=== PATIENT | male | born 1950 | race Caucasian/White ===

== ENCOUNTER 2021-01-19 16:31 | Emergency (ER) | payer MEDICARE, MEDICAID, SELFPAY ==
[2021-01-19] VITALS (8 sets, daily range): BP systolic 180–214; BP diastolic 65–86; PULSE 80–94; RESP 16–20; TEMP 36.9–37.2; O2SAT 94–97; BMI 34.0
--- NOTE | 2021-01-19 | ECG_ITS ---
Test Reason : CP Blood Pressure : / mmHG Vent. Rate : 086 BPM Atrial Rate : 086 BPM P-R Int : 168 ms QRS Dur : 076 ms QT Int : 332 ms P-R-T Axes : 054 035 040 degrees QTc Int : 397 ms Normal sinus rhythm Normal ECG When compared with ECG of 02-JUL-2019 17:57, Heart rate has decreased T wave amplitude has decreased in Lateral leads Referred By: Generic ED Physician Electronically Signed By:MADISYN MATTSON MD
[2021-01-19 18:23] LABS: MANUAL DIFF FLAG NO
[2021-01-19 18:39] LABS: Alanine Aminotransferase 11 U/L (0-40); Albumin Level 4.3 g/dL (3.5-5.0); Alkaline Phosphatase 135 U/L (39-117); Anion Gap 13 (12-20); Aspartate Amino Transferase 18 U/L (5-37); Bilirubin Total 0.2 mg/dL (0.0-1.0); Blood Urea Nitrogen 41 mg/dL (9-16); Calcium 9.2 mg/dL (8.4-10.2); Carbon Dioxide 27 mmol/L (22-29); Chloride 101 mmol/L (96-108); Creatinine Clr Calc Pharmacy 34.9; Estimated Glomerular Filt Rate 37; Glucose Random 135 mg/dL (60-115); Potassium 5.8 mmol/L (3.3-5.1); Sodium 135 mmol/L (135-145); Total Protein 7.9 g/dL (6.5-8.0)
[2021-01-19 18:42] LABS: Basophils Absolute Auto 0.1 X10*3/uL (0.0-0.2); Basophils Percent Auto 1.1 % (0-2); Eosinophils Absolute Auto 1.6 X10*3/uL (0.0-0.4); Eosinophils Percent Auto 15.2 % (0-4); Hematocrit 32.7 % (42.0-52.0); Hemoglobin 9.8 g/dl (14.0-18.0); Imm Gran Abs Auto 0.05 X10*3/uL (0.00-0.03); Imm Gran Pct Auto 0.5 % (0.0-0.4); Lymphocytes Absolute Auto 1.8 X10*3/uL (1.2-4.9); Lymphocytes Percent Auto 17.5 % (20-40); Mean Corpuscular Volume 76.8 fL (80.0-98.0); Mean Platelet Volume 10.4 fL (9.4-12.4); Monocytes Absolute Auto 1.1 X10*3/uL (0.1-1.2); Monocytes Percent Auto 10.8 % (2-11); Neutrophils Absolute Auto 5.8 x10*3/uL (2.0-8.3); Neutrophils Percent Auto 54.9 % (45-73); Platelet Count 355 X10*3/uL (160-400); Red Blood Count 4.26 X10*6/uL (4.60-5.80); Red Cell Distribution Width 16.9 % (11.0-16.0); White Blood Count 10.5 X10*3/uL (4.8-10.8)
--- NOTE | 2021-01-19 21:28 | ED_ITS ---
HPI - General Adult General Chief complaint: General Medical Stated complaint: potassium 6.4 Time Seen by Provider: 01/19/21 21:27 Source: patient Mode of arrival: ambulatory Limitations: no limitations History of Present Illness HPI narrative: Patient was sent in from his clinic for his potassium being too high. The patient has no other symptoms Onset (ago): unknown Associated symptoms: denies other symptoms Related Data Allergies Allergy/AdvReac Type Severity Reaction Status Date / Time ibuprofen Allergy Unknown acute Verified 01/19/21 17:59 renal failure No Known Allergies Allergy Verified 01/19/21 17:59 [No Known Allergies*] Review of Systems Constitutional: Constitutional: Reports no additional constitutional complaints Eyes: Eyes: Reports no additional eye complaints ENT: Denies dizziness Cardiovascular: Cardiovascular: Reports no additional cardiovascular complaints Respiratory: Respiratory: Reports as per HPI Gastrointestinal: Gastrointestinal: Reports no additional gastrointestinal complaints Musculoskeletal: Musculoskeletal: Reports no additional musculoskeletal complaints Integumentary/Breasts: Skin/Breast: Denies rash Neurologic: Reports system reviewed and no additional complaints, except as documented, Denies dizziness and Denies Sensory deficit (Neuro) Psychiatric: Psychiatric: Denies anxiety [facility] Social History Social History Advance Directives: No Physical Exam Vital Signs: Vital Signs: Last Vital Signs Temp 98.5 F 01/19/21 20:12 Pulse 88 01/20/21 00:55 Resp 17 01/20/21 00:55 BP 172/66 H 01/20/21 00:55 Pulse Ox 95 01/20/21 00:55 Body Mass Index 34.0 Const: General: healthy appearing Nutritional Appearance: average body habitus Orientation/consciousness: oriented to person and patient oriented x3 Limitations: no limitations HENMT: Head: Yes normal to inspection Ears: external ears normal General nose exam: Normal external nose present Mouth: Normal oral and palatal mucosa present and oropharynx normal Throat: Yes posterior oropharynx normal Eyes: General: appearance normal, both eyes and all related structures Neck: Other: supple Neck: Yes normal visual inspection Chest: Chest palpation & inspection: normal inspection of the chest Resp: Auscultation: clear to auscultation bilaterally Cardio: Jugular venous distension: no JVD Rate: regular rate Rhythm: regular rhythm Heart sounds: S1 normal heart sound present and S2 normal heart sound present GI: Inspection: Yes normal to inspection Palpation (GI): Soft to palpation, nontender and No hepatosplenomegaly present Auscultation: normal bowel sounds : General: Yes no CVA tenderness Back/Spine/Pelvis: Back: no CVA tenderness Skin: General skin exam: no rashes or lesions noted Neuro: General: oriented to person and patient oriented x3 Cranial nerves: Yes CN's II-XII intact bilaterally Motor exam (neuro): 5/5 motor strength present throughout Sensory Exam: No Sensory deficit (Neuro) Extrem: General: Yes normal to inspection Psych: Appearance: grossly normal Course Reevaluation(s) Reevaluation #1: repeat EKG shows no peaked twaves. Potassium down to 4.5. will stop lisinopril and dc home Time: 01:29 Medical Decision Making Lab Data Result diagrams: 01/19/21 18:17 01/20/21 00:22 Labs: Lab Results 01/19/21 01/19/21 01/19/21 Range/Units 18:17 18:17 21:55 WBC 10.5 (4.8-10.8) X10*3/uL RBC 4.26 L (4.60-5.80) X10*6/uL Hgb 9.8 L (14.0-18.0) g/dl Hct 32.7 L (42.0-52.0) % MCV 76.8 L (80.0-98.0) fL MCH 23.0 L (27.0-33.0) pg MCHC 30.0 L (31.0-36.0) g/dl RDW 16.9 H (11.0-16.0) % Plt Count 355 (160-400) X10*3/uL MPV 10.4 (9.4-12.4) fL Immature Gran % (Auto) 0.5 H (0.0-0.4) % Neut % (Auto) 54.9 (45-73) % Lymph % (Auto) 17.5 L (20-40) % Humphre[place] % (Auto) 10.8 (2-11) % Eos % (Auto) 15.2 H (0-4) % Baso % (Auto) 1.1 (0-2) % Lymph # (Auto) 1.8 (1.2-4.9) X10*3/uL [place] # (Auto) 1.1 (0.1-1.2) X10*3/uL Eos # (Auto) 1.6 H (0.0-0.4) X10*3/uL Baso # (Auto) 0.1 (0.0-0.2) X10*3/uL Abs Immat Gran (auto) 0.05 H (0.00-0.03) X10*3/uL Absolute Neuts (auto) 5.8 (2.0-8.3) x10*3/uL Absolute Nucleated RBC 0.000 (0.0-0.012) X10*3/uL Nucleated RBC % (auto) 0.0 (0.0-0.2) /100WBC Sodium 135 (135-145) mmol/L Potassium 5.8 H (3.3-5.1) mmol/L Chloride 101 (96-108) mmol/L Carbon Dioxide 27 (22-29) mmol/L Anion Gap 13 (12-20) BUN 41 H (9-16) mg/dL Creatinine 1.83 H (0.5-1.4) mg/dL Estim Creat Clear Calc 34.9 Estimated GFR 37 POC Glucose 97 (60-115) mg/dL Random Glucose 135 H (60-115) mg/dL Calcium 9.2 (8.4-10.2) mg/dL Total Bilirubin 0.2 (0.0-1.0) mg/dL AST 18 (5-37) U/L ALT 11 (0-40) U/L Alkaline Phosphatase 135 H (39-117) U/L Total Protein 7.9 (6.5-8.0) g/dL Albumin 4.3 (3.5-5.0) g/dL 01/19/21 01/20/21 Range/Units 22:22 00:22 WBC (4.8-10.8) X10*3/uL RBC (4.60-5.80) X10*6/uL Hgb (14.0-18.0) g/dl Hct (42.0-52.0) % MCV (80.0-98.0) fL MCH (27.0-33.0) pg MCHC (31.0-36.0) g/dl RDW (11.0-16.0) % Plt Count (160-400) X10*3/uL MPV (9.4-12.4) fL Immature Gran % (Auto) (0.0-0.4) % Neut % (Auto) (45-73) % Lymph % (Auto) (20-40) % Humphreys % (Auto) (2-11) % Eos % (Auto) (0-4) % Baso % (Auto) (0-2) % Lymph # (Auto) (1.2-4.9) X10*3/uL Humph[place]ys # (Auto) (0.1-1.2) X10*3/uL Eos # (Auto) (0.0-0.4) X10*3/uL Baso # (Auto) (0.0-0.2) X10*3/uL Abs Immat Gran (auto) (0.00-0.03) X10*3/uL Absolute Neuts (auto) (2.0-8.3) x10*3/uL Absolute Nucleated RBC (0.0-0.012) X10*3/uL Nucleated RBC % (auto) (0.0-0.2) /100WBC Sodium 141 (135-145) mmol/L Potassium 4.5 D (3.3-5.1) mmol/L Chloride 109 H (96-108) mmol/L Carbon Dioxide 23 (22-29) mmol/L Anion Gap 14 (12-20) BUN 34 H (9-16) mg/dL Creatinine 1.54 H (0.5-1.4) mg/dL Estim Creat Clear Calc 41.5 Estimated GFR 45 POC Glucose 169 H (60-115) mg/dL Random Glucose 142 H (60-115) mg/dL Calcium 9.8 D (8.4-10.2) mg/dL Total Bilirubin (0.0-1.0) mg/dL AST (5-37) U/L ALT (0-40) U/L Alkaline Phosphatase (39-117) U/L Total Protein (6.5-8.0) g/dL Albumin (3.5-5.0) g/dL ECG Data Attestation: I personally reviewed and interpreted this ECG as follows: Interpretation: sinus rate of 85, slight hyperacute ts V3-V6 Discharge Plan Discharge Clinical Impression: Acute hyperkalemia Patient Disposition: Home, Self-Care Instructions: Hyperkalemia (ED) Additional Instructions: Must stop lisinopril as potassium has been running high Referrals: Shana Morales MD [Primary Care Provider] - 2 days
[2021-01-19] MEDS: Sodium Polystyrene Sulfon/Sorb 15 GM/60 ML ORAL.SUSP 30 GM PO (21:42)
[2021-01-19] MEDS: 0.9 % Sodium Chloride 1,000 ML 999 ML IVCONT ×2 (21:47→22:56)
[2021-01-19] MEDS: Sodium Bicarbonate 8.4% 50 MEQ/50 ML SYRINGE IVPUSH (21:53)
[2021-01-19] MEDS: Calcium Chloride 1 GM/10 ML SYRINGE IVPUSH (21:57)
[2021-01-19] MEDS: Insulin Regular, Human 100 UNIT/ML 3 ML VIAL 10 UNIT IVPUSH (22:03)
[2021-01-19 22:26] LABS: Glucose, Whole Blood 169 mg/dL (60-115)
--- NOTE | 2021-01-19 22:35 | PC.NURSE ---
Pt alert and oriented x4, calm and cooperative. Pt BP noted to be elevated, not able to find MD at this time, looked multiple times. Pt states he did not take his BP meds this morning, RN awaiting new orders for blood pressure medication at this time. Pt denies headache or dizziness. Pt denies pain. Pt received multiple IV medications to lower K level and tolerated meds well. POC prior to meds was 97 taken by RN, POC after meds was 169 taken by eneida and RN aware. Pt remains on tele monitor, heart rate WNL O2 sat WNL on room air. Pt resting in stretcher without complaints will continue to monitor.
[2021-01-19] MEDS: amLODIPine Besylate 10 MG TABLET PO (22:44)
[2021-01-19] MEDS: carvediloL 6.25 MG TABLET PO (22:44)
[2021-01-19 22:50] LABS: Glucose, Whole Blood 97 mg/dL (60-115)
--- NOTE | 2021-01-20 00:08 | ECG_ITS ---
Test Reason : HYPERTENSION Blood Pressure : / mmHG Vent. Rate : 091 BPM Atrial Rate : 091 BPM P-R Int : 178 ms QRS Dur : 070 ms QT Int : 320 ms P-R-T Axes : 050 043 023 degrees QTc Int : 393 ms Sinus rhythm with Premature atrial complexes with Aberrant conduction Nonspecific ST abnormality Abnormal ECG When compared with ECG of 19-JAN-2021 18:09, Aberrant conduction is now Present Referred By: Gerry Farah Electronically Signed By:MADISYN MATTSON MD
[2021-01-20 00:18] VITALS: BP 196/75; PULSE 85; RESP 16; O2SAT 97
[2021-01-20 00:47] LABS: Anion Gap 14 (12-20); Blood Urea Nitrogen 34 mg/dL (9-16); Calcium 9.8 mg/dL (8.4-10.2); Carbon Dioxide 23 mmol/L (22-29); Chloride 109 mmol/L (96-108); Creatinine Clr Calc Pharmacy 41.5; Estimated Glomerular Filt Rate 45; Glucose Random 142 mg/dL (60-115); Potassium 4.5 mmol/L (3.3-5.1); Sodium 141 mmol/L (135-145)
[2021-01-20 00:55] VITALS: BP 172/66; PULSE 88; RESP 17; O2SAT 95
[2021-01-20 01:45] VITALS: BP 174/80; PULSE 85; RESP 16; TEMP 37; O2SAT 96
== END 2021-01-20 01:53 | disposition home or self-care (01) ==
PROVIDERS: Emergency Provider Emergency Medicine; PCP Internal Medicine
DX: E87.5 Hyperkalemia (principal)
CPT/HCPCS: 36415; 80048; 80053; 82947; 85025; 93005; 96361; 96374; 96375; 99285

== ENCOUNTER 2022-01-09 08:47 | Inpatient (IN) | payer MEDICARE, MEDICAID, SELFPAY ==
[2022-01-09] VITALS (8 sets, daily range): BP systolic 148–172; BP diastolic 53–72; PULSE 56–85; RESP 8–20; TEMP 36.5–36.9; O2SAT 89–97; BMI 35.3
--- NOTE | 2022-01-09 | ECG_ITS ---
Test Reason : DIABETIC ISSUES Blood Pressure : / mmHG Vent. Rate : 069 BPM Atrial Rate : 069 BPM P-R Int : 170 ms QRS Dur : 072 ms QT Int : 354 ms P-R-T Axes : 072 038 043 degrees QTc Int : 379 ms Normal sinus rhythm Normal ECG When compared with ECG of 20-JAN-2021 00:17, Aberrant conduction is no longer Present Referred By: Generic ED Physician Electronically Signed By:MADISYN MATTSON MD
--- NOTE | ~2022-01-09 | XR_ITS ---
EXAMINATION: XR CHEST CLINICAL INFORMATION: Shortness of breath COMPARISON: Chest x-ray 07/02/2019 TECHNIQUE: 2 views of the chest were obtained. FINDINGS: Cardiac silhouette is normal in size. The lungs are adequately aerated. Some patchy bilateral airspace opacities are again noted, however, they are in a similar distribution to imaging from June 2019. There is no gross lobar consolidation identified. No pleural effusion or pneumothorax. Mild degenerative changes of the spine. XR/XR chest 2V IMPRESSION: Relatively similar distribution of patchy bilateral airspace opacities. Findings may represent chronic changes, however, a superimposed acute process is not excluded. Clinical correlation is recommended. Further evaluation can always be obtained with CT imaging as clinically indicated.
--- NOTE | ~2022-01-09 | CT_ITS ---
EXAMINATION: CT ABDOMEN AND PELVIS WITHOUT CONTRAST CLINICAL INFORMATION: Bright red blood per rectum. History of IV drug use. Rule out mass. COMPARISON: Previous renal ultrasound February 2018 TECHNIQUE: Multidetector volumetric imaging was performed from the superior aspect of the liver through the pubic symphysis. Sagittal and coronal reformatted images were obtained on the technologist's workstation. This CT examination was performed using dose optimization techniques as appropriate, variously including the following: *Automated exposure control *Adjustment of mA and/or kV according to patient size (this includes techniques or standardized protocols for targeted exams where dose is matched to indication/reason for exam; i.e. extremities or head) *Use of iterative reconstruction technique DLP: 704 mGy-cm FINDINGS: LUNG BASES: The heart is enlarged. There is subsegmental atelectasis at the left lung base. There is a small left pleural effusion. There is a tiny right pleural effusion. LIVER, GALLBLADDER, AND BILIARY TREE: The liver is normal in size, shape, and attenuation. No focal hepatic lesion or biliary ductal dilatation is present. The gallbladder is unremarkable with no evidence of radiopaque gallstones, gallbladder wall thickening, or obvious pericholecystic inflammatory changes. PANCREAS: Unremarkable. SPLEEN: Unremarkable. ADRENAL GLANDS: Unremarkable. KIDNEYS AND URETERS: 1 cm low-attenuation lesion in the lower pole of the left kidney probably representing a cyst. 5 mm high attenuation lesion in the upper pole of the left kidney question representing calcification/stone or a small stone. 5 mm high attenuation lesion exophytic to the posterior upper pole the right kidney probably representing a hyperdense cyst. BLADDER: Unremarkable. GASTROINTESTINAL TRACT: Mild diverticulosis of the colon. No evidence of diverticulitis, colitis or mass. The small and large bowel are otherwise unremarkable. The appendix is unremarkable. ABDOMINAL WALL: Small umbilical hernia containing fat. LYMPH NODES: Shotty bilateral inguinal and retroperitoneal lymphadenopathy. No enlarged lymph nodes. No ascites. VASCULAR: Atherosclerotic disease. No aneurysm. PELVIC VISCERA: Unremarkable. OSSEOUS STRUCTURES: Degenerative changes of the spine. CT/CT abdomen pelvis wo IV con IMPRESSION: Diverticulosis of the colon. No evidence of diverticulitis, colitis or mass. Bilateral renal cysts. Question small stone in the upper pole of the left kidney. Fleischner guidelines were followed.
[2022-01-09 09:25] LABS: MANUAL DIFF FLAG NO
[2022-01-09 09:37] LABS: Basophils Absolute Auto 0.1 X10*3/uL (0.0-0.2); Basophils Percent Auto 0.5 % (0-2); Eosinophils Absolute Auto 1.5 X10*3/uL (0.0-0.4); Eosinophils Percent Auto 13.7 % (0-4); Hematocrit 23.3 % (42.0-52.0); Imm Gran Abs Auto 0.04 X10*3/uL (0.00-0.03); Imm Gran Pct Auto 0.4 % (0.0-0.4); Lymphocytes Absolute Auto 0.9 X10*3/uL (1.2-4.9); Lymphocytes Percent Auto 8.8 % (20-40); Mean Corpuscular HGB Conc 26.6 g/dl (31.0-36.0); Mean Platelet Volume 8.8 fL (9.4-12.4); Monocytes Absolute Auto 1.4 X10*3/uL (0.1-1.2); Monocytes Percent Auto 12.7 % (2-11); Neutrophils Absolute Auto 6.8 x10*3/uL (2.0-8.3); Neutrophils Percent Auto 63.9 % (45-73); Platelet Count 492 X10*3/uL (160-400); Red Blood Count 3.65 X10*6/uL (4.60-5.80); Red Cell Distribution Width 21.1 % (11.0-16.0); White Blood Count 10.7 X10*3/uL (4.8-10.8)
[2022-01-09 09:39] LABS: Mean Corpuscular Volume 63.8 fL (80.0-98.0); NRBC Pct Auto 1.7 /100WBC (0.0-0.2)
[2022-01-09 09:49] LABS: Anion Gap 17 (12-20); Blood Urea Nitrogen 54 mg/dL (9-16); Calcium 8.4 mg/dL (8.4-10.2); Carbon Dioxide 26 mmol/L (22-29); Chloride 100 mmol/L (96-108); Creatinine Clr Calc Pharmacy 29.6; Estimated Glomerular Filt Rate 30; Glucose Random 141 mg/dL (60-115); Potassium 5.7 mmol/L (3.3-5.1); Sodium 137 mmol/L (135-145)
[2022-01-09 09:52] LABS: Troponin-I High Sensitivity 12.9 ng/L (<3.5-35.0)
[2022-01-09 09:58] LABS: B Type Natriuretic Peptide 967 pg/mL (<100)
[2022-01-09 11:13] LABS: MANUAL DIFF FLAG NO
[2022-01-09 11:15] LABS: Basophils Absolute Auto 0.1 X10*3/uL (0.0-0.2); Basophils Percent Auto 0.5 % (0-2); Eosinophils Absolute Auto 1.6 X10*3/uL (0.0-0.4); Eosinophils Percent Auto 12.8 % (0-4); Imm Gran Abs Auto 0.06 X10*3/uL (0.00-0.03); Imm Gran Pct Auto 0.5 % (0.0-0.4); Lymphocytes Absolute Auto 0.9 X10*3/uL (1.2-4.9); Lymphocytes Percent Auto 7.4 % (20-40); Mean Corpuscular HGB Conc 27.4 g/dl (31.0-36.0); Mean Corpuscular Hemoglobin 17.4 pg (27.0-33.0); Mean Platelet Volume 8.4 fL (9.4-12.4); Monocytes Absolute Auto 1.5 X10*3/uL (0.1-1.2); Monocytes Percent Auto 11.5 % (2-11); Neutrophils Absolute Auto 8.5 x10*3/uL (2.0-8.3); Neutrophils Percent Auto 67.3 % (45-73); Platelet Count 465 X10*3/uL (160-400); Red Blood Count 3.62 X10*6/uL (4.60-5.80); White Blood Count 12.6 X10*3/uL (4.8-10.8)
[2022-01-09 11:16] LABS: OBS Int Ctl Valid YES; OBS1 NEGATIVE (NEGATIVE)
[2022-01-09 11:19] LABS: Mean Corpuscular Volume 63.5 fL (80.0-98.0); NRBC Pct Auto 1.2 /100WBC (0.0-0.2)
[2022-01-09 11:21] LABS: Hemoglobin 6.2 g/dl (14.0-18.0)
[2022-01-09 11:23] LABS: Hemoglobin 6.3 g/dl (14.0-18.0)
[2022-01-09 11:35] LABS: Troponin-I High Sensitivity 12.2 ng/L (<3.5-35.0)
[2022-01-09] MEDS: Furosemide 20 MG/2 ML VIAL IVPUSH ×2 (11:39→20:54)
--- NOTE | 2022-01-09 11:42 | ED_ITS ---
HPI - Male Genitourinary General Chief complaint: Urogenital-Male Stated complaint: Diabetic issues/testicle pain Time Seen by Provider: 01/09/22 10:22 History of Present Illness HPI Narrative: Patient is a 71-year-old male presented today with generalized malaise weakness. Scrotal swelling leg swelling that is been ongoing for the last few days. Patient has a long history of diabetes. No history of congestive heart failure. Patient from home. Denies noticing any dark stool. No bloody stool. No coughing or congestion or upper respiratory symptoms. Patient is vaccinated for COVID. No chest pain. Related Data Allergies Allergy/AdvReac Type Severity Reaction Status Date / Time ibuprofen Allergy Unknown acute Verified 01/19/21 17:59 renal failure No Known Allergies Allergy Verified 01/19/21 17:59 [No Known Allergies*] Review of Systems Review of Systems: Positive leg and scrotal swelling positive generalized malaise Yes all other systems are reviewed and are negative [facility] Past Medical History Attestation statement: The following information was validated with the patient. Social History Social History Advance Directives: No Advance Directives Information Provided: Yes Physical Exam Vital Signs: Vital Signs: Last Vital Signs Temp 98.5 F 01/09/22 10:26 Pulse 67 01/09/22 10:26 Resp 16 01/09/22 10:26 BP 172/65 H 01/09/22 10:26 Pulse Ox 97 01/09/22 10:26 O2 Del Method 01/09/22 10:26 O2 Flow Rate 2 01/09/22 10:26 BMI result Body Mass Index 35.3 Appearance: Alert. Oriented X3. No acute distress. Eyes: Pupils equal, round and reactive to light. ENT: Pharynx normal. Neck: Normal inspection. Neck supple. No lymph nodes noted. No crepitus CVS: Normal heart rate and rhythm. Pulses normal. Normal S1 and S2 Respiratory: No respiratory distress. Breath sounds normal. No Wheezing. No rales Abdomen: Soft and nontender. No rigidity. No distention. good BS x4 Rectal exam done with nurse Magaly present. It was brown stool. Heme negative. Skin: Skin warm and dry. Normal skin color. Normal skin turgor. Extremities: 3+ pitting edema positive scrotal swelling noted. Neurovascular intact to all extremities. No Lacerations. No Rash Neuro: Oriented X 3. No motor deficit. No sensory deficit. Moving all extermities. No slurred speech Medications Administered Discontinued Medications Generic Name Dose Route Start Last Admin Trade Name Kota PRN Reason Stop Dose Admin Furosemide 20 mg 01/09/22 11:34 01/09/22 11:39 Furosemide 20 Mg/2 Ml Vial IVPUSH 01/09/22 11:35 20 mg ONCE ONE Administration Protocol MDM - Male Genitourinary MDM Narrative Medical decision making narrative: Patient's hemoglobin returned to be 6.3. This is a new finding. Low MCV. Question etiology. Patient did not notice any bloody stool. Rectal exam was heme-negative. Iron profile was ordered. Patient also noted to have elevated BNP over 900 with no old BNP to compare. Bilateral leg edema. Question right- sided heart failure. Small dose of Lasix was given. Patient will require additional admission for further evaluation. Patient's blood was typed and crossed. We will go ahead and transfuse a unit of blood very slowly. Currently in stable condition. Patient's EKG showed a sinus rhythm heart rate is 70 GA QRS QT within normal limits is no acute ST segment elevation noted. Medical Records Attestation: I reviewed the patient's medical records. Lab Data Attestation: I reviewed the patient's lab results. Result diagrams: 01/09/22 11:06 01/09/22 09:15 Labs: Lab Results 01/09/22 01/09/22 01/09/22 Range/Units 09:15 09:15 09:15 WBC 10.7 (4.8-10.8) X10*3/uL RBC 3.65 L (4.60-5.80) X10*6/uL Hgb 6.2 L* D (14.0-18.0) g/dl Hct 23.3 L D (42.0-52.0) % MCV 63.8 L (80.0-98.0) fL MCH 17.0 L (27.0-33.0) pg MCHC 26.6 L (31.0-36.0) g/dl RDW 21.1 H (11.0-16.0) % Plt Count 492 H D (160-400) X10*3/uL MPV 8.8 L (9.4-12.4) fL Immature Gran % (Auto) 0.4 (0.0-0.4) % Neut % (Auto) 63.9 (45-73) % Lymph % (Auto) 8.8 L (20-40) % [place] % (Auto) 12.7 H (2-11) % Eos % (Auto) 13.7 H (0-4) % Baso % (Auto) 0.5 (0-2) % Lymph # (Auto) 0.9 L (1.2-4.9) X10*3/uL [place] # (Auto) 1.4 H (0.1-1.2) X10*3/uL Eos # (Auto) 1.5 H (0.0-0.4) X10*3/uL Baso # (Auto) 0.1 (0.0-0.2) X10*3/uL Abs Immat Gran (auto) 0.04 H (0.00-0.03) X10*3/uL Absolute Neuts (auto) 6.8 (2.0-8.3) x10*3/uL Absolute Nucleated RBC 0.180 H (0.0-0.012) X10*3/uL Nucleated RBC % (auto) 1.7 H (0.0-0.2) /100WBC Sodium 137 (135-145) mmol/L Potassium 5.7 H D (3.3-5.1) mmol/L Chloride 100 (96-108) mmol/L Carbon Dioxide 26 (22-29) mmol/L Anion Gap 17 (12-20) BUN 54 H (9-16) mg/dL Creatinine 2.17 H (0.5-1.4) mg/dL Estim Creat Clear Calc 29.6 Estimated GFR 30 Random Glucose 141 H (60-115) mg/dL Calcium 8.4 D (8.4-10.2) mg/dL Troponin I High Sens 12.9 (<3.5-35.0) ng/L B-Natriuretic Peptide 967 H (<100) pg/mL Stool Occult Blood (NEGATIVE) Crossmatch 01/09/22 01/09/22 01/09/22 Range/Units 11:06 11:06 11:07 WBC 12.6 H (4.8-10.8) X10*3/uL RBC 3.62 L (4.60-5.80) X10*6/uL Hgb 6.3 L* (14.0-18.0) g/dl Hct 23.0 L (42.0-52.0) % MCV 63.5 L (80.0-98.0) fL MCH 17.4 L (27.0-33.0) pg MCHC 27.4 L (31.0-36.0) g/dl RDW 21.0 H (11.0-16.0) % Plt Count 465 H (160-400) X10*3/uL MPV 8.4 L (9.4-12.4) fL Immature Gran % (Auto) 0.5 H (0.0-0.4) % Neut % (Auto) 67.3 (45-73) % Lymph % (Auto) 7.4 L (20-40) % [place] % (Auto) 11.5 H (2-11) % Eos % (Auto) 12.8 H (0-4) % Baso % (Auto) 0.5 (0-2) % Lymph # (Auto) 0.9 L (1.2-4.9) X10*3/uL [place] # (Auto) 1.5 H (0.1-1.2) X10*3/uL Eos # (Auto) 1.6 H (0.0-0.4) X10*3/uL Baso # (Auto) 0.1 (0.0-0.2) X10*3/uL Abs Immat Gran (auto) 0.06 H (0.00-0.03) X10*3/uL Absolute Neuts (auto) 8.5 H (2.0-8.3) x10*3/uL Absolute Nucleated RBC 0.150 H (0.0-0.012) X10*3/uL Nucleated RBC % (auto) 1.2 H (0.0-0.2) /100WBC Sodium (135-145) mmol/L Potassium (3.3-5.1) mmol/L Chloride (96-108) mmol/L Carbon Dioxide (22-29) mmol/L Anion Gap (12-20) BUN (9-16) mg/dL Creatinine (0.5-1.4) mg/dL Estim Creat Clear Calc Estimated GFR Random Glucose (60-115) mg/dL Calcium (8.4-10.2) mg/dL Troponin I High Sens 12.2 (<3.5-35.0) ng/L B-Natriuretic Peptide (<100) pg/mL Stool Occult Blood NEGATIVE (NEGATIVE) Crossmatch 01/09/22 Range/Units 11:13 WBC (4.8-10.8) X10*3/uL RBC (4.60-5.80) X10*6/uL Hgb (14.0-18.0) g/dl Hct (42.0-52.0) % MCV (80.0-98.0) fL MCH (27.0-33.0) pg MCHC (31.0-36.0) g/dl RDW (11.0-16.0) % Plt Count (160-400) X10*3/uL MPV (9.4-12.4) fL Immature Gran % (Auto) (0.0-0.4) % Neut % (Auto) (45-73) % Lymph % (Auto) (20-40) % [place] % (Auto) (2-11) % Eos % (Auto) (0-4) % Baso % (Auto) (0-2) % Lymph # (Auto) (1.2-4.9) X10*3/uL [place] # (Auto) (0.1-1.2) X10*3/uL Eos # (Auto) (0.0-0.4) X10*3/uL Baso # (Auto) (0.0-0.2) X10*3/uL Abs Immat Gran (auto) (0.00-0.03) X10*3/uL Absolute Neuts (auto) (2.0-8.3) x10*3/uL Absolute Nucleated RBC (0.0-0.012) X10*3/uL Nucleated RBC % (auto) (0.0-0.2) /100WBC Sodium (135-145) mmol/L Potassium (3.3-5.1) mmol/L Chloride (96-108) mmol/L Carbon Dioxide (22-29) mmol/L Anion Gap (12-20) BUN (9-16) mg/dL Creatinine (0.5-1.4) mg/dL Estim Creat Clear Calc Estimated GFR Random Glucose (60-115) mg/dL Calcium (8.4-10.2) mg/dL Troponin I High Sens (<3.5-35.0) ng/L B-Natriuretic Peptide (<100) pg/mL Stool Occult Blood (NEGATIVE) Crossmatch See Detail ECG Data Attestation: I personally reviewed and interpreted this ECG as follows: Discharge Plan Discharge Clinical Impression: Anemia, CHF (congestive heart failure) Patient Disposition: Admitted As Inpatient
[2022-01-09 11:46] LABS: Alanine Aminotransferase 104 U/L (0-40); Albumin Level 3.9 g/dL (3.5-5.0); Alkaline Phosphatase 94 U/L (39-117); Aspartate Amino Transferase 25 U/L (5-37); Bilirubin Direct 0.2 mg/dL (0.0-0.5); Bilirubin Total 0.3 mg/dL (0.0-1.0); Total Protein 7.1 g/dL (6.5-8.0)
[2022-01-09 11:57] LABS: COVID-19 Test Negative (Negative); IDNOW Serial# 16C4AD1C
--- NOTE | 2022-01-09 12:54 | PHA.MEDREC ---
Pharmacy Consult ? Medication Reconciliation Pharmacy has completed the medication reconciliation. Completed using family helper. Patient states he doesn't know what medications he is on but takes what the pharmacy gives him. He says there isn't anyone who would know other than the pharmacy. Used most recent pharmacy fills to complete med rec.
[2022-01-09 12:59] LABS: Ferritin 6 ng/mL (20-250); Iron 13 mcg/dL (45-160); Percent Iron Saturation 3 % (15-50); Total Iron Binding Capacity 419 mcg/dL (228-428); Unsaturated Iron Binding 406 ug/dL
[2022-01-09 15:00] LABS: Appearance Urine Clear; Color Urine Yellow; Glucose Urine UA Negative (Negative); Leukocyte Esterase Urine Negative (Negative); Nitrite Urine Negative (Negative); UMIC TRIGGER UACC YES; Urine Blood Negative (Negative); Urine Ketones Negative (Negative); Urine Protein 100 (2+) mg/dL (Neg-Trace)
[2022-01-09 15:09] LABS: Bacteria Urine None Seen (None Seen); Hyaline Casts Urine 0-2 /LPF (0-2); RBC Urine 0-2 /HPF (0-2); Squamous Epithelial Cell Urine 0-2 /HPF (0-2); WBC Urine 0-5 /HPF (0-5)
[2022-01-09 15:12] LABS: Creatinine Urine 49.49 mg/dL
--- NOTE | 2022-01-09 15:28 | PM.IMHP ---
History of Present Illness Date of Service: 01/09/22 Attending physician on admission: Val Peter Chief Complaint: fluid overload 71-year-old male with history of cwu-jkahsku-vcjgkyjrw type 2 diabetes, CKD, mild intermittent asthma, opioid dependence on Suboxone, and hypertension presented to the ED earlier this morning for evaluation of several days of scrotal and bilateral leg edema. He denies any history of similar symptoms. He denies any shortness of breath, dyspnea exertion, orthopnea, palpitations, lightheadedness, or chest pain. He does also report some decreased urinary output but denies any dysuria, hematuria, increased urinary frequency, or incontinence. No fevers, chills, sick contacts, nausea, vomiting, abdominal pain, flank pain. On arrival, H/H 6.2/23.3%, last 9.8/30 2.7% in January 2021. He denies any recent bleeding episodes-no epistaxis, rectal bleeding, easy bruisability. He does take a baby aspirin daily but not on any anticoagulation. On repeat, H/H 6.3/20 3.0%. Creatinine 2.17, BUN 54 (/measured at 1.54, 34 respectively 1 year ago). He states he did use to follow with Dr. Nazario and Nephrology but has not seen him in many months. Potassium 5.7, sodium 137, chloride 100, CO2 26. Iron 13, TIBC 419 current saturation 3, ferritin 6. Troponins flat. BNP 967. Stool is heme negative. UA unremarkable. Urine sodium 36, urine potassium 57, urine creatinine 49. CXR shows patchy bilateral airspace opacities relatively similar to prior CXR in June 2019. No pleural effusions. 1 unit packed red cells administered with 20 mg furosemide. Patient was placed on 2 L supplemental O2 due to hypoxia down to 88% noted by nursing staff now stable at 96%. Vital signs have otherwise been stable. Review of Systems Review of Systems: General: No fevers, malaise, unintentional weight loss HEENT: No blurred vision, diplopia. No sore throat, nasal congestion, rhinorrhea, sinus pain, ear pain Cardiovascular: No chest pain, palpitations, +ble edema/scrotal edema Respiratory: No shortness of breath, wheezing, cough GI: No abdominal pain, nausea, vomiting, diarrhea, constipation, melena, hematochezia : No dysuria, hematuria, increased urinary frequency, decreased urinary output MSK: No myalgia, back pain Neuro: No headaches, weakness, paresthesias Skin: No rashes or lesions PMFSH Social History Advance Directives: No Advance Directives Information Provided: Yes Meds Allergies Allergy/AdvReac Type Severity Reaction Status Date / Time ibuprofen Allergy Unknown acute Verified 01/19/21 17:59 renal failure No Known Allergies Allergy Verified 01/19/21 17:59 [No Known Allergies*] Active Medications: Current Medications Acetaminophen (Acetaminophen 325 Mg Tablet) 650 mg PO Q6H PRN PRN Reason: Pain, Mild (Pain Scale 1-3) Amlodipine Besylate (Amlodipine Besylate 10 Mg Tablet) 10 mg PO DAILY FER; Protocol Buprenorphine/Naloxone (Buprenorphine/Naloxone 8/2 Mg Film) 1 film SUBLINGUAL DAILY FER Buprenorphine/Naloxone (Buprenorphine/Naloxone 4/1 Mg Film) 1 film SUBLINGUAL DAILY FER Carvedilol (Carvedilol 6.25 Mg Tablet) 6.25 mg PO BID FER; Protocol Dextrose (Dextrose 50 % 25 Gm/50 Ml Syringe) 25 gm IVPUSH Q15M PRN; Protocol PRN Reason: per Hypoglycemia Standing Ord. Docusate Sodium (Docusate Sodium 100 Mg Capsule) 100 mg PO DAILY PRN PRN Reason: Constipation Glucose (Glucose Gel 15 Gm Gel..Gram.) 15 gm PO Q15M PRN; Protocol PRN Reason: per Hypoglycemia Standing Ord. Heparin Sodium (Porcine) (Heparin Sodium,Porcine 5,000 Unit/Ml Vial) 5,000 unit SUBCUT Q12H [facility] Hydralazine HCl (Hydralazine Hcl 25 Mg Tablet) 25 mg PO TID [facility]; Protocol Insulin Human Lispro (Insulin Lispro 100 Unit/Ml 3 Ml Vial) 0 unit SUBCUT QIDACHS FER; Protocol Ondansetron HCl (Ondansetron Hcl 4 Mg/2 Ml Vial) 4 mg IVPUSH Q8H PRN PRN Reason: Nausea and Vomiting Pharmacy Consult (Consult Rx Perform Med Rec) 1 each MISCELLANE ONCE PRN PRN Reason: Consult order Pharmacy Consult (Consult Rx Perform Med Rec) 1 each MISCELLANE ONCE PRN PRN Reason: Consult order Sodium Chloride (0.9 % Sodium Chloride Flush 3 Ml Syringe) 3 ml IVFLUSH QSHIFT [facility] Home Medications Medication Instructions Recorded Confirmed Last Taken Type albuterol sulfate 2.5 mg/3 mL 1 amp inhalation TID 01/09/22 01/09/22 Unknown History (0.083 %) solution for nebulization albuterol sulfate 90 mcg/actuation 2 puff inhalation Q4-6H PRN 01/09/22 01/09/22 Unknown History aerosol inhaler (Ventolin HFA) Shortness Of Breath Or Wheezing amlodipine 10 mg tablet 10 mg PO DAILY 01/09/22 01/09/22 01/08/22 History aspirin 81 mg tablet,delayed 81 mg PO DAILY 01/09/22 01/09/22 01/08/22 History release buprenorphine 8 mg-naloxone 2 mg 1.5 strip sublingual DAILY 01/09/22 01/09/22 01/08/22 History sublingual film carvedilol 6.25 mg tablet 6.25 mg PO BID 01/09/22 01/09/22 01/09/22 History hydralazine 25 mg tablet 25 mg PO Q8H 01/09/22 01/09/22 Unknown History Physical Exam Vital Signs and Narrative: Vital Signs: Last Vital Signs Temp 97.8 F 01/09/22 14:31 Pulse 56 01/09/22 14:31 Resp 13 01/09/22 14:31 BP 165/64 H 01/09/22 14:31 Pulse Ox 97 01/09/22 10:26 O2 Del Method 01/09/22 10:26 O2 Flow Rate 2 01/09/22 10:26 BMI result Body Mass Index 35.3 Constitutional - Awake and Alert, No apparent distress Eyes - PERRLA, EOMI Cardiovascular - S1S2, RRR, 3+ pitting edema BLE Respiratory - Normal lung expansion, Normal respiratory effort, No respiratory distress, CTA bilaterally Gastrointestinal - NT / ND; +BS; No rebound or guarding - No CVA tenderness. +scrotal and penile edmea Extremities - no calf tenderness bilaterally, no swelling Musculoskeletal - Normal inspection, normal ROM Skin - Warm/Dry Neurological - Alert & oriented x3, CN II-XII in tact, 5/5 strength BUE and BLE Psychological - Appropriate affect Results Labs CBC and Chem 7: 01/09/22 11:06 01/09/22 15:08 Labs: Laboratory Results - last 24 hr 01/09/22 01/09/22 01/09/22 09:15 09:15 09:15 MCV 63.8 L MCH 17.0 L MCHC 26.6 L RDW 21.1 H Plt Count 492 H D MPV 8.8 L Immature Gran % (Auto) 0.4 Neut % (Auto) 63.9 Lymph % (Auto) 8.8 L Hughes % (Auto) 12.7 H Eos % (Auto) 13.7 H Baso % (Auto) 0.5 Lymph # (Auto) 0.9 L Hughes # (Auto) 1.4 H Eos # (Auto) 1.5 H Baso # (Auto) 0.1 Abs Immat Gran (auto) 0.04 H Absolute Neuts (auto) 6.8 Absolute Nucleated RBC 0.180 H Nucleated RBC % (auto) 1.7 H Anion Gap 17 Estim Creat Clear Calc 29.6 Estimated GFR 30 Random Glucose 141 H Calcium 8.4 D Iron 13 L TIBC 419 % Saturation 3 L Unsat Iron Binding 406 Ferritin 6 L Total Bilirubin 0.3 Direct Bilirubin 0.2 AST 25 ALT 104 H Alkaline Phosphatase 94 D Troponin I High Sens 12.9 B-Natriuretic Peptide 967 H Total Protein 7.1 Albumin 3.9 Urine Color Urine Appearance Urine pH Ur Specific [place] Urine Protein Urine Glucose (UA) Urine Ketones Urine Blood Urine Nitrite Ur Leukocyte Esterase Urine RBC Urine WBC Ur Squamous Epith Cells Urine Bacteria Hyaline Casts Ur Random Sodium Ur Random Potassium Urine Creatinine Stool Occult Blood COVID-19 ([facility]) COVID-19 Clin Com Blood Type Antibody Screen Crossmatch 01/09/22 01/09/22 01/09/22 11:06 11:06 11:07 MCV 63.5 L MCH 17.4 L MCHC 27.4 L RDW 21.0 H Plt Count 465 H MPV 8.4 L Immature Gran % (Auto) 0.5 H Neut % (Auto) 67.3 Lymph % (Auto) 7.4 L Hughes % (Auto) 11.5 H Eos % (Auto) 12.8 H Baso % (Auto) 0.5 Lymph # (Auto) 0.9 L Hughes # (Auto) 1.5 H Eos # (Auto) 1.6 H Baso # (Auto) 0.1 Abs Immat Gran (auto) 0.06 H Absolute Neuts (auto) 8.5 H Absolute Nucleated RBC 0.150 H Nucleated RBC % (auto) 1.2 H Anion Gap Estim Creat Clear Calc Estimated GFR Random Glucose Calcium Iron TIBC % Saturation Unsat Iron Binding Ferritin Total Bilirubin Direct Bilirubin AST ALT Alkaline Phosphatase Troponin I High Sens 12.2 B-Natriuretic Peptide Total Protein Albumin Urine Color Urine Appearance Urine pH Ur Specific [place] Urine Protein Urine Glucose (UA) Urine Ketones Urine Blood Urine Nitrite Ur Leukocyte Esterase Urine RBC Urine WBC Ur Squamous Epith Cells Urine Bacteria Hyaline Casts Ur Random Sodium Ur Random Potassium Urine Creatinine Stool Occult Blood NEGATIVE COVID-19 ([facility]) COVID-19 Clin Com Blood Type Antibody Screen Crossmatch 01/09/22 01/09/22 01/09/22 11:13 11:17 14:51 MCV MCH MCHC RDW Plt Count MPV Immature Gran % (Auto) Neut % (Auto) Lymph % (Auto) Hughes % (Auto) Eos % (Auto) Baso % (Auto) Lymph # (Auto) Hughes # (Auto) Eos # (Auto) Baso # (Auto) Abs Immat Gran (auto) Absolute Neuts (auto) Absolute Nucleated RBC Nucleated RBC % (auto) Anion Gap Estim Creat Clear Calc Estimated GFR Random Glucose Calcium Iron TIBC % Saturation Unsat Iron Binding Ferritin Total Bilirubin Direct Bilirubin AST ALT Alkaline Phosphatase Troponin I High Sens B-Natriuretic Peptide Total Protein Albumin Urine Color Yellow Urine Appearance Clear Urine pH 5.0 Ur Specific [place] 1.010 Urine Protein 100 (2+) H Urine Glucose (UA) Negative Urine Ketones Negative Urine Blood Negative Urine Nitrite Negative Ur Leukocyte Esterase Negative Urine RBC 0-2 Urine WBC 0-5 Ur Squamous Epith Cells 0-2 Urine Bacteria None Seen Hyaline Casts 0-2 Ur Random Sodium Ur Random Potassium Urine Creatinine Stool Occult Blood COVID-19 ([facility]) Negative COVID-19 Clin Com See Note Blood Type A Positive Antibody Screen NEGATIVE Crossmatch See Detail 01/09/22 14:51 MCV MCH MCHC RDW Plt Count MPV Immature Gran % (Auto) Neut % (Auto) Lymph % (Auto) Hughes % (Auto) Eos % (Auto) Baso % (Auto) Lymph # (Auto) Hughes # (Auto) Eos # (Auto) Baso # (Auto) Abs Immat Gran (auto) Absolute Neuts (auto) Absolute Nucleated RBC Nucleated RBC % (auto) Anion Gap Estim Creat Clear Calc Estimated GFR Random Glucose Calcium Iron TIBC % Saturation Unsat Iron Binding Ferritin Total Bilirubin Direct Bilirubin AST ALT Alkaline Phosphatase Troponin I High Sens B-Natriuretic Peptide Total Protein Albumin Urine Color Urine Appearance Urine pH Ur Specific [place] Urine Protein Urine Glucose (UA) Urine Ketones Urine Blood Urine Nitrite Ur Leukocyte Esterase Urine RBC Urine WBC Ur Squamous Epith Cells Urine Bacteria Hyaline Casts Ur Random Sodium 36.0 Ur Random Potassium 57.0 Urine Creatinine 49.49 Stool Occult Blood COVID-19 ([facility]) COVID-19 Clin Com Blood Type Antibody Screen Crossmatch Imaging Radiologist's Impressions: Impressions Chest X-Ray 01/09/22 09:55 IMPRESSION: Relatively similar distribution of patchy bilateral airspace opacities. Findings may represent chronic changes, however, a superimposed acute process is not excluded. Clinical correlation is recommended. Further evaluation can always be obtained with CT imaging as clinically indicated. Assessment and Plan (1) Anemia: Status: Acute (2) CHF (congestive heart failure): Status: Acute (3) JAVAD (acute kidney injury): Status: Acute Plan 71-year-old male with history of app-gmljcck-yecoicbgo type 2 diabetes, CKD, mild intermittent asthma, opioid dependence on Suboxone, and hypertension admitted for anemia with CHF exacerbation and JAVAD. #Anemia- likely related to chronic blood loss with baseline CKD -received 1 unit packed red blood cells in the ED -stool is heme negative and patient denies any recent bleeding episodes -patient is iron deficient. P.o. ferrous sulfate -hold aspirin -gastroenterology consulted -admit to telemetry -follow CBC # acute congestive heart failure likely secondary to demand from anemia -BNP 969 -scrotal and bilateral lower leg edema. No pleural effusions on CXR -echocardiogram ordered -IV Lasix 20 mg b.i.d. -strict I&O -cardiac diet -daily weights -consider Cardiology evaluation pending echocardiogram -follow BNP and BMP # JAVAD with baseline chronic kidney disease- likely cardiorenal/related to anemia -nephrology consulted -creatinine 2.12, BUN 55. Urine creatinine 49, urine potassium 57, urine sodium 36 -received 1 unit packed red blood cells in ED -hold on further IVF due to fluid overload -Follow BMP # hyperkalemia secondary to JAVAD -repeat potassium 5.4, improved from 5.7 -give Lokelma daily. Will likely improve with JAVAD -follow BMP # type 2 temafqqf-xon-jupjqch-dependent -POC glucose -diabetic diet -Humalog on sliding scale for hyperglycemia # mild intermittent asthma without exacerbation -albuterol p.r.n. # hypertension -continue carvedilol, hydralazine, amlodipine # opioid dependence -continue Suboxone DVT prophylaxis-mechanical Full code Patient requires inpatient stay of at least 2 midnights due to anemia requiring transfusion likely related to chronic blood loss with associated CHF in JAVAD requiring close monitoring to prevent further cardio renal decompensation and close monitoring or renal function and electrolytes Quality Stroke Does the patient have a stroke diagnosis?: No VTE Prior VTE?: No VTE Risk Level:: Medical - moderate - high VTE Device Contraindication: Treatment Not Indicated VTE Drug Contraindication: N/A - Med Ordered
[2022-01-09 15:30] LABS: Anion Gap 17 (12-20); Blood Urea Nitrogen 55 mg/dL (9-16); Calcium 8.3 mg/dL (8.4-10.2); Carbon Dioxide 26 mmol/L (22-29); Chloride 102 mmol/L (96-108); Creatinine Clr Calc Pharmacy 30.3; Estimated Glomerular Filt Rate 31; Glucose Random 110 mg/dL (60-115); Potassium 5.5 mmol/L (3.3-5.1); Sodium 139 mmol/L (135-145)
--- NOTE | 2022-01-09 15:30 | PM.EVENT ---
Event Note Date of Service: 01/09/22 Event Note: The patient was seen and evaluated with MARIAMA Arnold. I agree with her note, assessment and plan with the following. In summary, a 71 years old male with PMH of HTN, diastolic CHF presents to the hospital with worsening lower extremity swelling. Found to hemoglobin of 6.2 from baseline of around 10 1 year ago with no reported melena. Admitted for further evaluation and treatment. Symptomatic iron deficiency anemia Likely secondary to chronic blood loss To give 2 units of blood Start p.o. iron Pan I on CKD stage 3 with hyperkalemia Creatinine increased to 2.1 from baseline of 1.6 Send urine electrolytes Med nephrology evaluation Diastolic CHF exacerbation Elevated BNP Start treatment with Lasix Monitor intake and output Rest of evaluations by GLAZIER SUPERVISOR note.
[2022-01-09] MEDS: Sodium Polystyrene Sulfon/Sorb 15 GM/60 ML ORAL.SUSP 30 GM PO (15:49)
[2022-01-09] MEDS: hydrALAZINE HCl 25 MG TABLET PO ×2 (15:49→20:54)
[2022-01-09 15:54] LABS: Phosphorus 5.6 mg/dL (2.7-4.5)
[2022-01-09 17:13] LABS: Glucose, Whole Blood 107 mg/dL (60-115)
--- NOTE | 2022-01-09 20:43 | PC.NURSE ---
assumed care of patient at 1900. patient resting comfortably on stretcher. assisted to and from bathroom. ambulatory with steady gait. vital sings updated. will continue to monitor
[2022-01-09] MEDS: Ferrous Sulfate 324 MG TABLET.DR PO (20:54)
[2022-01-09] MEDS: carvediloL 6.25 MG TABLET PO (20:54)
[2022-01-09 21:49] LABS: Glucose, Whole Blood 113 mg/dL (60-115)
[2022-01-10] VITALS (8 sets, daily range): BP systolic 142–189; BP diastolic 53–81; PULSE 60–85; RESP 14–20; TEMP 36.4–37.3; O2SAT 92–97
--- NOTE | 2022-01-10 06:42 | PM.GICN ---
History of Present Illness Data of Consult Service Date: 01/10/22 [facility] Care Provider: Shana Tanner MD HPI Reason for consult: anemia 71-year-old male with history of [id number] type 2 diabetes, CKD, mild intermittent asthma, opioid dependence on Suboxone, and hypertension being seen for assessment of anemia. Initially presented with leg and scrotal edema. He denied shortness of breath, dyspnea exertion, orthopnea, palpitations, lightheadedness, or chest pain. As part of wrok up labs were doen and revealed HGB 6.3 with ferritin 6 (last HGB from 1 yr ago was around 10 g/dl). He is on aspirin, but denies any melena, but does admit to seeing small amount of blood per rectum today saying he never had this before. He denies having had a colonoscopy before. CXR did show bilateral airspace opacities, and he has been given lasix with 1 unit PRBC as well as oxygen for low O2 sats. Review of Systems Review of Systems: Constitutional : No Weight loss, No Fever, No Chills ENT/Mouth : No sore throat, No Rhinorrhea Eyes: No Swelling, No Redness Cardiovascular : No Chest Pain, denies SOB, + Edema Respiratory : No Cough, No Sputum, No Wheezing Gastrointestinal : see HPI Genitourinary : NO Dysuria, No Urinary Frequency, No Hematuria, No Urgency Musculoskeletal : No joint pain, No Myalgias, No Joint Swelling Skin : No Skin Lesions, No rash Neuro : No Weakness, No Numbness, No Dizziness, No Headache Psych : No Anxiety/Panic, No Depression Heme/Lymph: No Bruising, No Lymphadenopathy Endocrine : No Polyuria, No Polydipsia All other systems reviewed and are negative. [facility] Social History Social History Advance Directives: Yes Advance Directives on File: Yes Advance Directives Date on File: 01/10/22 Meds Allergies Allergy/AdvReac Type Severity Reaction Status Date / Time ibuprofen Allergy Unknown acute Verified 01/19/21 17:59 renal failure No Known Allergies Allergy Verified 01/19/21 17:59 [No Known Allergies*] Active Medications: Current Medications Acetaminophen (Acetaminophen 325 Mg Tablet) 650 mg PO Q6H PRN PRN Reason: Pain, Mild (Pain Scale 1-3) Amlodipine Besylate (Amlodipine Besylate 10 Mg Tablet) 10 mg PO DAILY [facility]; Protocol Buprenorphine/Naloxone (Buprenorphine/Naloxone 8/2 Mg Film) 1 film SUBLINGUAL DAILY [facility] Buprenorphine/Naloxone (Buprenorphine/Naloxone 4/1 Mg Film) 1 film SUBLINGUAL DAILY [facility] Carvedilol (Carvedilol 6.25 Mg Tablet) 6.25 mg PO BID [facility]; Protocol Last Admin: 01/09/22 20:54 Dose: 6.25 mg Dextrose (Dextrose 50 % 25 Gm/50 Ml Syringe) 25 gm IVPUSH Q15M PRN; Protocol PRN Reason: per Hypoglycemia Standing Ord. Docusate Sodium (Docusate Sodium 100 Mg Capsule) 100 mg PO DAILY PRN PRN Reason: Constipation Ferrous Sulfate (Ferrous Sulfate 324 Mg Tablet.Dr) 324 mg PO BIDWM [facility] Last Admin: 01/09/22 20:54 Dose: 324 mg Furosemide (Furosemide 20 Mg/2 Ml Vial) 20 mg IVPUSH BID@0900,1800 [facility]; Protocol Last Admin: 01/09/22 20:54 Dose: 20 mg Glucose (Glucose Gel 15 Gm Gel..Gram.) 15 gm PO Q15M PRN; Protocol PRN Reason: per Hypoglycemia Standing Ord. Hydralazine HCl (Hydralazine Hcl 25 Mg Tablet) 25 mg PO TID [facility]; Protocol Last Admin: 01/09/22 20:54 Dose: 25 mg Insulin Human Lispro (Insulin Lispro 100 Unit/Ml 3 Ml Vial) 0 unit SUBCUT QIDACHS [facility]; Protocol Last Admin: 01/09/22 21:47 Dose: Not Given Ondansetron HCl (Ondansetron Hcl 4 Mg/2 Ml Vial) 4 mg IVPUSH Q8H PRN PRN Reason: Nausea and Vomiting Pharmacy Consult (Consult Rx Perform Med Rec) 1 each MISCELLANE ONCE PRN PRN Reason: Consult order Pharmacy Consult (Consult Rx Perform Med Rec) 1 each MISCELLANE ONCE PRN PRN Reason: Consult order Sodium Chloride (0.9 % Sodium Chloride Flush 3 Ml Syringe) 3 ml IVFLUSH QSHIFT [facility] Last Admin: 01/10/22 01:48 Dose: Not Given Sodium Zirconium Cyclosilicate (Sodium Zirconium Cyclosilicate 5 Gm Powd.Pack) 5 gm PO DAILY [facility] Home Medications Medication Instructions Recorded Confirmed Last Taken Type albuterol sulfate 2.5 mg/3 mL 1 amp inhalation TID 01/09/22 01/09/22 Unknown History (0.083 %) solution for nebulization albuterol sulfate 90 mcg/actuation 2 puff inhalation Q4-6H PRN 01/09/22 01/09/22 Unknown History aerosol inhaler (Ventolin HFA) Shortness Of Breath Or Wheezing amlodipine 10 mg tablet 10 mg PO DAILY 01/09/22 01/09/22 01/08/22 History aspirin 81 mg tablet,delayed 81 mg PO DAILY 01/09/22 01/09/22 01/08/22 History release buprenorphine 8 mg-naloxone 2 mg 1.5 strip sublingual DAILY 01/09/22 01/09/22 01/08/22 History sublingual film carvedilol 6.25 mg tablet 6.25 mg PO BID 01/09/22 01/09/22 01/09/22 History hydralazine 25 mg tablet 25 mg PO Q8H 01/09/22 01/09/22 Unknown History Physical Exam Vital Signs: Vital Signs: Last Vital Signs Temp 98.3 F 01/09/22 23:15 Pulse 68 01/09/22 23:15 Resp 15 01/09/22 23:15 BP 156/57 H 01/09/22 23:15 Pulse Ox 96 01/09/22 23:15 O2 Del Method 01/09/22 23:15 O2 Flow Rate 2 01/09/22 23:15 BMI result Body Mass Index 35.3 EXAM: GENERAL: The patient is obese VITAL SIGNS:see workflow HEENT: Nonicteric sclerae, PERRLA, EOMI. Oropharynx clear. Moist mucous membranes. Conjunctivae appear well perfused. No thyroid mass. CHEST: Chest wall is nontender. HEART: Regular rate and rhythm without murmurs. LUNGS: Clear to auscultation bilaterally. ABDOMEN: Soft, positive bowel sounds, nontender, no organomegaly.no flank tenderness SKIN: No rash, no excessive bruising, petechiae, or purpura. NEUROLOGIC: Cranial nerves II-XII intact without motor/sensory deficit. psych-normal Results Labs CBC & Chem 7: 01/10/22 06:44 01/10/22 06:44 Labs: Short CBC 01/09/22 01/09/22 Range/Units 09:15 11:06 WBC 10.7 12.6 H (4.8-10.8) X10*3/uL Hgb 6.2 L* D 6.3 L* (14.0-18.0) g/dl Hct 23.3 L D 23.0 L (42.0-52.0) % Plt Count 492 H D 465 H (160-400) X10*3/uL BMP 01/09/22 01/09/22 09:15 15:08 Sodium 137 139 Potassium 5.7 H D 5.5 H Chloride 100 102 Carbon Dioxide 26 26 BUN 54 H 55 H Creatinine 2.17 H 2.12 H Calcium 8.4 D 8.3 L Liver Function 01/09/22 Range/Units 09:15 Total Bilirubin 0.3 (0.0-1.0) mg/dL Direct Bilirubin 0.2 (0.0-0.5) mg/dL AST 25 (5-37) U/L ALT 104 H (0-40) U/L Alkaline Phosphatase 94 D (39-117) U/L Albumin 3.9 (3.5-5.0) g/dL Urine 01/09/22 Range/Units 14:51 Urine Color Yellow Urine Appearance Clear Urine pH 5.0 (5.0-9.0) Ur Specific [place] 1.010 (1.005-1.025) Urine Protein 100 (2+) H (Neg-Trace) mg/dL Urine Glucose (UA) Negative (Negative) mg/dL Assessment and Plan (1) Iron deficiency anemia: Status: Acute Plan 1/ JASON with aspirin use, no prior hx of EGD or colonsocopy and denies overt GI bleeding except for this morning. I discussed performing EGD and colonoscopy for further evalaution with help of assistant maintenance manager but he refused this and understood we would be looking for a bleeding source including cancer. PLAN: 1/ Recommend CT with PO contrast rule out any obvious mass lesions 2/ Can give standard dose PPI in case of aspirin induced uclers or gastritis 3/ if he changes his mind we can schedule the procedures. Procedures Date of Service Date of Service: 01/10/22
[2022-01-10 06:54] LABS: MANUAL DIFF FLAG NO
[2022-01-10 06:56] LABS: Basophils Absolute Auto 0.1 X10*3/uL (0.0-0.2); Basophils Percent Auto 0.7 % (0-2); Eosinophils Absolute Auto 1.7 X10*3/uL (0.0-0.4); Eosinophils Percent Auto 16.2 % (0-4); Hematocrit 24.3 % (42.0-52.0); Imm Gran Abs Auto 0.05 X10*3/uL (0.00-0.03); Imm Gran Pct Auto 0.5 % (0.0-0.4); Lymphocytes Absolute Auto 1.3 X10*3/uL (1.2-4.9); Mean Corpuscular HGB Conc 28.8 g/dl (31.0-36.0); Mean Platelet Volume 8.4 fL (9.4-12.4); Monocytes Absolute Auto 1.3 X10*3/uL (0.1-1.2); Monocytes Percent Auto 12.1 % (2-11); NRBC Pct Auto 0.8 /100WBC (0.0-0.2); Neutrophils Absolute Auto 6.2 x10*3/uL (2.0-8.3); Neutrophils Percent Auto 58.5 % (45-73); Platelet Count 405 X10*3/uL (160-400); Red Blood Count 3.68 X10*6/uL (4.60-5.80); Red Cell Distribution Width 23.9 % (11.0-16.0); White Blood Count 10.6 X10*3/uL (4.8-10.8)
--- NOTE | 2022-01-10 07:00 | CA_ITS ---
Transthoracic Echocardiogram Patient (Last, First, Middle): Sheng Haywood L Gender: Male Date of : 1950 Age: 71 Procedure Date: 01/10/2022 Procedure Type: Transthoracic Echocardiogram Location: ER Height: 154.94 cm Weight: 84.82 kg BSA: 1.84 m2 Heart Rate: 75 bpm BP: 156 / 57 mmHg Hat Model: CATY Referring MD: Enedina LESLIE Symptoms: ?CHF, fluid overload Study Quality: Adequate ECG Rhythm: Arrhythmia Conclusions: - Normal left ventricular size and systolic function. There is mildly increased left ventricular wall thickness. The visually estimated ejection fraction is between 60-65%. - Spectral Doppler is indicative of a pseudonormal filling pattern. E/E prime ratio is >15, consistent with elevated filling pressures. - Mildly increased right ventricular cavity size. There is normal right ventricular systolic function. - The left atrium is severely dilated. The right atrium is moderately dilated. - There is moderate aortic valve stenosis. - There is mild aortic valve regurgitation. - There is mild to moderate mitral valve regurgitation. - The right ventricular systolic pressure is 52 mmHg. Mildly elevated right atrial pressure. Moderate pulmonary hypertension is present. - There is mild dilatation of the ascending aorta measuring 3.60 cm. Findings Left Ventricle Normal left ventricular size and systolic function. There is mildly increased left ventricular wall thickness. The visually estimated ejection fraction is between 60-65%. There is no evidence of regional wall motion abnormalities. Abnormal diastolic function is noted. Spectral Doppler is indicative of a pseudonormal filling pattern. E/E prime ratio is >15, consistent with elevated filling pressures. Right Ventricle Mildly increased right ventricular cavity size. There is normal right ventricular systolic function. Atria The left atrium is severely dilated. The right atrium is moderately dilated. Aortic Valve There is a normal trileaflet aortic valve. There is mild calcification of the aortic valve. There is mild thickening of the aortic valve. There is moderate aortic valve stenosis. The peak aortic velocity is 3.25 m/s. The mean gradient is 23 mmHg. The aortic valve area is 1.51 cm2. There is mild aortic valve regurgitation. Mitral Valve The mitral valve appears normal. There is mild to moderate mitral valve regurgitation. There is no mitral valve stenosis. Pulmonic Valve The pulmonic valve is likely normal. Tricuspid Valve Normal tricuspid valve structure. There is trace tricuspid valve regurgitation. The right ventricular systolic pressure is 52 mmHg. Mildly elevated right atrial pressure. Moderate pulmonary hypertension is present. Great Vessels There is mild dilatation of the ascending aorta measuring 3.60 cm. The visualized portions of the pulmonary artery and branches are normal. Venous The inferior vena cava is dilated and collapses greater than 50% with inspiration. Pericardium/Pleural There is no evidence of pericardial effusion. Measurements 2D Linear Measurements IVSd: 1.22 0.6-0.9/0.6-1.0 cm LVIDd: 4.57 3.9-5.3/4.2-5.9 cm LVIDd Index: 2.48 2.4-3.2/2.2-3.1 cm/m2 LVIDs: 3.22 2.0-3.6 cm LVPWd: 1.25 0.7-1.1 cm LA Diam: 4.20 2.7-3.8/3.0-4.0 cm LAIDs Index: 2.28 1.5-2.3 cm/m2 LV Mass: 263.61 67-162/88-224 g LV Mass Index: 143.27 43-95/49-115 g/m2 LVOT Diam: 1.80 3.0+(-)1.3 cm 2D Systolic Function EF 4C: 60.70 >55% EF 2C: 60.30 >55% EF BiP: 60.50 >55% Mitral Valve MV Pk E: 1.34 MV PK A: 1.27 MV Decel Time: 210.00 E/A: 1.10 E'Lateral: 11.30 E'Medial: 7.07 E/E' Med: 19.00 E/E' Lat: 11.90 PHT: 62.00 MVA PHT: 3.55 Decel [place]: 6.37 MR Vol - PW Dopp: 12.30 MR VTI: 2.05 MR ERO: 6.00 MR Alias Gabriel: 0.39 MR RAD: 0.40 Aortic Valve AoV Pk Gabriel: 3.25 AoV Mn Gabriel: 2.22 AoV VTI: 0.70 AoV Pk Grad: 42.00 Aov Mn Grad: 23.00 BHAVESH Cont.VTI: 1.51 AI Pk Gabriel: 4.08 AI [place]: 3.95 LVOT LVOT Pk Gabriel: 1.93 LVOT Mn Gabriel: 1.17 LVOT VTI: 0.41 LVOT Pk Grad: 15.00 LVOT Mn Grad: 7.00 LVOT Diam: 1.80 LVOT Area: 2.54 Diastolic Function MV Pk E: 1.34 MV Pk A: 1.27 E/A: 1.10 E'Medial: 7.07 E/E' Med: 19.00 E' Laterial: 11.30 E/E' Lat: 11.90 Right Ventricle TAPSE (mm): 25.30 TVS' Gabriel: 15.90 Tricuspid Valve TR Pk Gabriel: 3.31 TR Pk Grad: 44.00 RA Press: 8.00 RVSP: 52.00 Great Vessels Aorta Sinus of Valsalva: 3.20 2.0-3.5 cm Ao Asc: 3.60 2.1-3.4 cm Pulmonary Valve PV Pk Gabriel: 1.58 Peak PV Grad: 10.00 Updated in Other Vendor System with Status of Final Wilder Collier MD electronically signed on 01/11/2022 4:13:40 PM with status of Final
[2022-01-10 07:13] LABS: Anion Gap 16 (12-20); Blood Urea Nitrogen 47 mg/dL (9-16); Calcium 8.2 mg/dL (8.4-10.2); Carbon Dioxide 29 mmol/L (22-29); Chloride 103 mmol/L (96-108); Creatinine Clr Calc Pharmacy 34.8; Estimated Glomerular Filt Rate 36; Glucose Random 95 mg/dL (60-115); Potassium 4.8 mmol/L (3.3-5.1); Sodium 143 mmol/L (135-145)
[2022-01-10 07:20] LABS: Glucose, Whole Blood 101 mg/dL (60-115)
[2022-01-10 07:20] LABS: B Type Natriuretic Peptide 597 pg/mL (<100)
--- NOTE | 2022-01-10 08:46 | P.CDIC_ITS ---
CDI Concurrent Query Documentation Clarification: PHYSICIAN'S DOCUMENTATION REQUEST Date of Query: 01/10/22 0847 Patient Name: Sheng Haywood Admit Date: 01/09/22 Dear Doctor, A review of the medical record indicates additional documentation may be needed. Please review below and update the documentation accordingly. Clinical Indicators: Risk Factors/Clinical Indicators/Treatments Anemia likely related to chronic blood loss with baseline CKD. Transfuse 1 unit PRBC in Ed. Hgh 6.2 Hct 23.3 Based on the above, could you clarify in the Progress Notes which of the following is the most likely type of anemia you are evaluating, treating, and/or monitoring? * Chronic iron deficiency anemia secondary to acute blood loss * Chronic iron deficiency anemia secondary to acute/chronic blood loss * Acute/chronic blood loss anemia due to CKD (Stage 1-5) * Other ? please specify * Unable to determine Use of terms such as suspected, likely, concern for, or probable (associated with a specific diagnosis that is being evaluated, monitored, or treated as if it exists) are acceptable and can be coded in the inpatient setting, when documented at the time of discharge. Thank you, Trang Ordoñez [facility], CDIS Extension: [phone] Please use your independent medical judgment in providing your response. THIS QUERY IS PART OF THE PERMANENT MEDICAL RECORD Provider Response: Other Other Diagnosis: Acute on chronic iron deficiency anemia due to acute/chronic blood loss
[2022-01-10] MEDS: hydrALAZINE HCl 25 MG TABLET PO ×3 (09:03→20:01)
[2022-01-10] MEDS: Furosemide 20 MG/2 ML VIAL IVPUSH (09:03)
[2022-01-10] MEDS: amLODIPine Besylate 10 MG TABLET PO (09:03)
[2022-01-10] MEDS: carvediloL 6.25 MG TABLET PO ×2 (09:03→20:01)
[2022-01-10] MEDS: 0.9 % Sodium Chloride Flush 3 ML SYRINGE IVFLUSH ×3 (09:04→22:15)
[2022-01-10] MEDS: Ferrous Sulfate 324 MG TABLET.DR PO ×2 (09:04→17:00)
--- NOTE | 2022-01-10 10:28 | MHC.CM.PN ---
Met with patient and rn ed in regards to discharge planning. Patient lives alone, ambulates independently and is active with [facility] for Suboxone. No additional services anticipated to be needed when medically stable. IMM explained and signed. Patient received 3 Moderna vaccine. PCP verified. Patient's daughter will transport patient home when medically stable. Continue to monitor for d/c needs.
--- NOTE | 2022-01-10 11:10 | P.CONNP_ITS ---
History of Present Illness Reason for Consult Consult date: 01/10/22 Chief Complaint Chief complaint: fluid overload javad History of Present Illness Narrative: 71-year-old male with diabetes, CKD and hypertension among multiple other medic al issues presented to the ER yesterday with worsening scrotal and bilateral leg edema.?He denies any shortness of breath, dyspnea exertion, orthopnea, palpitations, lightheadedness, or chest pain. At that time he does also report some decreased urinary output but denies any dysuria, hematuria, increased urinary frequency, or incontinence.? No fevers, chills, sick contacts, nausea, vomiting, abdominal pain, flank pain.?His ? Creatininewas 2.17, BUN 54 (/measured at 1.54, 34 respectively 1 year ago) with Potassium 5.7. He was admitted for further management. Nephrology has been consulted to assist in his clinical care during his current hospital stay Review of Systems Review of Systems Yes all other systems are reviewed and are negative PMFSH Social History Social History Advance Directives: Yes Advance Directives on File: Yes Advance Directives Date on File: 01/10/22 service: No Current occupational status: retired [employer] Allergies Allergy/AdvReac Type Severity Reaction Status Date / Time ibuprofen Allergy Unknown acute Verified 01/19/21 17:59 renal failure No Known Allergies Allergy Verified 01/19/21 17:59 [No Known Allergies*] Active Medications: Current Medications Acetaminophen (Acetaminophen 325 Mg Tablet) 650 mg PO Q6H PRN PRN Reason: Pain, Mild (Pain Scale 1-3) Amlodipine Besylate (Amlodipine Besylate 10 Mg Tablet) 10 mg PO DAILY [facility]; Protocol Last Admin: 01/10/22 09:03 Dose: 10 mg Buprenorphine/Naloxone (Buprenorphine/Naloxone 8/2 Mg Film) 1 film SUBLINGUAL DAILY [facility] Last Admin: 01/10/22 09:05 Dose: Not Given Buprenorphine/Naloxone (Buprenorphine/Naloxone 4/1 Mg Film) 1 film SUBLINGUAL DAILY [facility] Last Admin: 01/10/22 09:06 Dose: Not Given Carvedilol (Carvedilol 6.25 Mg Tablet) 6.25 mg PO BID [facility]; Protocol Last Admin: 01/10/22 09:03 Dose: 6.25 mg Dextrose (Dextrose 50 % 25 Gm/50 Ml Syringe) 25 gm IVPUSH Q15M PRN; Protocol PRN Reason: per Hypoglycemia Standing Ord. Docusate Sodium (Docusate Sodium 100 Mg Capsule) 100 mg PO DAILY PRN PRN Reason: Constipation Ferrous Sulfate (Ferrous Sulfate 324 Mg Tablet.Dr) 324 mg PO BIDWM [facility] Last Admin: 01/10/22 09:04 Dose: 324 mg Furosemide (Furosemide 20 Mg/2 Ml Vial) 20 mg IVPUSH BID@0900,1800 [facility]; Protocol Last Admin: 01/10/22 09:03 Dose: 20 mg Glucose (Glucose Gel 15 Gm Gel..Gram.) 15 gm PO Q15M PRN; Protocol PRN Reason: per Hypoglycemia Standing Ord. Hydralazine HCl (Hydralazine Hcl 25 Mg Tablet) 25 mg PO TID [facility]; Protocol Last Admin: 01/10/22 09:03 Dose: 25 mg Insulin Human Lispro (Insulin Lispro 100 Unit/Ml 3 Ml Vial) 0 unit SUBCUT QIDACHS [facility]; Protocol Last Admin: 01/10/22 08:10 Dose: Not Given Ondansetron HCl (Ondansetron Hcl 4 Mg/2 Ml Vial) 4 mg IVPUSH Q8H PRN PRN Reason: Nausea and Vomiting Pharmacy Consult (Consult Rx Perform Med Rec) 1 each MISCELLANE ONCE PRN PRN Reason: Consult order Pharmacy Consult (Consult Rx Perform Med Rec) 1 each MISCELLANE ONCE PRN PRN Reason: Consult order Sodium Chloride (0.9 % Sodium Chloride Flush 3 Ml Syringe) 3 ml IVFLUSH QSHIFT [facility] Last Admin: 01/10/22 09:04 Dose: 3 ml Sodium Zirconium Cyclosilicate (Sodium Zirconium Cyclosilicate 5 Gm Powd.Pack) 5 gm PO DAILY [facility] Last Admin: 01/10/22 09:03 Dose: Not Given Home Medications Medication Instructions Recorded Confirmed Last Taken Type albuterol sulfate 2.5 mg/3 mL 1 amp inhalation TID 01/09/22 01/09/22 Unknown History (0.083 %) solution for nebulization albuterol sulfate 90 mcg/actuation 2 puff inhalation Q4-6H PRN 01/09/22 01/09/22 Unknown History aerosol inhaler (Ventolin HFA) Shortness Of Breath Or Wheezing amlodipine 10 mg tablet 10 mg PO DAILY 01/09/22 01/09/22 01/08/22 History aspirin 81 mg tablet,delayed 81 mg PO DAILY 01/09/22 01/09/22 01/08/22 History release buprenorphine 8 mg-naloxone 2 mg 1.5 strip sublingual DAILY 01/09/22 01/09/22 01/08/22 History sublingual film carvedilol 6.25 mg tablet 6.25 mg PO BID 01/09/22 01/09/22 01/09/22 History hydralazine 25 mg tablet 25 mg PO Q8H 01/09/22 01/09/22 Unknown History Physical Exam Vital Signs: Last Vital Signs Temp 99.1 F 01/10/22 09:01 Pulse 85 01/10/22 09:01 Resp 20 01/10/22 09:01 BP 162/53 H 01/10/22 09:01 Pulse Ox 94 01/10/22 09:01 O2 Del Method 01/10/22 09:01 O2 Flow Rate 2 01/10/22 09:01 BMI result Body Mass Index 35.3 Const General: no acute distress Eyes EOM: EOMs intact bilaterally Resp Auscultation: diminished lung sounds Cardio Rate: regular rate GI Palpation (GI): Soft to palpation Neuro General: moves all extremities Extrem Other: LE edema B/L Results Lab Results Result Diagrams: 01/10/22 06:44 01/10/22 06:44 Lab results: Chemistry 01/09/22 01/09/22 01/10/22 09:15 15:08 06:44 Sodium 137 139 143 Potassium 5.7 H D 5.5 H 4.8 Carbon Dioxide 26 26 29 BUN 54 H 55 H 47 H Creatinine 2.17 H 2.12 H 1.85 H Calcium 8.4 D 8.3 L 8.2 L Phosphorus 5.6 H Hematology 01/09/22 01/09/22 01/10/22 09:15 11:06 06:44 WBC 10.7 12.6 H 10.6 Hgb 6.2 L* D 6.3 L* 7.0 L* Plt Count 492 H D 465 H 405 H Urinalysis 01/09/22 14:51 Urine Color Yellow Urine Appearance Clear Urine pH 5.0 Ur Specific [place] 1.010 Urine Protein 100 (2+) H Urine Glucose (UA) Negative Urine Ketones Negative Urine Blood Negative Urine Nitrite Negative Ur Leukocyte Esterase Negative Urine RBC 0-2 Urine WBC 0-5 Ur Squamous Epith Cells 0-2 Hyaline Casts 0-2 Urine Studies 01/09/22 14:51 Urine Creatinine 49.49 Assessment and Plan (1) JAVAD (acute kidney injury): Status: Acute Plan Acute Kidney Injury due to compromise in renal perfusion Has significant proteinuria; Hypervolemic Discontinue Amlodipine.Start Imdur 30 mg daily Increase lasix to 40 mg IV bid; C/W rest of current management Labs AM. Shall closely F/U Procedures Date of Service Date of Service: 01/10/22
[2022-01-10 11:55] LABS: Glucose, Whole Blood 128 mg/dL (60-115)
--- NOTE | 2022-01-10 14:40 | P.PNIM_ITS ---
Subjective Subjective Date of Service: 01/10/22 Interval History: Seen for follow up on fluid overload Interval history: Patient still reporting swelling scotum and ble. No sob, orthopnea, pnd, chest pain. Review of Systems General: No fevers, malaise, unintentional weight loss Cardiovascular: +ble edema. No chest pain, palpitations Respiratory: No shortness of breath, wheezing, cough GI: No abdominal pain, nausea, vomiting, diarrhea, constipation, melena, hematochezia : +scrotal swelling. No dysuria, hematuria, increased urinary frequency, decreased urinary output Neuro: No headaches, weakness, paresthesias Skin: No rashes or lesions Physical Exam Vital Signs: Vital Signs: Last Vital Signs Temp 99.1 F 01/10/22 09:01 Pulse 85 01/10/22 09:01 Resp 20 01/10/22 09:01 BP 162/53 H 01/10/22 09:01 Pulse Ox 94 01/10/22 09:01 O2 Del Method 01/10/22 09:01 O2 Flow Rate 2 01/10/22 09:01 BMI result Body Mass Index 35.3 Constitutional - Awake and Alert, No apparent distress Eyes - PERRLA, EOMI Cardiovascular - S1S2, RRR, 3+ pitting edema ble Respiratory - Normal lung expansion, Normal respiratory effort, No respiratory distress, CTA bilaterally Gastrointestinal - NT / ND; +BS; No rebound or guarding - +scrotal and penile edema Skin - Warm/Dry Neurological - Alert & oriented x3, CN II-XII in tact, 5/5 strength BUE and BLE Psychological - Appropriate affect Objective Data Active Medications Acetaminophen (Acetaminophen 325 Mg Tablet) 650 mg PO Q6H PRN PRN Reason: Pain, Mild (Pain Scale 1-3) Buprenorphine/Naloxone (Buprenorphine/Naloxone 8/2 Mg Film) 1 film SUBLINGUAL DAILY REPLACED BY [facility] Last Admin: 01/10/22 09:05 Dose: Not Given Documented By: ALLY Non-Admin Reason: Patient Refused Buprenorphine/Naloxone (Buprenorphine/Naloxone 4/1 Mg Film) 1 film SUBLINGUAL DAILY REPLACED BY [facility] Last Admin: 01/10/22 09:06 Dose: Not Given Documented By: ALLY Non-Admin Reason: Patient Refused Carvedilol (Carvedilol 6.25 Mg Tablet) 6.25 mg PO BID REPLACED BY [facility]; Protocol Last Admin: 01/10/22 09:03 Dose: 6.25 mg Documented By: ALLY Dextrose (Dextrose 50 % 25 Gm/50 Ml Syringe) 25 gm IVPUSH Q15M PRN; Protocol PRN Reason: per Hypoglycemia Standing Ord. Docusate Sodium (Docusate Sodium 100 Mg Capsule) 100 mg PO DAILY PRN PRN Reason: Constipation Ferrous Sulfate (Ferrous Sulfate 324 Mg Tablet.Dr) 324 mg PO BIDWM REPLACED BY [facility] Last Admin: 01/10/22 09:04 Dose: 324 mg Documented By: ALLY Furosemide (Furosemide 20 Mg/2 Ml Vial) 40 mg IVPUSH BID@0900,1800 REPLACED BY [facility]; Protocol Glucose (Glucose Gel 15 Gm Gel..Gram.) 15 gm PO Q15M PRN; Protocol PRN Reason: per Hypoglycemia Standing Ord. Hydralazine HCl (Hydralazine Hcl 25 Mg Tablet) 25 mg PO TID REPLACED BY [facility]; Protocol Last Admin: 01/10/22 09:03 Dose: 25 mg Documented By: ALLY Insulin Human Lispro (Insulin Lispro 100 Unit/Ml 3 Ml Vial) 0 unit SUBCUT QIDACHS REPLACED BY [facility]; Protocol Last Admin: 01/10/22 13:05 Dose: Not Given Documented By: ALLY Non-Admin Reason: No Insulin Coverage Isosorbide Mononitrate (Isosorbide Mononitrate 30 Mg Tab.Er.24h) 30 mg PO DAILY REPLACED BY [facility]; Protocol Ondansetron HCl (Ondansetron Hcl 4 Mg/2 Ml Vial) 4 mg IVPUSH Q8H PRN PRN Reason: Nausea and Vomiting Pantoprazole Sodium (Pantoprazole Sodium 40 Mg/10 Ml Vial) 40 mg IVPUSH BID@0630,1630 REPLACED BY [facility] Pharmacy Consult (Consult Rx Perform Med Rec) 1 each MISCELLANE ONCE PRN PRN Reason: Consult order Pharmacy Consult (Consult Rx Perform Med Rec) 1 each MISCELLANE ONCE PRN PRN Reason: Consult order Sodium Chloride (0.9 % Sodium Chloride Flush 3 Ml Syringe) 3 ml IVFLUSH QSHIFT REPLACED BY [facility] Last Admin: 01/10/22 09:04 Dose: 3 ml Documented By: ALLY Sodium Zirconium Cyclosilicate (Sodium Zirconium Cyclosilicate 5 Gm Powd.Pack) 5 gm PO DAILY REPLACED BY [facility] Last Admin: 01/10/22 09:03 Dose: Not Given Documented By: ALLY Non-Admin Reason: See Note Comments: potassium level normal Labs CBC & Chem 7: 01/10/22 06:44 01/10/22 06:44 Labs: Laboratory Results - last 24 hr 01/09/22 01/09/22 01/09/22 09:15 09:15 11:13 MCV MCH MCHC RDW Plt Count MPV Immature Gran % (Auto) Neut % (Auto) Lymph % (Auto) [place] % (Auto) Eos % (Auto) Baso % (Auto) Lymph # (Auto) [place] # (Auto) Eos # (Auto) Baso # (Auto) Abs Immat Gran (auto) Absolute Neuts (auto) Absolute Nucleated RBC Nucleated RBC % (auto) Smear Path Review SEE NOTE Anion Gap Estim Creat Clear Calc Estimated GFR POC Glucose Random Glucose Calcium Phosphorus 5.6 H B-Natriuretic Peptide Urine Color Urine Appearance Urine pH Ur Specific [place] Urine Protein Urine Glucose (UA) Urine Ketones Urine Blood Urine Nitrite Ur Leukocyte Esterase Urine RBC Urine WBC Ur Squamous Epith Cells Urine Bacteria Hyaline Casts Ur Random Sodium Ur Random Potassium Urine Creatinine Crossmatch See Detail 01/09/22 01/09/22 01/09/22 14:51 14:51 15:08 MCV MCH MCHC RDW Plt Count MPV Immature Gran % (Auto) Neut % (Auto) Lymph % (Auto) [place] % (Auto) Eos % (Auto) Baso % (Auto) Lymph # (Auto) [place] # (Auto) Eos # (Auto) Baso # (Auto) Abs Immat Gran (auto) Absolute Neuts (auto) Absolute Nucleated RBC Nucleated RBC % (auto) Smear Path Review Anion Gap 17 Estim Creat Clear Calc 30.3 Estimated GFR 31 POC Glucose Random Glucose 110 Calcium 8.3 L Phosphorus B-Natriuretic Peptide Urine Color Yellow Urine Appearance Clear Urine pH 5.0 Ur Specific [place] 1.010 Urine Protein 100 (2+) H Urine Glucose (UA) Negative Urine Ketones Negative Urine Blood Negative Urine Nitrite Negative Ur Leukocyte Esterase Negative Urine RBC 0-2 Urine WBC 0-5 Ur Squamous Epith Cells 0-2 Urine Bacteria None Seen Hyaline Casts 0-2 Ur Random Sodium 36.0 Ur Random Potassium 57.0 Urine Creatinine 49.49 Crossmatch 01/09/22 01/09/22 01/10/22 17:07 21:46 06:44 MCV 66.0 L MCH 19.0 L MCHC 28.8 L RDW 23.9 H Plt Count 405 H MPV 8.4 L Immature Gran % (Auto) 0.5 H Neut % (Auto) 58.5 Lymph % (Auto) 12.0 L [place] % (Auto) 12.1 H Eos % (Auto) 16.2 H Baso % (Auto) 0.7 Lymph # (Auto) 1.3 [place] # (Auto) 1.3 H Eos # (Auto) 1.7 H Baso # (Auto) 0.1 Abs Immat Gran (auto) 0.05 H Absolute Neuts (auto) 6.2 Absolute Nucleated RBC 0.080 H Nucleated RBC % (auto) 0.8 H Smear Path Review Anion Gap Estim Creat Clear Calc Estimated GFR POC Glucose 107 113 Random Glucose Calcium Phosphorus B-Natriuretic Peptide Urine Color Urine Appearance Urine pH Ur Specific [place] Urine Protein Urine Glucose (UA) Urine Ketones Urine Blood Urine Nitrite Ur Leukocyte Esterase Urine RBC Urine WBC Ur Squamous Epith Cells Urine Bacteria Hyaline Casts Ur Random Sodium Ur Random Potassium Urine Creatinine Crossmatch 01/10/22 01/10/22 01/10/22 06:44 06:44 07:15 MCV MCH MCHC RDW Plt Count MPV Immature Gran % (Auto) Neut % (Auto) Lymph % (Auto) [place] % (Auto) Eos % (Auto) Baso % (Auto) Lymph # (Auto) [place] # (Auto) Eos # (Auto) Baso # (Auto) Abs Immat Gran (auto) Absolute Neuts (auto) Absolute Nucleated RBC Nucleated RBC % (auto) Smear Path Review Anion Gap 16 Estim Creat Clear Calc 34.8 Estimated GFR 36 POC Glucose 101 Random Glucose 95 Calcium 8.2 L Phosphorus B-Natriuretic Peptide 597 H Urine Color Urine Appearance Urine pH Ur Specific [place] Urine Protein Urine Glucose (UA) Urine Ketones Urine Blood Urine Nitrite Ur Leukocyte Esterase Urine RBC Urine WBC Ur Squamous Epith Cells Urine Bacteria Hyaline Casts Ur Random Sodium Ur Random Potassium Urine Creatinine Crossmatch 01/10/22 11:50 MCV MCH MCHC RDW Plt Count MPV Immature Gran % (Auto) Neut % (Auto) Lymph % (Auto) [place] % (Auto) Eos % (Auto) Baso % (Auto) Lymph # (Auto) [place] # (Auto) Eos # (Auto) Baso # (Auto) Abs Immat Gran (auto) Absolute Neuts (auto) Absolute Nucleated RBC Nucleated RBC % (auto) Smear Path Review Anion Gap Estim Creat Clear Calc Estimated GFR POC Glucose 128 H Random Glucose Calcium Phosphorus B-Natriuretic Peptide Urine Color Urine Appearance Urine pH Ur Specific [place] Urine Protein Urine Glucose (UA) Urine Ketones Urine Blood Urine Nitrite Ur Leukocyte Esterase Urine RBC Urine WBC Ur Squamous Epith Cells Urine Bacteria Hyaline Casts Ur Random Sodium Ur Random Potassium Urine Creatinine Crossmatch Assessment and Plan (1) Iron deficiency anemia: Status: Acute (2) JAVAD (acute kidney injury): Status: Acute (3) CHF (congestive heart failure): Status: Acute Plan 71-year-old male with history of dje-gviazid-blpbfxkwc type 2 diabetes, CKD, mild intermittent asthma, opioid dependence on Suboxone, and hypertension admitted for anemia with CHF exacerbation and JAVAD. #Acute on chronic JASON likely related to chronic blood loss -H/H improved 7.0/24.3% following 1 unit prbc yesterday -stool is heme negative and patient now endorsing occassional BRBPR -patient is iron deficient.? P.o. ferrous sulfate -Transfuse 1 addl unit prbc -hold aspirin -gastroenterology recommending colonoscopy to look for source of bleeding/malign elana but patient declines. Risks explained to patient. -Per GI, IV PPI to cover for any bleeding ulcers -Will follow CBC to assess for ongoing bleeding -admit to telemetry -follow CBC # acute congestive heart failure likely secondary to demand from anemia vs cardiorenal -BNP tranding down, now 59 -scrotal and bilateral lower leg edema.? No pleural effusions on CXR -echocardiogram results pending -Increase lasix to 40mg IV BID -Add imdur to decrease preload per nephrology -strict I&O -cardiac diet -daily weights -consider Cardiology evaluation pending echocardiogram -follow BNP and BMP # JAVAD with baseline chronic kidney disease and proteinuria secondary to type 2 diabetes- improving -likely cardiorenal/related to anemia -nephrology input appreciated -creatinine 2.12, BUN 55.? Urine creatinine 49, urine potassium 57, urine sodium 36 -D/C amlodipine. Add imdur. Increase lasix -received 1 unit packed red blood cells in ED -hold on further IVF due to fluid overload -Follow BMP # hyperkalemia secondary to JAVAD -repeat potassium 5.4, improved from 5.7 -give Lokelma daily.? Will likely improve with JAVAD -follow BMP # type 2 fimyomyj-oat-nlsdzpk-dependent- controlled -POC glucose -diabetic diet -Humalog on sliding scale for hyperglycemia # mild intermittent asthma without exacerbation -albuterol p.r.n. # hypertension -continue carvedilol, hydralazine -Amlodipine changed to imdur # opioid dependence -continue Suboxone DVT prophylaxis-mechanical Full code Patient requires ongoing inpt stay due to severe anemia requiring transfusion with close monitoring of blood counts due to chronic bleed as well as close monitoring of cardiorenal function to prevent further comopromise secondary to anemia. Quality Stroke Does the patient have a stroke diagnosis?: No VTE Prior VTE?: No VTE Risk Level:: Medical - moderate - high VTE Device Contraindication: Treatment Not Indicated VTE Drug Contraindication: N/A - Med Ordered
--- NOTE | 2022-01-10 14:46 | MHC.CM.PN ---
pt dcd home to resume suboxone
[2022-01-10 15:41] LABS: Glucose, Whole Blood 98 mg/dL (60-115)
[2022-01-10] MEDS: Barium Sulfate Oral (Mocha) 450 ML ORAL.SUSP 900 ML PO (16:45)
[2022-01-10] MEDS: Pantoprazole Sodium 40 MG/10 ML VIAL IVPUSH (17:00)
[2022-01-10] MEDS: Furosemide 20 MG/2 ML VIAL 40 MG IVPUSH (17:00)
[2022-01-10 19:53] LABS: Glucose, Whole Blood 89 mg/dL (60-115)
[2022-01-11] VITALS (7 sets, daily range): BP systolic 140–163; BP diastolic 63–73; PULSE 66–84; RESP 12–20; TEMP 36.6–37.1; O2SAT 95–98
[2022-01-11] MEDS: Pantoprazole Sodium 40 MG/10 ML VIAL IVPUSH ×2 (06:15→17:13)
[2022-01-11 06:41] LABS: MANUAL DIFF FLAG NO
[2022-01-11 06:44] LABS: Basophils Absolute Auto 0.1 X10*3/uL (0.0-0.2); Basophils Percent Auto 0.6 % (0-2); Eosinophils Absolute Auto 1.4 X10*3/uL (0.0-0.4); Eosinophils Percent Auto 14.9 % (0-4); Hematocrit 26.8 % (42.0-52.0); Hemoglobin 7.7 g/dl (14.0-18.0); Imm Gran Abs Auto 0.03 X10*3/uL (0.00-0.03); Imm Gran Pct Auto 0.3 % (0.0-0.4); Lymphocytes Absolute Auto 1.3 X10*3/uL (1.2-4.9); Lymphocytes Percent Auto 13.7 % (20-40); Mean Corpuscular HGB Conc 28.7 g/dl (31.0-36.0); Mean Corpuscular Hemoglobin 19.3 pg (27.0-33.0); Monocytes Absolute Auto 1.3 X10*3/uL (0.1-1.2); Monocytes Percent Auto 13.6 % (2-11); Neutrophils Absolute Auto 5.4 x10*3/uL (2.0-8.3); Neutrophils Percent Auto 56.9 % (45-73); Platelet Count 402 X10*3/uL (160-400); Red Cell Distribution Width 26.3 % (11.0-16.0); White Blood Count 9.4 X10*3/uL (4.8-10.8)
[2022-01-11 07:03] LABS: NRBC Pct Auto 1.1 /100WBC (0.0-0.2)
[2022-01-11 07:10] LABS: B Type Natriuretic Peptide 679 pg/mL (<100)
[2022-01-11 07:20] LABS: Glucose, Whole Blood 93 mg/dL (60-115)
[2022-01-11 07:23] LABS: Anion Gap 14 (12-20); Blood Urea Nitrogen 38 mg/dL (9-16); Carbon Dioxide 32 mmol/L (22-29); Chloride 103 mmol/L (96-108); Creatinine Clr Calc Pharmacy 39.7; Estimated Glomerular Filt Rate 42; Glucose Random 88 mg/dL (60-115); Potassium 4.6 mmol/L (3.3-5.1); Sodium 144 mmol/L (135-145)
--- NOTE | 2022-01-11 09:51 | HO.PM.IMPN ---
Subjective Subjective Date of Service: 01/11/22 Interval History: cc: anasarca interval history: worsening anasarca Cardiovascular Cardiovascular: Reports no additional cardiovascular complaints Respiratory Respiratory: Reports no additional respiratory complaints Physical Exam Vital Signs: Vital Signs: Last Vital Signs Temp 98.7 F 01/11/22 08:00 Pulse 75 01/11/22 08:00 Resp 16 01/11/22 08:00 BP 156/69 H 01/11/22 08:00 Pulse Ox 96 01/11/22 08:00 O2 Del Method 01/11/22 08:00 O2 Flow Rate 2 01/11/22 08:00 BMI result Body Mass Index 35.3 General: AO X 3, no acute distress, anasarca Resp: CTA bilateral, no accessory muscles used CVS: S1,S2,RRR GI: soft, non tender, non distended Neuro: motor grossly intact, alert Psych: appropriate affect, appropriate insight Objective Data Active Medications Acetaminophen (Acetaminophen 325 Mg Tablet) 650 mg PO Q6H PRN PRN Reason: Pain, Mild (Pain Scale 1-3) Buprenorphine/Naloxone (Buprenorphine/Naloxone 8/2 Mg Film) 1 film SUBLINGUAL DAILY [facility] Last Admin: 01/10/22 09:05 Dose: Not Given Documented By: ALLY Non-Admin Reason: Patient Refused Buprenorphine/Naloxone (Buprenorphine/Naloxone 4/1 Mg Film) 1 film SUBLINGUAL DAILY [facility] Last Admin: 01/10/22 09:06 Dose: Not Given Documented By: ALLY Non-Admin Reason: Patient Refused Carvedilol (Carvedilol 6.25 Mg Tablet) 6.25 mg PO BID [facility]; Protocol Last Admin: 01/10/22 20:01 Dose: 6.25 mg Documented By: JOHNNYLM Dextrose (Dextrose 50 % 25 Gm/50 Ml Syringe) 25 gm IVPUSH Q15M PRN; Protocol PRN Reason: per Hypoglycemia Standing Ord. Docusate Sodium (Docusate Sodium 100 Mg Capsule) 100 mg PO DAILY PRN PRN Reason: Constipation Ferrous Sulfate (Ferrous Sulfate 324 Mg Tablet.Dr) 324 mg PO BIDWM [facility] Last Admin: 01/10/22 17:00 Dose: 324 mg Documented By: PHANLYM Glucose (Glucose Gel 15 Gm Gel..Gram.) 15 gm PO Q15M PRN; Protocol PRN Reason: per Hypoglycemia Standing Ord. Hydralazine HCl (Hydralazine Hcl 25 Mg Tablet) 25 mg PO TID [facility]; Protocol Last Admin: 01/10/22 20:01 Dose: 25 mg Documented By: ABDI Furosemide 200 mg/ Sodium (Chloride) 100 mls @ 2.5 mls/hr IVCONT .Q24H [facility] Insulin Human Lispro (Insulin Lispro 100 Unit/Ml 3 Ml Vial) 0 unit SUBCUT QIDACHS [facility]; Protocol Last Admin: 01/11/22 07:50 Dose: Not Given Documented By: ANÍBAL Non-Admin Reason: No Insulin Coverage Isosorbide Mononitrate (Isosorbide Mononitrate 30 Mg Tab.Er.24h) 30 mg PO DAILY [facility]; Protocol Ondansetron HCl (Ondansetron Hcl 4 Mg/2 Ml Vial) 4 mg IVPUSH Q8H PRN PRN Reason: Nausea and Vomiting Pantoprazole Sodium (Pantoprazole Sodium 40 Mg/10 Ml Vial) 40 mg IVPUSH BID@0630,1630 [facility] Last Admin: 01/11/22 06:15 Dose: 40 mg Documented By: ABDI Pharmacy Consult (Consult Rx Perform Med Rec) 1 each MISCELLANE ONCE PRN PRN Reason: Consult order Pharmacy Consult (Consult Rx Perform Med Rec) 1 each MISCELLANE ONCE PRN PRN Reason: Consult order Sodium Chloride (0.9 % Sodium Chloride Flush 3 Ml Syringe) 3 ml IVFLUSH QSHIFT [facility] Last Admin: 01/10/22 22:15 Dose: 3 ml Documented By: ABDI Sodium Zirconium Cyclosilicate (Sodium Zirconium Cyclosilicate 5 Gm Powd.Pack) 5 gm PO DAILY [facility] Last Admin: 01/10/22 09:03 Dose: Not Given Documented By: ALLY Non-Admin Reason: See Note Comments: potassium level normal Labs CBC & Chem 7: 01/11/22 05:57 01/11/22 05:57 Labs: Laboratory Results - last 24 hr 01/09/22 01/09/22 01/10/22 09:15 11:13 11:50 MCV MCH MCHC RDW Plt Count MPV Immature Gran % (Auto) Neut % (Auto) Lymph % (Auto) [place] % (Auto) Eos % (Auto) Baso % (Auto) Lymph # (Auto) [place] # (Auto) Eos # (Auto) Baso # (Auto) Abs Immat Gran (auto) Absolute Neuts (auto) Absolute Nucleated RBC Nucleated RBC % (auto) Smear Path Review SEE NOTE Anion Gap Estim Creat Clear Calc Estimated GFR POC Glucose 128 H Random Glucose Calcium B-Natriuretic Peptide Blood Type A Positive Antibody Screen NEGATIVE Crossmatch See Detail 01/10/22 01/10/22 01/11/22 15:27 19:37 05:57 MCV 67.0 L MCH 19.3 L MCHC 28.7 L RDW 26.3 H Plt Count 402 H MPV 9.0 L Immature Gran % (Auto) 0.3 Neut % (Auto) 56.9 Lymph % (Auto) 13.7 L [place] % (Auto) 13.6 H Eos % (Auto) 14.9 H Baso % (Auto) 0.6 Lymph # (Auto) 1.3 [place] # (Auto) 1.3 H Eos # (Auto) 1.4 H Baso # (Auto) 0.1 Abs Immat Gran (auto) 0.03 Absolute Neuts (auto) 5.4 Absolute Nucleated RBC 0.100 H Nucleated RBC % (auto) 1.1 H Smear Path Review Anion Gap Estim Creat Clear Calc Estimated GFR POC Glucose 98 89 Random Glucose Calcium B-Natriuretic Peptide Blood Type Antibody Screen Crossmatch 01/11/22 01/11/22 01/11/22 05:57 05:57 07:15 MCV MCH MCHC RDW Plt Count MPV Immature Gran % (Auto) Neut % (Auto) Lymph % (Auto) [place] % (Auto) Eos % (Auto) Baso % (Auto) Lymph # (Auto) [place] # (Auto) Eos # (Auto) Baso # (Auto) Abs Immat Gran (auto) Absolute Neuts (auto) Absolute Nucleated RBC Nucleated RBC % (auto) Smear Path Review Anion Gap 14 Estim Creat Clear Calc 39.7 Estimated GFR 42 POC Glucose 93 Random Glucose 88 Calcium 8.0 L B-Natriuretic Peptide 679 H Blood Type Antibody Screen Crossmatch Assessment and Plan (1) Iron deficiency anemia: Status: Acute (2) JAVAD (acute kidney injury): Status: Acute (3) CHF (congestive heart failure): Status: Acute Plan 71-year-old male with history of rcz-lakixtd-ffyrvmfwt type 2 diabetes, CKD, mild intermittent asthma, opioid dependence on Suboxone, and hypertension admitted for anemia with CHF exacerbation and JAVAD. Acute on chronic JASON likely related to chronic blood loss H/H improved 7.7 following 2 unit prbc stool is heme negative and patient now endorsing occassional BRBPR patient is iron deficient.? P.o. ferrous sulfate holding aspirin gastroenterology recommending colonoscopy to look for source of bleeding/malignancy but patient declines. Risks explained to patient. 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 follow BMP type 2 koejroxv-mgu-yooglvg-dependent- controlled POC Humalog on sliding scale for hyperglycemia mild intermittent asthma without exacerbation -albuterol p.r.n. hypertension continue carvedilol, hydralazine Amlodipine changed to imdur opioid dependence continue Suboxone DVT prophylaxis-mechanical Full code reason for continued hospitalization:iv diuresis Quality Stroke Does the patient have a stroke diagnosis?: No VTE Prior VTE?: No VTE Risk Level:: Medical - moderate - high VTE Device Contraindication: Treatment Not Indicated VTE Drug Contraindication: N/A - Med Ordered
--- NOTE | 2022-01-11 10:14 | P.PNNP_ITS ---
Subjective Subjective Date of Service: 01/11/22 Interval history: Has anasarca. Seen AM. All reccent data reviewed Physical Exam Vital Signs: Vital Signs: Last Vital Signs Temp 98.7 F 01/11/22 08:00 Pulse 75 01/11/22 08:00 Resp 16 01/11/22 08:00 BP 156/69 H 01/11/22 08:00 Pulse Ox 96 01/11/22 08:00 O2 Del Method 01/11/22 08:00 O2 Flow Rate 2 01/11/22 08:00 BMI result Body Mass Index 35.3 Const: General: comfortable Orientation/consciousness: patient oriented x3 Eyes: EOM: EOMs intact bilaterally Neck: Neck: Yes supple Resp: Auscultation: diminished lung sounds Cardio: Rate: regular rate GI: Palpation (GI): Soft to palpation : Other: Scrotal swelling Skin: General skin exam: no rashes or lesions noted Neuro: General: patient oriented x3 and moves all extremities Extrem: Other: Bipedal edema Objective Data Labs CBC & Chem 7: 01/11/22 05:57 01/11/22 05:57 Labs: Laboratory Results - last 24 hr 01/09/22 01/09/22 01/10/22 09:15 11:13 11:50 WBC RBC Hgb Hct MCV MCH MCHC RDW Plt Count MPV Immature Gran % (Auto) Neut % (Auto) Lymph % (Auto) [place] % (Auto) Eos % (Auto) Baso % (Auto) Lymph # (Auto) [place] # (Auto) Eos # (Auto) Baso # (Auto) Abs Immat Gran (auto) Absolute Neuts (auto) Absolute Nucleated RBC Nucleated RBC % (auto) Smear Path Review SEE NOTE Sodium Potassium Chloride Carbon Dioxide Anion Gap BUN Creatinine Estim Creat Clear Calc Estimated GFR POC Glucose 128 H Random Glucose Calcium B-Natriuretic Peptide Blood Type A Positive Antibody Screen NEGATIVE Crossmatch See Detail 01/10/22 01/10/22 01/11/22 15:27 19:37 05:57 WBC 9.4 RBC 4.00 L Hgb 7.7 L Hct 26.8 L MCV 67.0 L MCH 19.3 L MCHC 28.7 L RDW 26.3 H Plt Count 402 H MPV 9.0 L Immature Gran % (Auto) 0.3 Neut % (Auto) 56.9 Lymph % (Auto) 13.7 L [place] % (Auto) 13.6 H Eos % (Auto) 14.9 H Baso % (Auto) 0.6 Lymph # (Auto) 1.3 [place] # (Auto) 1.3 H Eos # (Auto) 1.4 H Baso # (Auto) 0.1 Abs Immat Gran (auto) 0.03 Absolute Neuts (auto) 5.4 Absolute Nucleated RBC 0.100 H Nucleated RBC % (auto) 1.1 H Smear Path Review Sodium Potassium Chloride Carbon Dioxide Anion Gap BUN Creatinine Estim Creat Clear Calc Estimated GFR POC Glucose 98 89 Random Glucose Calcium B-Natriuretic Peptide Blood Type Antibody Screen Crossmatch 01/11/22 01/11/22 01/11/22 05:57 05:57 07:15 WBC RBC Hgb Hct MCV MCH MCHC RDW Plt Count MPV Immature Gran % (Auto) Neut % (Auto) Lymph % (Auto) [place] % (Auto) Eos % (Auto) Baso % (Auto) Lymph # (Auto) [place] # (Auto) Eos # (Auto) Baso # (Auto) Abs Immat Gran (auto) Absolute Neuts (auto) Absolute Nucleated RBC Nucleated RBC % (auto) Smear Path Review Sodium 144 Potassium 4.6 Chloride 103 Carbon Dioxide 32 H Anion Gap 14 BUN 38 H Creatinine 1.62 H Estim Creat Clear Calc 39.7 Estimated GFR 42 POC Glucose 93 Random Glucose 88 Calcium 8.0 L B-Natriuretic Peptide 679 H Blood Type Antibody Screen Crossmatch Procedures Date of Service Date of Service: 01/11/22 Assessment & Plan Assessment and plan (1) JAVAD (acute kidney injury): Status: Acute Assessment and Plan: Acute Kidney Injury due to compromise in renal perfusion Has significant proteinuria; Hypervolemic Discontinued Amlodipine and started Imdur 30 mg Renal function better Switched lasix to infusion C/W rest of current management Labs AM. Shall closely F/U Time Spent With Patient Time: Total time spent is greater than 50% in coordination of care (as documented) at patient's floor/unit and/or counseling patient: Progress Note: Quality Stroke Does the patient have a stroke diagnosis?: No
[2022-01-11 11:24] LABS: Glucose, Whole Blood 121 mg/dL (60-115)
[2022-01-11] MEDS: carvediloL 6.25 MG TABLET PO ×2 (11:25→20:33)
[2022-01-11] MEDS: hydrALAZINE HCl 25 MG TABLET PO ×3 (11:25→20:33)
[2022-01-11] MEDS: Isosorbide Mononitrate 30 MG TAB.ER.24H PO (11:25)
[2022-01-11] MEDS: Ferrous Sulfate 324 MG TABLET.DR PO ×2 (11:25→17:13)
[2022-01-11] MEDS: 0.9 % Sodium Chloride Flush 3 ML SYRINGE IVFLUSH ×2 (11:26→17:13)
[2022-01-11] MEDS: Sodium Zirconium Cyclosilicate 5 GM POWD.PACK PO (11:26)
[2022-01-11] MEDS: Furosemide 200 MG in 0.9 % Sodium Chloride 80 ML IVCONT (11:40)
[2022-01-11 16:27] LABS: Glucose, Whole Blood 88 mg/dL (60-115)
[2022-01-11 20:35] LABS: Glucose, Whole Blood 86 mg/dL (60-115)
[2022-01-12 03:34] VITALS: BP 160/70; PULSE 78; RESP 18; TEMP 36.6; O2SAT 98
[2022-01-12] MEDS: Pantoprazole Sodium 40 MG/10 ML VIAL IVPUSH ×2 (05:30→17:42)
[2022-01-12 06:09] LABS: MANUAL DIFF FLAG NO
[2022-01-12 06:15] LABS: Basophils Absolute Auto 0.1 X10*3/uL (0.0-0.2); Basophils Percent Auto 0.7 % (0-2); Eosinophils Absolute Auto 1.3 X10*3/uL (0.0-0.4); Eosinophils Percent Auto 13.2 % (0-4); Hematocrit 29.7 % (42.0-52.0); Hemoglobin 8.5 g/dl (14.0-18.0); Imm Gran Abs Auto 0.04 X10*3/uL (0.00-0.03); Imm Gran Pct Auto 0.4 % (0.0-0.4); Lymphocytes Absolute Auto 1.2 X10*3/uL (1.2-4.9); Mean Corpuscular HGB Conc 28.6 g/dl (31.0-36.0); Mean Corpuscular Hemoglobin 19.1 pg (27.0-33.0); Mean Corpuscular Volume 66.6 fL (80.0-98.0); Mean Platelet Volume 9.4 fL (9.4-12.4); Monocytes Absolute Auto 1.2 X10*3/uL (0.1-1.2); Monocytes Percent Auto 12.3 % (2-11); NRBC Pct Auto 0.2 /100WBC (0.0-0.2); Neutrophils Percent Auto 61.4 % (45-73); Platelet Count 456 X10*3/uL (160-400); Red Blood Count 4.46 X10*6/uL (4.60-5.80); White Blood Count 9.8 X10*3/uL (4.8-10.8)
[2022-01-12 06:32] LABS: Anion Gap 16 (12-20); Blood Urea Nitrogen 29 mg/dL (9-16); Calcium 8.9 mg/dL (8.4-10.2); Carbon Dioxide 32 mmol/L (22-29); Chloride 100 mmol/L (96-108); Creatinine Clr Calc Pharmacy 42.9; Estimated Glomerular Filt Rate 46; Glucose Random 116 mg/dL (60-115); Magnesium 1.5 mg/dL (1.6-2.6); Potassium 3.7 mmol/L (3.3-5.1); Sodium 144 mmol/L (135-145)
[2022-01-12 07:18] VITALS: BP 180/77; PULSE 80; RESP 18; TEMP 36.6; O2SAT 97
[2022-01-12 07:25] LABS: Glucose, Whole Blood 103 mg/dL (60-115)
--- NOTE | 2022-01-12 09:38 | PM.PNNEP ---
Subjective Subjective Date of Service: 01/12/22 Interval history: Has anasarca. Seen AM. All reccent data reviewed Physical Exam Vital Signs: Vital Signs: Last Vital Signs Temp 97.9 F 01/12/22 07:18 Pulse 80 01/12/22 07:18 Resp 18 01/12/22 07:18 BP 180/77 H 01/12/22 07:18 Pulse Ox 97 01/12/22 07:18 O2 Del Method 01/12/22 07:18 O2 Flow Rate 3 01/12/22 07:18 BMI result Body Mass Index 35.3 Const: General: no acute distress Orientation/consciousness: patient oriented x3 Eyes: EOM: EOMs intact bilaterally Neck: Neck: Yes supple Resp: Auscultation: diminished lung sounds Cardio: Rate: regular rate GI: Palpation (GI): Soft to palpation Neuro: General: patient oriented x3 and moves all extremities Objective Data Labs CBC & Chem 7: 01/12/22 05:21 01/12/22 05:21 Labs: Laboratory Results - last 24 hr 01/11/22 01/11/22 01/11/22 05:57 11:15 16:17 WBC RBC Hgb Hct MCV MCH MCHC RDW Plt Count MPV Immature Gran % (Auto) Neut % (Auto) Lymph % (Auto) [place] % (Auto) Eos % (Auto) Baso % (Auto) Lymph # (Auto) [place] # (Auto) Eos # (Auto) Baso # (Auto) Abs Immat Gran (auto) Absolute Neuts (auto) Absolute Nucleated RBC Nucleated RBC % (auto) Smear Path Review SEE NOTE Sodium Potassium Chloride Carbon Dioxide Anion Gap BUN Creatinine Estim Creat Clear Calc Estimated GFR POC Glucose 121 H 88 Random Glucose Calcium Magnesium 01/11/22 01/12/22 01/12/22 20:20 05:21 05:21 WBC 9.8 RBC 4.46 L Hgb 8.5 L Hct 29.7 L MCV 66.6 L MCH 19.1 L MCHC 28.6 L RDW 27.0 H Plt Count 456 H MPV 9.4 Immature Gran % (Auto) 0.4 Neut % (Auto) 61.4 Lymph % (Auto) 12.0 L [place] % (Auto) 12.3 H Eos % (Auto) 13.2 H Baso % (Auto) 0.7 Lymph # (Auto) 1.2 [place] # (Auto) 1.2 Eos # (Auto) 1.3 H Baso # (Auto) 0.1 Abs Immat Gran (auto) 0.04 H Absolute Neuts (auto) 6.0 Absolute Nucleated RBC 0.020 H Nucleated RBC % (auto) 0.2 Smear Path Review Sodium 144 Potassium 3.7 Chloride 100 Carbon Dioxide 32 H Anion Gap 16 BUN 29 H Creatinine 1.50 H Estim Creat Clear Calc 42.9 Estimated GFR 46 POC Glucose 86 Random Glucose 116 H Calcium 8.9 D Magnesium 1.5 L 01/12/22 07:17 WBC RBC Hgb Hct MCV MCH MCHC RDW Plt Count MPV Immature Gran % (Auto) Neut % (Auto) Lymph % (Auto) [place] % (Auto) Eos % (Auto) Baso % (Auto) Lymph # (Auto) [place] # (Auto) Eos # (Auto) Baso # (Auto) Abs Immat Gran (auto) Absolute Neuts (auto) Absolute Nucleated RBC Nucleated RBC % (auto) Smear Path Review Sodium Potassium Chloride Carbon Dioxide Anion Gap BUN Creatinine Estim Creat Clear Calc Estimated GFR POC Glucose 103 Random Glucose Calcium Magnesium Procedures Date of Service Date of Service: 01/12/22 Assessment & Plan Assessment and plan (1) JAVAD (acute kidney injury): Status: Acute Assessment and Plan: Acute Kidney Injury due to compromise in renal perfusion Has significant proteinuria; Hypervolemic Discontinued Amlodipine and replaced with Imdur 30 mg Renal function better; Currently on lasix infusion C/W rest of current management Labs AM. Shall closely F/U Time Spent With Patient Time: Total time spent is greater than 50% in coordination of care (as documented) at patient's floor/unit and/or counseling patient: Progress Note: Quality Stroke Does the patient have a stroke diagnosis?: No
--- NOTE | 2022-01-12 09:50 | P.PNIM_ITS ---
Subjective Subjective Date of Service: 01/12/22 Interval History: cc: anasarca interval history: shannan parker Cardiovascular Cardiovascular: Reports no additional cardiovascular complaints Respiratory Respiratory: Reports no additional respiratory complaints Physical Exam Vital Signs: Vital Signs: Last Vital Signs Temp 97.9 F 01/12/22 07:18 Pulse 80 01/12/22 07:18 Resp 18 01/12/22 07:18 BP 180/77 H 01/12/22 07:18 Pulse Ox 97 01/12/22 07:18 O2 Del Method 01/12/22 07:18 O2 Flow Rate 3 01/12/22 07:18 BMI result Body Mass Index 35.3 Const: General: no acute distress Orientation/consciousness: patient oriented x3 Eyes: EOM: EOMs intact bilaterally Neck: Neck: Yes supple Resp: Auscultation: diminished lung sounds Cardio: Rate: regular rate GI: Palpation (GI): Soft to palpation Neuro: General: patient oriented x3 and moves all extremities Objective Data Active Medications Acetaminophen (Acetaminophen 325 Mg Tablet) 650 mg PO Q6H PRN PRN Reason: Pain, Mild (Pain Scale 1-3) Buprenorphine/Naloxone (Buprenorphine/Naloxone 8/2 Mg Film) 1 film SUBLINGUAL DAILY [facility] Last Admin: 01/11/22 11:28 Dose: Not Given Documented By: ANÍBAL Non-Admin Reason: Patient Refused Buprenorphine/Naloxone (Buprenorphine/Naloxone 4/1 Mg Film) 1 film SUBLINGUAL DAILY [facility] Last Admin: 01/11/22 11:28 Dose: Not Given Documented By: ANÍBAL Non-Admin Reason: Patient Refused Carvedilol (Carvedilol 6.25 Mg Tablet) 6.25 mg PO BID FER; Protocol Last Admin: 01/11/22 20:33 Dose: 6.25 mg Documented By: ABDI Dextrose (Dextrose 50 % 25 Gm/50 Ml Syringe) 25 gm IVPUSH Q15M PRN; Protocol PRN Reason: per Hypoglycemia Standing Ord. Docusate Sodium (Docusate Sodium 100 Mg Capsule) 100 mg PO DAILY PRN PRN Reason: Constipation Ferrous Sulfate (Ferrous Sulfate 324 Mg Tablet.Dr) 324 mg PO BIDWM [facility]ER Last Admin: 01/11/22 17:13 Dose: 324 mg Documented By: FLASH Glucose (Glucose Gel 15 Gm Gel..Gram.) 15 gm PO Q15M PRN; Protocol PRN Reason: per Hypoglycemia Standing Ord. Hydralazine HCl (Hydralazine Hcl 25 Mg Tablet) 25 mg PO TID [facility]; Protocol Last Admin: 01/11/22 20:33 Dose: 25 mg Documented By: ABDI Furosemide 200 mg/ Sodium (Chloride) 100 mls @ 5 mls/hr IVCONT .Q20H [facility] Insulin Human Lispro (Insulin Lispro 100 Unit/Ml 3 Ml Vial) 0 unit SUBCUT QIDACHS [facility]; Protocol Last Admin: 01/12/22 07:50 Dose: Not Given Documented By: RAFY Non-Admin Reason: No Insulin Coverage Isosorbide Mononitrate (Isosorbide Mononitrate 30 Mg Tab.Er.24h) 30 mg PO DAILY [facility]; Protocol Last Admin: 01/11/22 11:25 Dose: 30 mg Documented By: ANÍBAL Ondansetron HCl (Ondansetron Hcl 4 Mg/2 Ml Vial) 4 mg IVPUSH Q8H PRN PRN Reason: Nausea and Vomiting Pantoprazole Sodium (Pantoprazole Sodium 40 Mg/10 Ml Vial) 40 mg IVPUSH BID@0630,1630 [facility] Last Admin: 01/12/22 05:30 Dose: 40 mg Documented By: ABDI Pharmacy Consult (Consult Rx Perform Med Rec) 1 each MISCELLANE ONCE PRN PRN Reason: Consult order Pharmacy Consult (Consult Rx Perform Med Rec) 1 each MISCELLANE ONCE PRN PRN Reason: Consult order Sodium Chloride (0.9 % Sodium Chloride Flush 3 Ml Syringe) 3 ml IVFLUSH QSHIFT [facility] Last Admin: 01/11/22 23:54 Dose: Not Given Documented By: ABDI Non-Admin Reason: IV Running Sodium Zirconium Cyclosilicate (Sodium Zirconium Cyclosilicate 5 Gm Powd.Pack) 5 gm PO DAILY [facility] Last Admin: 01/11/22 11:26 Dose: 5 gm Documented By: ANÍBAL Labs CBC & Chem 7: 01/12/22 05:21 01/12/22 05:21 Labs: Laboratory Results - last 24 hr 01/11/22 01/11/22 01/11/22 05:57 11:15 16:17 MCV MCH MCHC RDW Plt Count MPV Immature Gran % (Auto) Neut % (Auto) Lymph % (Auto) [place] % (Auto) Eos % (Auto) Baso % (Auto) Lymph # (Auto) [place] # (Auto) Eos # (Auto) Baso # (Auto) Abs Immat Gran (auto) Absolute Neuts (auto) Absolute Nucleated RBC Nucleated RBC % (auto) Smear Path Review SEE NOTE Anion Gap Estim Creat Clear Calc Estimated GFR POC Glucose 121 H 88 Random Glucose Calcium Magnesium 01/11/22 01/12/22 01/12/22 20:20 05:21 05:21 MCV 66.6 L MCH 19.1 L MCHC 28.6 L RDW 27.0 H Plt Count 456 H MPV 9.4 Immature Gran % (Auto) 0.4 Neut % (Auto) 61.4 Lymph % (Auto) 12.0 L [place] % (Auto) 12.3 H Eos % (Auto) 13.2 H Baso % (Auto) 0.7 Lymph # (Auto) 1.2 [place] # (Auto) 1.2 Eos # (Auto) 1.3 H Baso # (Auto) 0.1 Abs Immat Gran (auto) 0.04 H Absolute Neuts (auto) 6.0 Absolute Nucleated RBC 0.020 H Nucleated RBC % (auto) 0.2 Smear Path Review Anion Gap 16 Estim Creat Clear Calc 42.9 Estimated GFR 46 POC Glucose 86 Random Glucose 116 H Calcium 8.9 D Magnesium 1.5 L 01/12/22 07:17 MCV MCH MCHC RDW Plt Count MPV Immature Gran % (Auto) Neut % (Auto) Lymph % (Auto) [place] % (Auto) Eos % (Auto) Baso % (Auto) Lymph # (Auto) [place] # (Auto) Eos # (Auto) Baso # (Auto) Abs Immat Gran (auto) Absolute Neuts (auto) Absolute Nucleated RBC Nucleated RBC % (auto) Smear Path Review Anion Gap Estim Creat Clear Calc Estimated GFR POC Glucose 103 Random Glucose Calcium Magnesium Assessment and Plan (1) Iron deficiency anemia: Status: Acute (2) JAVAD (acute kidney injury): Status: Acute (3) CHF (congestive heart failure): Status: Acute Plan 71-year-old male with history of djj-bfwohuz-cnmdwjpct type 2 diabetes, CKD, mild intermittent asthma, opioid dependence on Suboxone, and hypertension ad mitted for anemia with CHF exacerbation and JAVAD. Acute on chronic JASON likely related to chronic blood loss H/H improved to 8.5 following 2 unit prbc stool is heme negative and patient now endorsing occassional BRBPR patient is iron deficient.? P.o. ferrous sulfate holding aspirin gastroenterology recommending colonoscopy to look for source of bleeding/malignancy but patient declines. Risks explained to patient. 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 follow BMP type 2 cjreyuho-xug-ravznmz-dependent- controlled POC Humalog on sliding scale for hyperglycemia mild intermittent asthma without exacerbation -albuterol p.r.n. hypertension continue carvedilol, hydralazine Amlodipine changed to imdur opioid dependence continue Suboxone DVT prophylaxis-mechanical Full code reason for continued hospitalization:iv diuresis Quality Stroke Does the patient have a stroke diagnosis?: No VTE Prior VTE?: No VTE Risk Level:: Medical - moderate - high VTE Device Contraindication: Treatment Not Indicated VTE Drug Contraindication: N/A - Med Ordered
[2022-01-12] MEDS: Isosorbide Mononitrate 30 MG TAB.ER.24H PO (10:47)
[2022-01-12] MEDS: Sodium Zirconium Cyclosilicate 5 GM POWD.PACK PO (10:47)
[2022-01-12] MEDS: hydrALAZINE HCl 25 MG TABLET PO ×3 (10:48→20:03)
[2022-01-12] MEDS: 0.9 % Sodium Chloride Flush 3 ML SYRINGE IVFLUSH ×2 (10:48→15:42)
[2022-01-12] MEDS: carvediloL 6.25 MG TABLET PO ×2 (10:48→20:05)
[2022-01-12] MEDS: Ferrous Sulfate 324 MG TABLET.DR PO ×2 (10:48→17:43)
[2022-01-12] MEDS: Furosemide 200 MG in 0.9 % Sodium Chloride 80 ML IVCONT (10:48)
[2022-01-12 11:05] VITALS: BP 155/71; PULSE 64; RESP 18; TEMP 36.4; O2SAT 97
[2022-01-12 11:11] LABS: Glucose, Whole Blood 125 mg/dL (60-115)
[2022-01-12] MEDS: Magnesium Sulfate/H2O 2 GM/50 ML PIGGYBACK IV (12:27)
--- NOTE | 2022-01-12 13:21 | MHC.CM.PN ---
No discharge today per MD rounds. Patient requires further diuresis. He remains on a Lasix drip.DP resume MAT at [facility]. His dtr will provide transportation home.
[2022-01-12 15:18] VITALS: BP 165/75; PULSE 92; RESP 19; TEMP 36.4; O2SAT 95
[2022-01-12 16:16] LABS: Glucose, Whole Blood 131 mg/dL (60-115)
[2022-01-12 20:00] VITALS: BP 160/64; PULSE 90; RESP 18; TEMP 36.4; O2SAT 95
[2022-01-12 21:02] LABS: Glucose, Whole Blood 124 mg/dL (60-115)
[2022-01-13] VITALS: BP 169/63; PULSE 73; RESP 18; TEMP 36.6; O2SAT 92
[2022-01-13] MEDS: 0.9 % Sodium Chloride Flush 3 ML SYRINGE IVFLUSH ×2 (00:20→09:16)
[2022-01-13] MEDS: ondansetron HCL 4 MG/2 ML VIAL IVPUSH (01:11)
[2022-01-13 04:00] VITALS: BP 178/73; PULSE 82; RESP 20; TEMP 37.2; O2SAT 92
[2022-01-13 04:28] LABS: Glucose, Whole Blood 127 mg/dL (60-115)
[2022-01-13] MEDS: Pantoprazole Sodium 40 MG/10 ML VIAL IVPUSH (06:00)
[2022-01-13 06:04] VITALS: BMI 33.3
[2022-01-13] MEDS: Furosemide 200 MG in 0.9 % Sodium Chloride 80 ML IVCONT (06:25)
[2022-01-13 06:49] LABS: Hematocrit 34.4 % (42.0-52.0); Hemoglobin 10.2 g/dl (14.0-18.0); Mean Corpuscular HGB Conc 29.7 g/dl (31.0-36.0); Mean Corpuscular Hemoglobin 19.7 pg (27.0-33.0); Mean Corpuscular Volume 66.5 fL (80.0-98.0); Mean Platelet Volume 9.4 fL (9.4-12.4); Platelet Count 467 X10*3/uL (160-400); Red Blood Count 5.17 X10*6/uL (4.60-5.80); Red Cell Distribution Width 28.1 % (11.0-16.0); White Blood Count 8.8 X10*3/uL (4.8-10.8)
--- NOTE | 2022-01-13 07:08 | PC.NURSE ---
01-09-2022 pt received 1 unit of RBC's and did have the entire transfusion for a total of 350ml with no reaction noted.
[2022-01-13 07:26] VITALS: BP 179/74; PULSE 82; RESP 18; TEMP 37; O2SAT 92
[2022-01-13 07:29] LABS: Anion Gap 19 (12-20); Blood Urea Nitrogen 26 mg/dL (9-16); Calcium 9.7 mg/dL (8.4-10.2); Carbon Dioxide 32 mmol/L (22-29); Chloride 96 mmol/L (96-108); Creatinine Clr Calc Pharmacy 38.8; Estimated Glomerular Filt Rate 43; Glucose Fasting 124 mg/dL (60-99); Magnesium 1.7 mg/dL (1.6-2.6); Potassium 3.5 mmol/L (3.3-5.1); Sodium 143 mmol/L (135-145)
[2022-01-13 08:04] LABS: Glucose, Whole Blood 121 mg/dL (60-115)
[2022-01-13] MEDS: carvediloL 6.25 MG TABLET PO (09:15)
[2022-01-13] MEDS: hydrALAZINE HCl 25 MG TABLET PO (09:15)
[2022-01-13] MEDS: Isosorbide Mononitrate 30 MG TAB.ER.24H PO (09:16)
[2022-01-13] MEDS: Ferrous Sulfate 324 MG TABLET.DR PO (09:16)
--- NOTE | 2022-01-13 11:04 | P.DS_ITS ---
DS: Providers Provider Date of Service: 01/13/22 Date of admission: 01/09/22 14:34 Primary care physician: Shana Tanner MD Consults: 01/09/22 15:33 Consult to Nephrology Routine Consulting Provider: Kenneth Parra Reason for consultation: JAVAD, proteinurea , LE edema 01/09/22 15:35 Consult to Gastroenterology Routine Consulting Provider: Genoveva Dueñas Reason for consultation: ?chronic blood loss anemia DS: Diagnosis Discharge Diagnosis (1) Iron deficiency anemia: Status: Acute (2) JAVAD (acute kidney injury): Status: Acute (3) CHF (congestive heart failure): Status: Acute DS: Summary Hospital Course Hospital Course: from initial hpi: 71-year-old male with history of bwb-ofvijbi-pkayqtwqj type 2 diabetes, CKD, mild intermittent asthma, opioid dependence on Suboxone, and hypertension presented to the ED earlier this morning for evaluation of several days of scrotal and bilateral leg edema.? He denies any history of similar symptoms.? He denies any shortness of breath, dyspnea exertion, orthopnea, palpitations, lightheadedness, or chest pain. He does also report some decreased urinary outp ut but denies any dysuria, hematuria, increased urinary frequency, or incontinence.? No fevers, chills, sick contacts, nausea, vomiting, abdominal pain, flank pain.? On arrival, H/H 6.2/23.3%, last 9.8/30 2.7% in January 2021.? He denies any recent bleeding episodes-no epistaxis, rectal bleeding, easy bruisability.? He does take a baby aspirin daily but not on any anticoagulation.? On repeat, H/H 6.3/20 3.0%.? Creatinine 2.17, BUN 54 (/measured at 1.54, 34 respectively 1 year ago).? He states he did use to follow with Dr. Nazario and Nephrology but has not seen him in many months.? Potassium 5.7 , sodium 137, chloride 100, CO2 26.? Iron 13, TIBC 419 current saturation 3, ferritin 6.? Troponins flat.? BNP 967.? Stool is heme negative.? UA unremarkable.? Urine sodium 36, urine potassium 57, urine creatinine 49.? CXR shows patchy bilateral airspace opacities relatively similar to prior CXR in June 2019.? No pleural effusions.? 1 unit packed red cells administered with 20 mg furosemide.? Patient was placed on 2 L supplemental O2 due to hypoxia down to 88% noted by nursing staff now stable at 96%.? Vital signs have otherwise been stable. hospital course: patient was admitted for acute on chronic iron deficiency anemia likely related to chronic blood loss. He was transfused 2 units PRBC and hemoglobin improved appropriately. He was started on p.o. iron supplements. His aspirin was discontinued. He was seen by Gastroenterology recommended endoscopy, however, patient refused. CT abdomen was unremarkable. He will be discharged on p.o. omeprazole. He should follow up with GI in reconsider endoscopy. Patient was also diagnosed with acute on chronic diastolic and right-sided heart failure with moderate pulmonary hypertension. Was treated with IV Lasix continues infusion and diuresed well. On discharge she will be started on maintenance Lasix 40 mg p.o.. Patient also presented with acute kidney injury on CKD 3 with proteinuria secondary to type 2 diabetes. This was likely cardiorenal and improved with diuresis. Patient had hyperkalemia which resolved with low,. Patient has diabetes type 2 which was treated with insulin. He has mild intermittent asthma which was not in acute exacerbation. Patient has hypertension which was treated with carvedilol, hydralazine, amlodipine. Imdur Was added. Firs opiate dependence he was continued on Suboxone, he was educated on discontinuing inhaled heroin. Patient noted to have chronic eosinophilia, likely related to heroin use. He is feeling better will be discharged home. Time Spent with Patient Time attestation: Total time spent providing and/or coordinating discharge services: Discharge coordination time: Greater than 30 minutes Quality: Safe Use of Opioids Does Pt have an Active Cancer Diagnosis on the Problem List?: No Quality: Stroke Does the patient have a stroke diagnosis?: No Physical Exam Vital Signs: Vital Signs: Last Vital Signs Temp 98.6 F 01/13/22 07:26 Pulse 82 01/13/22 07:26 Resp 18 01/13/22 07:26 BP 179/74 H 01/13/22 07:26 Pulse Ox 92 01/13/22 07:26 O2 Del Method 01/13/22 07:26 O2 Flow Rate 3 01/12/22 11:05 BMI result Body Mass Index 33.3 Const: General: no acute distress Orientation/consciousness: patient oriented x3 Eyes: EOM: EOMs intact bilaterally Neck: Neck: Yes supple Resp: Auscultation: diminished lung sounds Cardio: Rate: regular rate GI: Palpation (GI): Soft to palpation Neuro: General: patient oriented x3 and moves all extremities DS: Data Data Completed and Pending Labs on day of discharge: Laboratory Results - last 24 hr 01/12/22 01/12/22 01/12/22 11:05 16:12 20:59 WBC RBC Hgb Hct MCV MCH MCHC RDW Plt Count MPV Absolute Nucleated RBC Nucleated RBC % (auto) Sodium Potassium Chloride Carbon Dioxide Anion Gap BUN Creatinine Estim Creat Clear Calc Estimated GFR POC Glucose 125 H 131 H 124 H Fasting Glucose Calcium Magnesium 01/13/22 01/13/22 01/13/22 04:23 06:06 06:06 WBC 8.8 RBC 5.17 Hgb 10.2 L Hct 34.4 L MCV 66.5 L MCH 19.7 L MCHC 29.7 L RDW 28.1 H Plt Count 467 H MPV 9.4 Absolute Nucleated RBC 0.000 Nucleated RBC % (auto) 0.0 Sodium 143 Potassium 3.5 Chloride 96 Carbon Dioxide 32 H Anion Gap 19 BUN 26 H Creatinine 1.61 H Estim Creat Clear Calc 38.8 Estimated GFR 43 POC Glucose 127 H Fasting Glucose 124 H Calcium 9.7 D Magnesium 1.7 01/13/22 07:35 WBC RBC Hgb Hct MCV MCH MCHC RDW Plt Count MPV Absolute Nucleated RBC Nucleated RBC % (auto) Sodium Potassium Chloride Carbon Dioxide Anion Gap BUN Creatinine Estim Creat Clear Calc Estimated GFR POC Glucose 121 H Fasting Glucose Calcium Magnesium Discharge Plan Discharge Anticipated Discharge Date/Time: 01/13/22 11:01 Patient Disposition: Home, Self-Care Discharge Diagnosis: chf Referrals: Shana Morales MD [Primary Care Provider] - 1 Week Discharge Medications: New isosorbide mononitrate 30 mg Tablet Extended Release 24 Hr 30 mg PO DAILY Qty: 30 0RF Protocol: Hold for SBP< HOLD for SBP < : 90 ferrous sulfate 324 mg (65 mg iron) Tablet,Delayed Release (Dr/Ec) 324 mg PO BIDWM Qty: 60 0RF furosemide [Lasix] 40 mg tablet 40 mg PO DAILY Qty: 30 0RF omeprazole 40 mg capsule,delayed release(DR/EC) 40 mg PO DAILY Qty: 30 0RF Continued carvedilol 6.25 mg tablet 6.25 mg PO BID albuterol sulfate 2.5 mg /3 mL (0.083 %) solution for nebulization 1 amp inhalation TID hydralazine 25 mg tablet 25 mg PO Q8H amlodipine 10 mg tablet 10 mg PO DAILY albuterol sulfate [Ventolin HFA] 90 mcg/actuation HFA aerosol inhaler 2 puff INHALATION Q4-6H PRN (Reason: Shortness Of Breath Or Wheezing) buprenorphine-naloxone 8-2 mg film 1.5 strip sublingual DAILY Discontinued aspirin 81 mg tablet,delayed release (DR/EC) 81 mg PO DAILY Discharge Orders: Discharge Order (Routine); Ordered 01/13/22 Ordered By: Osbaldo Oh Diet: Advance to usual diet Activity on Discharge: As tolerated Stand Alone Forms: Patient Portal Discharge page Care Plan Goals: recovery Health Concerns: anemia, chf Plan of Treatment: iron, hold asa, start omeprazole and lasix, follow up wtih cardio and GI, no more heroin Assessment: see above
--- NOTE | 2022-01-13 11:17 | MHC.CM.PN ---
DP: PT MEDICALLY CLEARED FOR DISCHARGE, HOME, NO SERVICES. FAMILY WILL TRANSPORT
== END 2022-01-13 12:21 | disposition home or self-care (01) | DRG 291 ==
LOC: HO.ED 11:47 → HO.EDOVER 14:42 → HO.IMC 01-10 14:17
PROVIDERS: Student in an Organized Health Care Education/Training Program; Admitting Provider Physician Assistant; Emergency Provider Emergency Medicine Emergency Medical Services; PCP Internal Medicine; Visit Provider Internal Medicine
DX: I13.0 Hypertensive heart and chronic kidney disease with heart failure and stage 1 through stage 4 chronic kidney disease, or unspecified chronic kidney disease (principal); I50.33 Acute on chronic diastolic (congestive) heart failure; F11.20 Opioid dependence, uncomplicated; N17.9 Acute kidney failure, unspecified; D62 Acute posthemorrhagic anemia; J45.20 Mild intermittent asthma, uncomplicated; E87.5 Hyperkalemia; I27.29 Other secondary pulmonary hypertension; N18.30 Chronic kidney disease, stage 3 unspecified; E11.22 Type 2 diabetes mellitus with diabetic chronic kidney disease; I50.810 Right heart failure, unspecified; D63.1 Anemia in chronic kidney disease; D72.19 Other eosinophilia; Z20.822 Contact with and (suspected) exposure to COVID-19; Z88.6 Allergy status to analgesic agent; Z79.899 Other long term (current) drug therapy
CPT/HCPCS: 36415; 71046; 74176; 80048; 80076; 81001; 81003; 82272; 82728; 82947; 83540; 83735; 83880; 84100; 84133; 84300; 84484; 85025; 85027; 86850; 86900; 86901; 86923; 87635; 93005; 93306; 99285; J1940; J2405; J3475; P9016

== ENCOUNTER 2023-02-13 11:43 | Outpatient (REF) | payer MEDICARE, MEDICAID, SELFPAY ==
[2023-02-13 13:22] LABS: MANUAL DIFF FLAG NO
[2023-02-13 13:29] LABS: Basophils Absolute Auto 0.1 X10*3/uL (0.0-0.2); Basophils Percent Auto 1.1 % (0-2); Eosinophils Absolute Auto 1.8 X10*3/uL (0.0-0.4); Eosinophils Percent Auto 16.7 % (0-4); Hematocrit 42.1 % (42.0-52.0); Hemoglobin 13.2 g/dl (14.0-18.0); Imm Gran Abs Auto 0.03 X10*3/uL (0.00-0.03); Imm Gran Pct Auto 0.3 % (0.0-0.4); Lymphocytes Percent Auto 17.9 % (20-40); Mean Corpuscular HGB Conc 31.4 g/dl (31.0-36.0); Mean Corpuscular Hemoglobin 27.4 pg (27.0-33.0); Mean Corpuscular Volume 87.5 fL (80.0-98.0); Mean Platelet Volume 10.8 fL (9.4-12.4); Monocytes Absolute Auto 1.1 X10*3/uL (0.1-1.2); Monocytes Percent Auto 9.9 % (2-11); Neutrophils Percent Auto 54.1 % (45-73); Platelet Count 278 X10*3/uL (160-400); Red Blood Count 4.81 X10*6/uL (4.60-5.80); Red Cell Distribution Width 14.6 % (11.0-16.0)
[2023-02-13 13:59] LABS: Microalbum/Creatinine Ratio Ur 1483.6 ug/mg cr (<30)
[2023-02-13 14:03] LABS: Alanine Aminotransferase 7 U/L (0-40); Albumin Level 4.1 g/dL (3.5-5.0); Alkaline Phosphatase 91 U/L (39-117); Anion Gap 17 (12-20); Aspartate Amino Transferase 13 U/L (5-37); Bilirubin Direct 0.1 mg/dL (0.0-0.5); Bilirubin Total 0.5 mg/dL (0.0-1.0); Blood Urea Nitrogen 73 mg/dL (9-16); Calcium 9.7 mg/dL (8.4-10.2); Carbon Dioxide 28 mmol/L (22-29); Chloride 99 mmol/L (96-108); Cholesterol 193 mg/dL (<200); Estimated Glomerular Filt Rate 24; Glucose Random 95 mg/dL (60-115); HDL Cholesterol 49 mg/dL (>40); LDL Cholesterol Calculated 121 mg/dL (<100); Potassium 5.2 mmol/L (3.3-5.1); Sodium 139 mmol/L (135-145); Total Protein 8.5 g/dL (6.5-8.0); Triglycerides 118 mg/dL (<150)
== END 2023-02-13 11:44 | disposition home or self-care (01) ==
LOC: HO.HHCL 11:43
PROVIDERS: Visit Provider Internal Medicine
DX: E11.22 Type 2 diabetes mellitus with diabetic chronic kidney disease (principal); N18.9 Chronic kidney disease, unspecified
CPT/HCPCS: 36415; 80048; 80061; 80076; 82043; 82570; 85025

== ENCOUNTER 2023-02-21 13:35 | Outpatient (REF) | payer MEDICARE, MEDICAID, SELFPAY ==
[2023-02-26 09:15] LABS: Codeine, Ur NEGATIVE; Hydrocodone, Ur NEGATIVE; Hydromorphone, Ur NEGATIVE; Morphine, Ur NEGATIVE; Norhydrocodone, Ur NEGATIVE; Noroxycodone, Ur NEGATIVE; Oxycodone, Ur NEGATIVE; Oxymorphone, Ur NEGATIVE
== END 2023-02-21 13:36 | disposition home or self-care (01) ==
LOC: HO.HHCLNP 13:35
PROVIDERS: Visit Provider Family Medicine
DX: F11.20 Opioid dependence, uncomplicated (principal)
CPT/HCPCS: 80365; G0480

== ENCOUNTER 2023-08-15 09:34 | Outpatient (REF) | payer MEDICARE, MEDICAID, SELFPAY ==
[2023-08-15 11:53] LABS: MANUAL DIFF FLAG NO
[2023-08-15 12:05] LABS: Basophils Absolute Auto 0.1 X10*3/uL (0.0-0.2); Eosinophils Absolute Auto 1.1 X10*3/uL (0.0-0.4); Eosinophils Percent Auto 11.5 % (0-4); Hematocrit 38.9 % (42.0-52.0); Hemoglobin 12.1 g/dl (14.0-18.0); Imm Gran Abs Auto 0.03 X10*3/uL (0.00-0.03); Imm Gran Pct Auto 0.3 % (0.0-0.4); Lymphocytes Absolute Auto 1.5 X10*3/uL (1.2-4.9); Lymphocytes Percent Auto 15.7 % (20-40); Mean Corpuscular HGB Conc 31.1 g/dl (31.0-36.0); Mean Corpuscular Hemoglobin 27.3 pg (27.0-33.0); Mean Corpuscular Volume 87.6 fL (80.0-98.0); Mean Platelet Volume 11.2 fL (9.4-12.4); Monocytes Absolute Auto 0.8 X10*3/uL (0.1-1.2); Monocytes Percent Auto 8.1 % (2-11); Neutrophils Absolute Auto 5.9 x10*3/uL (2.0-8.3); Neutrophils Percent Auto 63.4 % (45-73); Platelet Count 259 X10*3/uL (160-400); Red Blood Count 4.44 X10*6/uL (4.60-5.80); Red Cell Distribution Width 15.1 % (11.0-16.0); White Blood Count 9.3 X10*3/uL (4.8-10.8)
[2023-08-15 12:08] LABS: Estimated Average Glucose 120 mg/dL; Hemoglobin A1c % 5.8 % (<6.0)
[2023-08-15 12:17] LABS: Anion Gap 14 (12-20); Blood Urea Nitrogen 88 mg/dL (9-16); Calcium 8.8 mg/dL (8.4-10.2); Carbon Dioxide 29 mmol/L (22-29); Chloride 103 mmol/L (96-108); Estimated Glomerular Filt Rate 20; Glucose Random 115 mg/dL (60-115); Potassium 5.7 mmol/L (3.3-5.1); Sodium 140 mmol/L (135-145)
[2023-08-15 12:35] LABS: ~HepC Num1 0.15 S/CO (0.00-0.79); ~Hepatitis C Antibody Nonreactive (Nonreactive)
== END 2023-08-15 09:35 | disposition home or self-care (01) ==
LOC: HO.HHCL 09:34
PROVIDERS: Visit Provider Internal Medicine
DX: E11.9 Type 2 diabetes mellitus without complications (principal); I10 Essential (primary) hypertension
CPT/HCPCS: 36415; 80048; 83036; 85025; 86803

== ENCOUNTER 2023-08-19 14:32 | Outpatient (REF) | payer MEDICARE, MEDICAID, SELFPAY ==
[2023-08-19 16:33] LABS: Anion Gap 16 (12-20); Blood Urea Nitrogen 70 mg/dL (9-16); Calcium 8.9 mg/dL (8.4-10.2); Carbon Dioxide 27 mmol/L (22-29); Chloride 103 mmol/L (96-108); Estimated Glomerular Filt Rate 25; Glucose Random 84 mg/dL (60-115); Potassium 4.4 mmol/L (3.3-5.1); Sodium 142 mmol/L (135-145)
== END 2023-08-19 14:33 | disposition home or self-care (01) ==
LOC: HO.HHCL 14:32
PROVIDERS: Visit Provider Internal Medicine
DX: E78.5 Hyperlipidemia, unspecified (principal)
CPT/HCPCS: 36415; 80048

== ENCOUNTER 2023-10-23 14:29 | Outpatient (AMB) | payer MEDICARE, MEDICAID, SELFPAY ==
[2023-10-23 14:31] VITALS: BP 186/72; PULSE 95; O2SAT 95
--- NOTE | 2023-10-23 14:31 | HO.NEPHOV_ITS ---
Vital Signs 10/23/23 14:31 Height 5 ft 1 in Weight 0 oz BMI 0.0 BP 186/72 H Blood Pressure Location Rt brachial Position Sitting Pulse 95 Pulse Source Pulse Oximeter Pulse Oximetry (%) 95 Oxygen Delivery Method Room Air Intake Visit Reasons: Rscng 09/03 appt- CKD 3/ Conf Electrical Cad Technician Required: Yes Electrical Cad Technician Name: [id number] Rafia Accompanied by: Self / Same As Patient Allergies ibuprofen Allergy (Unknown, Verified 10/23/23 14:35) acute renal failure No Known Allergies [No Known Allergies*] Allergy (Verified 10/23/23 14:35) Medication List - Last Reconciled 10/23/23 by Cas Barrios MD albuterol sulfate 1 amp inhalation TID albuterol sulfate 90 mcg/actuation (Ventolin HFA) 2 puffs inhalation Q4-6H PRN amlodipine 10 mg PO DAILY ferrous sulfate 324 mg PO BIDWM furosemide (Lasix) 40 mg PO DAILY isosorbide mononitrate ER 30 mg See Protocol PO DAILY omeprazole 40 mg PO DAILY HPI Comments Details: 72-year-old man with a history of longstanding hypertension with chronic kidney disease. He has known chronic kidney disease since 2019. At the time serum creatinine was 1.6 mg/dL. Current serum creatinine is 2.5 mg/dL. He has had significant proteinuria in the non nephrotic range of about 2.3 g. I do not believe he has undergone any workup for the same. He does not have a history of diabetes mellitus. He is currently not on any CALVIN inhibitors or ARB use. [facility] Social History Household Members: None Housing: Apartment Do you presently have visiting nurse or other home services: No Patient Tobacco Use Status: Never used Tobacco Substance Use Type: Heroin Advance Directives Date on File: 01/10/22 service: No Current occupational status: retired Review of Systems Const Denies fever(s) and Denies weight loss Card Denies chest pain Resp Denies cough and Denies hemoptysis GI Denies abdominal pain, Denies diarrhea and Denies nausea Musc Denies back pain Neuro Denies focal weakness Physical Exam Vital Signs: Last Vital Signs Pulse 95 10/23/23 14:31 BP 186/72 H 10/23/23 14:31 Pulse Ox 95 08/21/24 14:31 Oxygen Delivery Method Room Air 10/23/23 14:31 BMI result Body Mass Index 0.0 Results Reviewed Nephrology Results: Hgb 12.1 g/dl (14.0-18.0) L 08/15/23 WBC 9.3 X10*3/uL (4.8-10.8) 08/15/23 Plt Count 259 X10*3/uL (160-400) 08/15/23 Sodium 142 mmol/L (135-145) 08/19/23 Potassium 4.4 mmol/L (3.3-5.1) 08/19/23 Chloride 103 mmol/L (96-108) 08/19/23 Carbon Dioxide 27 mmol/L (22-29) 08/19/23 BUN 70 mg/dL (9-16) H 08/19/23 Creatinine 2.56 mg/dL (0.5-1.4) H 08/19/23 Calcium 8.9 mg/dL (8.4-10.2) 08/19/23 Phosphorus 5.6 mg/dL (2.7-4.5) H 01/09/22 Urine Protein 100 (2+) mg/dL (Neg-Trace) H 01/09/22 Urine Creatinine 24.40 mg/dL 02/13/23 Assessment & Plan Assessment & Plan (1) JAVAD (acute kidney injury): Code(s): N17.9 - Acute kidney failure, unspecified Category: Medical (2) Anemia: Code(s): D64.9 - Anemia, unspecified Category: Medical Plan 72-year-old man with stage IV CKD in a setting of longstanding hypertension. He has not non nephrotic range proteinuria as well. I have initiated workup for proteinuria renal failure. Obtain renal ultrasonogram Check urine protein creatinine ratio Check basic serology including serum complements and serum electrophoresis. Optimize blood pressure. Did not discuss importance of low-sodium diet. Hydralazine can be increased to 100 mg 3 times a day. Until renal function stabilizes I will not add any CALVIN inhibitors or ARB use. He will return to office once the baseline workup is completed. Orders: Orders Creatinine Clearance Urine 24U Today D64.9 - Anemia, unspecified, N17.9 - Acute kidney failure, unspecified UA and rflx microscopic Today D64.9 - Anemia, unspecified, N17.9 - Acute kidney failure, unspecified Total Protein Urine Random Today D64.9 - Anemia, unspecified, N17.9 - Acute kidney failure, unspecified Creatinine Urine Today D64.9 - Anemia, unspecified, N17.9 - Acute kidney failure, unspecified Protein Electrophoresis, Serum Today D64.9 - Anemia, unspecified, N17.9 - Acute kidney failure, unspecified Complement C3 Today D64.9 - Anemia, unspecified, N17.9 - Acute kidney failure, unspecified Complement C4 Today D64.9 - Anemia, unspecified, N17.9 - Acute kidney failure, unspecified US renal BI Today D64.9 - Anemia, unspecified, N17.9 - Acute kidney failure, unspecified Complete Blood Count Auto Diff Today D64.9 - Anemia, unspecified, N17.9 - Acute kidney failure, unspecified CHRISTOPHER Reflex Titer and Pattern Today D64.9 - Anemia, unspecified, N17.9 - Acute kidney failure, unspecified Neutrophil Cytoplasma Ab Today D64.9 - Anemia, unspecified, N17.9 - Acute kidney failure, unspecified Phospholipase A2 Receptor Pnl Today D64.9 - Anemia, unspecified, N17.9 - Acute kidney failure, unspecified Medications: New hydralazine 50 mg PO TID 90 tabs 3RF Coding Level of Care Code Est Pt Level 5 (18443) Diagnoses JAVAD (acute kidney injury) N17.9 Anemia D64.9
== END 2023-10-23 14:54 | disposition home or self-care (01) ==
LOC: HO.HKAM 14:29
PROVIDERS: PCP Internal Medicine; Visit Provider Internal Medicine Hypertension Specialist
DX: N17.9 Acute kidney failure, unspecified (principal); I12.9 Hypertensive chronic kidney disease with stage 1 through stage 4 chronic kidney disease, or unspecified chronic kidney disease; N18.4 Chronic kidney disease, stage 4 (severe); D63.1 Anemia in chronic kidney disease
CPT/HCPCS: 99214

== ENCOUNTER → 2023-10-23 14:29 | Outpatient (BNVA) | payer MEDICARE, MEDICAID, SELFPAY | PROVIDERS: PCP Internal Medicine; Visit Provider Internal Medicine Hypertension Specialist | DX: Z13.89 Encounter for screening for other disorder (principal) | CPT/HCPCS: 99212 ==

== ENCOUNTER 2023-10-23 15:08 | Outpatient (REF) | payer MEDICARE, MEDICAID, SELFPAY ==
[2023-10-23 16:42] LABS: MANUAL DIFF FLAG NO
[2023-10-23 17:00] LABS: Basophils Absolute Auto 0.1 X10*3/uL (0.0-0.2); Basophils Percent Auto 0.8 % (0-2); Eosinophils Absolute Auto 1.2 X10*3/uL (0.0-0.4); Eosinophils Percent Auto 9.1 % (0-4); Hematocrit 38.2 % (42.0-52.0); Hemoglobin 12.3 g/dl (14.0-18.0); Imm Gran Abs Auto 0.13 X10*3/uL (0.00-0.03); Lymphocytes Absolute Auto 2.3 X10*3/uL (1.2-4.9); Lymphocytes Percent Auto 17.8 % (20-40); Mean Corpuscular HGB Conc 32.2 g/dl (31.0-36.0); Mean Platelet Volume 10.4 fL (9.4-12.4); Monocytes Absolute Auto 1.2 X10*3/uL (0.1-1.2); Monocytes Percent Auto 9.2 % (2-11); Neutrophils Percent Auto 62.1 % (45-73); Platelet Count 340 X10*3/uL (160-400); Red Blood Count 4.55 X10*6/uL (4.60-5.80); Red Cell Distribution Width 14.2 % (11.0-16.0); White Blood Count 12.8 X10*3/uL (4.8-10.8)
[2023-10-23 17:28] LABS: Appearance Urine Clear; Color Urine Yellow; Glucose Urine UA Negative (Negative); Leukocyte Esterase Urine Negative (Negative); Nitrite Urine Negative (Negative); PH 5.5 (5.0-9.0); UMIC TRIGGER UA YES; Urine Blood Negative (Negative); Urine Ketones Negative (Negative); Urine Protein 300 (3+) mg/dL (Neg-Trace)
[2023-10-23 17:53] LABS: Bacteria Urine None Seen (None Seen); Hyaline Casts Urine 0-2 /LPF (0-2); RBC Urine 0-2 /HPF (0-2); Squamous Epithelial Cell Urine 0-2 /HPF (0-2); WBC Urine 0-5 /HPF (0-5)
[2023-10-23 18:10] LABS: Creatinine Urine 48.44 mg/dL; Total Protein Urine Random 183 mg/dL (<12)
[2023-10-24 11:58] LABS: Complement C3 166 mg/dL (82-185)
[2023-10-25 10:18] LABS: Prot Elec - Alpha1 0.5 g/dL (0.2-0.3); Prot Elec - Alpha2 0.9 g/dL (0.5-0.9); Prot Elec - Beta 1 0.5 g/dL (0.4-0.6); Prot Elec - Beta 2 0.6 g/dL (0.2-0.5); Prot Elec - Gamma 1.2 g/dL (0.8-1.7); Prot Elec - Total Protein 7.6 g/dL (6.1-8.1)
[2023-10-29 06:44] LABS: Neutrophil Cyto Ab Screen NEGATIVE (NEGATIVE)
[2023-10-29 20:08] LABS: Anti Nuclear Antibody Screen NEGATIVE (NEGATIVE)
[2023-11-01 16:13] LABS: Phospholipase A2 IgG ELISA <4 RU/mL; Phospholipase A2 IgG IFA NEGATIVE (NEGATIVE)
== END 2023-10-23 15:09 | disposition home or self-care (01) ==
LOC: HO.HHCL 15:08
PROVIDERS: Visit Provider Internal Medicine Hypertension Specialist
DX: N17.9 Acute kidney failure, unspecified (principal); D64.9 Anemia, unspecified
CPT/HCPCS: 36415; 81001; 82570; 83520; 84156; 84165; 85025; 86036; 86038; 86160; 86255; 99212

== ENCOUNTER 2023-10-25 10:37 | Outpatient (REF) | payer MEDICARE, MEDICAID, SELFPAY ==
[2023-10-25 13:58] LABS: Estimated Glomerular Filt Rate 31
[2023-10-25 18:01] LABS: Creatinine, mg/dL 33.86
[2023-10-25 18:13] LABS: Creatinine (CrCl) 2.15 mg/dL (0.5-1.4); Creatinine Clearance 26.2 mL/min (85-125); Creatinine, 24Hr Urine 0.8 G/Day (1.0-2.0); Total Volume 24 Hour Urine 2400 mL
== END 2023-10-25 10:38 | disposition home or self-care (01) ==
LOC: HO.HHCL 10:37
PROVIDERS: Visit Provider Internal Medicine Hypertension Specialist
DX: N17.9 Acute kidney failure, unspecified (principal); D64.9 Anemia, unspecified
CPT/HCPCS: 36415; 82565; 82575

== ENCOUNTER 2023-10-29 13:54 | Outpatient (REF) | payer MEDICARE, MEDICAID, SELFPAY ==
--- NOTE | ~2023-10-29 | US_ITS ---
EXAMINATION: US RETROPERITONEAL COMPLETE (RENAL) CLINICAL INFORMATION: Acute kidney failure. COMPARISON: CT abdomen and pelvis 01/10/2022, renal ultrasound 02/26/2018. TECHNIQUE: Real-time imaging of the kidneys and bladder. Limited visualization due to bowel gas. FINDINGS: RIGHT KIDNEY: 8.8 x 4.4 x 4.0 cm (SAG x AP x TRV). 2 mm mid pole and 2 mm lower pole nonobstructive calculi. No hydronephrosis. Diffuse renal cortical thinning. 1.0 cm upper pole cyst with benign features. There is no indication for followup imaging. LEFT KIDNEY: 8.4 x 3.0 x 3.5 cm (SAG x AP x TRV). Mild fullness left renal collecting system. 7 mm left lower pole nonobstructing calculus. Echogenic mid pole focus may represent a calcified vessel. 1.0 cm upper pole cyst with thin septation redemonstrated. There is no indication for additional imaging at this time. Lower pole 2.1 cm cyst with septation was not identified on the prior ultrasounds of 2018. CT scan of 01/10/2022 described a 1 cm left lower pole cyst. US/US renal BI IMPRESSION: 1. Bilateral nonobstructive renal calculi. 2. Mild fullness left renal collecting system. 3. Bilateral renal cysts as detailed above. Electronically signed by: Gregoria Coleman MD 11/06/2023 10:31 AM EDT
== END 2023-10-29 13:55 | disposition home or self-care (01) ==
LOC: HO.US 13:54
PROVIDERS: PCP Internal Medicine; Visit Provider Internal Medicine Hypertension Specialist
DX: N17.9 Acute kidney failure, unspecified (principal); D64.9 Anemia, unspecified
CPT/HCPCS: 76775

== ENCOUNTER 2023-11-20 14:47 | Outpatient (AMB) | payer MEDICARE, MEDICAID, SELFPAY ==
[2023-11-20 15:04] VITALS: BP 184/70; PULSE 110; O2SAT 95; BMI 36.3
--- NOTE | 2023-11-20 15:04 | HO.NEPHOV ---
Vital Signs 11/20/23 15:04 Height 5 ft 1 in Weight 192 lb BMI 36.3 BP 184/70 H Blood Pressure Location Rt brachial Position Sitting Pulse 110 H Pulse Source Pulse Oximeter Pulse Oximetry (%) 95 Oxygen Delivery Method Room Air Intake Visit Reasons: 1 mon follow up/ Conf Environmental Analyst Required: Yes Environmental Analyst Services: Environmental Analyst Present Environmental Analyst Name: Shalini López [id number] Information Interpreted: clinical only Accompanied by: Self / Same As Patient Allergies ibuprofen Allergy (Unknown, Verified 11/20/23 15:08) acute renal failure No Known Allergies [No Known Allergies*] Allergy (Verified 11/20/23 15:08) Medication List - Last Reconciled 11/20/23 by Cas Barrios MD albuterol sulfate 1 amp inhalation TID albuterol sulfate 90 mcg/actuation (Ventolin HFA) 2 puffs inhalation Q4-6H PRN amlodipine 10 mg PO DAILY ferrous sulfate 324 mg PO BIDWM furosemide (Lasix) 40 mg PO DAILY hydralazine 100 mg PO TID isosorbide mononitrate ER 30 mg See Protocol PO DAILY omeprazole 40 mg PO DAILY HPI Comments Details: 72-year-old man with a history of longstanding hypertension with chronic kidney disease. He has known chronic kidney disease since 2019. At the time serum creatinine was 1.6 mg/dL. Current serum creatinine is 2.5 mg/dL. He has had significant proteinuria in the non nephrotic range of about 2.3 g. I do not believe he has undergone any workup for the same. He does not have a history of diabetes mellitus. He is currently not on any CALVIN inhibitors or ARB use. 11/20/2023. He has no specific complaints today. Seems to be compliant with his medications. [facility] Social History Household Members: None Housing: Apartment Do you presently have visiting nurse or other home services: No Patient Tobacco Use Status: Never used Tobacco Substance Use Type: Heroin Advance Directives Date on File: 01/10/22 service: No Current occupational status: retired Physical Exam Vital Signs: Last Vital Signs Pulse 110 H 11/20/23 15:04 BP 184/70 H 11/20/23 15:04 Pulse Ox 95 11/20/23 15:04 Oxygen Delivery Method Room Air 11/20/23 15:04 BMI result Body Mass Index 36.3 Const General: comfortable; No acute distress Orientation/consciousness: patient oriented x3 Eyes General: appearance normal, both eyes and all related structures Visual Drummond: normal visual drummond by confrontation Neck Neck: Yes supple and Yes no JVD Resp Effort & Inspection: normal respiratory effort and respiratory effort not decreased Auscultation: rhonchi Cardio Palpation: no palpable S3 and no palpable S4 Heart sounds: no rubs GI Inspection: Yes normal to inspection Palpation (GI): Soft to palpation Percussion: Yes normal to percussion Auscultation: normal bowel sounds General: Yes no CVA tenderness Back/Spine/Pelvis Back: no CVA tenderness Skin General skin exam: no petechiae and no purpura Neuro General: patient oriented x3 and no focal motor deficits Extrem General: No clubbing and No edema Results Reviewed Nephrology Results: Hgb 12.3 g/dl (14.0-18.0) L 10/23/23 WBC 12.8 X10*3/uL (4.8-10.8) H 10/23/23 Plt Count 340 X10*3/uL (160-400) 10/23/23 Sodium 142 mmol/L (135-145) 08/19/23 Potassium 4.4 mmol/L (3.3-5.1) 08/19/23 Chloride 103 mmol/L (96-108) 08/19/23 Carbon Dioxide 27 mmol/L (22-29) 08/19/23 BUN 70 mg/dL (9-16) H 08/19/23 Creatinine 2.15 mg/dL (0.5-1.4) H 10/25/23 Calcium 8.9 mg/dL (8.4-10.2) 08/19/23 Urine Protein 300 (3+) mg/dL (Neg-Trace) H 10/23/23 Urine Creatinine 48.44 mg/dL 10/23/23 Renal US 10/29/23 Assessment & Plan Assessment & Plan (1) JAVAD (acute kidney injury): Code(s): N17.9 - Acute kidney failure, unspecified Category: Medical (2) Anemia: Code(s): D64.9 - Anemia, unspecified Category: Medical Plan 72-year-old man with stage IV CKD in a setting of longstanding hypertension. He has not non nephrotic range proteinuria as well. proteinuria renal failure. Serum creatinine has improved. He is non nephrotic range proteinuria primarily albumin. No monoclonal proteins. Serological workup has been essentially negative. He probably has underlying hypertensive kidney disease. renal ultrasonogram -no hydronephrosis. He has bilateral cyst Hypertension Optimize blood pressure. low-sodium diet. Increased Hydralazine to 100 mg 3 times a day. Until renal function stabilizes I will not add any CALVIN inhibitors or ARB use. Orders: Orders Basic Metabolic Panel 3 Months N17.9 - Acute kidney failure, unspecified Medications: Changed From hydralazine 50 mg PO TID 90 tabs 3RF To hydralazine 100 mg PO TID 270 tabs 3RF Coding Level of Care Code Est Pt Level 4 (90193) Diagnoses JAVAD (acute kidney injury) N17.9 Anemia D64.9
== END 2023-11-20 15:17 | disposition home or self-care (01) ==
LOC: HO.HKAM 14:47
PROVIDERS: PCP Internal Medicine; Visit Provider Internal Medicine Hypertension Specialist
DX: N17.9 Acute kidney failure, unspecified (principal); I12.9 Hypertensive chronic kidney disease with stage 1 through stage 4 chronic kidney disease, or unspecified chronic kidney disease; N18.4 Chronic kidney disease, stage 4 (severe); D63.1 Anemia in chronic kidney disease
CPT/HCPCS: 99214

== ENCOUNTER → 2023-11-20 14:47 | Outpatient (BNVA) | payer MEDICARE, MEDICAID, SELFPAY | PROVIDERS: PCP Internal Medicine; Visit Provider Internal Medicine Hypertension Specialist | DX: I12.9 Hypertensive chronic kidney disease with stage 1 through stage 4 chronic kidney disease, or unspecified chronic kidney disease (principal); N18.9 Chronic kidney disease, unspecified; N17.9 Acute kidney failure, unspecified; D63.1 Anemia in chronic kidney disease | CPT/HCPCS: 99212 ==

== ENCOUNTER 2024-01-15 11:57 | Outpatient (REF) | payer MEDICARE, MEDICAID, SELFPAY ==
[2024-01-15 13:14] LABS: Appearance Urine Clear; Color Urine Yellow; Glucose Urine UA Negative (Negative); Leukocyte Esterase Urine Negative (Negative); Nitrite Urine Negative (Negative); UMIC TRIGGER UA YES; Urine Blood Negative (Negative); Urine Ketones Negative (Negative); Urine Protein 300 (3+) mg/dL (Neg-Trace)
[2024-01-15 13:20] LABS: Bacteria Urine None Seen (None Seen); Hyaline Casts Urine 0-2 /LPF (0-2); RBC Urine 0-2 /HPF (0-2); Squamous Epithelial Cell Urine 0-2 /HPF (0-2); WBC Urine 0-5 /HPF (0-5)
[2024-01-15 14:11] LABS: Anion Gap 16 (12-20); Blood Urea Nitrogen 67 mg/dL (9-16); Calcium 9.7 mg/dL (8.4-10.2); Carbon Dioxide 27 mmol/L (22-29); Chloride 101 mmol/L (96-108); Estimated Glomerular Filt Rate 25; Glucose Random 186 mg/dL (60-115); Potassium 3.9 mmol/L (3.3-5.1); Sodium 140 mmol/L (135-145)
== END 2024-01-15 11:58 | disposition home or self-care (01) ==
LOC: HO.HHCL 11:57
PROVIDERS: Visit Provider Internal Medicine Hypertension Specialist
DX: N17.9 Acute kidney failure, unspecified (principal)
CPT/HCPCS: 36415; 80048; 81001

== ENCOUNTER 2024-01-22 14:53 | Outpatient (AMB) | payer MEDICARE, MEDICAID, SELFPAY ==
[2024-01-22 14:57] VITALS: BP 166/60; PULSE 104; O2SAT 93
--- NOTE | 2024-01-22 14:57 | HO.NEPHOV ---
Vital Signs 01/22/24 14:57 01/22/24 15:15 Height 5 ft 1 in BP 166/60 H 144/70 H Blood Pressure Location Rt brachial Rt brachial Position Sitting Sitting Pulse 104 H Pulse Source Pulse Oximeter Pulse Oximetry (%) 93 Oxygen Delivery Method Room Air Intake Visit Reasons: 10 wk follow up/ Conf Pbx Supervisor Required: Yes Pbx Supervisor Name: [id number] allyssa Accompanied by: Self / Same As Patient Allergies ibuprofen Allergy (Unknown, Verified 01/22/24 15:00) acute renal failure No Known Allergies [No Known Allergies*] Allergy (Verified 01/22/24 15:00) Medication List - Last Reconciled 01/22/24 by Cas Barrios MD albuterol sulfate 1 amp inhalation TID albuterol sulfate 90 mcg/actuation (Ventolin HFA) 2 puffs inhalation Q4-6H PRN amlodipine 10 mg PO DAILY ferrous sulfate 324 mg PO BIDWM furosemide (Lasix) 40 mg PO DAILY hydralazine 100 mg PO TID isosorbide mononitrate ER 30 mg See Protocol PO DAILY omeprazole 40 mg PO DAILY HPI Comments Details: 72-year-old man with a history of longstanding hypertension with chronic kidney disease. He has known chronic kidney disease since 2019. At the time serum creatinine was 1.6 mg/dL. Current serum creatinine is 2.5 mg/dL. He has had significant proteinuria in the non nephrotic range of about 2.3 g. I do not believe he has undergone any workup for the same. He does not have a history of diabetes mellitus. He is currently not on any CALVIN inhibitors or ARB use. 11/20/2023. He has no specific complaints today. Seems to be compliant with his medications. [facility] Social History Household Members: None Housing: Apartment Do you presently have visiting nurse or other home services: No Patient Tobacco Use Status: Never used Tobacco Substance Use Type: Heroin Advance Directives Date on File: 01/10/22 service: No Current occupational status: retired Physical Exam Vital Signs: Last Vital Signs Pulse 104 H 01/22/24 14:57 BP 166/60 H 01/22/24 14:57 Pulse Ox 93 01/22/24 14:57 Oxygen Delivery Method Room Air 01/22/24 14:57 Results Reviewed Nephrology Results: Hgb 12.3 g/dl (14.0-18.0) L 10/23/23 WBC 12.8 X10*3/uL (4.8-10.8) H 10/23/23 Plt Count 340 X10*3/uL (160-400) 10/23/23 Sodium 140 mmol/L (135-145) 01/15/24 Potassium 3.9 mmol/L (3.3-5.1) 01/15/24 Chloride 101 mmol/L (96-108) 01/15/24 Carbon Dioxide 27 mmol/L (22-29) 01/15/24 BUN 67 mg/dL (9-16) H 01/15/24 Creatinine 2.54 mg/dL (0.5-1.4) H 01/15/24 Calcium 9.7 mg/dL (8.4-10.2) 01/15/24 Urine Protein 300 (3+) mg/dL (Neg-Trace) H 01/15/24 Urine Creatinine 48.44 mg/dL 10/23/23 Renal US 10/29/23 Assessment & Plan Assessment & Plan (1) Anemia: Code(s): D64.9 - Anemia, unspecified Category: Medical (2) CKD (chronic kidney disease) stage 4, GFR 15-29 ml/min: Code(s): N18.4 - Chronic kidney disease, stage 4 (severe) Category: Medical Plan 72-year-old man with stage IV CKD in a setting of longstanding hypertension. He has not non nephrotic range proteinuria as well. proteinuria renal failure. Serum creatinine has improved. He is non nephrotic range proteinuria primarily albumin. No monoclonal proteins. Serological workup has been essentially negative. He probably has underlying hypertensive kidney disease. renal ultrasonogram -no hydronephrosis. He has bilateral cyst - benign Hypertension Optimize blood pressure. low-sodium diet. Keep Hydralazine 100 mg 3 times a day. With Amlodipine Needs to lose weight Until renal function stabilizes I will not add any CALVIN inhibitors or ARB use. Orders: Orders Basic Metabolic Panel 3 Months N18.4 - Chronic kidney disease, stage 4 (severe) Creatinine 3 Months N18.4 - Chronic kidney disease, stage 4 (severe) Total Protein Urine Random 3 Months N18.4 - Chronic kidney disease, stage 4 (severe) Coding Level of Care Code Est Pt Level 4 (63910) Diagnoses Anemia D64.9 CKD (chronic kidney disease) stage 4, GFR 15-29 ml/min N18.4
[2024-01-22 15:15] VITALS: BP 144/70
== END 2024-01-22 15:21 | disposition home or self-care (01) ==
LOC: HO.HKAM 14:53
PROVIDERS: PCP Internal Medicine; Visit Provider Internal Medicine Hypertension Specialist
DX: I12.9 Hypertensive chronic kidney disease with stage 1 through stage 4 chronic kidney disease, or unspecified chronic kidney disease (principal); N18.4 Chronic kidney disease, stage 4 (severe); D63.1 Anemia in chronic kidney disease
CPT/HCPCS: 99214

== ENCOUNTER → 2024-01-22 14:53 | Outpatient (BNVA) | payer MEDICARE, MEDICAID, SELFPAY | PROVIDERS: PCP Internal Medicine; Visit Provider Internal Medicine Hypertension Specialist | DX: D64.9 Anemia, unspecified (principal); N18.4 Chronic kidney disease, stage 4 (severe) | CPT/HCPCS: 99212 ==

== ENCOUNTER 2024-04-28 12:52 | Outpatient (REF) | payer MEDICARE, MEDICAID, SELFPAY ==
--- OUTSIDE RECORDS SUMMARY | 2024-04-28 15:40 | XMS_ITS | Encounter Summary ---
Author Organization [facility], Address [address] [place] [address] Phone Care Team Providers Care Assistant Pastry Chef Name Role Phone Shana Morales MD Primary Care Provide r Encounter Details Date Type Department Care Team (Late st Contact Info) Description 10/03/2021 Documentation Only [facility], [address] [place] [phone] Servando Medel MD [address] [place] [phone] Social History Tobacco Use Types Packs/Day Years Used Date Smoking Tobacco: Never Alcohol Use Standard Drinks/Week Comments No 0 (1 standard drink = 0.6 oz pur e alcohol) Sex and Gender Information Value Date Recorded Sex Assigned at Not on file Legal Sex Male 4:36 PM EST Gender Identity Not on file Sexual Orientation Not on file documented as of this encounter Plan of Treatment Not on file documented as of this encounter Visit Diagnoses Not on filedocumented in this encounter Care Teams Assistant Pastry Chef Relationship Specialty Start Date End Date Shana Morales MD [address] [place] [phone] PCP - General Internal Medicine 06/30/19 documented as of this encounter
--- OUTSIDE RECORDS SUMMARY | 2024-04-28 15:40 | XMS_ITS | Encounter Summary ---
Author Organization [facility] Address [address] [place] [address] Phone Care Team Providers Care Medical Claims Processor Name Role Phone Shana Morales MD Primary Care Provide r Encounter Details Date Type Department Care Team (Late st Contact Info) Description 11/14/2021 Documentation Only [facility], [address] [place] [phone] Bacilio Fleming PA Social History Tobacco Use Types Packs/Day Years [...] on filedocumented in this encounter Care Teams Medical Claims Processor Relationship Specialty Start Date End Date Shana Morales MD [address] [place] [phone] PCP - General Internal Medicine 06/30/19 documented as of this encounter
--- OUTSIDE RECORDS SUMMARY | 2024-04-28 15:40 | XMS_ITS | Encounter Summary ---
Author Organization [employer] Address [address] [place] [address] Care Team Providers Care Value Stream Leader Name Role Phone Shana Morales MD Primary Care Provide r Encounter Details Date Type Department Care Team (Latest Contact Info) Description 04/09/2024 Travel Social History Tobacco Use Types Packs/Day Years Used Date Smoking Tobacco: Never Passive Smoke Exposure: Never Smokeless Tobacco: Never Alcohol Use Standard Drinks/Week Comments Defer 0 (1 standard drink = 0.6 oz pur e alcohol) Depression Answer Date Recorded Patient Health Questionnaire-9 Score 0 05/30/2023 Patient Health Questionnaire-9 Score 0 05/30/2023 Last PHQ-9: Questionnaire Data Not on file 0 05/30/2023 Housing Stability Answer Date Recorded What is your housing situation today? I have fidelalejandra saavedra 12/19/[address] you li ve. Do you have problems with any of the following? None of the above 12/19/2022 Food Insecurity Answer Date Recorded Within the past 12 months, y ou worried that your food would run out before you got money to buy more: Never True 12/19/2022 Within the past 12 months,th e food you bought just didn't last and you didn't have enough money to get more: Never True Transportation Answer Date Recorded In the past 12 months, has l ack of transportation kept you from medical appts, meetings, work or from getting things needed for daily living? No 12/19/2022 Utilities Answer Date Recorded In the past 12 months, has t he electric, gas, oil or water company threatened to shut off services in your home? No 12/19/2022 Depression Answer Date Recorded Patient Health Questionnaire-2 Score 0 05/30/2023 Sex and Gender Information Value Date Recorded Sex Assigned at Male 01/01/2022 10:14 AM EDT Legal Sex Male 10:14 AM EDT Gender Identity Male 01/01/2022 10:14 AM EDT Sexual Orientation Choose not to disclose 2021 10:14 AM EDT documented as of this encounter Plan of Treatment Upcoming Encounters Date Type Department Care Team (Late st Contact Info) Description 05/04/2024 1:30 PM EST Office Visit [facility] [address] [place] [address] Jaylon Butler DDS [address] [place], [place] [phone] documented as of this encounter Visit Diagnoses Not on filedocumented in this encounter Additional Health Concerns Assessment Noted Time PHQ-9 Depression Total Score: 0 05/30/19 24 1:00 PM EDT documented as of this encounter Care Teams Value Stream Leader Relationship Specialty Start Date End Date Shana Morales MD [address] [place] [address] PCP - General Family Medicine 11/26/17 documented as of this encounter
--- OUTSIDE RECORDS SUMMARY | 2024-04-28 15:40 | XMS_ITS | Clinical Summary ---
Author Organization [facility], Address [address] [place] [address] [place] [phone] Phone Care Team Providers Care Christmas Tree Grower Name Role Phone Shana Morales MD Primary Care Provide r Medications aspirin (ST CHAR) 81 MG EC tablet Comments: Filled Date: Dec 19 2016 12:00AM Patient Notes: TAKE ONE TABLET EVERY DAY Duration: 30 11/19/2016 Active amLODIPine (NORVASC) 10 MG tablet Take 10 mg by mouth 1 (one) time each day 02/12/2018 Active chlorthalidone (HYGROTON) 50 MG tablet Take 50 mg by mouth 1 (one) time each day Active lisinopril 5 MG tablet Take 1 tablet (5 mg total) by mouth 1 (one) time each day 30 tablet 5 12/12/2020 Active carvedilol (COREG) 6.25 MG tablet Take 6.25 mg by mouth in the morning and 6.25 mg in the evening. Take with meals. 08/03/2021 Active traZODone (DESYREL) 50 MG tablet Take 50 mg by mouth at bed time 07/11/2021 Active Buprenorphine HCl-Naloxone HCl (Suboxone) 8-2 MG [address] film [address] 1 Film under the tongue 1 (one) time each day Active acetaminophen (TYLENOL) 325 MG tablet Take by mouth every 6 (six) hours if needed for mild pain Active hydrALAZINE 25 MG tablet Take 25 mg by mouth every 8 (eight) hours Active Active Problems Problem Noted Date Diagnosed Date Stage 3a chronic kidney disease 01/25/2020 Overview (03/07/2020): Update for Diagnosis Load Type 2 diabetes mellitus wit h diabetic chronic kidney disease 10/08/2019 Essential (primary) hypertension 06/29/2019 Resolved Problems Problem Noted Date Diagnosed Date Resolved Date Renal disorder due to type 2 diabetes mellitus 10/08/2019 02/13/2021 Vitamin D deficiency 10/08/2019 021 Hyperkalemia 06/25/2019 06/25/2019 Hyperlipidemia 06/25/2019 06/25/2019 Hyperuricemia 06/25/2019 06/25/2019 IgA nephropathy 06/25/2019 06/02/2020 Proteinuria 06/25/2019 06/25/2019 Hypertensive chronic kidney disease with stage 1 through stage 4 chronic kidney disease, or unspecified chronic kidney disease 06/25/2019 06/02/2020 Family History Relation Status Comments Father Unknown Mother Unknown Social History Tobacco Use Types Packs/Day Years Used Date Smoking Tobacco: Never Alcohol Use Standard Drinks/Week Comments No 0 (1 standard drink = 0.6 oz pur e alcohol) Sex and Gender Information Value Date Recorded Sex Assigned at Not on file Legal Sex Male 4:36 PM EST Gender Identity Not on file Sexual Orientation Not on file Last Filed Vital Signs Vital Sign Reading Time Taken Comments Blood Pressure 130/74 12/29/2018 12:00 PM EDT Pulse 74 12/29/2018 12:00 PM EDT Temperature - - Respiratory Rate 16 12/29/2018 12:00 PM EDT Oxygen Saturation - - Inhaled Oxygen Concentration - - Weight 84.4 kg (186 lb) 12/29/2018 12:00 PM EDT Height 154.9 cm (5' 1 ) 12/29/2018 12:00 PM EDT Body Mass Index 35.14 12/29/2018 12:00 PM EDT Plan of Treatment Health Maintenance Due Date Last Done Comments Pneumococcal Vaccine: 65+ Years (1 of 2 - PCV) 1956 Colorectal Cancer Screening: Annual FOBT 2001 Colorectal Cancer Screening: Colonoscopy 2001 Colorectal Cancer Screening: Sigmoidoscopy 2001 Diabetes: Hemoglobin A1C 10/08/2019 019, 02/28/2018, 10/23/2017 Diabetes: Ophthalmology Exam 10/08/2019 Diabetes: Pedal Pulse Checked 10/08/2019 Diabetes: Sensory Foot Exam 10/08/2019 Diabetes: Visual Foot Exam 10/08/2019 Influenza Vaccine (#1) 2023 Hepatitis B Vaccine Aged Out No longe r eligible based on patient's age to complete this topic Procedures Procedure Name Priority Date/Time Associated Diagnosis Comments HEMOGLOBIN A1C Routine 12/29/2018 2:22 PM EDT from Last 3 Months or Most Recently Relevant to Health Maintenance Results * (ABNORMAL) Hemoglobin A1c (12/29/2018 2:22 PM EDT) Hemoglobin A1C 6.1(H) (4-6) % [facility] Comment: HEMOGLOBIN A1C(%) ?? GLUCOSE CONTROL INDEX ?<6% ? EXCELLENT ?6-7% ?VERY GOOD ?7-8% ?GOOD ?8-10% ? FAIR ?>10% ?POOR Hemoglobin (Hb) A1c testing is performed by Dwayne Ronna-quant immunoassay. Any cause of shortened erythrocyte survival will reduce exposure of erythrocytes to glucose with a consequent decrease in Hb A1c (%). Testing performed or reported by ~[facility], ~a Service of [facility], ~[address] [place] [id number]~ 12/29/2018 2:22 PM EDT us Servando Medel MD LAB BLOOD ORDERABLES Final Resul t [facility] from Last 3 Months or Most Recently Relevant to Health Maintenance Insurance [place]ICAID [place] Member Subscriber Plan / Payer (Ef fective 2019-Present) Name:Sheng Haywood Relation to Subscriber:Self Name:Sheng Haywood Payer ID:Not on file Group ID:Not on file Type:Not on file Address: [place] [id number] MEDICARE [place]ICAID [place] MEDICARE Care Teams Christmas Tree Grower Relationship Specialty Start Date End Date Shana Morales MD [address] [place] [phone] PCP - General Internal Medicine 06/30/19
--- OUTSIDE RECORDS SUMMARY | 2024-04-28 15:40 | XMS_ITS | Encounter Summary ---
Author Organization [facility] Address [address] [place] [address] [address] [place] [address] Care Team Providers Care Epic Ambulatory Analysts Name Role Phone Shana Morales MD Primary Care Provide r Encounter Details Date Type Department Care Team (Late st Contact Info) Description 01/31/2022 Abstract [facility] ADULT DENTAL [address] [place] [address] Dental, Provider, DDS Social History Tobacco Use Types Packs/Day Years Used Date Smoking Tobacco: Never Assessed Sex and Gender Information Value Date Recorded [...] Description 05/04/2024 1:30 PM EST Office Visit [facility] ADULT DENTAL [address] [place] [address] Jaylon Butler DDS [address] [place] [address] documented as of this encounter Procedures Procedure Name Priority Date/Time Associated Diagnosis Comments 7 PREFABRICATED POST AND CORE IN ADDITION TO CROWN Routine 01/31/2022 12:00 AM EST 6 PREFABRICATED POST AND CORE IN ADDITION TO CROWN Routine 01/31/2022 12:00 AM EST 9 PREFABRICATED POST AND CORE IN ADDITION TO CROWN Routine 01/31/2022 12:00 AM EST 8 CROWN - PORCELAIN FUSED TO PREDOMINANTLY BASE METAL Routine 01/31/2022 12:00 AM EST 7 CROWN - PORCELAIN FUSED TO PREDOMINANTLY BASE METAL Routine 01/31/2022 12:00 AM EST 6 CROWN - PORCELAIN FUSED TO PREDOMINANTLY BASE METAL Routine 01/31/2022 12:00 AM EST 9 CROWN - PORCELAIN FUSED TO PREDOMINANTLY BASE METAL Routine 01/31/2022 12:00 AM EST 28 B(V) COMPOSITE FILLING Routine 2021 12:00 AM EST 27 F(V) COMPOSITE FILLING Routine 2021 12:00 AM EST 26 F(V) COMPOSITE FILLING Routine 2021 12:00 AM EST 25 F(V) COMPOSITE FILLING Routine 2021 12:00 AM EST 24 F(V) COMPOSITE FILLING Routine 2021 12:00 AM EST 23 F(V) COMPOSITE FILLING Routine 2021 12:00 AM EST 21 B(V) COMPOSITE FILLING Routine 2021 12:00 AM EST 13 B(V) COMPOSITE FILLING Routine 2021 12:00 AM EST 12 B(V) COMPOSITE FILLING Routine 2021 12:00 AM EST 11 F(V) COMPOSITE FILLING Routine 2021 12:00 AM EST 16 O AMALGAM FILLING Routine 01/31/2022 12:00 AM EST 15 O AMALGAM FILLING Routine 01/31/2022 12:00 AM EST 14 O AMALGAM FILLING Routine 01/31/2022 12:00 AM EST 2 O AMALGAM FILLING Routine 01/31/2022 1 2:00 AM EST 32 EXTRACTION Routine 01/31/2022 12:00 AM EST 19 EXTRACTION Routine 01/31/2022 12:00 AM EST 18 EXTRACTION Routine 01/31/2022 12:00 AM EST 17 EXTRACTION Routine 01/31/2022 12:00 AM EST 3 EXTRACTION Routine 01/31/2022 12:00 AM EST 30 EXTRACTION Routine 01/31/2022 12:00 AM EST 9 ROOT CANAL Routine 01/31/2022 12:00 AM EST 7 ROOT CANAL Routine 01/31/2022 12:00 AM EST 6 ROOT CANAL Routine 01/31/2022 12:00 AM EST documented in this encounter Visit Diagnoses Not on filedocumented in this encounter Care Teams Epic Ambulatory Analysts Relationship Specialty Start Date End Date Shana Morales MD [address] [place] [address] PCP - General Family Medicine 11/26/17 documented as of this encounter
--- OUTSIDE RECORDS SUMMARY | 2024-04-28 15:40 | XMS_ITS | Encounter Summary ---
Author Organization [facility], Address [address] [place] [address] Phone Care Team Providers Care Marketing And Public Relations Manager Name Role Phone Shana Morales MD Primary Care Provide r Encounter Details Date Type Department Care Team (Late st Contact Info) Description 02/01/2021 Documentation Only [facility], [address] [place] [phone] Servando Medel MD [address] [place] [phone] Social History Tobacco Use Types Packs/Day Years [...] on filedocumented in this encounter Care Teams Marketing And Public Relations Manager Relationship Specialty Start Date End Date Shana Morales MD [address] [place] [phone] PCP - General Internal Medicine 06/30/19 documented as of this encounter
--- OUTSIDE RECORDS SUMMARY | 2024-04-28 15:40 | XMS_ITS | Encounter Summary ---
Author Organization [employer] Address [address] [place] [address] Care Team Providers Care Statistical Technician Name Role Phone Shana Morales MD Primary Care Provide r Reason for Visit * Reason Comments Med Refill Encounter Details Date Type Department Care Team ([facility] st Contact Info) Description 02/21/2023 Refill [facility] [address] [place], [place] [phone] Name, MD Vlad [address] [place], [place] [phone] Chronic GERD Social History Tobacco Use Types Packs/Day Years Used Date Smoking Tobacco: Never Passive Smoke Exposure: Never Smokeless Tobacco: Never Housing Stability Answer Date Recorded What is [...] Date Recorded Patient Health Questionnaire-2 Score 0 01/01/2023 Sex and Gender Information Value Date Recorded [...] Description 05/04/2024 1:30 PM EST Office Visit [facility] [address] [place], [place] [phone] Jaylon Butler DDS [address] [place], [place] [phone] documented as of this encounter Visit Diagnoses Diagnosis Chronic GERD documented in this encounter Care Teams Statistical Technician Relationship Specialty Start Date End Date Shana Morales MD [address], [place] [phone] PCP - General Family Medicine 11/26/17 documented as of this encounter
--- OUTSIDE RECORDS SUMMARY | 2024-04-28 15:40 | XMS_ITS | Encounter Summary ---
Author Organization [employer] [facility] Address [address] 7t [place] [address] Care Team Providers Care Interventional Pain Physician Name Role Phone Shana Morales MD Primary Care Provide r Encounter Details Date Type Department Care Team (Late st Contact Info) Description 11/07/2022 Telephone [facility] [address] [place] [address] Shana Morales MD [address] [place] [address] Social History Tobacco Use Types Packs/Day Years Used Date Smoking Tobacco: Never Passive Smoke Exposure: Never Smokeless Tobacco: Never Sex and Gender Information Value Date Recorded [...] 05/04/2024 1:30 PM EST Office Visit [facility] [address] [place] [address] Jaylon Butler DDS [address] [place] [address] documented as of this encounter Visit Diagnoses Not on filedocumented in this encounter Care Teams Interventional Pain Physician Relationship Specialty Start Date End Date Shana Morales MD [address] [place] [phone] PCP - General Family Medicine 11/26/17 documented as of this encounter
--- OUTSIDE RECORDS SUMMARY | 2024-04-28 15:40 | XMS_ITS | Encounter Summary ---
Author Organization [employer] Address [address] [place] [address] Care Team Providers Care Clinical Nutritionist Name Role Phone Shana Morales MD Primary Care Provide r Reason for Visit * Reason Comments televisit Encounter Details Date Type Department Care Team ([facility] st Contact Info) Description 04/09/2024 1:45 PM EST Telemedicine [facility] [address] [place], [place] [phone] Shana Morales MD [address] [place], [place] [phone] Resistant hypertension (Primary Dx) Social History Tobacco Use Types Packs/Day Years [...] AM EDT documented as of this encounter Progress Notes * Shana Tanner MD - 04/09/2024 1:45 PM EST SUBJECTIVE: Sheng Haywood is a 73 y.o. year old male who presents for Follow up . Patient reports he has been doing well, denies any headaches chest pain, shortness of breath, dizziness, palpitations, weakness or numbness Patient tells me he has been adherent with healthy diet and exercise and he has been managing to lose some more weight Patient tells me he has upcoming appointment with nephrology on May 06, 2024 Social History Social History Narrative Not on file Patient Active Problem List Diagnosis Uncomplicated opioid dependence ([facility]) Onychogryposis Mood disorder ([facility]) Essential hypertension Chronic kidney disease Asthma-chronic obstructive pulmonary disease overlap syndrome ([facility]/HCC) Acute exacerbation of chronic obstructive airways disease with asthma ([facility]/HCC) Anemia Stage 3a chronic kidney disease ([facility]/HCC) Colon cancer screening Preventative health care Onychomycosis Hypersomnia Resistant hypertension Hyperkalemia Severe dental caries Excessive attrition of teeth, limited to enamel Class 1 obesity due to excess calories with serious comorbidity and body mass index (BMI) of 34.0 to 34.9 in adult Prediabetes No family history on file. Review of Systems Constitutional: Negative. HENT: Negative. Respiratory: Negative. Cardiovascular: Negative. OBJECTIVE: There were no vitals filed for this visit. Follow Up: No follow-ups on file. Current Outpatient Medications on File Prior to Visit Medication Sig Dispense Refill acetaminophen (Tylenol) 325 MG tablet Take 2 tablets by mouth in the morning and 2 tablets at noon and 2 tablets in the evening. albuterol (2.5 MG/3ML) 0.083% nebulizer solution USE 1 AMPULE USING A NEBULIZER THREE TIMES DAILY 90 mL 5 albuterol 108 (90 Base) MCG/ACT inhaler INHALE 2 PUFFS BY MOUTH EVERY 4 HOURS NEEDED FOR WHEEZING OR SHORTNESS OF BREATH 8.5 g 2 amLODIPine (Norvasc) 10 MG tablet TAKE 1 TABLET BY MOUTH EVERY DAY 90 tablet 1 Blood Glucose Monitoring Suppl (AppiaStMyWerx [place] Lite) w/Device kit USE TO TEST BLOOD SUGAR TWICE DAILY Blood Pressure Monitor kit Use as directed 3x/week 1 kit 0 buprenorphine-naloxone (Suboxone) 12-3 MG per sublingual film Place 1 Film under the tongue Once per day. 28 Film 1 carvedilol (Coreg) 25 MG tablet Take 1 tablet (25 mg) by mouth with breakfast and with evening meal. 180 tablet 3 clotrimazole (Lotrimin) 1 % cream APPLY TO TOENAILS EVERY DAY POR 6 WEEKS ferrous sulfate 324 (65 Fe) MG EC tablet TAKE 1 TABLET BY MOUTH TWICE DAILY IN THE MORNING AND IN THE EVENING WITH MEALS 180 tablet 1 furosemide (Lasix) 40 MG tablet TAKE 1 TABLET BY MOUTH EVERY DAY IN THE MORNING 30 tablet 3 glucose blood (FREESTYLE LITE) test strip TEST BLOOD SUGAR ONCE DAILY 100 strip 11 hydrALAZINE (Apresoline) 50 MG tablet Take 1 tablet (50 mg) by mouth 3 times daily. 270 tablet 3 isosorbide mononitrate ER (Imdur) 60 MG 24 hr tablet Take 1 tablet (60 mg) by mouth Once per day. Do not crush or chew. 30 tablet 11 naloxone (Narcan) 4 mg/0.1 mL nasal spray Administer 1 spray (4 mg) into affected nostril(s) if needed for opioid reversal. May repeat every 2-3 minutes if needed, alternating nostrils, until medicalassistance becomes available. 2 each 0 omeprazole (PriLOSEC) [address] capsule TAKE 1 CAPSULE BY MOUTH EVERY DAY BEFORE BREAKFAST. DO NOT BREAK, CRUSH, DISSOLVE OR CHEW 90 capsule 1 SPS 15 GM/60ML suspension DRINK 60 ML (15 GRAM) BY MOUTH THREE TIMES DAILY FOR 2 DAYS 360 mL 0 Tirzepatide-Weight Management (Zepbound) 2.5 MG/0.5ML solution auto-injector Inject 0.5 mL (2.5 mg)under the skin 1 (one) time per week. 2 mL 0 TRUEplus Lancets 33G misc 1 each Once per day. 100 each 5 No current facility-administered medications on file prior to visit. Problem List Items Addressed This Visit Resistant hypertension - Primary Patient did not check his blood pressure today, he tells me he will check it and log his blood pressure every day I advised to continue with same medication regimen I advised low-sodium diet I advised to continue with weight loss I advised not to lose his appointment with nephrology documented in this encounter Miscellaneous Notes * Assessment & Plan Note - Shana Tanner MD - 04/09/2024 6:28 PM EST Associated Problem(s): Resistant hypertension Patient did not check his blood pressure today, he tells me he will check it and log his blood pressure every day I advised to continue with same medication regimen I advised low-sodium diet I advised to continue with weight loss I advised not to lose his appointment with nephrology documented in this encounter Plan of Treatment Upcoming Encounters Date Type Department Care Team (Late st Contact Info) Description 05/04/2024 1:30 PM EST Office Visit [facility] [address] [place] [address] Jaylon Butler DDS [address] [place] [address] documented as of this encounter Visit Diagnoses Diagnosis Resistant hypertension- Primary documented in this encounter Additional Health Concerns Assessment Noted Time PHQ-9 Depression Total Score: 0 05/30/19 24 1:00 PM EDT documented as of this encounter Care Teams Clinical Nutritionist Relationship Specialty Start Date End Date Shana Morales MD [address] [place] [address] PCP - General Family Medicine 11/26/17 documented as of this encounter
--- OUTSIDE RECORDS SUMMARY | 2024-04-28 15:40 | XMS_ITS | Encounter Summary ---
Author Organization [facility] Address [address] 7t [place] [address] Care Team Providers Care Shear Operator Automatic Name Role Phone Shana Morales MD Primary Care Provide r Encounter Details Date Type Department Care Team (Latest Contact Info) Description 07/13/2020 Abstract [facility] CONVERSIONS Dental, Provider, DDS Social History Tobacco Use [...] Description 05/04/2024 1:30 PM EST Office Visit [facility] [address] [place] [address] Jaylon Butler DDS [address] [place] [address] documented as of this encounter Visit Diagnoses Not on filedocumented in this encounter Care Teams Shear Operator Automatic Relationship Specialty Start Date End Date Shana Morales MD [address] [place] [address] PCP - General Family Medicine 11/26/17 documented as of this encounter
--- OUTSIDE RECORDS SUMMARY | 2024-04-28 15:40 | XMS_ITS | Encounter Summary ---
Author Organization [facility] Address [address] [place] [address] Phone Care Team Providers Care Package Handler Name Role Phone Shana Morales MD Primary Care Provide r Encounter Details Date Type Department Care Team (Late st Contact Info) Description 01/30/2022 Documentation Only [facility], [address] [place] [phone] Bacilio Fleming PA Social History Tobacco Use [...] on filedocumented in this encounter Care Teams Package Handler Relationship Specialty Start Date End Date Shana Morales MD [address] [place] [phone] PCP - General Internal Medicine 06/30/19 documented as of this encounter
--- OUTSIDE RECORDS SUMMARY | 2024-04-28 15:40 | XMS_ITS | Encounter Summary ---
Author Organization [employer] Address [address] [place] [address] Care Team Providers Care Computer Programmer Chief Name Role Phone Shana Morales MD Primary Care Provide r Reason for Visit * Reason Onset Date Comments Chart Prep 04/08/2024 Encounter Details Date Type Department Care Team (Late st Contact Info) Description 04/08/2024 Telephone [facility] [address] [place], [place] [phone] Shekhar Jenkins MA Chart Prep Social History Tobacco Use Types Packs/Day Years [...] is your housing situation today? I have fidel saavdera 12/19/[address] you li [...] AM EDT documented as of this encounter Miscellaneous Notes * Telephone Encounter - Shekhar Jenkins MA - 04/08/2024 11:47 AM EST Chart Prep Labs: done Images: not applicable Vaccines due: yes Referrals: Booked appts ask patient of she went to her Nephrology Cardiology Screenings: colonoscopy , Foot Exam Overdue care gaps: SDOH, PHQ-9 documented in this encounter Plan of Treatment Upcoming Encounters Date Type Department Care Team (Late st Contact Info) Description 05/04/2024 1:30 PM EST Office Visit [facility] ADULT D[facility] [address] [place], [place] [phone] Jaylon Butler DDS [address] [place] [address] documented as of this encounter Visit Diagnoses Not on filedocumented in this encounter Additional Health Concerns Assessment Noted Time PHQ-9 Depression Total Score: 0 05/30/19 24 1:00 PM EDT documented as of this encounter Care Teams Computer Programmer Chief Relationship Specialty Start Date End Date Shana Morales MD [address] [place], [place] [phone] PCP - General Family Medicine 11/26/17 documented as of this encounter
--- OUTSIDE RECORDS SUMMARY | 2024-04-28 15:40 | XMS_ITS | Encounter Summary ---
Author Organization [facility] Address [address]t [place] [address] Care Team Providers Care Engraver Name Role Phone Shana Morales MD Primary Care Provide r Encounter Details Date Type Department Care Team (Late st Contact Info) Description 02/09/2022 Orders Only [facility] [address] [place] [address] Mariama Krause FNP [address] [place] [address] Type 2 diabetes mellitus without complication, without long-term current use of insulin ([facility]) (Primary Dx) Social History Tobacco Use Types Packs/Day Years Used Date Smoking Tobacco: Never Passive Smoke Exposure: Never Smokeless Tobacco: Never Sex and Gender Information Value Date Recorded Sex Assigned at Male 01/01/2022 10:14 AM EDT Legal Sex Male 10:14 AM EDT Gender Identity Male 01/01/2022 10:14 AM EDT Sexual Orientation Choose not to disclose 2021 10:14 AM EDT COVID-19 Exposure Response Date Recorded In the last 10 days, have yo u been in contact with someone who was confirmed or suspected to have Coronavirus/COVID-19? No / Unsure 02/08/2022 1:40 PM EST documented as of this encounter Plan of Treatment Upcoming Encounters Date Type Department Care Team (Late st Contact Info) Description 05/04/2024 1:30 PM EST Office Visit [facility] ADULT DENT[facility] [address] [place] [address] Jaylon Butler DDS [address] [place] [address] Scheduled Orders Name Type Priority Associated Diagnoses Orde r Schedule Creatinine, Serum Lab Routine Type 2 diabetes mellitus without complication, without long-term current use of insulin (CMS/HCC) Expected: 02/09/2022 (Approximate), Expires: 02/09/2023 documented as of this encounter Visit Diagnoses Diagnosis Type 2 diabetes mellitus without complication, without long-term current use of insulin ([facility])- Primary documented in this encounter Care Teams Engraver Relationship Specialty Start Date End Date Shana Morales MD [address] [place] [address] PCP - General Family Medicine 11/26/17 documented as of this encounter
--- OUTSIDE RECORDS SUMMARY | 2024-04-28 15:40 | XMS_ITS | Clinical Summary ---
Author Organization [employer] Address [address] [facility] [address] [place] [address] Care Team Providers Care Public Accountant Name Role Phone Shana Morales MD Primary Care Provide r Allergies Active Allergy Reactions Criticality Noted Date Comments Ibuprofen Other High 02/03/2022 Nsaids High 05/26/2013 Other reaction(s): acute renal failure Medications acetaminophen (Tylenol) 325 MG tablet Take 2 tablets by mouth in the morning and 2 tablets at noon and 2 tablets in the evening. 9 Active Blood Glucose Monitoring Suppl (Tweetflow [place] Lite) w/Device kit USE TO TEST BLOOD SUGAR TWICE DAILY 2 Active clotrimazole (Lotrimin) 1 % cream APPLY TO TOENAILS EVERY DAY POR 6 WEEKS 2 Active Blood Pressure Monitor kitIndications:Es sential hypertension Use as directed 3x/week 1 kit 3 Active albuterol (2.5 MG/3ML) 0.083% nebulizer solutionIndicatio ns:Other asthma USE 1 AMPULE USING A NEBULIZER THREE TIMES DAILY 90 mL 5 3 Active hydrALAZINE (Apresoline) 50 MG tabletIndications :Essential hypertension Take 1 tablet (50 mg) by mouth 3 times daily. 270 tablet 3 4 Active carvedilol (Coreg) 25 MG tabletIndications :Essential hypertension Take 1 tablet (25 mg) by mouth with breakfast and with evening meal. 180 tablet 3 4 025 Active naloxone (Narcan) 4 mg/0.1 mL nasal sprayIndications: Uncomplicated opioid dependence (CMS/HCC) Administer 1 spray (4 mg) into affected nostril(s) if needed for opioid reversal. May repeat every 2-3 minutes if needed, alternating nostrils, until medical assistance becomes available. 2 each 4 025 Active isosorbide mononitrate ER (Imdur) 60 MG 24 hr tabletIndications :Resistant hypertension Take 1 tablet (60 mg) by mouth Once per day. Do not crush or chew. 30 tablet 11 4 025 Active buprenorphine-nal oxone (Suboxone) 12-3 MG per sublingual filmIndications:U ncomplicated opioid dependence (CMS/HCC) Place 1 Film under the tongue Once per day. 28 Film 1 4 Active SPS 15 GM/60ML suspensionIndicat ions:Hyperkalemia DRINK 60 ML (15 GRAM) BY MOUTH THREE TIMES DAILY FOR 2 DAYS 360 mL 4 Active albuterol 108 (90 Base) MCG/ACT inhalerIndication s:Asthma-chronic obstructive pulmonary disease overlap syndrome (CMS/HCC) INHALE 2 PUFFS BY MOUTH EVERY 4 HOURS NEEDED FOR WHEEZING OR SHORTNESS OF BREATH 8.5 g 2 4 Active amLODIPine (Norvasc) 10 MG tabletIndications :Hypertension, unspecified type TAKE 1 TABLET BY MOUTH EVERY DAY 90 tablet 1 4 Active furosemide (Lasix) 40 MG tabletIndications :Essential hypertension TAKE 1 TABLET BY MOUTH EVERY DAY IN THE MORNING 30 tablet 3 4 Active ferrous sulfate 324 (65 Fe) MG EC tabletIndications :Chronic kidney disease, unspecified CKD stage TAKE 1 TABLET BY MOUTH TWICE DAILY IN THE MORNING AND IN THE EVENING WITH MEALS 180 tablet 1 4 Active TRUEplus Lancets 33G miscIndications:T ype 2 diabetes mellitus without complications ([facility]) 1 each Once per day. 100 each 5 4 Active glucose blood (FREESTYLE LITE) test stripIndications: Type 2 diabetes mellitus without complications ([facility]) TEST BLOOD SUGAR ONCE DAILY 100 strip 11 4 Active Tirzepatide-Weigh t Management (Zepbound) 2.5 MG/0.5ML solution auto-injectorIndi cations:Class 1 obesity due to excess calories with serious comorbidity and body mass index (BMI) of 34.0 to 34.9 in adult Inject 0.5 mL (2.5 mg) under the skin 1 (one) time per week. 2 mL 4 Active omeprazole (PriLOSEC) [address] capsuleIndication s:Chronic GERD TAKE 1 CAPSULE BY MOUTH EVERY DAY BEFORE BREAKFAST. DO NOT BREAK, CRUSH, DISSOLVE OR CHEW 90 capsule 1 5 Active Active Problems Problem Noted Date Diagnosed Date Class 1 obesity due to exces s calories with serious comorbidity and body mass index (BMI) of 34.0 to 34.9 in adult 02/13/2024 Assessment & Plan (02/13/2024 3:08 PM EST): Zepbound will be prescribed today Counseling done about healthy habits and medication side effects Prediabetes 02/13/2024 Assessment & Plan (02/13/2024 3:10 PM EST): A1c has persistnetly being low I will discontinue diabetes diagnosis Excessive attrition of teeth, limited to enamel 10/18/2023 Severe dental caries 09/17/2023 Hyperkalemia 08/15/2023 Assessment & Plan (08/16/2023 4:18 PM EDT): I prescribed Lokelma 10g TID for 48hrs I will recheck his K after he finish, I also educated and provide him with information for low K diet Hypersomnia 07/03/2023 Assessment & Plan (07/03/2023 2:58 PM EDT): Sleep study on hold for now Resistant hypertension 07/03/2023 Assessment & Plan (04/09/2024 6:28 PM EST): Patient did not check his blood pressure today, he tells me he will check it and log his blood pressure every day I advised to continue with same medication regimen I advised low-sodium diet I advised to continue with weight loss I advised not to lose his appointment with nephrology Assessment & Plan (02/13/2024 3:07 PM EST): Continue to follow with nephrology I will start patient on weight loss medication hopefully this helps with blood pressure Assessment & Plan (07/03/2023 2:58 PM EDT): Patient is know to have very high uncontrolled HTN, multiple medication adjustments has being attempt, etiology for this could be drug addiction and withdrawal, other could be RICK, I put him before on CALVIN and ARBs but his potassium is very sensitive and goes up immediately, he is on carvedilol 25mg BID+ amlodipine 10mg+ lasix 40mg+ hydralazine 50mg TID, today I will increase his isosorbide to 60mg, I will refer him to nephrology and CRS for methadone program (he will walk in tomorrow morning), patient also already refer to cardiology Plan is the following RTC 6 weeks in person for BP check if if still very high patient agrees for me to put order for sleep study Preventative health care 01/01/2023 Assessment & Plan (01/01/2023 3:43 PM EDT): See HPI Onychomycosis 01/01/2023 Colon cancer screening 11/13/2022 Anemia 02/27/2022 Onychogryposis 01/24/2022 Acute exacerbation of chroni c obstructive airways disease with asthma 01/24/2022 Stage 3a chronic kidney disease 01/25/2020 Overview (05/17/2022): Update for Diagnosis Load Assessment & Plan (05/30/2023 1:38 PM EDT): BMP will be check with labs It was advise good BP control and avoid NSAIDs and other nephrotoxic medications Mood disorder 08/06/2017 Essential hypertension 08/06/2017 Assessment & Plan (11/25/2023 4:50 PM EDT): High today I advise to check hs BP at home and log it - Aerobic exercise to reduce BP. Initial goal of 30 min walk 3-5x/week. Increase as tolerated. - low-sodium diet (goal: <2g/day) and heart healthy diet such as DASH to reduce BP and prevent ASCVD. - Home BP monitoring 1-2 x day with goal of <140/90. - Seek immediate medical attention for chest pain, palpitations, SOB, syncope, or sudden changes in mental status. - Do not change or discontinue current prescriptions without first consulting health care provider Assessment & Plan (08/16/2023 4:17 PM EDT): -BP is still high but much better than before, I advise: - Aerobic exercise to reduce BP. Initial goal of 30 min walk 3-5x/week. Increase as tolerated. - low-sodium diet (goal: <2g/day) and heart healthy diet such as DASH to reduce BP and prevent ASCVD. - Home BP monitoring 1-2 x day with goal of <140/90. - Seek immediate medical attention for chest pain, palpitations, SOB, syncope, or sudden changes in mental status. - Do not change or discontinue current prescriptions without first consulting health care provider Assessment & Plan (05/30/2023 1:37 PM EDT): I advise: - Aerobic exercise to reduce BP. Initial goal of 30 min walk 3-5x/week. Increase as tolerated. - low-sodium diet (goal: <2g/day) and heart healthy diet such as DASH to reduce BP and prevent ASCVD. - Home BP monitoring 1-2 x day with goal of <140/90. - Seek immediate medical attention for chest pain, palpitations, SOB, syncope, or sudden changes in mental status. - Do not change or discontinue current prescriptions without first consulting health care provider Rtc with nurse in 2 weeks for BP check Assessment & Plan (01/01/2023 3:43 PM EDT): Today elevated, patient is clinically asymptomatic -increase the dose of carvedilol to 12.5mg BID and hydralazine to 50mg TID - Aerobic exercise to reduce BP. Initial goal of 30 min walk 3-5x/week. Increase as tolerated. - low-sodium diet (goal: <2g/day) and heart healthy diet such as DASH to reduce BP and prevent ASCVD. - Home BP monitoring 1-2 x day with goal of <140/90. - Seek immediate medical attention for chest pain, palpitations, SOB, syncope, or sudden changes in mental status. - Do not change or discontinue current prescriptions without first consulting health care provider Assessment & Plan (11/14/2022 3:10 PM EDT): Today BP is high I advise low Na diet and weight reduction C/w carvedilol 6.25mg BID, amlodipine 10mg daily, lasix 40mg daily isorbide mononitrate 30mg ER, hdralazine 25mg TID RTC 2 weeks with nurse if BP is not at goal I will increase hydralazine to 50mg Uncomplicated opioid dependence 04/01/2017 Chronic kidney disease 04/01/2017 Asthma-chronic obstructive p ulmonary disease overlap syndrome 11/15/2011 Overview (05/17/2022): Not currently active. Albuterol written. I told him if he needs it more then twice a week to let me know so we can give him a maintance medication. Assessment & Plan (05/30/2023 1:36 PM EDT): Controlled c/w same medication regimen Assessment & Plan (05/17/2022 3:01 PM EDT): Not currently active. Albuterol written. I told him if he needs it more then twice a week to let me know so we can give him a maintance medication. Resolved Problems Problem Noted Date Diagnosed Date Resolved Date Type 2 diabetes mellitus without complication 01/25/20 22 02/13/2024 Assessment & Plan (11/25/2023 4:51 PM EDT): Diabetes is: controlled - Lab Results Component Value Date HGBA1C 5.8 08/15/2023 HGBA1C 5.9 07/03/2023 HGBA1C 5.7 11/13/2022 - Lab Results Component Value Date MICROALBUR 362.0 02/13/2023 CREATININE 2.56 (H) 08/19/2023 -Changes: none - Diabetic eye exam:up to date - Diabetic foot exam:up to date - Continue lifestyle modifications - Continue current medications - Follow up: 3 months Assessment & Plan (05/30/2023 1:39 PM EDT): Not requiring medications for now A1c will be check with labs Diabetes mellitus 08/06/2017 02/13/2024 Assessment & Plan (08/16/2023 4:17 PM EDT): Diabetes is: controlled - Lab Results Component Value Date HGBA1C 5.8 08/15/2023 HGBA1C 5.9 07/03/2023 HGBA1C 5.7 11/13/2022 - Lab Results Component Value Date MICROALBUR 362.0 02/13/2023 CREATININE 3.05 (H) 08/15/2023 -Changes: none - Diabetic eye exam:has upcoming appointment - Diabetic foot exam:pending - Continue lifestyle modifications - Continue current medications - Follow up: 3 months Assessment & Plan (07/03/2023 2:59 PM EDT): Controlled c/w current interventions Assessment & Plan (01/01/2023 3:44 PM EDT): - Lab Results Component Value Date HGBA1C 5.7 11/13/2022 HGBA1C 5.7 (H) 01/18/2021 HGBA1C 5.7 (H) 01/18/2021 - Lab Results Component Value Date MICROALBUR 182.7 01/18/2021 CREATININE 3.38 (H) 01/31/2022 - Diabetic eye exam:referral today - Diabetic foot exam: referral today - Continue lifestyle modifications - Continue current medications Assessment & Plan (11/14/2022 3:10 PM EDT): - Lab Results Component Value Date HGBA1C 5.7 11/13/2022 HGBA1C 5.7 (H) 01/18/2021 HGBA1C 5.7 (H) 01/18/2021 - Lab Results Component Value Date MICROALBUR 182.7 01/18/2021 CREATININE 3.38 (H) 01/31/2022 - Continue lifestyle modifications - Continue current medications Diabetic on diet only 04/01/20172023 Encounters Date Type Department Care Team Description 04/09/2024 1:45 PM EST Telemedicine [address] [address] Shana Morales MD Resistant hypertension (Primary Dx) 04/09/2024 Travel 04/08/[address] [address] Shekhar Jenkins MA Chart Prep 03/05/2024 Refill [facility] [address] [place] [phone] Shnaa Morales MD Chronic GERD 02/28/[address] [address] Shana Morales MD Prior Authorization ( [place] Request: Zepbound) 02/14/[address] [address] Raquel Lea RN 02/13/2024 1:45 PM EST Office Visit [address] [address] Shana Morales MD Resistant hypertension (Primary Dx); Type 2 diabetes mellitus without complication, without long-term current use of insulin ([facility]); Class 1 obesity due to excess calories with serious comorbidity and body mass index (BMI) of 34.0 to 34.9 in adult; Prediabetes 02/13/2024 Travel 02/06/2024 Patient Outreach [facility] [address] [place] [address] Shana Morales MD Pre-visit Planning (SDOH was completed on 05/22/2023) 02/04/2024 Refill [facility] [address] [place] [address] [phone] Shana Morales MD Type 2 diabetes mellitus without complications ([facility]/HCC) 02/04/2024 Orders Only [facility] [address] [place] [address] [phone] Shana Morales MD Type 2 diabetes mellitus without complications (CMS/HCC) 02/03/2024 Telephone [facility] [address] [place] [phone] Raquel Lea, INA from Last 3 Months Immunizations Name Administration Dates Next Due Hep A, Adult 12/20/2010,06/21/2010 Hep B, adult 12/20/2010,08/02/2010,06/21/2010 Influenza High-dose Quadriva lent Preservative Free 01/01/2023,03/01/2022,03/25/2020 Influenza injectable quadriv alent IIV4 with preservative 12/06/2015,12/21/2014 Influenza injectable quadriv alent preservative free 05/26/2013 Influenza, High Dose Seasona l, Preservative Free 01/01/2024,02/16/2019,12/11/2017 Influenza, IIV3, injectable 12/01/2013, 0 Influenza, Split (incl. reji fied surface antigen) 11/28/2012,11/15/2011 Moderna Covid-19 Vaccine 12+ 04/13/2021,05/27/19 21,04/28/2020 Moderna Covid-19 Vaccine 6+ Bivalent 04/19/2022 Pfizer Covid-19 Vaccine 12+ 01/01/2024 Pneumococcal Conjugate PCV 20 01/01/2023 Pneumococcal Polysaccharide PPSV23 05/26/2013, TD (adult), 2 Lf tetanus tox oid, preservative free, adsorbed 08/13/2007 Zoster, live 09/30/2014 Social History Tobacco Use Types Packs/Day Years Used Date Smoking Tobacco: Never Passive Smoke Exposure: Never Smokeless Tobacco: Never Tobacco Cessation:Counseling Given: Not Answered Alcohol Use Standard Drinks/Week Comments Defer 0 (1 standard drink = 0.6 oz pur e alcohol) Depression Answer Date Recorded Patient Health Questionnaire-9 Score 0 05/30/2023 Patient Health Questionnaire-9 Score 0 05/30/2023 Last PHQ-9: Questionnaire Data Not on file 0 05/30/2023 Housing Stability Answer Date Recorded What is your housing situation today? I have fidel saavedra 12/19/[address] you [...] the past 12 months, has t he [employer], gas, oil or water company threatened to shut off services in your home? No 12/19/2022 Depression Answer Date Recorded Patient Health Questionnaire-2 Score 0 05/30/2023 Sex and Gender Information Value Date Recorded Sex Assigned at Male 01/01/2022 10:14 AM EDT Legal Sex Male 10:14 AM EDT Gender Identity Male 01/01/2022 10:14 AM EDT Sexual Orientation Choose not to disclose 2021 10:14 AM EDT Last Filed Vital Signs Vital Sign Reading Time Taken Comments Blood Pressure 175/81 02/13/2024 1:48 PM EST Pulse 109 02/13/2024 1:48 PM EST Temperature 36.6 ??C (97.8 ??F) 02/13/2024 1:48 PM ES T Respiratory Rate 16 02/13/2024 1:48 PM EST Oxygen Saturation 97% 02/13/2024 1:48 PM EST Inhaled Oxygen Concentration - - Weight 83.5 kg (184 lb) 02/13/2024 1:48 PM EST Height 154.9 cm (5' 1 ) 02/13/2024 1:48 PM EST Body Mass Index 34.77 02/13/2024 1:48 PM EST Plan of Treatment Upcoming Encounters Date Type Department Care Team (Late st Contact Info) Description 05/04/2024 1:30 PM EST Office Visit [facility] [address] [place] [address] Jaylon Butler DDS [address] [place] [address] Health Maintenance Due Date Last Done Comments CT Colonography 1952 Colonoscopy 1952 Colorectal Cancer Screening 1952 FIT DNA/Cologuard 1952 FIT 1952 FOBT 1952 Sigmoidoscopy 1952 Diabetes: Foot Exam 1962 Alcohol/Substance Use Screening 1964 DTaP/Tdap/Td Vaccines (1 - Tdap) 08/14/2007 08/13/2007 RSV Patients and Patients Aged 60 years or older (1 - Risk 60-74 years 1-dose series) 2012 Zoster Vaccines (2 of 3) 11/25/2014 09/30/2014 Dental Prophylaxis 01/14/2021 07/13/2020, 09/17/2018 Dental Oral Exam 02/14/2022 08/14/2021, , 09/17/2018, Additional history exists Dental X-Ray: Bitewings 08/15/2022 08/15/19 22, 07/13/2020, 09/17/2018, Additional history exists Diabetes: Urine Protein Screening 02/14/2024 02/13/2023, 01/18/2021, 05/08/2019 Lipid Panel 02/14/2024 02/13/2023, 01/18/2021 SDOH Screening 05/21/2024 05/22/2023 Depression Screening 05/29/2024 05/30/2023, 05/30/19 Diabetes: Hemoglobin A1C 08/13/2024 024, 08/15/2023, 07/03/2023, Additional history exists Tobacco Screening 02/12/2025 02/13/2024 Eye Exam 08/19/2025 08/20/2023, 08/02, 08/20/2023, Additional history exists Dental X-Ray: Full Mouth 09/17/2026 024, 07/13/2020, 11/28/2016 Hepatitis A Vaccines Aged Out 12/20/2010, 06/22/19 11 No longer eligible based on patient's age to complete this topic Hepatitis B Vaccines Completed 12/20/2010, 08/02/2010, 06/21/2010 Pneumococcal Vaccine: 50+ Years Completed 01/01/2023, 05/26/2013, 07/28/2008 Hepatitis C Screening Completed 08/15/2023 COVID-19 Vaccine Completed 01/01/2024, , 04/13/2021, Additional history exists Influenza Vaccine Completed 01/01/2024, , 03/01/2022, Additional history exists HIB Vaccines Aged Out No longer eligi ble based on patient's age to complete this topic HPV Vaccines Aged Out No longer eligi ble based on patient's age to complete this topic IPV Vaccines Aged Out No longer eligi ble based on patient's age to complete this topic Meningococcal Vaccine Aged Out No augie anton eligible based on patient's age to complete this topic RSV under 20 months Aged Out No longe r eligible based on patient's age to complete this topic Rotavirus Vaccines Aged Out No longer eligible based on patient's age to complete this topic Procedures Procedure Name Priority Date/Time Associated Diagnosis Comments POCT GLYCATED HEMOGLOBIN, TOTAL Routine 02/13/2024 2:03 PM EST Prediabetes POCT GLUCOSE Routine 02/13/2024 1:50 PM EST Prediabetes PANORAMIC RADIOGRAPHIC IMAGE Routine 09/17/2023 3:30 PM EDT HEPATITIS C AB W/REFL TO HCV RNA, QN, PCR Routine 08/15/2023 9:36 AM EDT Essential hypertension ALBUMIN, RANDOM URINE W/CREATININE Routine 02/13/2023 11:46 AM EST LIPID PANEL, STANDARD Routine 02/13/2023 11:46 AM EST Type 2 diabetes mellitus with chronic kidney disease, without long-term current use of insulin, unspecified CKD stage (CMS/HCC) BITEWINGS - 4 RADIOGRAPHIC IMAGES Routine 08/14/2021 12:00 AM EDT PERIODIC ORAL EVALUATION - ESTABLISHED PATIENT Routine 08/14/2021 12:00 AM EDT PROPHYLAXIS - ADULT Routine 07/13/2020 1 2:00 AM EDT from Last 3 Months or Most Recently Relevant to Health Maintenance Results * POCT HGB A1C (02/13/2024 2:03 PM EST) Hemoglobin A1C 5.5 4.0 - 6.0 % QC Media Lot # [id number] Lot# Expiration Date [id number] Blood 02/13/2024 2:03 PM EST Shana Tanner MD POINT OF CARE TEST EN TER/EDIT ORDERABLES Final Result * POCT Glucose (02/13/2024 1:50 PM EST) Pathologist [facility] [place] Glucose Blood, POC 125 60 - 200 mg/dL QC Media Lot # [id number] Lot# Expiration Date [id number] Blood Capillary blood specimen / Unknown 02/13/2024 1:50 PM EST Result [facility] Shana Tanner MD POINT OF CARE TEST EN TER/EDIT ORDERABLES Final Result * Hepatitis C Antibody with Reflex to HCV, RNA, Quantitative, Real-Time PCR (08/15/2023 9:36 AM EDT) [facility] Hepatitis C Antibody Nonreactive Nonreactive [facility] Comment:Antibodies to HCV no t detected; does not exclude early acuteHCV infection. Blood Venous blood specimen / Unknown 08/15/2023 9:36 AM EDT 08/15/2023 11:49 AM EDT Shana Tanner MD LAB BLOOD ORDERABLES Final Result [facility] [address] [place] [phone] * (ABNORMAL) Albumin, Random Urine W/Creatinine (02/13/2023 11:46 AM EST) Pathologist [facility] [place] Creatinine, Urine 24.40 mg/dL [facility] Microalbumin Urine 362.0 mg/L H [facility] Microalbum Creatinine Ratio Ur 1,483.6(H ) <30 ug/mg cr [facility] Comment:Albumin/Creatinine R atio Reference Ranges: Normal: < 30 ug/mg creatinine Microalbuminuria: 30 - 300 ug/mg creatinineClinical Albuminuria: > 300 ug/mg creatinine 02/13/2023 11:4 6 AM EST 02/13/2023 1:05 PM EST Shana Tanner MD LAB URINE ORDERABLES Final Result Performing Organization Address [facility] de Phone Number [facility] [address] [place] [phone] * (ABNORMAL) Lipid Panel, Standard (02/13/2023 11:46 AM EST) Triglycerides 118 <150 mg/dL [facility] Comment:Desirable Triglyceri de: less than 150 mg/dLBorderline High Triglyceride 150-199 mg/dLHigh Triglyceride: 200-499 mg/dLVery High Triglyceride: greater than or equal to 5OO mg/dL Cholesterol 193 <200 mg/dL [facility] Comment:Desirable Cholestero l: less than 200 mg/dLBorderline High Cholesterol: 200-239 mg/dLHigh Cholesterol: greater than 239 mg/dL LDL Cholesterol Calculated 121(H) <100 mg/dL [facility] Comment:Desirable LDL: less than 100 mg/dLNear Optimal/Above Optimal LDL: 110- 129 mg/dLBorderline High LDL: 130-159 mg/dLHigh LDL: 160-189 mg/dLVery High LDL: greater than or equal to 190 mg/dL HDL Cholesterol 49 >40 mg/dL [facility] Comment:Desirable HDL: great er than 40 mg/dL Note: This HDL assay may give artificially low results in patients with liver disease. Blood Venous blood specimen / Unknown 02/13/2023 11:46 AM EST 02/13/2023 1:19 PM EST Shana Tanner MD LAB BLOOD ORDERABLES Final Result Performing Organization Address [facility] Co de Phone Number [facility] [address] [place] [phone] from Last 3 Months or Most Recently Relevant to Health Maintenance Insurance [place] [phone] [facility] AD[facility] Care Teams Public Accountant Relationship Specialty Start Date End Date Shana Morales MD [address] [place] [phone] PCP - General Family Medicine 11/26/17
--- OUTSIDE RECORDS SUMMARY | 2024-04-28 15:40 | XMS_ITS | Encounter Summary ---
Author Organization Written [facility] Address [address] [place] [address] Care Team Providers Care Configuration Manager Name Role Phone Shana Morales MD Primary Care Provide r Encounter Details Date Type Department Care Team (Latest Contact Info) Description 09/17/2018 Abstract [facility] Dental, Provider, DDS Social History [...] Description 05/04/2024 1:30 PM EST Office Visit [facility] [address] [place] [address] Jaylon Butler DDS [address] [place] [address] documented as of this encounter Visit Diagnoses Not on filedocumented in this encounter Care Teams Configuration Manager Relationship Specialty Start Date End Date Shana Morales MD [address] [place] [phone] PCP - General Family Medicine 11/26/17 documented as of this encounter
--- OUTSIDE RECORDS SUMMARY | 2024-04-28 15:40 | XMS_ITS | Encounter Summary ---
Author Organization [facility], Address [address] [place] [address] Phone Care Team Providers Care Echo Tech Name Role Phone Shana Morales MD Primary Care Provide r Encounter Details Date Type Department Care Team (Late st Contact Info) Description 04/18/2021 Documentation Only [facility], [address] [facility] [phone] Servando Medel MD [address] [place] [phone] Social History Tobacco Use Types Packs/Day Years [...] on filedocumented in this encounter Care Teams Echo Tech Relationship Specialty Start Date End Date Shana Morales MD [address] [place] [phone] PCP - General Internal Medicine 06/30/19 documented as of this encounter
--- OUTSIDE RECORDS SUMMARY | 2024-04-28 15:40 | XMS_ITS | Encounter Summary ---
Author Organization [facility], Address [address] [place] [address] Phone Care Team Providers Care Telecommunication Operator Name Role Phone Shana Morales MD Primary Care Provide r Encounter Details Date Type Department Care Team (Late st Contact Info) Description 10/03/2021 Documentation Only [facility], [address] [facility] [place] [phone] Servando Medel MD [address] [address] [place] [phone] Social History Tobacco Use Types Packs/Day Years [...] on filedocumented in this encounter Care Teams Telecommunication Operator Relationship Specialty Start Date End Date Shana Morales MD [address] [place] [phone] PCP - General Internal Medicine 06/30/19 documented as of this encounter
[2024-04-28 16:25] LABS: Anion Gap 15 (12-20); Blood Urea Nitrogen 74 mg/dL (9-16); Calcium 9.2 mg/dL (8.4-10.2); Carbon Dioxide 26 mmol/L (22-29); Chloride 104 mmol/L (96-108); Estimated Glomerular Filt Rate 30; Glucose Random 140 mg/dL (60-115); Potassium 4.5 mmol/L (3.3-5.1); Sodium 140 mmol/L (135-145)
[2024-04-28 16:27] LABS: Appearance Urine Clear; Color Urine Yellow; Glucose Urine UA Negative (Negative); Leukocyte Esterase Urine Negative (Negative); Nitrite Urine Negative (Negative); UMIC TRIGGER UA YES; Urine Blood Negative (Negative); Urine Ketones Negative (Negative); Urine Protein 100 (2+) mg/dL (Neg-Trace)
[2024-04-28 16:32] LABS: Bacteria Urine None Seen (None Seen); Hyaline Casts Urine 0-2 /LPF (0-2); RBC Urine 0-2 /HPF (0-2); Squamous Epithelial Cell Urine 0-2 /HPF (0-2); WBC Urine 0-5 /HPF (0-5)
[2024-04-28 17:34] LABS: Total Protein Urine Random 89 mg/dL (<12)
== END 2024-04-28 12:53 | disposition home or self-care (01) ==
LOC: HO.HHCL 12:52
PROVIDERS: Visit Provider Internal Medicine Hypertension Specialist
DX: N18.4 Chronic kidney disease, stage 4 (severe) (principal)
CPT/HCPCS: 36415; 80048; 81001; 84156

== ENCOUNTER 2024-05-06 13:39 | Outpatient (AMB) | payer MEDICARE, MEDICAID, SELFPAY ==
[2024-05-06 13:42] VITALS: BP 162/58; PULSE 88; O2SAT 95; BMI 35.5
--- NOTE | 2024-05-06 13:42 | HO.NEPHOV_ITS ---
Vital Signs 05/06/24 13:42 Height 5 ft 1 in Weight 188 lb BMI 35.5 BP 162/58 H Blood Pressure Location Lt brachial Position Sitting Pulse 88 Pulse Source Pulse Oximeter Pulse Oximetry (%) 95 Oxygen Delivery Method Room Air Intake Visit Reasons: Follow up/ Conf Salicylic Acid Blender Required: Yes Salicylic Acid Blender Name: En [id number] Allergies ibuprofen Allergy (Unknown, Verified 05/06/24 13:44) acute renal failure No Known Allergies [No Known Allergies*] Allergy (Verified 05/06/24 13:44) Medication List - Last Reconciled 05/06/24 by Cas Barrios MD albuterol sulfate 1 amp inhalation TID albuterol sulfate 90 mcg/actuation (Ventolin HFA) 2 puffs inhalation Q4-6H PRN amlodipine 10 mg PO DAILY carvedilol 25 mg PO BID ferrous sulfate 324 mg PO BIDWM furosemide (Lasix) 40 mg PO DAILY hydralazine 100 mg PO TID isosorbide mononitrate ER mg PO DAILY omeprazole 40 mg PO DAILY HPI Comments Details: 72-year-old man with a history of longstanding hypertension with chronic kidney disease. He has known chronic kidney disease since 2019. At the time serum creatinine was 1.6 mg/dL. Current serum creatinine is 2.5 mg/dL. He has had significant proteinuria in the non nephrotic range of about 2.3 g. I do not believe he has undergone any workup for the same. He does not have a history of diabetes mellitus. He is currently not on any CALVIN inhibitors or ARB use. 11/20/2023. He has no specific complaints today. Seems to be compliant with his medications. 05/06/24: No compliants today. All meds reviewed. [facility] Social History Household Members: None Housing: Apartment Do you presently have visiting nurse or other home services: No Patient Tobacco Use Status: Never used Tobacco Substance Use Type: Heroin Advance Directives Date on File: 01/10/22 service: No Current occupational status: retired Physical Exam Vital Signs: Last Vital Signs Pulse 88 05/06/24 13:42 BP 162/58 H 05/06/24 13:42 Pulse Ox 95 05/06/24 13:42 Oxygen Delivery Method Room Air 05/06/24 13:42 BMI result Body Mass Index 35.5 Const General: comfortable; No acute distress Orientation/consciousness: patient oriented x3 Eyes General: appearance normal, both eyes and all related structures Visual Drummond: normal visual drummond by confrontation Neck Neck: Yes supple and Yes no JVD Resp Effort & Inspection: normal respiratory effort and respiratory effort not decreased Cardio Palpation: no palpable S3 and no palpable S4 Heart sounds: no rubs GI Inspection: Yes normal to inspection Palpation (GI): Soft to palpation Percussion: Yes normal to percussion Auscultation: normal bowel sounds General: Yes no CVA tenderness Back/Spine/Pelvis Back: no CVA tenderness Skin General skin exam: no petechiae and no purpura Neuro General: patient oriented x3 and no focal motor deficits Extrem General: No clubbing and No edema Results Reviewed Nephrology Results: Hgb 12.3 g/dl (14.0-18.0) L 10/23/23 WBC 12.8 X10*3/uL (4.8-10.8) H 10/23/23 Plt Count 340 X10*3/uL (160-400) 10/23/23 Sodium 140 mmol/L (135-145) 04/28/24 Potassium 4.5 mmol/L (3.3-5.1) 04/28/24 Chloride 104 mmol/L (96-108) 04/28/24 Carbon Dioxide 26 mmol/L (22-29) 04/28/24 BUN 74 mg/dL (9-16) H 04/28/24 Creatinine 2.20 mg/dL (0.5-1.4) H 04/28/24 Calcium 9.2 mg/dL (8.4-10.2) 04/28/24 Urine Protein 100 (2+) mg/dL (Neg-Trace) H 04/28/24 Urine Creatinine 48.44 mg/dL 10/23/23 Renal US 10/29/23 Assessment & Plan Assessment & Plan (1) Anemia: Code(s): D64.9 - Anemia, unspecified Category: Medical (2) CKD (chronic kidney disease) stage 4, GFR 15-29 ml/min: Code(s): N18.4 - Chronic kidney disease, stage 4 (severe) Category: Medical Plan 72-year-old man with stage IV CKD in a setting of longstanding hypertension. He has not non nephrotic range proteinuria as well. proteinuria renal failure. Serum creatinine has improved. He is non nephrotic range proteinuria primarily albumin. No monoclonal proteins. Serological workup has been essentially negative. He probably has underlying hypertensive kidney disease. renal ultrasonogram -no hydronephrosis. He has bilateral cyst - benign Hypertension Optimize blood pressure. low-sodium diet. Keep Hydralazine 100 mg 3 times a day. With Amlodipine Needs to lose weight Until renal function stabilizes I will not add any CALVIN inhibitors or ARB use. 05/06/24 BP is still sub optimal Will obtain a 24 hr ABPM With the help of interpretor, I explained the process in detail Orders: Orders Basic Metabolic Panel 3 Months N18.4 - Chronic kidney disease, stage 4 (severe) AMB 24 HR B/P Monitor PLACEMENT Today I10 - Essential (primary) hypertension Coding Level of Care Code Est Pt Level 4 (17927) Diagnoses Anemia D64.9 CKD (chronic kidney disease) stage 4, GFR 15-29 ml/min N18.4
--- OUTSIDE RECORDS SUMMARY | 2024-05-06 16:15 | XMS_ITS | Encounter Summary ---
Author Organization [facility] Address [address] [place] [address] Phone Care Team Providers Care Grinder Operator External Tool Name Role Phone Shana Morales MD Primary Care Provide r Encounter Details Date Type Department Care Team (Late st Contact Info) Description 11/14/2021 Documentation Only [facility], [address] [place] [phone] Bacilio Fleming PA Social History Tobacco Use [...] on filedocumented in this encounter Care Teams Grinder Operator External Tool Relationship Specialty Start Date End Date Shana Morales MD [address] [place] [phone] PCP - General Internal Medicine 06/30/19 documented as of this encounter
--- OUTSIDE RECORDS SUMMARY | 2024-05-06 16:15 | XMS_ITS | Clinical Summary ---
Author Organization [facility], Address [address] [place] [address] [place] [phone] Phone Care Team Providers Care Clinical Faculty Name Role Phone Shana Morales MD Primary [...] PM EDT) Hemoglobin A1C 6.1(H) (4-6) % [facility] Comment: HEMOGLOBIN A1C(%) ?? GLUCOSE CONTROL INDEX ?<6% ? EXCELLENT ?6-7% ?VERY GOOD ?7-8% ?GOOD ?8-10% ? FAIR ?>10% ?POOR Hemoglobin (Hb) A1c testing is performed by Dwayne Ronna-quant immunoassay. Any cause of shortened erythrocyte survival will reduce exposure of erythrocytes to glucose with a consequent decrease in Hb A1c (%). Testing performed or reported by ~[facility], ~a Service of [facility], ~[address] [place] [id number]~ 12/29/2018 2:22 PM EDT us Servando Medel MD LAB BLOOD ORDERABLES Final Resul t [facility] from Last 3 Months or Most Recently Relevant to Health Maintenance Insurance [place] Member Subscriber Plan / Payer (Ef fective 2019-Present) Name:Sheng Haywood Relation to Subscriber:Self Name:Sheng Haywood Payer ID:Not on file Group ID:Not on file Type:Not on file Address: [place] [id number] MEDICARE [place]ID [place] MEDICARE Care Teams Clinical Faculty Relationship Specialty Start Date End Date Shana Morales MD [address] [place] [phone] PCP - General Internal Medicine 06/30/19
--- OUTSIDE RECORDS SUMMARY | 2024-05-06 16:15 | XMS_ITS | Encounter Summary ---
Author Organization [facility], Address [address] [place] [address] Phone Care Team Providers Care Applications Analyst Name Role Phone Shana Morales MD Primary Care Provide r Encounter Details Date Type Department Care Team (Late st Contact Info) Description 10/03/2021 Documentation Only [facility], [address] [place] [phone] Servando Medel MD [address] [facility] [address] [facility] [place] [place] [phone] Social History Tobacco Use Types Packs/Day Years [...] on filedocumented in this encounter Care Teams Applications Analyst Relationship Specialty Start Date End Date Shana Morales MD [address] [place] [phone] PCP - General Internal Medicine 06/30/19 documented as of this encounter
--- OUTSIDE RECORDS SUMMARY | 2024-05-06 16:15 | XMS_ITS | Encounter Summary ---
Author Organization [facility] Address [address] [facility] 7t [place] [address] Care Team Providers Care Cracker Off Name Role Phone Shana Morales MD Primary Care Provide r Encounter Details Date Type Department Care Team (Latest Contact Info) Description 07/13/2020 Abstract [facility] CONVERSIONS Dental, Provider, DDS Social History [...] Care Team (Late st Contact Info) Description 06/09/2024 10:30 AM EDT Office Visit [facility] ADULT DENTAL [address] [place] [address] Jaylon Butler, DDS [address] [place] [address] documented as of this encounter Visit Diagnoses Not on filedocumented in this encounter Care Teams Cracker Off Relationship Specialty Start Date End Date Shana Morales MD [address] [place] [address] PCP - General Family Medicine 11/26/17 documented as of this encounter
--- OUTSIDE RECORDS SUMMARY | 2024-05-06 16:15 | XMS_ITS | Encounter Summary ---
Author Organization [facility] Address [address] [facility] 7t [place] [address] Care Team Providers Care Helper/Driver Name Role Phone Shana Morales MD Primary Care Provide r Encounter Details Date Type Department Care Team (Late Contact Info) Description 11/07/2022 Telephone [facility] [address] [place] [address] Shana Morales MD [address] [place] [address] Social History Tobacco Use Types Packs/Day Years [...] Description 06/09/2024 10:30 AM EDT Office Visit [facility] ADULT DENTAL [address] [place] [address] Jaylon Butler DDS [address] [place] [address] documented as of this encounter Visit Diagnoses Not on filedocumented in this encounter Care Teams Helper/Driver Relationship Specialty Start Date End Date Shana Morales MD [address] [place] [phone] PCP - General Family Medicine 11/26/17 documented as of this encounter
--- OUTSIDE RECORDS SUMMARY | 2024-05-06 16:15 | XMS_ITS | Encounter Summary ---
Author Organization [facility], Address [address] [place] [address] Phone Care Team Providers Care Excel Analyst Name Role Phone Shana Morales MD Primary Care Provide r Encounter Details Date Type Department Care Team (Late st Contact Info) Description 02/01/2021 Documentation Only [facility], [address] [place] [phone] Servando Medel MD [address] [place] [phone] Social History Tobacco Use Types Packs/Day Years [...] on filedocumented in this encounter Care Teams Excel Analyst Relationship Specialty Start Date End Date Shana Morales MD [address] [place] [phone] PCP - General Internal Medicine 06/30/19 documented as of this encounter
--- OUTSIDE RECORDS SUMMARY | 2024-05-06 16:15 | XMS_ITS | Encounter Summary ---
Author Organization [facility] [facility] Address [address] [facility] 7t [place] [address] Care Team Providers Care Histology Technician Name Role Phone Shana Morales MD Primary Care Provide r Encounter Details Date Type Department Care Team (Latest Contact Info) Description 09/17/2018 Abstract [facility] CONVERSIONS Dental, Provider, DDS Social History [...] Description 06/09/2024 10:30 AM EDT Office Visit [facility] ADULT DENTAL [address] [place] [address] Jaylon Butler DDS [address] [place] [address] documented as of this encounter Visit Diagnoses Not on filedocumented in this encounter Care Teams Histology Technician Relationship Specialty Start Date End Date Shana Morales MD [address] [place] [address] PCP - General Family Medicine 11/26/17 documented as of this encounter
--- OUTSIDE RECORDS SUMMARY | 2024-05-06 16:15 | XMS_ITS | Clinical Summary ---
Author Organization [employer] Address [address] [facility] 7t [place] [address] Care Team Providers Care Coal Getter Name Role Phone Shana Morales MD Primary Care Provide r Allergies Active Allergy Reactions Criticality Noted Date Comments Ibuprofen Other High 02/03/2022 Nsaids High 05/26/2013 Other reaction(s): acute renal failure Medications acetaminophen (Tylenol) 325 MG tablet Take 2 tablets by mouth in the morning and 2 tablets at noon and 2 tablets in the evening. 08/29/19 19 Active Blood Glucose Monitoring Suppl (Arvirago Pawnee Lite) w/Device kit USE TO TEST BLOOD SUGAR TWICE DAILY 04/18/19 22 Active clotrimazole (Lotrimin) 1 % cream APPLY TO TOENAILS EVERY DAY POR 6 WEEKS 02/16/20 22 Active Blood Pressure Monitor kitIndications:E ssential hypertension Use as directed 3x/week 1 kit 11/14/19 23 Active albuterol (2.5 MG/3ML) 0.083% nebulizer solutionIndicati ons:Other asthma USE 1 AMPULE USING A NEBULIZER THREE TIMES DAILY 90 mL 5 02/09/20 23 Active hydrALAZINE (Apresoline) 50 MG tabletIndication s:Essential hypertension Take 1 tablet (50 mg) by mouth 3 times daily. 270 tablet 3 06/20/19 24 Active carvedilol (Coreg) 25 MG tabletIndication s:Essential hypertension Take 1 tablet (25 mg) by mouth with breakfast and with evening meal. 180 tablet 3 06/20/19 24 2024 Active naloxone (Narcan) 4 mg/0.1 mL nasal sprayIndications :Uncomplicated opioid dependence (CMS/HCC) Administer 1 spray (4 mg) into affected nostril(s) if needed for opioid reversal. May repeat every 2-3 minutes if needed, alternating nostrils, until medical assistance becomes available. 2 each 07/03/19 24 2024 Active isosorbide mononitrate ER (Imdur) 60 MG 24 hr tabletIndication s:Resistant hypertension Take 1 tablet (60 mg) by mouth Once per day. Do not crush or chew. 30 tablet 11 07/03/19 24 2024 Active buprenorphine-na loxone (Suboxone) 12-3 MG per sublingual filmIndications: Uncomplicated opioid dependence (CMS/HCC) Place 1 Film under the tongue Once per day. 28 Film 1 07/30/19 24 Active SPS 15 GM/60ML suspensionIndica tions:Hyperkalem ia DRINK 60 ML (15 GRAM) BY MOUTH THREE TIMES DAILY FOR 2 DAYS 360 mL 08/15/19 24 Active albuterol 108 (90 Base) MCG/ACT inhalerIndicatio ns:Asthma-chroni c obstructive pulmonary disease overlap syndrome (CMS/HCC) INHALE 2 PUFFS BY MOUTH EVERY 4 HOURS NEEDED FOR WHEEZING OR SHORTNESS OF BREATH 8.5 g 2 09/26/19 24 Active amLODIPine (Norvasc) 10 MG tabletIndication s:Hypertension, unspecified type TAKE 1 TABLET BY MOUTH EVERY DAY 90 tablet 1 12/09/19 24 Active ferrous sulfate 324 (65 Fe) MG EC tabletIndication s:Chronic kidney disease, unspecified CKD stage TAKE 1 TABLET BY MOUTH TWICE DAILY IN THE MORNING AND IN THE EVENING WITH MEALS 180 tablet 1 01/23/20 24 Active TRUEplus Lancets 33G miscIndications: Type 2 diabetes mellitus without complications (CMS/HCC) 1 each Once per day. 100 each 5 02/04/20 24 Active glucose blood (FREESTYLE LITE) test stripIndications :Type 2 diabetes mellitus without complications (CMS/HCC) TEST BLOOD SUGAR ONCE DAILY 100 strip 11 02/05/20 24 Active Tirzepatide-Weig ht Management (Zepbound) 2.5 MG/0.5ML solution auto-injectorInd ications:Class 1 obesity due to excess calories with serious comorbidity and body mass index (BMI) of 34.0 to 34.9 in adult Inject 0.5 mL (2.5 mg) under the skin 1 (one) time per week. 2 mL 02/13/20 24 Active omeprazole (PriLOSEC) [address] capsuleIndicatio ns:Chronic GERD TAKE 1 CAPSULE BY MOUTH EVERY DAY BEFORE BREAKFAST. DO NOT BREAK, CRUSH, DISSOLVE OR CHEW 90 capsule 1 03/05/19 25 Active furosemide (Lasix) 40 MG tabletIndication s:Essential hypertension TAKE 1 TABLET BY MOUTH EVERY DAY IN THE MORNING 30 tablet 3 04/30/19 25 Active furosemide (Lasix) 40 MG tabletIndication s:Essential hypertension TAKE 1 TABLET BY MOUTH EVERY DAY IN THE MORNING 30 tablet 3 12/30/19 24 2024 Discontinued Active Problems Problem Noted Date Diagnosed Date [...] Encounters Date Type Department Care Team Description 04/29/2024 Refill [facility] [address] [place] [phone] Shana Morales MD Essential hypertension 04/09/2024 1:45 PM EST Telemedicine [facility] [address] [place] [address] Shana Morales MD Resistant hypertension (Primary Dx) 04/09/2024 Travel 04/08/2024 Telephone [facility] [address] [place] [phone] Shekhar Jenkins MA Chart Prep 03/05/2024 Refill [facility] [address] [place] [phone] Shana Morales MD Chronic GERD 02/28/[address] [address] Shana Morales MD Prior Authorization ( [place] Request: Zepbound) 02/14/2024 Telephone [facility] [address] [place] [phone] Raquel Lea, INA 02/13/2024 1:45 PM EST Office Visit [address] [address] Shana Morales MD Resistant hypertension (Primary Dx); Type 2 diabetes mellitus without complication, without long-term current use of insulin ([facility]); Class 1 obesity due to excess calories with serious comorbidity and body mass index (BMI) of 34.0 to 34.9 in adult; Prediabetes 02/13/2024 Travel 02/06/2024 Patient Outreach [facility] [address] [place] [address] Shana Morales MD Pre-visit Planning (SDOH was completed on 05/22/2023) from Last 3 Months Immunizations Name Administration [...] your housing situation today? I have fidel keri 12/19/[address] you li [...] Description 06/09/2024 10:30 AM EDT Office Visit [facility] ADULT DENTAL [address] [place] [address] Jaylon Butler DDS [address] [place] [address] Health Maintenance Due Date Last Done Comments [...] Additional history exists Dental X-Ray: Bitewings 08/15/2022 08/15/19, 07/13/2020, 09/17/2018, Additional history exists Diabetes: Urine Protein Screening 02/14/2024 02/13/2023, 01/18/2021, 05/08/2019 Lipid Panel 02/14/2024 02/13/2023, 01/18/2021 SDOH Screening 05/21/2024 05/22/2023 Depression Screening 05/29/2024 05/30/2023, 05/30/19 Diabetes: Hemoglobin A1C 08/13/2024 024, 08/15/2023, 07/03/2023, Additional history exists Tobacco Screening 02/12/2025 02/13/2024 Eye Exam 08/19/2025 08/20/2023, 08/02, 08/20/2023, Additional history exists Dental X-Ray: Full Mouth 09/17/20262 024, 07/13/2020, 11/28/2016 Hepatitis A Vaccines Aged [...] Media Lot # [id number] Lot# Expiration Date [id number] Blood 02/13/2024 2:03 PM EST Shana Tanner MD POINT OF CARE TEST EN TER/EDIT ORDERABLES Final Result * POCT Glucose (02/13/2024 1:50 PM EST) Glucose Blood, POC 125 60 - 200 mg/dL QC Media Lot # [id number] Lot# Expiration Date [id number] Blood Capillary blood specimen / Unknown 02/13/2024 1:50 PM EST Shana Tanner MD POINT OF CARE TEST EN TER/EDIT ORDERABLES Final Result * Hepatitis C Antibody with Reflex to HCV, RNA, Quantitative, Real-Time PCR (08/15/2023 9:36 AM EDT) Pathologist [facility] Hepatitis C Antibody Nonreactive Nonreactive [facility] Comment:Antibodies to HCV no t detected; does not exclude early acuteHCV infection. Blood Venous blood specimen / Unknown 08/15/2023 9:36 AM EDT 08/15/2023 11:49 AM EDT Result [facility] Shana Tanner MD LAB BLOOD ORDERABLES Final Result [facility] [address] [place] [address] [phone] * (ABNORMAL) Albumin, Random Urine W/Creatinine (02/13/2023 11:46 AM EST) Creatinine, Urine 24.40 mg/dL [facility] Microalbumin Urine 362.0 mg/L H [facility] Microalbum Creatinine Ratio Ur 1,483.6(H ) <30 ug/mg cr [facility] Comment:Albumin/Creatinine R at Reference Ranges: Normal: < 30 ug/mg creatinine Microalbuminuria: 30 - 300 ug/mg creatinineClinical Albuminuria: > 300 ug/mg creatinine 02/13/2023 11:4 6 AM EST 02/13/2023 1:05 PM EST us Shana Tanner MD LAB URINE ORDERABLES Final Result Performing Organization Address [facility]/ZIP Co de Phone Number [facility] [address] [place] [address] [phone] * (ABNORMAL) Lipid Panel, Standard (02/13/2023 11:46 AM EST) Triglycerides 118 <150 mg/dL [facility] Comment:Desirable Triglyceri de: less than 150 mg/dLBorderline High Triglyceride 150-199 mg/dLHigh Triglyceride: 200-499 mg/dLVery High Triglyceride: greater than or equal to 5OO mg/dL Cholesterol 193 <200 mg/dL [facility] Comment:Desirable Cholestero l: less than 200 mg/dLBorderline High Cholesterol: 200-239 mg/dLHigh Cholesterol: greater than 239 mg/dL LDL Cholesterol Calculated 121(H) <100 mg/dL [facility] Comment:Desirable LDL: less than 100 mg/dLNear Optimal/Above Optimal LDL: 110- 129 mg/dLBorderline High LDL: 130-159 mg/dLHigh LDL: 160-189 mg/dLVery High LDL: greater than or equal to 190 mg/dL HDL Cholesterol 49 >40 mg/dL [facility] Comment:Desirable HDL: great er than 40 mg/dL Note: This HDL assay may give artificially low results in patients with liver disease. Blood Venous blood specimen / Unknown 02/13/2023 11:46 AM EST 02/13/2023 1:19 PM EST us Shana Tanner MD LAB BLOOD ORDERABLES Final Result [facility] [address] [place] [address] [phone] from Last 3 Months or Most Recently Relevant to Health Maintenance [place] [address] [place] [phone] [facility] STANDARD DENTAL-[facility] MEDICAID STAND ADULT Care Teams Coal Getter Relationship Specialty Start Date End Date Shana Morales MD [address] [place] [address] PCP - General Family Medicine 11/26/17
--- OUTSIDE RECORDS SUMMARY | 2024-05-06 16:15 | XMS_ITS | Encounter Summary ---
Author Organization [facility], Address [address] [place] [address] Phone Care Team Providers Care Advertising Sales Manager Name Role Phone Shana Morales MD Primary Care Provide r Encounter Details Date Type Department Care Team (Late st Contact Info) Description 10/03/2021 Documentation Only [facility], [address] [place] [phone] Servando Medel MD [address] [place] [phone] Social History Tobacco Use Types Packs/Day Years [...] on filedocumented in this encounter Care Teams Advertising Sales Manager Relationship Specialty Start Date End Date Shana Morales MD [address] [place] [phone] PCP - General Internal Medicine 06/30/19 documented as of this encounter
--- OUTSIDE RECORDS SUMMARY | 2024-05-06 16:15 | XMS_ITS | Encounter Summary ---
Author Organization [employer] Address [address] 7t [place] [address] Care Team Providers Care Wire Insulator Name Role Phone Shana Morales MD Primary Care Provide r Reason for Visit * Reason Comments Med Refill Encounter Details Date Type Department Care Team ([facility] st Contact Info) Description 02/21/2023 Refill [facility] [address] [place], [place] [phone] Name, MD Vlad [address] [place], [place] [phone] Chronic GERD Social History Tobacco Use Types [...] 06/09/2024 10:30 AM EDT Office Visit [facility] ADULT D[facility] [address] [place], [place] [phone] Jaylon Butler DDS [address] [place], [place] [phone] documented as of this encounter Visit Diagnoses Diagnosis Chronic GERD documented in this encounter Care Teams Wire Insulator Relationship Specialty Start Date End Date Shana Morales MD [address] [place], [place] [phone] PCP - General Family Medicine 11/26/17 documented as of this encounter
--- OUTSIDE RECORDS SUMMARY | 2024-05-06 16:15 | XMS_ITS | Encounter Summary ---
Author Organization [employer] Address [address] [facility] 7t [place] [address] Care Team Providers Care Associate Director Qa Name Role Phone Shana Morales MD Primary Care Provide r Reason for Visit * Reason Comments televisit Encounter Details Date Type Department Care Team ([facility] st Contact Info) Description 04/09/2024 1:45 PM EST Telemedicine [facility] MED[facility] [address] [place], [place] [phone] Shana Morales MD [address] [place], [place] [phone] Resistant hypertension (Primary Dx) Social History Tobacco [...] Active Problem List Diagnosis Uncomplicated opioid dependence ([facility]) Onychogryposis Mood disorder ([facility]) Essential hypertension Chronic kidney disease Asthma-chronic obstructive pulmonary disease overlap syndrome ([facility]/HCC) Acute exacerbation of chronic obstructive airways disease with asthma ([facility]/HCC) Anemia Stage 3a chronic kidney disease ([facility]/HCC) Colon cancer screening Preventative health care Onychomycosis [...] 90 tablet 1 Blood Glucose Monitoring Suppl ([id number] [place] Lite) w/Device kit USE TO TEST BLOOD [...] 06/09/2024 10:30 AM EDT Office Visit [facility] ADULT D[facility] [address] [place] [address] Jaylon Butler DDS [address] [place] [address] documented as of this encounter Visit Diagnoses Diagnosis Resistant hypertension- Primary documented in this encounter Additional Health Concerns Assessment Noted Time PHQ-9 Depression Total Score: 0 05/30/19 24 1:00 PM EDT documented as of this encounter Care Teams Associate Director Qa Relationship Specialty Start Date End Date Shana Morales MD [address] [place] [address] PCP - General Family Medicine 11/26/17 documented as of this encounter
--- OUTSIDE RECORDS SUMMARY | 2024-05-06 16:15 | XMS_ITS | Encounter Summary ---
Author Organization [facility] Address [address] [place] [address] 7t [place] [address] Care Team Providers Care Junior Accountant Name Role Phone Shana Morales MD Primary Care Provide r Encounter Details Date Type Department Care Team (Late st Contact Info) Description 01/31/2022 Abstract [facility] ADULT D[facility] [address] [place] [address] Dental, Provider, DDS Social History Tobacco Use [...] Description 06/09/2024 10:30 AM EDT Office Visit [facility] ADULT [facility] [address] [place] [address] Jaylon Butler DDS [address] [place] [address] documented as of this encounter Procedures Procedure [...] on filedocumented in this encounter Care Teams Junior Accountant Relationship Specialty Start Date End Date Shana Morales MD 230 [place] [address] PCP - General Family Medicine 11/26/17 documented as of this encounter
--- OUTSIDE RECORDS SUMMARY | 2024-05-06 16:15 | XMS_ITS | Encounter Summary ---
Author Organization [facility] [facility] Address [address] [facility] 7t [place] [address] Care Team Providers Care Bonding Equipment Operator Name Role Phone Shana Morales MD Primary Care Provide r Encounter Details Date Type Department Care Team (Late st Contact Info) Description 02/09/2022 Orders Only [facility] [address] [place] [address] Mariama Karuse FNP [address] [place] [address] Type 2 diabetes mellitus without complication, without long-term current use of insulin ([facility]) (Primary Dx) Social History Tobacco Use Types [...] Description 06/09/2024 10:30 AM EDT Office Visit [facility] [address] [place] [address] Jaylon Butler DDS [address] [place] [address] Scheduled Orders Name Type Priority Associated Diagnoses Orde r Schedule Creatinine, Serum Lab Routine Type 2 diabetes mellitus without complication, without long-term current use of insulin (CMS/HCC) Expected: 02/09/2022 (Approximate), Expires: 02/09/2023 documented as of this encounter Visit Diagnoses Diagnosis Type 2 diabetes mellitus without complication, without long-term current use of insulin ([facility])- Primary documented in this encounter Care Teams Bonding Equipment Operator Relationship Specialty Start Date End Date Shana Morales MD 230 [place] [address] PCP - General Family Medicine 11/26/17 documented as of this encounter
--- OUTSIDE RECORDS SUMMARY | 2024-05-06 16:15 | XMS_ITS | Encounter Summary ---
Author Organization [employer] Address [address] 7t [place] [address] Care Team Providers Care Air Crew Member Name Role Phone Shana Morales MD Primary Care Provide r Reason for Visit * Reason Comments Med Refill Encounter Details Date Type Department Care Team ([facility] st Contact Info) Description 04/29/2024 Refill [facility] [address] [place], [place] [phone] Shana Morales MD 230 [place], [place] [phone] Essential hypertension Social History Tobacco Use Types Packs/Day Years [...] Description 06/09/2024 10:30 AM EDT Office Visit [facility] ADULT DENT[facility] [address] [place] [address] Jaylon Butler DDS 230 [place] [address] documented as of this encounter Visit Diagnoses Diagnosis Essential hypertension Unspecified essential hypertension documented in this encounter Additional Health Concerns Assessment Noted Time PHQ-9 Depression Total Score: 0 05/30/19 24 1:00 PM EDT documented as of this encounter Care Teams Air Crew Member Relationship Specialty Start Date End Date Shana Morales MD [address] [place] [address] PCP - General Family Medicine 11/26/17 documented as of this encounter
--- OUTSIDE RECORDS SUMMARY | 2024-05-06 16:15 | XMS_ITS | Encounter Summary ---
Author Organization [employer] Address [address] 7t [place] [address] Care Team Providers Care Director Operations Broadcast Name Role Phone Shana Morales MD Primary Care Provide r Reason for Visit * Reason Onset Date Comments Chart Prep 04/08/2024 Encounter Details Date Type Department Care Team (Late st Contact Info) Description 04/08/2024 Telephone [facility] [address] [place], [place] [phone] Shekhar Jenkins MA Chart Prep Social History [...] Description 06/09/2024 10:30 AM EDT Office Visit [facility] ADULT DENTAL [address] [place] [address] Jaylon Butler DDS [address] [place] [address] documented as of this encounter Visit Diagnoses Not on filedocumented in this encounter Additional Health Concerns Assessment Noted Time PHQ-9 Depression Total Score: 0 05/30/19 24 1:00 PM EDT documented as of this encounter Care Teams Director Operations Broadcast Relationship Specialty Start Date End Date Shana Morales MD 230 [place] [address] PCP - General Family Medicine 11/26/17 documented as of this encounter
--- OUTSIDE RECORDS SUMMARY | 2024-05-06 16:15 | XMS_ITS | Encounter Summary ---
Author Organization [facility] [place], Address [address] [place] [address] Phone Care Team Providers Care Overnight Associate Name Role Phone Shana Morales MD Primary Care Provide r Encounter Details Date Type Department Care Team (Late st Contact Info) Description 04/18/2021 Documentation Only [facility], [address] [place] [phone] Servando Medel MD [address] [place] [phone] Social History Tobacco Use Types Packs/Day Years [...] on filedocumented in this encounter Care Teams Overnight Associate Relationship Specialty Start Date End Date Shana Morales MD [address] [place] [phone] PCP - General Internal Medicine 06/30/19 documented as of this encounter
--- OUTSIDE RECORDS SUMMARY | 2024-05-06 16:15 | XMS_ITS | Encounter Summary ---
Author Organization [facility] Address [address] [place] [address] Phone Care Team Providers Care Neurological Surgery Teacher Name Role Phone Shana Morales MD Primary Care Provide r Encounter Details Date Type Department Care Team (Late st Contact Info) Description 01/30/2022 Documentation Only [facility], [address] [place] [phone] Bacilio Fleming PA Social History Tobacco Use [...] on filedocumented in this encounter Care Teams Neurological Surgery Teacher Relationship Specialty Start Date End Date Shana Morales MD [address] [place] [phone] PCP - General Internal Medicine 06/30/19 documented as of this encounter
--- OUTSIDE RECORDS SUMMARY | 2024-05-06 16:15 | XMS_ITS | Encounter Summary ---
Author Organization [email or web address] Address [address] [facility] 7t [place] [address] Care Team Providers Care Mining Professionals Name Role Phone Shana Morales MD Primary [...] Office Visit [facility] ADULT DENTAL 230 [place] [address] Jaylon Butler DDS [address] [place] [address] documented as of this encounter Visit Diagnoses Not on filedocumented in this encounter Additional Health Concerns Assessment Noted Time PHQ-9 Depression Total Score: 0 05/30/19 24 1:00 PM EDT documented as of this encounter Care Teams Mining Professionals Relationship Specialty Start Date End Date Shana Morales MD 230 [place] [address] PCP - General Family Medicine 11/26/17 documented as of this encounter
== END 2024-05-06 14:06 | disposition home or self-care (01) ==
LOC: HO.HKAM 13:39
PROVIDERS: PCP Internal Medicine; Visit Provider Internal Medicine Hypertension Specialist
DX: D64.9 Anemia, unspecified (principal); N18.4 Chronic kidney disease, stage 4 (severe)
CPT/HCPCS: 99214

== ENCOUNTER → 2024-05-06 13:39 | Outpatient (BNVA) | payer MEDICARE, MEDICAID, SELFPAY | PROVIDERS: PCP Internal Medicine; Visit Provider Internal Medicine Hypertension Specialist | DX: N18.4 Chronic kidney disease, stage 4 (severe) (principal); D64.9 Anemia, unspecified | CPT/HCPCS: 99212 ==

== ENCOUNTER 2024-06-12 11:28 | Outpatient (REF) | payer MEDICARE, MEDICAID, SELFPAY ==
--- OUTSIDE RECORDS SUMMARY | 2024-06-12 12:30 | XMS_ITS | Encounter Summary ---
Author Organization [employer] [facility] Address [address] [facility] 7t [place] [address] Care Team Providers Care Weighbridge Operator Name Role Phone Shana Morales MD Primary Care Provide r Encounter Details Date Type Department Care Team (Late st Contact Info) Description 02/09/2022 Orders Only [facility] 230 [place] [address] Mariama Krause FNP [address] [place] [address] Type 2 diabetes mellitus without complication, without long-term current use of insulin ([facility]) (Primary Dx) Social History Tobacco Use Types [...] Care Team (Late st Contact Info) Description 07/22/2024 1:30 PM EDT Office Visit [facility] ADULT DENTAL [address] [place] [address] Jaylon Butler DDS 230 [place] [address] Scheduled Orders Name Type Priority Associated Diagnoses Orde r Schedule Creatinine, Serum Lab Routine Type 2 diabetes mellitus without complication, without long-term current use of insulin (CMS/HCC) Expected: 02/09/2022 (Approximate), Expires: 02/09/2023 documented as of this encounter Visit Diagnoses Diagnosis Type 2 diabetes mellitus without complication, without long-term current use of insulin (CMS/[facility])- Primary documented in this encounter Care Teams Weighbridge Operator Relationship Specialty Start Date End Date Shana Morales MD 230 [place] [address] PCP - General Family Medicine 11/26/17 documented as of this encounter
--- OUTSIDE RECORDS SUMMARY | 2024-06-12 12:30 | XMS_ITS | Clinical Summary ---
Author Organization [email or web address] Address [address] [facility] 7t [place] [address] Care Team Providers Care Food Service Helper Name Role Phone Shana Morales MD Primary Care Provide r Allergies Active Allergy Reactions Criticality Noted Date Comments Ibuprofen Other High 02/03/2022 Nsaids High 05/26/2013 Other reaction(s): acute renal failure Medications acetaminophen (Tylenol) 325 MG tablet Take 2 tablets by mouth in the morning and 2 tablets at noon and 2 tablets in the evening. 9 Active Blood Glucose Monitoring Suppl ([employer] [place] Lite) w/Device kit USE TO TEST BLOOD SUGAR TWICE DAILY 2 Active clotrimazole (Lotrimin) 1 % cream APPLY TO TOENAILS EVERY DAY POR 6 WEEKS 2 Active Blood Pressure Monitor kitIndications:Es sential hypertension Use as directed 3x/week 1 kit 3 Active albuterol (2.5 MG/3ML) 0.083% nebulizer solutionIndicatio ns:Other asthma USE 1 AMPULE USING A NEBULIZER THREE TIMES DAILY 90 mL 5 3 Active Additional Information Patient not taking.Reported on 06/09/2024 hydrALAZINE (Apresoline) 50 MG tabletIndications :Essential hypertension Take 1 tablet (50 mg) by mouth 3 times daily. 270 tablet 3 4 Active carvedilol (Coreg) 25 MG tabletIndications :Essential hypertension Take 1 tablet (25 mg) by mouth with breakfast and with evening meal. 180 tablet 3 4 025 Active Additional Information Patient not taking.Reported on 06/09/2024 naloxone (Narcan) 4 mg/0.1 mL nasal sprayIndications: Uncomplicated opioid dependence (CMS/HCC) Administer 1 spray (4 mg) into affected nostril(s) if needed for opioid reversal. May repeat every 2-3 minutes if needed, alternating nostrils, until medical assistance becomes available. 2 each 4 025 Active Additional Information Patient not taking.Reported on 06/09/2024 isosorbide mononitrate ER (Imdur) 60 MG 24 [...] FOR 2 DAYS 360 mL 4 Active Additional Information Patient not taking.Reported on 06/09/2024 albuterol 108 (90 Base) MCG/ACT inhalerIndication s:Asthma-chronic obstructive pulmonary disease overlap syndrome (CMS/HCC) INHALE 2 PUFFS BY MOUTH EVERY 4 HOURS NEEDED FOR WHEEZING OR SHORTNESS OF BREATH 8.5 g 2 4 Active Additional Information Patient not taking.Reported on 06/09/2024 amLODIPine (Norvasc) 10 MG tabletIndications :Hypertension, unspecified type TAKE 1 TABLET BY MOUTH EVERY DAY 90 tablet 1 4 Active ferrous sulfate 324 (65 Fe) MG EC tabletIndications :Chronic kidney disease, unspecified CKD stage TAKE 1 TABLET BY MOUTH TWICE DAILY IN THE MORNING AND IN THE EVENING WITH MEALS 180 tablet 1 4 Active TRUEplus Lancets 33G miscIndications:T ype 2 diabetes mellitus without complications (CMS/HCC) 1 each Once per day. 100 each 5 4 Active glucose blood (FREESTYLE LITE) test stripIndications: Type 2 diabetes mellitus without complications (CMS/HCC) TEST BLOOD SUGAR ONCE DAILY 100 strip 11 4 Active Tirzepatide-Weigh t Management (Zepbound) 2.5 MG/0.5ML solution auto-injectorIndi cations:Class 1 obesity due to excess calories with serious comorbidity and body mass index (BMI) of 34.0 to 34.9 in adult Inject 0.5 mL (2.5 mg) under the skin 1 (one) time per week. 2 mL 4 Active Additional Information Patient not taking.Reported on 06/09/2024 omeprazole (PriLOSEC) [address] capsuleIndication s:Chronic GERD TAKE 1 CAPSULE BY MOUTH EVERY DAY BEFORE BREAKFAST. DO NOT BREAK, CRUSH, DISSOLVE OR CHEW 90 capsule 1 5 Active furosemide (Lasix) 40 MG tabletIndications :Essential hypertension TAKE 1 TABLET BY MOUTH EVERY DAY IN THE MORNING 30 tablet 3 5 Active Active Problems Problem Noted Date [...] Encounters Date Type Department Care Team Description 06/09/2024 10:30 AM EDT Office Visit [facility] ADULT DENTAL [address] [place] [address] Jaylon Butler DDS Essential hypertension (Primary Dx) 05/15/2024 Population Health Risk Score [facility] Department [address] [phone] Provider, Population Health Generic 04/29/2024 Refill [facility] MED[facility] [address] [place] [address] Shana Morales MD Essential hypertension 04/09/2024 1:45 PM EST Telemedicine [facility] [address] [place] [address] Shana Morales MD Resistant hypertension (Primary Dx) 04/09/2024 Travel 04/08/2024 Telephone [facility] MED[facility] [address] [place], [place] [phone] Shekhar Jenkins MA Chart Prep from Last 3 Months Immunizations Name Administration [...] Not Answered Alcohol Use Standard Drinks/Week Comments Not Currently 0 (1 standard drink = 0.6 oz [...] Sign Reading Time Taken Comments Blood Pressure 190/68 06/09/2024 11:07 AM EDT Pulse 100 06/09/2024 11:07 AM EDT Temperature 36.6 ??C (97.8 ??F) 02/13/2024 1:48 [...] Description 07/22/2024 1:30 PM EDT Office Visit [facility] ADULT DENTAL [address] [place] [address] Jaylon Butler, DDDarryn [address] [place] [address] Health Maintenance Due Date Last Done Comments [...] 08/15/2023, 07/03/2023, Additional history exists Tobacco Screening 06/09/2025 06/09/2024 Eye Exam 08/19/2025 08/20/2023, 08/02, 08/20/2023, Additional [...] Procedure Name Priority Date/Time Associated Diagnosis Comments NO CHARGE VISIT Routine 06/09/2024 10:30 AM EDT POCT GLYCATED HEMOGLOBIN, TOTAL Routine 02/13/2024 2:03 PM EST Prediabetes PANORAMIC RADIOGRAPHIC IMAGE Routine [...] Media Lot # [id number] Lot# Expiration Date [id number] Blood 02/13/2024 2:03 PM EST Shana Tanner MD POINT OF CARE TEST EN TER/EDIT ORDERABLES Final Result * Hepatitis C Antibody with Reflex to HCV, RNA, Quantitative, Real-Time PCR (08/15/2023 9:36 AM EDT) Hepatitis C Antibody Nonreactive Nonreactive [facility] Comment:Antibodies to HCV no t detected; does not exclude early acuteHCV infection. Blood Venous blood specimen / Unknown 08/15/2023 9:36 AM EDT 08/15/2023 11:49 AM EDT us Shana Tanner MD LAB BLOOD ORDERABLES Final Result Performing Organization Address [facility] Co de Phone Number [facility] [address] [place] [phone] * (ABNORMAL) Albumin, Random Urine W/Creatinine (02/13/2023 11:46 AM EST) Creatinine, Urine 24.40 mg/dL [facility] Microalbumin Urine 362.0 mg/L H [facility] Microalbum Creatinine Ratio Ur 1,483.6(H ) <30 ug/mg cr [facility] Comment:Albumin/Creatinine R atio Reference Ranges: Normal: < 30 ug/mg creatinine Microalbuminuria: 30 - 300 ug/mg creatinineClinical Albuminuria: > 300 ug/mg creatinine 02/13/2023 11:4 6 AM EST 02/13/2023 1:05 PM EST Shana Tanner MD LAB URINE ORDERABLES Final Result Performing Organization Address [facility] Co de Phone Number [facility] [address] [place] [phone] * (ABNORMAL) Lipid Panel, Standard (02/13/2023 11:46 AM EST) Triglycerides 118 <150 mg/dL [facility] Comment:Desirable Triglyceri de: less than 150 mg/dLBorderline High Triglyceride 150-199 mg/dLHigh Triglyceride: 200-499 mg/dLVery High Triglyceride: greater than or equal to 5OO mg/dL Cholesterol 193 <200 mg/dL [facility] Comment:Desirable Cholestero l: less than 200 mg/dLBorderline High Cholesterol: 200-239 mg/dLHigh Cholesterol: greater than 239 mg/dL LDL Cholesterol Calculated 121(H) <100 mg/dL [facility] Comment:Desirable LDL: less than 100 mg/dLNear Optimal/Above Optimal LDL: 110- 129 mg/dLBorderline High LDL: 130-159 mg/dLHigh LDL: 160-189 mg/dLVery High LDL: greater than or equal to 190 mg/dL HDL Cholesterol 49 >40 mg/dL [facility] Comment:Desirable HDL: great er than 40 mg/dL Note: This HDL assay may give artificially low results in patients with liver disease. Blood Venous blood specimen / Unknown 02/13/2023 11:46 AM EST 02/13/2023 1:19 PM EST Shana Tanner MD LAB BLOOD ORDERABLES Final Result [facility] [address] [place] [phone] [phone] from Last 3 Months or Most Recently Relevant to Health Maintenance [place] [address] [place] [id number] [facility] ST[facility] ADULT Care Teams Food Service Helper Relationship Specialty Start Date End Date Shana Morales MD [address] [place] [phone] PCP - General Family Medicine 11/26/17
--- OUTSIDE RECORDS SUMMARY | 2024-06-12 12:30 | XMS_ITS | Encounter Summary ---
Author Organization [employer] [facility] Address [address] [facility] 7t [place] [address] Care Team Providers Care Podiatric Foot And Ankle Specialist Name Role Phone Shana Morales MD Primary Care Provide r Encounter Details Date Type Department Care Team (Latest Contact Info) Description 07/13/2020 Abstract [facility] Dental, Provider, DDS Social History [...] Description 07/22/2024 1:30 PM EDT Office Visit [facility] AD[facility] [address] [place] [address] Jaylon Butler, DDS [address] [place] [address] documented as of this encounter Visit Diagnoses Not on filedocumented in this encounter Care Teams Podiatric Foot And Ankle Specialist Relationship Specialty Start Date End Date Shana Morales MD [address] [place] [address] PCP - General Family Medicine 11/26/17 documented as of this encounter
--- OUTSIDE RECORDS SUMMARY | 2024-06-12 12:30 | XMS_ITS | Encounter Summary ---
Author Organization [facility] [place], Address [address] [place] [address] Phone Care Team Providers Care Studio Technician Video Operator Name Role Phone Shana Morales MD Primary Care Provide r Encounter Details Date Type Department Care Team (Late st Contact Info) Description 10/03/2021 Documentation Only [facility], [address] [address] [phone] Servando Medel MD [address] [place] [phone] Social History Tobacco Use Types Packs/Day Years [...] on filedocumented in this encounter Care Teams Studio Technician Video Operator Relationship Specialty Start Date End Date Shana Morales MD [address] [place] [phone] PCP - General Internal Medicine 06/30/19 documented as of this encounter
--- OUTSIDE RECORDS SUMMARY | 2024-06-12 12:30 | XMS_ITS | Encounter Summary ---
Author Organization [facility] Address [address] 7t [place] [address] Care Team Providers Care Riffler Tender Name Role Phone Shana Morales MD Primary Care Provide r Reason for Visit * Reason Comments Extraction Encounter Details Date Type Department Care Team ([facility] st Contact Info) Description 06/09/2024 10:30 AM EDT Office Visit [facility]ULT [facility] [address] [place], [place] [phone] Jaylon Butler, DDS [address] [place], [place] [phone] Essential hypertension (Primary Dx) Social History Tobacco Use Types Packs/Day Years Used Date Smoking Tobacco: Never Passive Smoke Exposure: Never Smokeless Tobacco: Never Alcohol Use Standard Drinks/Week Comments Not Currently [...] AM EDT documented as of this encounter Last Filed Vital Signs Vital Sign Reading Time Taken Comments Blood Pressure 190/68 06/09/2024 11:07 AM EDT Pulse 100 06/09/2024 11:07 AM EDT Temperature - - Respiratory Rate - - Oxygen Saturation - - Inhaled Oxygen Concentration - - Weight - - Height - - Body Mass Index - - documented in this encounter Progress Notes * Jaylon Butler DDS - 06/09/2024 10:30 AM EDT Pt presents for extraction, however deferred, due to uncontrolled BP /180/ 85 and pt needed to leave to take care of personal business (dog & MD appointment) . [place] agreement to reschedule. Pt.Was dismissed in a good spirit. Assistants Kitty Sweet and Eladia Butler documented in this encounter Plan of Treatment Upcoming Encounters Date Type Department Care Team (Late st Contact Info) Description 07/22/2024 1:30 PM EDT Office Visit [facility]ULT [facility] [address] [place] [address] Jaylon Butler DDS [address] [place] [address] documented as of this encounter Procedures Procedure Name Priority Date/Time Associated Diagnosis Comments NO CHARGE VISIT Routine 06/09/2024 10:30 AM EDT documented in this encounter Visit Diagnoses Diagnosis Essential hypertension- Primary Unspecified essential hypertension documented in this encounter Additional Health Concerns Assessment Noted Time PHQ-9 Depression Total Score: 0 05/30/19 24 1:00 PM EDT documented as of this encounter Care Teams Riffler Tender Relationship Specialty Start Date End Date Shana Morales MD [address] [place] [address] PCP - General Family Medicine 11/26/17 documented as of this encounter
--- OUTSIDE RECORDS SUMMARY | 2024-06-12 12:30 | XMS_ITS | Encounter Summary ---
Author Organization [facility] Address [address] [place] [address] 7t [place] [address] Care Team Providers Care Therapist Name Role Phone Shana Morales MD Primary Care Provide r Encounter Details Date Type Department Care Team (Late st Contact Info) Description 01/31/2022 Abstract [facility] ADULT D[facility] [address] [place] [address] Dental, Provider, DDS Social History Tobacco Use [...] Description 07/22/2024 1:30 PM EDT Office Visit [facility] ADULT D[facility] [address] [place] [address] Jaylon Butler DDS [address] [place] [address] documented as of this encounter Procedures Procedure [...] on filedocumented in this encounter Care Teams Therapist Relationship Specialty Start Date End Date Shana Morales MD [address] [place] [address] PCP - General Family Medicine 11/26/17 documented as of this encounter
--- OUTSIDE RECORDS SUMMARY | 2024-06-12 12:31 | XMS_ITS | Encounter Summary ---
Author Organization [facility] Address [address] [place] [address] Phone Care Team Providers Care Firmware Manager Name Role Phone Shana Morales MD Primary Care Provide r Encounter Details Date Type Department Care Team (Late st Contact Info) Description 01/30/2022 Documentation Only [facility] [place], [address] [place] [phone] Bacilio Fleming PA Social History Tobacco Use [...] on filedocumented in this encounter Care Teams Firmware Manager Relationship Specialty Start Date End Date Shana Morales MD [address] [place] [phone] PCP - General Internal Medicine 06/30/19 documented as of this encounter
--- OUTSIDE RECORDS SUMMARY | 2024-06-12 12:31 | XMS_ITS | Encounter Summary ---
Author Organization [facility] [place], Address [address] [place] [address] Phone Care Team Providers Care Yarder Engineer Name Role Phone Shana Morales MD Primary Care Provide r Encounter Details Date Type Department Care Team (Late st Contact Info) Description 04/18/2021 Documentation Only [facility] [place], [address] [place] [phone] Servando Medel MD [address] [place] [phone] Social History Tobacco Use Types Packs/Day Years [...] on filedocumented in this encounter Care Teams Yarder Engineer Relationship Specialty Start Date End Date Shana Morales MD [address] [place] [phone] PCP - General Internal Medicine 06/30/19 documented as of this encounter
--- OUTSIDE RECORDS SUMMARY | 2024-06-12 12:31 | XMS_ITS | Encounter Summary ---
Author Organization [facility] Address [address] [place] [address] Phone Care Team Providers Care Logistical Engineer Name Role Phone Shana Morales MD Primary Care Provide r Encounter Details Date Type Department Care Team (Late st Contact Info) Description 11/14/2021 Documentation Only [facility] [place], [address] [place] [phone] Bacilio Fleming PA Social History Tobacco Use [...] on filedocumented in this encounter Care Teams Logistical Engineer Relationship Specialty Start Date End Date Shana Morales MD [address] [place] [phone] PCP - General Internal Medicine 06/30/19 documented as of this encounter
--- OUTSIDE RECORDS SUMMARY | 2024-06-12 12:31 | XMS_ITS | Encounter Summary ---
Author Organization [employer] Address [address] 7t [place] [address] Care Team Providers Care Pharmacy Account Director Name Role Phone Shana Morales MD Primary Care Provide r Reason for Visit * Reason Comments Med Refill Encounter Details Date Type Department Care Team ([facility] st Contact Info) Description 02/21/2023 Refill [facility] [address] [place], [place] [phone] Name, MD Vlad [address] [place], [place] [phone] Chronic GERD Social History Tobacco Use Types [...] Description 07/22/2024 1:30 PM EDT Office Visit [facility]ULT [facility] [address] [place], [place] [phone] Jaylon Butler DDS [address] [place], [place] [phone] documented as of this encounter Visit Diagnoses Diagnosis Chronic GERD documented in this encounter Care Teams Pharmacy Account Director Relationship Specialty Start Date End Date Shana Morales MD [address] [place], [place] [phone] PCP - General Family Medicine 11/26/17 documented as of this encounter
--- OUTSIDE RECORDS SUMMARY | 2024-06-12 12:31 | XMS_ITS | Encounter Summary ---
Author Organization [facility] Address [address] [facility] 7t [place] [address] Care Team Providers Care Potato Peeler Name Role Phone Shana Morales MD Primary Care Provide r Encounter Details Date Type Department Care Team (Latest Contact Info) Description 09/17/2018 Abstract [facility] CON[facility] Dental, Provider, DDS Social History [...] Description 07/22/2024 1:30 PM EDT Office Visit [facility] ADULT D[facility]AL [address] [place] [address] Jaylon Butler DDS [address] [place] [address] documented as of this encounter Visit Diagnoses Not on filedocumented in this encounter Care Teams Potato Peeler Relationship Specialty Start Date End Date Shana Morales MD [address] [place] [address] PCP - General Family Medicine 11/26/17 documented as of this encounter
--- OUTSIDE RECORDS SUMMARY | 2024-06-12 12:31 | XMS_ITS | Encounter Summary ---
Author Organization [facility] [place], Address [address] [place] [address] Phone Care Team Providers Care Filer Helper Name Role Phone Shana Morales MD Primary Care Provide r Encounter Details Date Type Department Care Team (Late st Contact Info) Description 02/01/2021 Documentation Only [facility] [place], [address] [place] [phone] Servando Medel MD [address] [place] [phone] Social History Tobacco Use Types Packs/Day Years [...] on filedocumented in this encounter Care Teams Filer Helper Relationship Specialty Start Date End Date Shana Morales MD [address] [place] [phone] PCP - General Internal Medicine 06/30/19 documented as of this encounter
--- OUTSIDE RECORDS SUMMARY | 2024-06-12 12:31 | XMS_ITS | Encounter Summary ---
Author Organization [facility] Address [address] [facility] 7t [place] [address] Care Team Providers Care Diesel Locomotive Firer/Fireman Name Role Phone Shana Morales MD Primary Care Provide r Encounter Details Date Type Department Care Team (Late Contact Info) Description 11/07/2022 Telephone [facility] [address] [place] [address] Shana Morales MD [address] [place] [address] Social History Tobacco Use Types Packs/Day Years [...] Description 07/22/2024 1:30 PM EDT Office Visit [facility] ADULT DENTAL [address] [place] [address] Jaylon Butler DDS [address] [place] [address] documented as of this encounter Visit Diagnoses Not on filedocumented in this encounter Care Teams Diesel Locomotive Firer/Fireman Relationship Specialty Start Date End Date Shana Morales MD [address] [place] [phone] PCP - General Family Medicine 11/26/17 documented as of this encounter
--- OUTSIDE RECORDS SUMMARY | 2024-06-12 12:31 | XMS_ITS | Clinical Summary ---
Author Organization [facility] [place], Address [address] [place] [address] [place] [address] Phone Care Team Providers Care Game Tester Name Role Phone Shana Morales MD Primary [...] Due Date Last Done Comments Pneumococcal Vaccine: 50+ Years (1 of 2 - PCV) 1956 Colorectal Cancer Screening: Annual FOBT 2001 Colorectal Cancer Screening: Colonoscopy 2001 Colorectal Cancer Screening: Sigmoidoscopy 2001 Diabetes: Hemoglobin A1C 10/08/2019 019, 02/28/2018, 10/23/2017 Diabetes: Ophthalmology Exam 10/08/2019 Diabetes: Pedal Pulse Checked 10/08/2019 Diabetes: Sensory Foot Exam 10/08/2019 Diabetes: Visual Foot Exam 10/08/2019 Influenza Vaccine (Season Ended) 2024 Hepatitis B Vaccine Aged Out No longe r eligible based on patient's age to complete this topic Procedures Procedure Name Priority Date/Time Associated Diagnosis Comments HEMOGLOBIN A1C Routine 12/29/2018 2:22 PM EDT from Last 3 Months or Most Recently Relevant to Health Maintenance Results * (ABNORMAL) Hemoglobin A1c (12/29/2018 2:22 PM EDT) Hemoglobin A1C 6.1(H) (4-6) % [facility] Comment: HEMOGLOBIN A1C(%) ?? GLUCOSE CONTROL INDEX ?<6% ? EXCELLENT ?6-7% ?VERY GOOD ?7-8% ?GOOD ?8-10% ? FAIR ?>10% ?POOR Hemoglobin (Hb) A1c testing is performed by Dwayne Ronna-quant immunoassay. Any cause of shortened erythrocyte survival will reduce exposure of erythrocytes to glucose with a consequent decrease in Hb A1c (%). Testing performed or reported by ~[facility], ~a Service of [facility], ~[address] [place] [id number]~ 12/29/2018 2:22 PM EDT us Servando Medel MD LAB BLOOD ORDERABLES Final Resul t [facility] from Last 3 Months or Most Recently Relevant to Health Maintenance Insurance Medicaid [place] Member Subscriber Plan / Payer (Ef fective 2019-Present) Name:Sheng Haywood Relation to Subscriber:Self Name:Sheng Haywood Payer ID:Not on file Group ID:Not on file Type:Not on file Address: [place] [id number] Medicare Medicaid [place] Medicare Care Teams Game Tester Relationship Specialty Start Date End Date Shana Morales MD [address] [place] [phone] PCP - General Internal Medicine 06/30/19
--- OUTSIDE RECORDS SUMMARY | 2024-06-12 12:31 | XMS_ITS | Encounter Summary ---
Author Organization [facility] [place], Address [address] [place] [address] Phone Care Team Providers Care Clinical Transplant Coordinator Name Role Phone Shana Morales MD Primary Care Provide r Encounter Details Date Type Department Care Team (Late st Contact Info) Description 10/03/2021 Documentation Only [facility] [place], [address] [place] [phone] Servando Medel MD [address] [facility] [address] [place] [phone] Social History Tobacco Use Types Packs/Day Years [...] on filedocumented in this encounter Care Teams Clinical Transplant Coordinator Relationship Specialty Start Date End Date Shana Morales MD [address] [place] [phone] PCP - General Internal Medicine 06/30/19 documented as of this encounter
[2024-06-12 13:44] LABS: Estimated Glomerular Filt Rate 34
== END 2024-06-12 11:29 | disposition home or self-care (01) ==
LOC: HO.HHCL 11:28
PROVIDERS: Visit Provider Internal Medicine Hypertension Specialist
DX: N18.4 Chronic kidney disease, stage 4 (severe) (principal); N17.9 Acute kidney failure, unspecified; D64.9 Anemia, unspecified
CPT/HCPCS: 36415; 82565

== ENCOUNTER 2024-06-15 10:41 | Outpatient (REF) | payer MEDICARE, MEDICAID, SELFPAY ==
[2024-06-15 11:47] LABS: Appearance Urine Clear; Color Urine Yellow; Glucose Urine UA Negative (Negative); Leukocyte Esterase Urine Negative (Negative); Nitrite Urine Negative (Negative); UMIC TRIGGER UA YES; Urine Blood Negative (Negative); Urine Ketones Negative (Negative); Urine Protein 100 (2+) mg/dL (Neg-Trace)
[2024-06-15 11:56] LABS: Bacteria Urine None Seen (None Seen); Hyaline Casts Urine 0-2 /LPF (0-2); RBC Urine 0-2 /HPF (0-2); Squamous Epithelial Cell Urine 0-2 /HPF (0-2); WBC Urine 0-5 /HPF (0-5)
--- OUTSIDE RECORDS SUMMARY | 2024-06-15 12:26 | XMS_ITS | Encounter Summary ---
Author Organization [facility] Address [address] [facility] 7t [place] [address] Care Team Providers Care Finance Teacher Name Role Phone Shana Morales MD Primary Care Provide r Encounter Details Date Type Department Care Team (Latest Contact Info) Description 07/13/2020 Abstract [facility] CONVERSION[facility] Dental, Provider, DDS Social History [...] Description 07/22/2024 1:30 PM EDT Office Visit [facility] ADULT DENTAL [address] [place] [address] Jaylon Butler, DDS [address] [place] [address] documented as of this encounter Visit Diagnoses Not on filedocumented in this encounter Care Teams Finance Teacher Relationship Specialty Start Date End Date Shana Morales MD [address] [place] [address] PCP - General Family Medicine 11/26/17 documented as of this encounter
--- OUTSIDE RECORDS SUMMARY | 2024-06-15 12:26 | XMS_ITS | Encounter Summary ---
Author Organization [facility] [place], Address [address] [place] [address] Phone Care Team Providers Care Entrepreneurial Finance Professor Name Role Phone Shana Morales MD Primary Care Provide r Encounter Details Date Type Department Care Team (Late st Contact Info) Description 02/01/2021 Documentation Only [facility] [place], [address] [place] [phone] Servando Medel MD [address] [facility] [place] [phone] Social History Tobacco Use Types Packs/Day Years [...] on filedocumented in this encounter Care Teams Entrepreneurial Finance Professor Relationship Specialty Start Date End Date Shana Morales MD [address] [place] [phone] PCP - General Internal Medicine 06/30/19 documented as of this encounter
--- OUTSIDE RECORDS SUMMARY | 2024-06-15 12:26 | XMS_ITS | Encounter Summary ---
Author Organization [employer] [facility] Address [address] [place] [address] 7t [place] [address] Care Team Providers Care Surface Plate Finisher Name Role Phone Shana Morales MD Primary Care Provide r Encounter Details Date Type Department Care Team (Late st Contact Info) Description 01/31/2022 Abstract [facility] ADULT DENTAL [address] [place] [address] Dental, Provider, DDS Social History Tobacco Use [...] Description 07/22/2024 1:30 PM EDT Office Visit [facility] ADULT DENTAL [address] [place] [address] Jaylon Butler DDS [address] [place] [address] documented as of this encounter Procedures Procedure [...] on filedocumented in this encounter Care Teams Surface Plate Finisher Relationship Specialty Start Date End Date Shana Morales MD [address] [place] [address] PCP - General Family Medicine 11/26/17 documented as of this encounter
--- OUTSIDE RECORDS SUMMARY | 2024-06-15 12:26 | XMS_ITS | Clinical Summary ---
Author Organization [facility] [place], Address [address] [place] [address] [place] [address] Phone Care Team Providers Care Plastic Eye Technician Name Role Phone Shana Morales MD [...] 50+ Years (1 of 2 - PCV) [birth year]09/1969 Colorectal Cancer Screening: Annual FOBT 2001 Colorectal [...] PM EDT) Hemoglobin A1C 6.1(H) (4-6) % [facility] Comment: HEMOGLOBIN A1C(%) ?? GLUCOSE CONTROL INDEX ?<6% ? EXCELLENT ?6-7% ?VERY GOOD ?7-8% ?GOOD ?8-10% ? FAIR ?>10% ?POOR Hemoglobin (Hb) A1c testing is performed by Dwayne Ronna-quant immunoassay. Any cause of shortened erythrocyte survival will reduce exposure of erythrocytes to glucose with a consequent decrease in Hb A1c (%). Testing performed or reported by ~[facility], ~a Service of [facility], ~[address] [place] [address]~ 12/29/2018 2:22 PM EDT us Servando Medel MD LAB BLOOD ORDERABLES Final Resul t [facility] from Last 3 Months or Most Recently Relevant to Health Maintenance Insurance [place] Medicare [place] Member Subscriber Plan / Payer (Ef fective 2021-Present) Name:Sheng Haywood Relation to Subscriber:Self Name:Sheng Haywood Payer ID:Not on file Group ID:Not on file Type:Not on file Address: [place] [id number] Medicare Care Teams Plastic Eye Technician Relationship Specialty Start Date End Date Shana Morales MD [address] [place] [phone] PCP - General Internal Medicine 06/30/19
--- OUTSIDE RECORDS SUMMARY | 2024-06-15 12:26 | XMS_ITS | Encounter Summary ---
Author Organization [facility] [facility] Address [address] [facility] 7t [place] [address] Care Team Providers Care Boom Boss Name Role Phone Shana Morales MD Primary Care Provide r Encounter Details Date Type Department Care Team (Latest Contact Info) Description 09/17/2018 Abstract [facility] CONVERSION[facility] Dental, Provider, DDS Social History [...] Description 07/22/2024 1:30 PM EDT Office Visit [facility] ADULT DENTAL [address] [place] [address] Jaylon Butler DDS [address] [place] [address] documented as of this encounter Visit Diagnoses Not on filedocumented in this encounter Care Teams Boom Boss Relationship Specialty Start Date End Date Shana Morales MD [address] [place] [address] PCP - General Family Medicine 11/26/17 documented as of this encounter
--- OUTSIDE RECORDS SUMMARY | 2024-06-15 12:26 | XMS_ITS | Encounter Summary ---
Author Organization [facility] Address [address] [facility] 7t [place] [address] Care Team Providers Care Associate Professor Of Education Name Role Phone Shana Morales MD Primary Care Provide r Encounter Details Date Type Department Care Team (Late st Contact Info) Description 02/09/2022 Orders Only [facility] [address] [place] [address] Mariama Krause FNP [address] [place] [address] Type 2 diabetes mellitus without complication, without long-term current use of insulin ([facility]) (Primary Dx) Social History Tobacco [...] Description 07/22/2024 1:30 PM EDT Office Visit [facility] ADULT DENTAL [address] [place] [address] Jaylon Butler DDS [address] [place] [address] Scheduled Orders Name Type Priority Associated Diagnoses Orde r Schedule Creatinine, Serum Lab Routine Type 2 diabetes mellitus without complication, without long-term current use of insulin (CMS/HCC) Expected: 02/09/2022 (Approximate), Expires: 02/09/2023 documented as of this encounter Visit Diagnoses Diagnosis Type 2 diabetes mellitus without complication, without long-term current use of insulin (CMS/[facility])- Primary documented in this encounter Care Teams Associate Professor Of Education Relationship Specialty Start Date End Date Shana Morales MD [address] [place] [address] PCP - General Family Medicine 11/26/17 documented as of this encounter
--- OUTSIDE RECORDS SUMMARY | 2024-06-15 12:26 | XMS_ITS | Clinical Summary ---
Author Organization [employer] Address [address] [facility] 7t [place] [address] Care Team Providers Care Pit Furnace Operator Name Role Phone Shana Morales MD Primary Care Provide r Allergies Active Allergy Reactions Criticality Noted Date Comments Ibuprofen Other High 02/03/2022 Nsaids High 05/26/2013 Other reaction(s): acute renal failure Medications acetaminophen (Tylenol) 325 MG tablet Take 2 tablets by mouth in the morning and 2 tablets at noon and 2 tablets in the evening. 9 Active Blood Glucose Monitoring Suppl ([employer] [place] Lite) w/Device kit USE TO TEST BLOOD [...] Description 06/09/2024 10:30 AM EDT Office Visit [facility] [address] [place] [address] Jaylon Butler DDS Essential hypertension (Primary Dx) 05/15/2024 Population Health Risk Score [facility] (C3) Department [address] [phone] Provider, Population Health Generic 04/29/2024 Refill [facility] [address] [place] [address] Shana Morales MD Essential hypertension 04/09/2024 1:45 PM EST Telemedicine [facility] [address] [place] [address] Shana Morales MD Resistant hypertension (Primary Dx) 04/09/2024 Travel 04/08/2024 Telephone [facility] [address] [place], [place] [phone] Shekhar Jenkins MA Chart Prep from Last [...] Description 07/22/2024 1:30 PM EDT Office Visit [facility] [address] [place] [address] Jaylon Butler, DDDarryn [address] [place] [address] Health Maintenance Due Date Last Done Comments [...] Media Lot # [id number] Lot# Expiration Date [id number] Blood 02/13/2024 2:03 PM EST Shana Tanner MD POINT OF CARE TEST EN TER/EDIT ORDERABLES Final Result * Hepatitis C Antibody with Reflex to HCV, RNA, Quantitative, Real-Time PCR (08/15/2023 9:36 AM EDT) Hepatitis C Antibody Nonreactive Nonreactive [facility] Comment:Antibodies to HCV no t detected; does not exclude early acuteHCV infection. Blood Venous blood specimen / Unknown 08/15/2023 9:36 AM EDT 08/15/2023 11:49 AM EDT us Sahna Tanner MD LAB BLOOD ORDERABLES Final Result Performing Organization Address [facility] Co de Phone Number [facility] [address] [place] [phone] * (ABNORMAL) Albumin, Random Urine W/Creatinine (02/13/2023 11:46 AM EST) Creatinine, Urine 24.40 mg/dL [facility] Microalbumin Urine 362.0 mg/L H [facility] Microalbum Creatinine Ratio Ur 1,483.6(H ) <30 ug/mg cr [facility] Comment:Albumin/Creatinine R atio Reference Ranges: Normal: < 30 ug/mg creatinine Microalbuminuria: 30 - 300 ug/mg creatinineClinical Albuminuria: > 300 ug/mg creatinine 02/13/2023 11:4 6 AM EST 02/13/2023 1:05 PM EST Shana Tanner MD LAB URINE ORDERABLES Final Result Performing Organization Address [facility] Co de Phone Number [facility] [address] [place] [phone] * (ABNORMAL) Lipid Panel, Standard (02/13/2023 11:46 AM EST) Triglycerides 118 <150 mg/dL [facility] Comment:Desirable Triglyceri de: less than 150 mg/dLBorderline High Triglyceride 150-199 mg/dLHigh Triglyceride: 200-499 mg/dLVery High Triglyceride: greater than or equal to 5OO mg/dL Cholesterol 193 <200 mg/dL [facility] Comment:Desirable Cholestero l: less than 200 mg/dLBorderline High Cholesterol: 200-239 mg/dLHigh Cholesterol: greater than 239 mg/dL LDL Cholesterol Calculated 121(H) <100 mg/dL [facility] Comment:Desirable LDL: less than 100 mg/dLNear Optimal/Above Optimal LDL: 110- 129 mg/dLBorderline High LDL: 130-159 mg/dLHigh LDL: 160-189 mg/dLVery High LDL: greater than or equal to 190 mg/dL HDL Cholesterol 49 >40 mg/dL [facility] Comment:Desirable HDL: great er than 40 mg/dL Note: This HDL assay may give artificially low results in patients with liver disease. Blood Venous blood specimen / Unknown 02/13/2023 11:46 AM EST 02/13/2023 1:19 PM EST Shana Tanner MD LAB BLOOD ORDERABLES Final Result [facility] [address] [place] [phone] from Last 3 Months or Most Recently Relevant to Health Maintenance Insurance MEDICARE [facility] MEDICA[facility] STAND ADULT Care Teams Pit Furnace Operator Relationship Specialty Start Date End Date Shana Morales MD [address] [place] [phone] PCP - General Family Medicine 11/26/17
--- OUTSIDE RECORDS SUMMARY | 2024-06-15 12:26 | XMS_ITS | Encounter Summary ---
Author Organization [facility] Address [address] [place] [address] Phone Care Team Providers Care Structural Welder Name Role Phone Shana Morales MD Primary Care Provide r Encounter Details Date Type Department Care Team (Late st Contact Info) Description 01/30/2022 Documentation Only [facility] [place] [facility], [address] [place] [phone] Bacilio Fleming PA Social History Tobacco Use [...] on filedocumented in this encounter Care Teams Structural Welder Relationship Specialty Start Date End Date Shana Morales MD [address] [place] [phone] PCP - General Internal Medicine 06/30/19 documented as of this encounter
--- OUTSIDE RECORDS SUMMARY | 2024-06-15 12:26 | XMS_ITS | Encounter Summary ---
Author Organization [facility] [place], Address [address] [place] [address] Phone Care Team Providers Care Life Enrichment Specialist Name Role Phone Shana Morales MD Primary Care Provide r Encounter Details Date Type Department Care Team (Late st Contact Info) Description 04/18/2021 Documentation Only [facility] [place], [address] [place] [phone] Servando Medel MD [address] [facility] [facility] [address] [place] [phone] Social History Tobacco Use Types Packs/Day Years [...] on filedocumented in this encounter Care Teams Life Enrichment Specialist Relationship Specialty Start Date End Date Shana Morales MD [address] [place] [phone] PCP - General Internal Medicine 06/30/19 documented as of this encounter
--- OUTSIDE RECORDS SUMMARY | 2024-06-15 12:26 | XMS_ITS | Encounter Summary ---
Author Organization [facility] Address [address] [place] [address] Phone Care Team Providers Care Cat Scan Tech Name Role Phone Shana Morales MD Primary Care Provide r Encounter Details Date Type Department Care Team (Late st Contact Info) Description 11/14/2021 Documentation Only [facility] [place], [address] [place] [phone] Bacilio Fleming PA Social History Tobacco Use [...] on filedocumented in this encounter Care Teams Cat Scan Tech Relationship Specialty Start Date End Date Shana Morales MD [address] [place] [phone] PCP - General Internal Medicine 06/30/19 documented as of this encounter
--- OUTSIDE RECORDS SUMMARY | 2024-06-15 12:26 | XMS_ITS | Encounter Summary ---
Author Organization [employer] [facility] Address [address] [facility] 7t [place] [address] Care Team Providers Care Seam Rubbing Machine Operator Name Role Phone Shana Morales MD Primary Care Provide r Encounter Details Date Type Department Care Team (Late Contact Info) Description 11/07/2022 Telephone [facility] [address] [place] [address] Shana Morales MD [address] [place] [address] Social History Tobacco Use Types Packs/Day Years [...] Description 07/22/2024 1:30 PM EDT Office Visit [facility] [address] [place] [address] Jaylon Butler DDS [address] [place] [address] documented as of this encounter Visit Diagnoses Not on filedocumented in this encounter Care Teams Seam Rubbing Machine Operator Relationship Specialty Start Date End Date Shana Morales MD [address] [place] [phone] PCP - General Family Medicine 11/26/17 documented as of this encounter
--- OUTSIDE RECORDS SUMMARY | 2024-06-15 12:26 | XMS_ITS | Encounter Summary ---
Author Organization [employer] Address [address] 7[address] [place] [address] Care Team Providers Care Cooperage Shop Supervisor Name Role Phone Shana Morales MD Primary Care Provide r Reason for Visit * Reason Comments Med Refill Encounter Details Date Type Department Care Team ([facility] st Contact Info) Description 02/21/2023 Refill [facility] [address] [place], [place] [phone] Name, MD Vlad [address] [place], [place] [phone] Chronic GERD Social History Tobacco Use Types [...] Description 07/22/2024 1:30 PM EDT Office Visit [facility] [address] [place], [place] [phone] Jaylon Butler DDS [address] [place], [place] [phone] documented as of this encounter Visit Diagnoses Diagnosis Chronic GERD documented in this encounter Care Teams Cooperage Shop Supervisor Relationship Specialty Start Date End Date Shana Morales MD [address] [place], [place] [phone] PCP - General Family Medicine 11/26/17 documented as of this encounter
--- OUTSIDE RECORDS SUMMARY | 2024-06-15 12:26 | XMS_ITS | Encounter Summary ---
Author Organization [facility] [place], Address [address] [place] [address] Phone Care Team Providers Care Purse Seining Hand Name Role Phone Shana Morales MD Primary Care Provide r Encounter Details Date Type Department Care Team (Late st Contact Info) Description 10/03/2021 Documentation Only [facility] [place], [address] [place] [phone] Servando Medel MD [address] [facility] [address] [facility] [place] [phone] Social History Tobacco Use Types Packs/Day Years [...] on filedocumented in this encounter Care Teams Purse Seining Hand Relationship Specialty Start Date End Date Shana Morales MD [address] [place] [phone] PCP - General Internal Medicine 06/30/19 documented as of this encounter
--- OUTSIDE RECORDS SUMMARY | 2024-06-15 12:26 | XMS_ITS | Encounter Summary ---
Author Organization [facility] [place], Address [address] [place] [address] Phone Care Team Providers Care Engineer Second Assistant Name Role Phone Shana Morales MD Primary Care Provide r Encounter Details Date Type Department Care Team (Late st Contact Info) Description 10/03/2021 Documentation Only [facility] [place], [address] [place] [phone] Servando Medel MD [address] [place] [phone] Social History Tobacco Use Types Packs/Day Years [...] on filedocumented in this encounter Care Teams Engineer Second Assistant Relationship Specialty Start Date End Date Shana Morales MD [address] [place] [phone] PCP - General Internal Medicine 06/30/19 documented as of this encounter
== END 2024-06-15 10:42 | disposition home or self-care (01) ==
LOC: HO.HHCL 10:41
PROVIDERS: Visit Provider Internal Medicine Hypertension Specialist
DX: D64.9 Anemia, unspecified (principal)
CPT/HCPCS: 81001

== ENCOUNTER → 2024-06-17 11:36 | Outpatient (BNVA) | payer MEDICARE, MEDICAID, SELFPAY | PROVIDERS: PCP Internal Medicine; Visit Provider Internal Medicine Hypertension Specialist | DX: Z13.89 Encounter for screening for other disorder (principal) ==

== ENCOUNTER 2024-06-18 11:59 | Outpatient (AMB) | payer MEDICARE, MEDICAID, SELFPAY ==
--- NOTE | 2024-06-18 12:06 | HO.NEPHOV ---
Vital Signs 06/18/24 12:07 Height 5 ft 1 in Weight 173 lb BMI 32.7 BP 164/60 H Blood Pressure Location Lt brachial Position Sitting Pulse 105 H Pulse Source Pulse Oximeter Pulse Oximetry (%) 94 Oxygen Delivery Method Room Air Intake Visit Reasons: 1mon follow-up w/labs/ Conf Tank Storage Supervisor Required: Yes Tank Storage Supervisor Name: Fidel Lopez [phone] Accompanied by: Self / Same As Patient Allergies ibuprofen Allergy (Unknown, Verified 06/18/24 12:10) acute renal failure No Known Allergies [No Known Allergies*] Allergy (Verified 06/18/24 12:10) Medication List - Last Reconciled 06/18/24 by Cas Barrios MD albuterol sulfate 1 amp inhalation TID albuterol sulfate 90 mcg/actuation (Ventolin HFA) 2 puffs inhalation Q4-6H PRN amlodipine 10 mg PO DAILY carvedilol 25 mg PO BID ferrous sulfate 324 mg PO BIDWM furosemide (Lasix) 40 mg PO DAILY hydralazine 100 mg PO TID isosorbide mononitrate ER mg PO DAILY omeprazole 40 mg PO DAILY Do you need a note to return to daycare/school/sports/work: No HPI Comments Details: 72-year-old man with a history of longstanding hypertension with chronic kidney disease. He has known chronic kidney disease since 2019. At the time serum creatinine was 1.6 mg/dL. Current serum creatinine is 2.5 mg/dL. He has had significant proteinuria in the non nephrotic range of about 2.3 g. I do not believe he has undergone any workup for the same. He does not have a history of diabetes mellitus. He is currently not on any CALVIN inhibitors or ARB use. 11/20/2023. He has no specific complaints today. Seems to be compliant with his medications. 05/06/24: No compliants today. All meds reviewed. 06/18/24 Underwent ABPM [facility] Social History Household Members: None Housing: Apartment Do you presently have visiting nurse or other home services: No Patient Tobacco Use Status: Never used Tobacco Substance Use Type: Heroin Advance Directives Date on File: 01/10/22 service: No Current occupational status: retired Physical Exam Vital Signs: BMI result Body Mass Index 32.7 Const General: comfortable; No acute distress Orientation/consciousness: patient oriented x3 Eyes General: appearance normal, both eyes and all related structures Visual Drummond: normal visual drummond by confrontation Neck Neck: Yes supple and Yes no JVD Resp Effort & Inspection: normal respiratory effort and respiratory effort not decreased Cardio Palpation: no palpable S3 and no palpable S4 Heart sounds: no rubs GI Inspection: Yes normal to inspection Palpation (GI): Soft to palpation Percussion: Yes normal to percussion Auscultation: normal bowel sounds General: Yes no CVA tenderness Back/Spine/Pelvis Back: no CVA tenderness Skin General skin exam: no petechiae and no purpura Neuro General: patient oriented x3 and no focal motor deficits Extrem General: No clubbing and No edema Office Procedures 24 B/P Monitor Interpretation Details: BP sub optimal [address] 157/88 Non dipper CPT: 46194 24 Hour Blood Pressure Monitor Reading Procedure code (CPT) selection complete Results Reviewed Nephrology Results: Sodium 140 mmol/L (135-145) 04/28/24 Potassium 4.5 mmol/L (3.3-5.1) 04/28/24 Chloride 104 mmol/L (96-108) 04/28/24 Carbon Dioxide 26 mmol/L (22-29) 04/28/24 BUN 74 mg/dL (9-16) H 04/28/24 Creatinine 1.93 mg/dL (0.5-1.4) H 06/12/24 Calcium 9.2 mg/dL (8.4-10.2) 04/28/24 Urine Protein 100 (2+) mg/dL (Neg-Trace) H 06/15/24 Assessment & Plan Assessment & Plan (1) Anemia: Code(s): D64.9 - Anemia, unspecified Category: Medical (2) CKD (chronic kidney disease) stage 4, GFR 15-29 ml/min: Code(s): N18.4 - Chronic kidney disease, stage 4 (severe) Category: Medical Plan 72-year-old man with stage IV CKD in a setting of longstanding hypertension. He has not non nephrotic range proteinuria as well. proteinuria renal failure. Serum creatinine has improved. He is non nephrotic range proteinuria primarily albumin. No monoclonal proteins. Serological workup has been essentially negative. He probably has underlying hypertensive kidney disease. renal ultrasonogram -no hydronephrosis. He has bilateral cyst - benign Hypertension Optimize blood pressure. low-sodium diet. Keep Hydralazine 100 mg 3 times a day. With Amlodipine Needs to lose weight Until renal function stabilizes I will not add any CALVIN inhibitors or ARB use. 05/06/24 BP is still sub optimal 24 hr ABPM : Average BP elevated : 157/88 Non dipper DC Lasix Add Aldactazide 25/25 DAILY ( 06/18/24) With the help of interpretor, I explained the process in detail Orders: Orders AMB 24 HR B/P Monitor INTERPRETATION Today I10 - Essential (primary) hypertension Basic Metabolic Panel 4 Weeks N18.4 - Chronic kidney disease, stage 4 (severe) Medications: New spironolacton-hydrochlorothiaz 25-25 mg 1 tab PO DAILY 90 tabs 0RF Discontinued furosemide (Lasix) Discontinued Reason: Doctor's Order 40 mg PO DAILY 30 tabs 0RF Coding Level of Care Code Est Pt Level 4 (50136) Diagnoses Anemia D64.9 CKD (chronic kidney disease) stage 4, GFR 15-29 ml/min N18.4 CPT Codes - CPT: 73627 24 Hour Blood Pressure Monitor Reading ([id number])
[2024-06-18 12:07] VITALS: BP 164/60; PULSE 105; O2SAT 94; BMI 32.7
== END 2024-06-18 12:20 | disposition home or self-care (01) ==
LOC: HO.HKA 12:00
PROVIDERS: PCP Internal Medicine; Visit Provider Internal Medicine Hypertension Specialist
DX: I12.9 Hypertensive chronic kidney disease with stage 1 through stage 4 chronic kidney disease, or unspecified chronic kidney disease (principal); N18.4 Chronic kidney disease, stage 4 (severe); D63.1 Anemia in chronic kidney disease
CPT/HCPCS: 93790; 99214

== ENCOUNTER → 2024-06-18 11:59 | Outpatient (BNVA) | payer MEDICARE, MEDICAID, SELFPAY | PROVIDERS: PCP Internal Medicine; Visit Provider Internal Medicine Hypertension Specialist | DX: D64.9 Anemia, unspecified (principal); N18.4 Chronic kidney disease, stage 4 (severe) | CPT/HCPCS: 99212 ==

== ENCOUNTER 2024-07-08 13:55 | Outpatient (AMB) | payer OTHER, SELFPAY ==
[2024-07-08 14:04] VITALS: BP 162/60; PULSE 81; O2SAT 95
--- NOTE | 2024-07-08 14:04 | HO.NEPHOV_ITS ---
Vital Signs 07/08/24 14:04 Height 5 ft 1 in BP 162/60 H Blood Pressure Location Lt brachial Position Sitting Pulse 81 Pulse Source Pulse Oximeter Pulse Oximetry (%) 95 Oxygen Delivery Method Room Air Intake Visit Reasons: FU/ Conf Material Dispatcher Required: Yes Material Dispatcher Name: Thomas [id number] Accompanied by: Self / Same As Patient Allergies hydrochlorothiazide Allergy (Mild, Verified 07/08/24 14:06) Pain ibuprofen Allergy (Unknown, Verified 07/08/24 14:06) acute renal failure Medication List - Last Reconciled 07/08/24 by Cas Barrios MD amlodipine 10 mg PO DAILY ferrous sulfate 324 mg PO BIDWM hydralazine 100 mg PO TID isosorbide mononitrate ER mg PO DAILY omeprazole 40 mg PO DAILY spironolactone 25 mg PO DAILY HPI Comments Details: 73-year-old man with a history of longstanding hypertension with chronic kidney disease. He has known chronic kidney disease since 2019. At the time serum creatinine was 1.6 mg/dL. Current serum creatinine is 2.5 mg/dL. He has had significant proteinuria in the non nephrotic range of about 2.3 g. I do not believe he has undergone any workup for the same. He does not have a history of diabetes mellitus. He is currently not on any CALVIN inhibitors or ARB use. 11/20/2023. He has no specific complaints today. Seems to be compliant with his medications. 05/06/24: No compliants today. All meds reviewed. 06/18/24 ;Underwent ABPM 07/08/24 Started ALdactazide last month It was changed to Spironolactone 25 mg QD by pharmacy since he was ? intolerant to HCTZ Did not under go lab work BP [facility] Social History Household Members: None Housing: Apartment Do you presently have visiting nurse or other home services: No Patient Tobacco Use Status: Never used Tobacco Substance Use Type: Heroin Advance Directives Date on File: 01/10/22 service: No Current occupational status: retired Physical Exam Const General: comfortable; No acute distress Orientation/consciousness: patient oriented x3 Eyes General: appearance normal, both eyes and all related structures Visual Drummond: normal visual drummond by confrontation Neck Neck: Yes supple and Yes no JVD Resp Effort & Inspection: normal respiratory effort and respiratory effort not decreased Cardio Palpation: no palpable S3 and no palpable S4 Heart sounds: no rubs GI Inspection: Yes normal to inspection Palpation (GI): Soft to palpation Percussion: Yes normal to percussion Auscultation: normal bowel sounds General: Yes no CVA tenderness Back/Spine/Pelvis Back: no CVA tenderness Skin General skin exam: no petechiae and no purpura Neuro General: patient oriented x3 and no focal motor deficits Extrem General: No clubbing and No edema Results Reviewed Results Reviewed: CT Scan 2021 [employer]: 1 cm low-attenuation lesion in the lower pole of the left kidney probably representing a cyst. 5 mm high attenuation lesion in the upper pole of the left kidney question representing calcification/stone or a small stone. 5 mm high attenuation lesion exophytic to the posterior upper pole the right kidney probably representing a hyperdense cyst. BLADDER: Unremarkable. Nephrology Results: Sodium 140 mmol/L (135-145) 04/28/24 Potassium 4.5 mmol/L (3.3-5.1) 04/28/24 Chloride 104 mmol/L (96-108) 04/28/24 Carbon Dioxide 26 mmol/L (22-29) 04/28/24 BUN 74 mg/dL (9-16) H 04/28/24 Creatinine 1.93 mg/dL (0.5-1.4) H 06/12/24 Calcium 9.2 mg/dL (8.4-10.2) 04/28/24 Urine Protein 100 (2+) mg/dL (Neg-Trace) H 06/15/24 Assessment & Plan Assessment & Plan (1) Anemia: Code(s): D64.9 - Anemia, unspecified Category: Medical (2) CKD (chronic kidney disease) stage 4, GFR 15-29 ml/min: Code(s): N18.4 - Chronic kidney disease, stage 4 (severe) Category: Medical Plan 73-year-old man with stage IV CKD in a setting of longstanding hypertension. He has not non nephrotic range proteinuria as well. Serum creatinine has improved. He has non nephrotic range proteinuria primarily albumin. No monoclonal proteins. Serological workup has been essentially negative. He probably has underlying hypertensive kidney disease. renal ultrasonogram -no hydronephrosis. He has bilateral cyst - benign Hypertension Optimize blood pressure. low-sodium diet. Keep Hydralazine 100 mg 3 times a day. With Amlodipine Needs to lose weight Until renal function stabilizes I will not add any CALVIN inhibitors or ARB use. 05/06/24 BP is still sub optimal 24 hr ABPM : Average BP elevated : 157/88 Non dipper DC Lasix Add Aldactazide 25/25 DAILY ( 06/18/24) 07/08/24 BP sub optimal Increase Spironolactone to 25 mg BID Check Renal panel /K today Discussed low salt diet Orders: Orders Basic Metabolic Panel Today N18.4 - Chronic kidney disease, stage 4 (severe) Coding Level of Care Code Est Pt Level 4 (57593) Diagnoses Anemia D64.9 CKD (chronic kidney disease) stage 4, GFR 15-29 ml/min N18.4
== END 2024-07-08 14:22 | disposition home or self-care (01) ==
LOC: HO.HKAM 13:55
PROVIDERS: PCP Internal Medicine; Visit Provider Internal Medicine Hypertension Specialist
DX: D64.9 Anemia, unspecified (principal); N18.4 Chronic kidney disease, stage 4 (severe)
CPT/HCPCS: 99214

== ENCOUNTER 2024-07-08 14:28 | Outpatient (REF) | payer OTHER, SELFPAY ==
--- OUTSIDE RECORDS SUMMARY | 2024-07-08 15:40 | XMS_ITS | Encounter Summary ---
Author Organization [employer] Address [address] [facility] 7t [place] [address] Care Team Providers Care Avionics Installer Name Role Phone Shana Morales MD Primary Care Provide r Reason for Visit * Reason Comments Med Refill Encounter Details Date Type Department Care Team ([facility] st Contact Info) Description 02/21/2023 Refill [facility] [address] [place], [place] [phone] Name, MD Vlad [address] [place], [place] [phone] Chronic GERD Social History Tobacco Use Types [...] [facility] [address] [place] [address] Jaylon Butler, DDS [address] [place] [address] 10/06/2024 3:15 PM EDT Office Visit [facility] [address] [place] [address] Shana Morales MD [address] [place] [address] 10/09/2024 2:30 PM EDT Office Visit [facility] [address] [place] [address] Elisa Muñoz, OD [address] [place] [address] documented as of this encounter Visit Diagnoses Diagnosis Chronic GERD documented in this encounter Care Teams Avionics Installer Relationship Specialty Start Date End Date Shana Morales MD [address] [place] [phone] PCP - General Family Medicine 11/26/17 documented as of this encounter
--- OUTSIDE RECORDS SUMMARY | 2024-07-08 15:40 | XMS_ITS | Encounter Summary ---
Author Organization [employer] Address [address] [facility] 7t [place] [address] Care Team Providers Care Enterprise Project Manager Name Role Phone Shana Morales MD Primary Care Provide r Encounter Details Date Type Department Care Team (Latest Contact Info) Description 09/17/2018 Abstract [facility] Dental, Provider, DDS Social History [...] Description 07/22/2024 1:30 PM EDT Office Visit [facility] [address] [place] [address] Jaylon Butler DDS [address] [place] [address] 10/06/2024 3:15 PM EDT Office Visit [facility] [address] [place] [address] Shana Morales MD [address] [place] [address] 10/09/2024 2:30 PM EDT Office Visit [facility] [address] [place] [address] Elisa Muñoz, OD [address] [place] [address] documented as of this encounter Visit Diagnoses Not on filedocumented in this encounter Care Teams Enterprise Project Manager Relationship Specialty Start Date End Date Shana Morales MD [address] [place], [place] [phone] PCP - General Family Medicine 11/26/17 documented as of this encounter
--- OUTSIDE RECORDS SUMMARY | 2024-07-08 15:40 | XMS_ITS | Encounter Summary ---
Author Organization [facility] [place], Address [address] [place] [address] Phone Care Team Providers Care Integrated Circuit Design Engineer Name Role Phone Shana Morales MD Primary Care Provide r Encounter Details Date Type Department Care Team (Late st Contact Info) Description 04/18/2021 Documentation Only [facility] [place], [address] [place] [phone] Servando Medel MD [address] [facility] [place] [phone] Social History Tobacco Use Types Packs/Day Years [...] on filedocumented in this encounter Care Teams Integrated Circuit Design Engineer Relationship Specialty Start Date End Date Shana Morales MD [address] [place] [phone] PCP - General Internal Medicine 06/30/19 documented as of this encounter
--- OUTSIDE RECORDS SUMMARY | 2024-07-08 15:40 | XMS_ITS | Encounter Summary ---
Author Organization [facility] [place], Address [address] [place] [address] Phone Care Team Providers Care Corporate Manager Name Role Phone Shana Morales MD Primary Care Provide r Encounter Details Date Type Department Care Team (Late st Contact Info) Description 10/03/2021 Documentation Only [facility] [place], [address] [place] [phone] Servando Medel MD [address] [facility] [place] [phone] Social History Tobacco Use Types Packs/Day Years [...] on filedocumented in this encounter Care Teams Corporate Manager Relationship Specialty Start Date End Date Shana Morales MD [address] [place] [phone] PCP - General Internal Medicine 06/30/19 documented as of this encounter
--- OUTSIDE RECORDS SUMMARY | 2024-07-08 15:40 | XMS_ITS | Encounter Summary ---
Author Organization [employer] Address [address] [facility] 7t [place] [address] Care Team Providers Care Movie Operator Name Role Phone Shana Morales MD Primary Care Provide r Encounter Details Date Type Department Care Team (Late Contact Info) Description 02/09/[address] [facility] MED[facility] [address] [place] [address] Mariama Krause FNP [address] [place] [address] Type 2 diabetes mellitus without complication, without long-term current use of insulin ([facility]) (Primary Dx) Social History Tobacco [...] Description 07/22/2024 1:30 PM EDT Office Visit [facility] ADULT DENTAL [address] [place] [address] Jaylon Butler DDS [address] [place] [address] 10/06/2024 3:15 PM EDT Office Visit [facility] MEDIC[facility] [address] [place] [address] Shana Morales MD [address] [place] [address] 10/09/2024 2:30 PM EDT Office Visit [facility] OPTOMETRY [address] [place] [address] Toni, Elisa, OD [address] [place] [address] Scheduled Orders Name Type Priority Associated Diagnoses Orde r Schedule Creatinine, Serum Lab Routine Type 2 diabetes mellitus without complication, without long-term current use of insulin (CMS/HCC) Expected: 02/09/2022 (Approximate), Expires: 02/09/2023 documented as of this encounter Visit Diagnoses Diagnosis Type 2 diabetes mellitus without complication, without long-term current use of insulin (CMS/HCC)- Primary documented in this encounter Care Teams Movie Operator Relationship Specialty Start Date End Date Shana Morales MD [address] [place], [place] [phone] PCP - General Family Medicine 11/26/17 documented as of this encounter
--- OUTSIDE RECORDS SUMMARY | 2024-07-08 15:40 | XMS_ITS | Encounter Summary ---
Author Organization [facility] Address [address] [place] [address] Phone Care Team Providers Care Veterinary Laboratory Diagnostician Name Role Phone Shana Morales MD Primary Care Provide r Encounter Details Date Type Department Care Team (Late st Contact Info) Description 01/30/2022 Documentation Only [facility] [place], [address] [place] [phone] Bacilio Fleming PA Social History Tobacco Use [...] on filedocumented in this encounter Care Teams Veterinary Laboratory Diagnostician Relationship Specialty Start Date End Date Shana Morales MD [address] [place] [phone] PCP - General Internal Medicine 06/30/19 documented as of this encounter
--- OUTSIDE RECORDS SUMMARY | 2024-07-08 15:40 | XMS_ITS | Clinical Summary ---
Author Organization [facility] [place], Address [address] [place] [address] [place] [address] Phone Care Team Providers Care Elementary Education Teacher Name Role Phone Shana Morales MD [...] PM EDT) Hemoglobin A1C 6.1(H) (4-6) % [facility] Comment: HEMOGLOBIN A1C(%) ?? GLUCOSE CONTROL INDEX ?<6% ? EXCELLENT ?6-7% ?VERY GOOD ?7-8% ?GOOD ?8-10% ? FAIR ?>10% ?POOR Hemoglobin (Hb) A1c testing is performed by Dwayne Ronna-quant immunoassay. Any cause of shortened erythrocyte survival will reduce exposure of erythrocytes to glucose with a consequent decrease in Hb A1c (%). Testing performed or reported by ~[facility], ~a Service of [facility], ~[address] [place] [address]~ 12/29/2018 2:22 PM EDT us Servando Medel MD LAB BLOOD ORDERABLES Final Resul t [facility] from Last 3 Months or Most Recently Relevant to Health Maintenance Insurance Medicaid [place] Medicare [place] Member Subscriber Plan / Payer (Ef fective 2021-Present) Name:Sheng Haywood Relation to Subscriber:Self Name:Sheng Haywood Payer ID:Not on file Group ID:Not on file Type:Not on file Address: [place] [id number] Medicare Care Teams Elementary Education Teacher Relationship Specialty Start Date End Date Shana Morales MD [address] [place] [phone] PCP - General Internal Medicine 06/30/19
--- OUTSIDE RECORDS SUMMARY | 2024-07-08 15:40 | XMS_ITS | Encounter Summary ---
Author Organization [employer] Address [address] [facility] 7t [place] [address] Care Team Providers Care Pet Stylist Name Role Phone Shana Morales MD Primary Care Provide r Encounter Details Date Type Department Care Team (Late st Contact Info) Description 01/31/2022 Abstract [facility] ADULT DENTAL [address] [place] [address] Dental, Provider, DDS Social History Tobacco Use [...] Description 07/22/2024 1:30 PM EDT Office Visit [facility] ADULT DENTAL [address] [place] [address] Jaylon Butler DDS [address] [place] [address] 10/06/2024 3:15 PM EDT Office Visit [facility] MEDICINE [address] [place] [address] Shana Morales MD 230 [place] [address] 10/09/2024 2:30 PM EDT Office Visit [facility] OPTOMETRY [address] [place] [address], [place] [address] Toni, Elisa, OD [address] [place] [address] documented as of this encounter Procedures Procedure [...] on filedocumented in this encounter Care Teams Pet Stylist Relationship Specialty Start Date End Date Shana Morales MD [address] [place] [phone] PCP - General Family Medicine 11/26/17 documented as of this encounter
--- OUTSIDE RECORDS SUMMARY | 2024-07-08 15:40 | XMS_ITS | Encounter Summary ---
Author Organization [employer] Address 75 [facility] 7t [place] [address] Care Team Providers Care Radio Communication Coordinator Name Role Phone Shana Morales MD Primary Care Provide r Reason for Visit * Reason Onset Date Comments October07/06/2024 Encounter Details Date Type Department Care Team ([facility] st Contact Info) Description 07/06/2024 Telephone [facility] MEDICINE [address] [place], [place] [phone] Shana Morales MD 230 [place], [place] [phone] OCTOBER RECALL Social History Tobacco Use Types Packs/Day Years [...] Telephone Encounter - Shekhar Jenkins [place] - 07/06/2024 1:51 PM EDT T\C to pt to schedule a (October) DM OV-EXT with pcp. Pt agreed to come in on 10/06/2024 AT 3:15 PM . Mailed appt info. documented in this encounter Plan of Treatment Upcoming Encounters Date Type Department Care Team (Late st Contact Info) Description 07/22/2024 1:30 PM EDT Office Visit [facility] ADULT DENTAL [address] [place] [address] Jaylon Butler DDS [address] [place] [address] 10/06/2024 3:15 PM EDT Office Visit [facility] MEDIC[facility] [address] [place] [address] Shana Morales MD [address] [place] [address] 10/09/2024 2:30 PM EDT Office Visit [facility] OPTOMETRY [address] [place] [address] Elisa Muñoz, LY 230 [place] [address] documented as of this encounter Visit Diagnoses Not on filedocumented in this encounter Additional Health Concerns Assessment Noted Time PHQ-9 Depression Total Score: 0 05/30/19 24 1:00 PM EDT documented as of this encounter Care Teams Radio Communication Coordinator Relationship Specialty Start Date End Date Shana Morales MD [address] [place] [address] PCP - General Family Medicine 11/26/17 documented as of this encounter
--- OUTSIDE RECORDS SUMMARY | 2024-07-08 15:40 | XMS_ITS | Encounter Summary ---
Author Organization [facility] [place], Address [address] [place] [address] Phone Care Team Providers Care Dampener Name Role Phone Shana Morales MD Primary Care Provide r Encounter Details Date Type Department Care Team (Late st Contact Info) Description 10/03/2021 Documentation Only [facility] [place], [address] [place] [phone] Servando Medel MD [address] [facility] [place] [phone] Social History Tobacco Use Types Packs/Day Years [...] on filedocumented in this encounter Care Teams Dampener Relationship Specialty Start Date End Date Shana Morales MD [address] [place] [phone] PCP - General Internal Medicine 06/30/19 documented as of this encounter
--- OUTSIDE RECORDS SUMMARY | 2024-07-08 15:40 | XMS_ITS | Encounter Summary ---
Author Organization [employer] Address [address] [facility] 7t [place] [address] Care Team Providers Care Science Intern Name Role Phone Shana Morales MD Primary Care Provide r Encounter Details Date Type Department Care Team (Latest Contact Info) Description 07/13/2020 Abstract [facility] CON[facility] Dental, Provider, DDS Social [...] Description 07/22/2024 1:30 PM EDT Office Visit [facility] ADULT DENTAL [address] [place] [address] Jaylon Butler DDS 230 [place] [address] 10/06/2024 3:15 PM EDT Office Visit [facility] MEDICINE [address] [place] [address] Shana Morales MD 230 [place] [address] 10/09/2024 2:30 PM EDT Office Visit [facility] OPTOMETRY [address] [place] [address] Elisa Muñoz OD 230 [place] [address] documented as of this encounter Visit Diagnoses Not on filedocumented in this encounter Care Teams Science Intern Relationship Specialty Start Date End Date hSana Morales MD [address] [place], [place] [phone] PCP - General Family Medicine 11/26/17 documented as of this encounter
--- OUTSIDE RECORDS SUMMARY | 2024-07-08 15:40 | XMS_ITS | Encounter Summary ---
Author Organization [facility] [place], Address [address] [place] [address] Phone Care Team Providers Care Upper Cutter Name Role Phone Shana Morales MD Primary Care Provide r Encounter Details Date Type Department Care Team (Late st Contact Info) Description 02/01/2021 Documentation Only [facility] [place], [address] [facility] [address] [place] [phone] Servando Medel MD [address] [facility] [place] [phone] Social History Tobacco Use Types Packs/Day Years [...] on filedocumented in this encounter Care Teams Upper Cutter Relationship Specialty Start Date End Date Shana Morales MD [address] [place] [phone] PCP - General Internal Medicine 06/30/19 documented as of this encounter
--- OUTSIDE RECORDS SUMMARY | 2024-07-08 15:40 | XMS_ITS | Clinical Summary ---
Author Organization [employer] Address [address] [facility] 7t [place] [address] Care Team Providers Care Hoop Flaring Machine Operator Helper Name Role Phone Shana Morales MD Primary Care Provide r Allergies Active Allergy Reactions Criticality Noted Date Comments Ibuprofen Other High 02/03/2022 Nsaids High 05/26/2013 Other reaction(s): acute renal failure Medications acetaminophen (Tylenol) 325 MG tablet Take 2 tablets by mouth in the morning and 2 tablets at noon and 2 tablets in the evening. 08/29/19 19 Active Blood Glucose Monitoring Suppl (CDB [employer] Mcpherson Lite) w/Device kit USE TO TEST BLOOD [...] DAILY 90 mL 5 02/09/20 23 Active Additional Information Patient not taking.Reported on 06/09/2024 hydrALAZINE (Apresoline) 50 MG tabletIndication s:Essential hypertension Take 1 tablet (50 mg) by mouth 3 times daily. 270 tablet 3 06/20/19 24 Active carvedilol (Coreg) 25 MG tabletIndication s:Essential hypertension Take 1 tablet (25 mg) by mouth with breakfast and with evening meal. 180 tablet 3 06/20/19 24 Active Additional Information Patient not taking.Reported on 06/09/2024 buprenorphine-na loxone (Suboxone) 12-3 MG per sublingual filmIndications: Uncomplicated opioid dependence (CMS/HCC) Place 1 Film under the tongue Once per day. 28 Film 1 07/30/19 24 Active SPS 15 GM/60ML suspensionIndica tions:Hyperkalem ia DRINK 60 ML (15 GRAM) BY MOUTH THREE TIMES DAILY FOR 2 DAYS 360 mL 08/15/19 24 Active Additional Information Patient not taking.Reported on 06/09/2024 albuterol 108 (90 Base) MCG/ACT inhalerIndicatio ns:Asthma-chroni c obstructive pulmonary disease overlap syndrome (CMS/HCC) INHALE 2 PUFFS BY MOUTH EVERY 4 HOURS NEEDED FOR WHEEZING OR SHORTNESS OF BREATH 8.5 g 2 09/26/19 24 Active Additional Information Patient not taking.Reported on 06/09/2024 ferrous sulfate 324 (65 Fe) MG EC [...] per week. 2 mL 02/13/20 24 Active Additional Information Patient not taking.Reported on 06/09/2024 omeprazole (PriLOSEC) [address] capsuleIndicatio ns:Chronic GERD TAKE 1 CAPSULE BY MOUTH EVERY DAY BEFORE BREAKFAST. DO NOT BREAK, CRUSH, DISSOLVE OR CHEW 90 capsule 1 03/05/19 25 Active furosemide (Lasix) 40 MG tabletIndication s:Essential hypertension TAKE 1 TABLET BY MOUTH EVERY DAY IN THE MORNING 30 tablet 3 04/30/19 25 Active amLODIPine (Norvasc) 10 MG tabletIndication s:Hypertension, unspecified type TAKE 1 TABLET BY MOUTH EVERY DAY 90 tablet 1 06/18/19 25 Active isosorbide mononitrate ER (Imdur) 60 MG 24 hr tabletIndication s:Resistant hypertension TAKE 1 TABLET BY MOUTH ONCE DAILY 30 tablet 11 07/03/19 25 Active naloxone (Narcan) 4 mg/0.1 mL nasal sprayIndications :Uncomplicated opioid dependence (CMS/HCC) Administer 1 spray (4 mg) into affected nostril(s) if needed for opioid reversal. May repeat every 2-3 minutes if needed, alternating nostrils, until medical assistance becomes available. 2 each 07/03/19 24 2024 Additional Information Patient not taking.Reported on 06/09/2024 isosorbide mononitrate ER (Imdur) 60 MG 24 hr tabletIndication s:Resistant hypertension Take 1 tablet (60 mg) by mouth Once per day. Do not crush or chew. 30 tablet 11 07/03/19 24 2024 Discontinued amLODIPine (Norvasc) 10 MG tabletIndication s:Hypertension, unspecified type TAKE 1 TABLET BY MOUTH EVERY DAY 90 tablet 1 12/09/19 24 2024 Discontinued Active Problems Problem Noted [...] Encounters Date Type Department Care Team Description 07/06/2024 Telephone [facility] MED[facility] [address] [place] [address] Shana Morales MD AUGUST RECALL 07/02/2024 Refill [facility] [address] [place] [address] Shana Morales MD Resistant hypertension 06/16/2024 Refill [facility] [address] [place] [address] Shana Morales MD Hypertension, unspecified type 06/09/2024 10:30 AM EDT Office Visit [facility] ADULT DENTAL [address] [place] [address] Jaylon Butler DDS Essential hypertension (Primary Dx) 05/15/2024 Population Health Risk Score [facility] Department [address] [phone] Provider, Population Health Generic 04/29/2024 Refill [facility] MED[facility] [address] [place] [address] Shana Morales MD Essential hypertension from Last 3 Months Immunizations Name Administration [...] Description 07/22/2024 1:30 PM EDT Office Visit [facility] ADULT DENTAL [address] [place] [address] Jaylon Butler DDS [address] [place] [address] 10/06/2024 3:15 PM EDT Office Visit [facility] MEDICINE [address] [place] [address] Shana Morales MD [address] [place] [address] 10/09/2024 2:30 PM EDT Office Visit [facility] OPTOMETRY [address] [place] [address] Elisa Muñoz, OD 230 [place] [address] Health Maintenance Due Date Last Done Comments [...] 05/21/2024 05/22/2023 Depression Screening 05/29/2024 05/30/2023, 05/30/19 24 Diabetes: Hemoglobin A1C 08/13/2024 024, 08/15/2023, 07/03/2023, [...] Media Lot # [id number] Lot# Expiration Date [id number] Blood 02/13/2024 2:03 PM EST Shana Tanner MD POINT OF CARE TEST EN TER/EDIT ORDERABLES Final Result * Hepatitis C Antibody with Reflex to HCV, RNA, Quantitative, Real-Time PCR (08/15/2023 9:36 AM EDT) Pathologist [facility] Hepatitis C Antibody Nonreactive Nonreactive [facility] Comment:Antibodies to HCV no t detected; does not exclude early acuteHCV infection. Blood Venous blood specimen / Unknown 08/15/2023 9:36 AM EDT 08/15/2023 11:49 AM EDT Shana Tanner MD LAB BLOOD ORDERABLES Final Result [facility] [address] [place] [phone] * (ABNORMAL) Albumin, Random Urine W/Creatinine (02/13/2023 11:46 AM EST) Creatinine, Urine 24.40 mg/dL [facility] Microalbumin Urine 362.0 mg/L [facility] Microalbum Creatinine Ratio Ur 1,483.6(H ) <30 ug/mg cr [facility] Comment:Albumin/Creatinine R atio Reference Ranges: Normal: < 30 ug/mg creatinine Microalbuminuria: 30 - 300 ug/mg creatinineClinical Albuminuria: > 300 ug/mg creatinine 02/13/2023 11:4 6 AM EST 02/13/2023 1:05 PM EST Shana Tanner MD LAB URINE ORDERABLES Final Result Performing Organization Address [facility] Co de Phone Number [facility] [address] [place] [address] [phone] * (ABNORMAL) Lipid Panel, Standard (02/13/2023 11:46 AM EST) Triglycerides 118 <150 mg/dL [facility] Comment:Desirable Triglyceri de: less than 150 mg/dLBorderline High Triglyceride 150-199 mg/dLHigh Triglyceride: 200-499 mg/dLVery High Triglyceride: greater than or equal to 5OO mg/dL Cholesterol 193 <200 mg/dL [facility] Comment:Desirable Cholestero l: less than 200 mg/dLBorderline High Cholesterol: 200-239 mg/dLHigh Cholesterol: greater than 239 mg/dL LDL Cholesterol Calculated 121(H) <100 mg/dL [facility] Comment:Desirable LDL: less than 100 mg/dLNear Optimal/Above Optimal LDL: 110- 129 mg/dLBorderline High LDL: 130-159 mg/dLHigh LDL: 160-189 mg/dLVery High LDL: greater than or equal to 190 mg/dL HDL Cholesterol 49 >40 mg/dL [facility] Comment:Desirable HDL: great er than 40 mg/dL Note: This HDL assay may give artificially low results in patients with liver disease. Blood Venous blood specimen / Unknown 02/13/2023 11:46 AM EST 02/13/2023 1:19 PM EST us Shana Tanner MD LAB BLOOD ORDERABLES Final Result Performing Organization Address [facility] Co de Phone Number [facility] [address] [place] [address] [phone] from Last 3 Months or Most Recently Relevant to Health Maintenance Insurance [facility] MEDICAID STAND ADULT Care Teams Hoop Flaring Machine Operator Helper Relationship Specialty Start Date End Date Shana Morales MD [address] [place] [address] PCP - General Family Medicine 11/26/17
--- OUTSIDE RECORDS SUMMARY | 2024-07-08 15:40 | XMS_ITS | Encounter Summary ---
Author Organization [facility] Address [address] [place] [address] Phone Care Team Providers Care White Metal Caster Name Role Phone Shana Morales MD Primary Care Provide r Encounter Details Date Type Department Care Team (Late st Contact Info) Description 11/14/2021 Documentation Only [facility] [place], [address] [place] [phone] Bacilio Fleming PA Social History Tobacco Use [...] on filedocumented in this encounter Care Teams White Metal Caster Relationship Specialty Start Date End Date Shana Morales MD [address] [place] [phone] PCP - General Internal Medicine 06/30/19 documented as of this encounter
--- OUTSIDE RECORDS SUMMARY | 2024-07-08 15:40 | XMS_ITS | Encounter Summary ---
Author Organization [employer] Address 75 [facility] 7t [place] [address] Care Team Providers Care Food Service Worker Name Role Phone Shana Morales MD Primary Care Provide r Encounter Details Date Type Department Care Team (Late Contact Info) Description 11/07/2022 Telephone [facility] MEDICINE [address] [place] [phone] Shana Morales MD [address] [place] [phone] Social History Tobacco Use Types Packs/Day Years [...] Encounters Date Type Department Care Team (Late Contact Info) Description 07/22/2024 1:30 PM EDT Office Visit [facility] ADULT DENTAL [address] [place] [phone] Jaylon Butler DDS [address] [place] [address] 10/06/2024 3:15 PM EDT Office Visit [facility] MEDICINE [address] [place] [phone] Shana Morales MD [address] [place] [phone] 10/09/2024 2:30 PM EDT Office Visit [facility] OPTOMETRY [address] [place], [place] [phone] Elisa Muñoz, OD [address] [place], [place] [phone] documented as of this encounter Visit Diagnoses Not on filedocumented in this encounter Care Teams Food Service Worker Relationship Specialty Start Date End Date Shana Morales MD [address] [place], [place] [phone] PCP - General Family Medicine 11/26/17 documented as of this encounter
[2024-07-08 16:23] LABS: Appearance Urine Clear; Color Urine Yellow; Glucose Urine UA Negative (Negative); Leukocyte Esterase Urine Negative (Negative); Nitrite Urine Negative (Negative); UMIC TRIGGER UA YES; Urine Blood Negative (Negative); Urine Ketones Negative (Negative); Urine Protein 300 (3+) mg/dL (Neg-Trace)
[2024-07-08 16:29] LABS: Bacteria Urine None Seen (None Seen); Hyaline Casts Urine 0-2 /LPF (0-2); RBC Urine 0-2 /HPF (0-2); Squamous Epithelial Cell Urine 0-2 /HPF (0-2); WBC Urine 0-5 /HPF (0-5)
[2024-07-08 16:51] LABS: Anion Gap 13 (12-20); Blood Urea Nitrogen 58 mg/dL (9-16); Calcium 9.2 mg/dL (8.4-10.2); Carbon Dioxide 23 mmol/L (22-29); Chloride 105 mmol/L (96-108); Estimated Glomerular Filt Rate 32; Glucose Random 110 mg/dL (60-115); Potassium 4.6 mmol/L (3.3-5.1); Sodium 136 mmol/L (135-145)
== END 2024-07-08 14:29 | disposition home or self-care (01) ==
LOC: HO.HHCL 14:28
PROVIDERS: Visit Provider Internal Medicine Hypertension Specialist
DX: N18.4 Chronic kidney disease, stage 4 (severe) (principal); N17.9 Acute kidney failure, unspecified; D64.9 Anemia, unspecified
CPT/HCPCS: 36415; 80048; 81001; 99212

== ENCOUNTER 2024-08-05 13:33 | Outpatient (AMB) | payer OTHER, SELFPAY ==
[2024-08-05 13:34] VITALS: BP 150/52; PULSE 95; O2SAT 95
--- NOTE | 2024-08-05 13:34 | HO.NEPHOV ---
Vital Signs 08/05/24 13:34 08/05/24 13:49 Height 5 ft 1 in BP 150/52 H 142/50 H Blood Pressure Location Lt brachial Lt brachial Position Sitting Sitting Pulse 95 Pulse Source Pulse Oximeter Pulse Oximetry (%) 95 Oxygen Delivery Method Room Air Intake Visit Reasons: FU/ Conf Sewing Machine Adjuster Required: No Sewing Machine Adjuster Services: Sewing Machine Adjuster Offered & Declined Accompanied by: Self / Same As Patient Allergies hydrochlorothiazide Allergy (Mild, Verified 08/05/24 13:38) Pain ibuprofen Allergy (Unknown, Verified 08/05/24 13:38) acute renal failure Medication List - Last Reconciled 08/05/24 by Cas Barrios MD amlodipine 10 mg PO BID ferrous sulfate 324 mg PO BIDWM hydralazine 100 mg PO TID isosorbide mononitrate ER mg PO DAILY omeprazole 40 mg PO DAILY spironolactone 25 mg PO DAILY HPI Comments Details: 73-year-old man with a history of longstanding hypertension with chronic kidney disease. He has known chronic kidney disease since 2019. At the time serum creatinine was 1.6 mg/dL. Current serum creatinine is 2.5 mg/dL. He has had significant proteinuria in the non nephrotic range of about 2.3 g. I do not believe he has undergone any workup for the same. He does not have a history of diabetes mellitus. He is currently not on any CALVIN inhibitors or ARB use. 11/20/2023. He has no specific complaints today. Seems to be compliant with his medications. 05/06/24: No compliants today. All meds reviewed. 06/18/24 ;Underwent ABPM 07/08/24 Started Aldactazide last month It was changed to Spironolactone 25 mg QD by pharmacy since he was ? intolerant to HCTZ Did not under go lab work 08/05/24 Tolerating Aldactazide Did not undergo blood work [facility] Social History Household Members: None Housing: Apartment Do you presently have visiting nurse or other home services: No Patient Tobacco Use Status: Never used Tobacco Substance Use Type: Heroin Advance Directives Date on File: 01/10/22 service: No Current occupational status: retired Physical Exam Vital Signs: Last Vital Signs Pulse 95 08/05/24 13:34 BP 150/52 H 08/05/24 13:34 Pulse Ox 95 08/05/24 13:34 Oxygen Delivery Method Room Air 08/05/24 13:34 Const General: comfortable; No acute distress Orientation/consciousness: patient oriented x3 Eyes General: appearance normal, both eyes and all related structures Visual Drummond: normal visual drummond by confrontation Neck Neck: Yes supple and Yes no JVD Resp Effort & Inspection: normal respiratory effort and respiratory effort not decreased Cardio Palpation: no palpable S3 and no palpable S4 Heart sounds: no rubs GI Inspection: Yes normal to inspection Palpation (GI): Soft to palpation Percussion: Yes normal to percussion Auscultation: normal bowel sounds General: Yes no CVA tenderness Back/Spine/Pelvis Back: no CVA tenderness Skin General skin exam: no petechiae and no purpura Neuro General: patient oriented x3 and no focal motor deficits Extrem General: No clubbing and No edema Results Reviewed Nephrology Results: Sodium 136 mmol/L (135-145) 07/08/24 Potassium 4.6 mmol/L (3.3-5.1) 07/08/24 Chloride 105 mmol/L (96-108) 07/08/24 Carbon Dioxide 23 mmol/L (22-29) 07/08/24 BUN 58 mg/dL (9-16) H 07/08/24 Creatinine 2.07 mg/dL (0.5-1.4) H 07/08/24 Calcium 9.2 mg/dL (8.4-10.2) 07/08/24 Urine Protein 300 (3+) mg/dL (Neg-Trace) H 07/08/24 Assessment & Plan Assessment & Plan (1) Anemia: Code(s): D64.9 - Anemia, unspecified Category: Medical (2) CKD (chronic kidney disease) stage 4, GFR 15-29 ml/min: Code(s): N18.4 - Chronic kidney disease, stage 4 (severe) Category: Medical Plan 73-year-old man with stage IV CKD in a setting of longstanding hypertension. He has not non nephrotic range proteinuria as well. Serum creatinine has improved. He has non nephrotic range proteinuria primarily albumin. No monoclonal proteins. Serological workup has been essentially negative. He probably has underlying hypertensive kidney disease. renal ultrasonogram -no hydronephrosis. He has bilateral cyst - benign Hypertension Optimize blood pressure. low-sodium diet. Keep Hydralazine 100 mg 3 times a day. With Amlodipine Needs to lose weight Until renal function stabilizes I will not add any CALVIN inhibitors or ARB use. Cr is at 2.07 as of July 08 Keep Spironolactone 25mg Check Renal panel /K today Discussed low salt diet Orders: Orders Blood Urea Nitrogen Today N18.4 - Chronic kidney disease, stage 4 (severe) Basic Metabolic Panel 2 Months N18.4 - Chronic kidney disease, stage 4 (severe) Potassium Today N18.4 - Chronic kidney disease, stage 4 (severe), N18.5 - Chronic kidney disease, stage 5 Creatinine Today N18.4 - Chronic kidney disease, stage 4 (severe) Coding Level of Care Code Est Pt Level 4 (19989) Diagnoses Anemia D64.9 CKD (chronic kidney disease) stage 4, GFR 15-29 ml/min N18.4
--- OUTSIDE RECORDS SUMMARY | 2024-08-05 13:44 | XMS_ITS | Clinical Summary ---
Author Organization [employer] Address [address] [facility] [address] [place] [address] Care Team Providers Care Soda Dialyzer Name Role Phone Shana Morales MD Primary Care Provide r Allergies Active Allergy Reactions Criticality Noted Date Comments Ibuprofen Other High 02/03/2022 Nsaids High 05/26/2013 Other reaction(s): acute renal failure Medications acetaminophen (Tylenol) 325 MG tablet Take 2 tablets by mouth in the morning and 2 tablets at noon and 2 tablets in the evening. 9 Active Blood Glucose Monitoring Suppl (Eigenta [place] Lite) w/Device kit USE TO TEST BLOOD [...] with evening meal. 180 tablet 3 4 Active Additional Information Patient not taking.Reported on 07/22/2024 buprenorphine-nal oxone (Suboxone) 12-3 MG per sublingual filmIndications:U ncomplicated opioid dependence (CMS/HCC) Place 1 Film under the tongue Once per day. 28 Film 1 4 Active SPS 15 GM/60ML suspensionIndicat ions:Hyperkalemia DRINK 60 ML (15 GRAM) BY MOUTH THREE TIMES DAILY FOR 2 DAYS 360 mL 4 Active Additional Information Patient not taking.Reported on 07/22/2024 albuterol 108 (90 Base) MCG/ACT inhalerIndication s:Asthma-chronic obstructive pulmonary disease overlap syndrome (CMS/HCC) INHALE 2 PUFFS BY MOUTH EVERY 4 HOURS NEEDED FOR WHEEZING OR SHORTNESS OF BREATH 8.5 g 2 4 Active Additional Information Patient not taking.Reported on 07/22/2024 ferrous sulfate 324 (65 Fe) MG EC [...] stripIndications: Type 2 diabetes mellitus without complications ([facility]) TEST BLOOD SUGAR ONCE DAILY 100 strip 11 4 Active Tirzepatide-Weigh t Management (Zepbound) 2.5 MG/0.5ML solution auto-injectorIndi cations:Class 1 obesity due to excess calories with serious comorbidity and body mass index (BMI) of 34.0 to 34.9 in adult Inject 0.5 mL (2.5 mg) under the skin 1 (one) time per week. 2 mL 4 Active Additional Information Patient not taking.Reported on 07/22/2024 omeprazole (PriLOSEC) [address] capsuleIndication s:Chronic GERD TAKE 1 CAPSULE BY MOUTH EVERY DAY BEFORE BREAKFAST. DO NOT BREAK, CRUSH, DISSOLVE OR CHEW 90 capsule 1 5 Active furosemide (Lasix) 40 MG tabletIndications :Essential hypertension TAKE 1 TABLET BY MOUTH EVERY DAY IN THE MORNING 30 tablet 3 5 Active amLODIPine (Norvasc) 10 MG tabletIndications :Hypertension, unspecified type TAKE 1 TABLET BY MOUTH EVERY DAY 90 tablet 1 5 Active Additional Information Patient not taking.Reported on 07/22/2024 isosorbide mononitrate ER (Imdur) 60 MG 24 hr tabletIndications :Resistant hypertension TAKE 1 TABLET BY MOUTH ONCE DAILY 30 tablet 11 5 Active Active Problems Problem Noted Date Diagnosed Date Retained dental root 07/22/2024 Class 1 obesity due to exces s [...] Encounters Date Type Department Care Team Description 07/22/2024 1:30 PM EDT Office Visit [facility] [address] [place] [address] Jaylon Butler DDS Retained dental root (Primary Dx) 07/06/[address] [facility] [address] [place] [address] Shana Morales MD OCTOBER RECALL 07/02/[address] [facility] [address] [place] [address] Shana Moarles MD Resistant hypertension 06/16/[address] [facility] [address] [place] [address] Shana Morales MD Hypertension, unspecified type 06/09/2024 10:30 AM EDT Office Visit [facility] [address] [place] [address] Jaylon Butler DDS Essential hypertension (Primary Dx) 05/15/2024 Population Health Risk Score [facility] () Department [address] [place] [phone] Provider, Population Health Generic from Last 3 Months Immunizations Immunization Administration Dates Next Due Hep A, Adult [...] Sign Reading Time Taken Comments Blood Pressure 138/76 07/22/2024 1:47 PM EDT Pulse 100 06/09/2024 11:07 AM EDT [...] Care Team (Late st Contact Info) Description 10/06/2024 3:15 PM EDT Office Visit [facility] [address] [place] [address] Shana Morales MD [address] [place] [address] 10/09/2024 2:30 PM EDT Office Visit [facility] [address] [place] [address] Toni, Elisa, OD [address] [place] [address] Health Maintenance Due Date Last Done Comments [...] 05/22/2023 Depression Screening 05/29/2024 05/30/2023, 05/30/19 24 COVID-19 Vaccine ( season) 2024 01/01/2024, 04/19/2022, 04/13/2021, Additional history exists Diabetes: Hemoglobin A1C 08/13/2024 024, 08/15/2023, 07/03/2023, Additional history exists Tobacco Screening 07/22/2025 07/22/2024 Eye Exam 08/19/2025 08/20/2023, 08/02, 08/20/2023, Additional history exists Dental X-Ray: Full Mouth 09/17/2026 024, 07/13/2020, 11/28/2016 Hepatitis A Vaccines Aged Out 12/20/2010, 06/22/19 11 No longer eligible based on patient's age to complete this topic Hepatitis B Vaccines Completed 12/20/2010, 08/02/2010, 06/21/2010 Pneumococcal Vaccine: 50+ Years Completed 01/01/2023, 05/26/2013, 07/28/2008 Hepatitis C Screening Completed 08/15/2023 Influenza Vaccine Completed 01/01/2024, , 03/01/2022, Additional history exists HIB Vaccines Aged Out No longer eligi ble based on patient's age to complete this topic HPV Vaccines Aged Out No longer eligi ble based on patient's age to complete this topic IPV Vaccines Aged Out No longer eligi ble based on patient's age to complete this topic Meningococcal B Vaccine Aged Out No l onger eligible based on patient's age to complete [...] Procedure Name Priority Date/Time Associated Diagnosis Comments CASE PRESENTATION, DETAILED AND EXTENSIVE TREATMENT PLANNING Routine 07/22/2024 1:30 PM EDT 7 EXTRACTION, ERUPTED TOOTH OR EXPOSED ROOT (ELEVATION/FORCEPS REMOVAL) Routine 07/22/2024 1:30 PM EDT NO CHARGE VISIT Routine 06/09/2024 10:30 AM [...] Media Lot # [id number] Lot# Expiration Date [id number] Blood 02/13/2024 2:03 PM EST Shana Tanner MD POINT OF CARE TEST EN TER/EDIT ORDERABLES Final Result * Hepatitis C Antibody with Reflex to HCV, RNA, Quantitative, Real-Time PCR (08/15/2023 9:36 AM EDT) Hepatitis C Antibody Nonreactive Nonreactive [facility] Comment:Antibodies to HCV no t detected; does not exclude early acuteHCV infection. Blood Venous blood specimen / Unknown 08/15/2023 9:36 AM EDT 08/15/2023 11:49 AM EDT Shana Tanner MD LAB BLOOD ORDERABLES Final Result Performing Organization Address [facility] Co de Phone Number [facility] [address] [place] [phone] * (ABNORMAL) Albumin, Random Urine W/Creatinine (02/13/2023 11:46 AM EST) Creatinine, Urine 24.40 mg/dL [facility] Microalbumin Urine 362.0 mg/L [facility] Microalbum Creatinine Ratio Ur 1,483.6(H ) <30 ug/mg cr [facility] Comment:Albumin/Creatinine R atio Reference Ranges: Normal: < 30 ug/mg creatinine Microalbuminuria: 30 - 300 ug/mg creatinineClinical Albuminuria: > 300 ug/mg creatinine 02/13/2023 11:4 6 AM EST 02/13/2023 1:05 PM EST us Shana Tanner MD LAB URINE ORDERABLES Final Result Performing Organization Address [facility] Co de Phone Number [facility] [address] [place] [phone] * (ABNORMAL) Lipid Panel, Standard (02/13/2023 11:46 AM EST) Triglycerides 118 <150 mg/dL [facility] Comment:Desirable Triglyceri de: less than 150 mg/dLBorderline High Triglyceride 150-199 mg/dLHigh Triglyceride: 200-499 mg/dLVery High Triglyceride: greater than or equal to 5OO mg/dL Cholesterol 193 <200 mg/dL [facility] Comment:Desirable Cholestero l: less than 200 mg/dLBorderline High Cholesterol: 200-239 mg/dLHigh Cholesterol: greater than 239 mg/dL LDL Cholesterol Calculated 121(H) <100 mg/dL [facility] Comment:Desirable LDL: less than 100 mg/dLNear Optimal/Above Optimal LDL: 110- 129 mg/dLBorderline High LDL: 130-159 mg/dLHigh LDL: 160-189 mg/dLVery High LDL: greater than or equal to 190 mg/dL HDL Cholesterol 49 >40 mg/dL [facility] Comment:Desirable HDL: great er than 40 mg/dL Note: This HDL assay may give artificially low results in patients with liver disease. Blood Venous blood specimen / Unknown 02/13/2023 11:46 AM EST 02/13/2023 1:19 PM EST Shana Tanner MD LAB BLOOD ORDERABLES Final Result Performing Organization Address City/State/[facility] Co de Phone Number [facility] [address] [place] [address] [phone] from Last 3 Months or Most Recently Relevant to Health Maintenance Insurance MEDICARE [facility] Care Teams Soda Dialyzer Relationship Specialty Start Date End Date Shana Morales MD [address] [place] [address] PCP - General Family Medicine 11/26/17
[2024-08-05 13:49] VITALS: BP 142/50
== END 2024-08-05 14:31 | disposition home or self-care (01) ==
LOC: HO.HKAM 13:33
PROVIDERS: PCP Internal Medicine; Visit Provider Internal Medicine Hypertension Specialist
DX: D64.9 Anemia, unspecified (principal); N18.4 Chronic kidney disease, stage 4 (severe)
CPT/HCPCS: 99214

== ENCOUNTER → 2024-08-05 13:33 | Outpatient (BNVA) | payer OTHER, SELFPAY | PROVIDERS: PCP Internal Medicine; Visit Provider Internal Medicine Hypertension Specialist | DX: I12.0 Hypertensive chronic kidney disease with stage 5 chronic kidney disease or end stage renal disease (principal); N18.5 Chronic kidney disease, stage 5; D63.1 Anemia in chronic kidney disease | CPT/HCPCS: 99212 ==

== ENCOUNTER 2024-10-05 10:08 | Outpatient (REF) | payer OTHER, SELFPAY ==
--- OUTSIDE RECORDS SUMMARY | 2024-10-05 10:46 | XMS_ITS | Patient Health Record ---
Author Organization [facility] Address [address] [place] [address] Care Team Providers Care Exhauster Engineer Name Role Phone NONE, NONE Primary Care Provider Daniel Ashley [phone] Reason For Referral No Information Plan Of Treatment No Information
--- OUTSIDE RECORDS SUMMARY | 2024-10-05 10:46 | XMS_ITS | Clinical Summary ---
Author Organization [employer] Address [address] [facility] [address] [place] [address] Care Team Providers Care Secondary School Teacher Librarian Name Role Phone Shana Morales MD Primary Care Provide r Allergies Active Allergy Reactions Criticality Noted Date Comments Ibuprofen Other High 02/03/2022 Nsaids High 05/26/2013 Other reaction(s): acute renal failure Medications acetaminophen (Tylenol) 325 MG tablet Take 2 tablets by mouth in the morning and 2 tablets at noon and 2 tablets in the evening. 08/29/19 19 Active Blood Glucose Monitoring Suppl ([employer] [place] Lite) w/Device kit USE TO TEST BLOOD [...] daily. 270 tablet 3 06/20/19 24 Active buprenorphine-na loxone (Suboxone) 12-3 MG per [...] on 07/22/2024 albuterol 108 (90 Base) MCG/ACT inhalerIndicatio ns:Asthma-chroni c obstructive pulmonary disease overlap syndrome (CMS/HCC) INHALE 2 PUFFS BY MOUTH EVERY 4 HOURS NEEDED FOR WHEEZING OR SHORTNESS OF BREATH 8.5 g 2 09/26/19 24 Active Additional Information Patient not taking.Reported on 07/22/2024 [employer] Lancets 33G miscIndications: Type 2 diabetes [...] Additional Information Patient not taking.Reported on 07/22/2024 furosemide (Lasix) 40 MG tabletIndication s:Essential hypertension TAKE 1 TABLET BY MOUTH EVERY DAY IN THE MORNING 30 tablet 3 04/30/19 25 Active amLODIPine (Norvasc) 10 MG tabletIndication s:Hypertension, unspecified type TAKE 1 TABLET BY MOUTH EVERY DAY 90 tablet 1 06/18/19 25 Active Additional Information Patient not taking.Reported on 07/22/2024 isosorbide mononitrate ER (Imdur) 60 MG 24 hr tabletIndication s:Resistant hypertension TAKE 1 TABLET BY MOUTH ONCE DAILY 30 tablet 11 07/03/19 25 Active ferrous sulfate 324 (65 Fe) MG EC tabletIndication s:Chronic kidney disease, unspecified CKD stage TAKE 1 TABLET BY MOUTH TWICE DAILY IN THE MORNING AND IN THE EVENING WITH MEALS 180 tablet 1 08/11/19 25 Active omeprazole (PriLOSEC) [address] capsuleIndicadianao ns:Chronic GERD TAKE 1 CAPSULE BY MOUTH DAILY BEFORE BREAKFAST. DO NOT BREAK, CRUSH, DISSOLVE OR CHEW 90 capsule 1 09/02/19 25 Active carvedilol (Coreg) 25 MG tabletIndication s:Essential hypertension TAKE 1 TABLET BY MOUTH TWICE DAILY IN THE MORNING AND IN THE EVENING WITH BREAKFAST AND WITH DINNER 180 tablet 3 09/10/19 25 Active carvedilol (Coreg) 25 MG tabletIndication s:Essential hypertension Take 1 tablet (25 mg) by mouth with breakfast and with evening meal. 180 tablet 3 06/20/19 24 2024 Discontinued Active Problems Problem Noted [...] Encounters Date Type Department Care Team Description 09/09/2024 Refill [facility] [address] [place] [address] Shana Morales MD Essential hypertension 08/31/2024 Refill [facility] [address] [place], [place] [phone] Shana Morales MD Chronic GERD 08/09/2024 Refill [facility] [address] [place], [place] [phone] Shana Morales MD Chronic kidney disease, unspecified CKD stage 07/22/2024 1:30 PM EDT Office Visit [facility] [address] [place] [address] Jaylon Butler DDS Retained dental root (Primary Dx) 07/06/2024 Telephone [facility] [address] [place], [place] [phone] Shana Morales MD OCTOBER RECALL from Last 3 Months Immunizations Immunization Administration [...] 100 06/09/2024 11:07 AM EDT Temperature 36.6 C (97.8 F) 02/13/2024 1:48 PM EST Respiratory Rate 16 02/13/2024 1:48 PM EST [...] Description 10/06/2024 3:15 PM EDT Office Visit [facility] [address] [place] [address] Shana Morales MD [address] [place] [address] 10/09/2024 2:30 PM EDT Office Visit [facility] [address] [place] [address] Toni, Elisa, OD [address] [place] [address] Health Maintenance Due Date Last Done Comments [...] 08/13/2024 024, 08/15/2023, 07/03/2023, Additional history exists Influenza Vaccine (#1) 2024 , 01/01/2023, 03/01/2022, Additional history exists Tobacco Screening 07/22/2025 07/22/2024 Eye Exam 08/19/2025 08/20/2023, 08/02, 08/20/2023, Additional history exists Dental X-Ray: Full Mouth 09/17/2026 024, 07/13/2020, 11/28/2016 Hepatitis A Vaccines Aged Out 12/20/2010, 06/22/19 11 No longer eligible based on patient's age to complete this topic Hepatitis B Vaccines Completed 12/20/2010, 08/02/2010, 06/21/2010 Pneumococcal Vaccine: 50+ Years Completed 01/01/2023, 05/26/2013, 07/28/2008 Hepatitis C Screening Completed 08/15/2023 HIB Vaccines Aged Out No longer eligi [...] (ELEVATION/FORCEPS REMOVAL) Routine 07/22/2024 1:30 PM EDT POCT GLYCATED HEMOGLOBIN, TOTAL Routine 02/13/2024 [...] Media Lot # [id number] Lot# Expiration Date [id number] Blood 02/13/2024 2:03 PM EST Shana Tanner MD POINT OF CARE TEST EN TER/EDIT ORDERABLES Final Result * Hepatitis C Antibody with Reflex to HCV, RNA, Quantitative, Real-Time PCR (08/15/2023 9:36 AM EDT) Hepatitis C Antibody Nonreactive Nonreactive [facility] Comment:Antibodies to HCV no t detected; does not exclude early acuteHCV infection. Blood Venous blood specimen / Unknown 08/15/2023 9:36 AM EDT 08/15/2023 11:49 AM EDT us Shana Tanner MD LAB BLOOD ORDERABLES Final Result Performing Organization Address [facility] Co de Phone Number [facility] [address] [place] [phone] * (ABNORMAL) Albumin, Random Urine W/Creatinine (02/13/2023 11:46 AM EST) Creatinine, Urine 24.40 mg/dL [facility] Microalbumin Urine 362.0 mg/L [facility] Microalbum Creatinine Ratio Ur 1,483.6(H ) <30 ug/mg cr [facility] Comment:Albumin/Creatinine R atio Reference Ranges: Normal: < 30 ug/mg creatinine Microalbuminuria: 30 - 300 ug/mg creatinineClinical Albuminuria: > 300 ug/mg creatinine 02/13/2023 11:4 6 AM EST 02/13/2023 1:05 PM EST us Shana Tanner MD LAB URINE ORDERABLES Final Result Performing Organization Address [facility] Co la Phone Number [facility] [address] [place] [phone] * (ABNORMAL) Lipid Panel, Standard (02/13/2023 11:46 AM EST) Triglycerides 118 <150 mg/dL [facility] Comment:Desirable Triglyceri de: less than 150 mg/dLBorderline High Triglyceride 150-199 mg/dLHigh Triglyceride: 200-499 mg/dLVery High Triglyceride: greater than or equal to 5OO mg/dL Cholesterol 193 <200 mg/dL [facility] Comment:Desirable Cholestero l: less than 200 mg/dLBorderline High Cholesterol: 200-239 mg/dLHigh Cholesterol: greater than 239 mg/dL LDL Cholesterol Calculated 121(H) <100 mg/dL [facility] Comment:Desirable LDL: less than 100 mg/dLNear Optimal/Above Optimal LDL: 110- 129 mg/dLBorderline High LDL: 130-159 mg/dLHigh LDL: 160-189 mg/dLVery High LDL: greater than or equal to 190 mg/dL HDL Cholesterol 49 >40 mg/dL [facility] Comment:Desirable HDL: great er than 40 mg/dL Note: This HDL assay may give artificially low results in patients with liver disease. Blood Venous blood specimen / Unknown 02/13/2023 11:46 AM EST 02/13/2023 1:19 PM EST Shana Tanner MD LAB BLOOD ORDERABLES Final Result Performing Organization Address City/State/[facility] Co de Phone Number [facility] [address] [place] [phone] from Last 3 Months or Most Recently Relevant to Health Maintenance Insurance [facility] [employer] (HMO D-SNP) [place] [id number] [place] ST[place] AD[place] Care Teams Secondary School Teacher Librarian Relationship Specialty Start Date End Date Shana Morales MD [address] [place] [phone] PCP - General Family Medicine 11/26/17
--- OUTSIDE RECORDS SUMMARY | 2024-10-05 10:47 | XMS_ITS | Encounter Summary ---
Author Organization [facility], Address [address] [place] [address] Phone Care Team Providers Care Caser Up Name Role Phone Shana Morales MD Primary Care Provide r Encounter Details Date Type Department Care Team (Late st Contact Info) Description 10/03/2021 Documentation Only [facility], [address] [place] [phone] Servando Medel MD [address] [place] [phone] Social History Tobacco Use Types Packs/Day Years [...] on filedocumented in this encounter Care Teams Caser Up Relationship Specialty Start Date End Date Shana Morales MD [address] [place] [phone] PCP - General Internal Medicine 06/30/19 documented as of this encounter
[2024-10-05 11:39] LABS: Appearance Urine Clear; Glucose Urine UA Negative (Negative); PH 5.0 (5.0-9.0); Specific Gravity - Urine 1.010 (1.005-1.025); UMIC TRIGGER UA YES
[2024-10-05 12:28] LABS: Anion Gap 16 (12-20); Blood Urea Nitrogen 82 mg/dL (9-16); Calcium 9.4 mg/dL (8.4-10.2); Carbon Dioxide 22 mmol/L (22-29); Chloride 105 mmol/L (96-108); Estimated Glomerular Filt Rate 25; Potassium 5.5 mmol/L (3.3-5.1); Sodium 137 mmol/L (135-145)
== END 2024-10-05 10:09 | disposition home or self-care (01) ==
LOC: HO.HHCL 10:08
PROVIDERS: PCP Internal Medicine; Referring Provider Internal Medicine Hypertension Specialist; Visit Provider Internal Medicine Hypertension Specialist
DX: N18.4 Chronic kidney disease, stage 4 (severe) (principal)
CPT/HCPCS: 36415; 80048; 81001

== ENCOUNTER 2024-10-07 13:26 | Outpatient (AMB) | payer OTHER, SELFPAY ==
[2024-10-07 13:28] VITALS: BP 162/52; PULSE 77; O2SAT 95; BMI 35.1
--- NOTE | 2024-10-07 13:28 | HO.NEPHOV ---
Vital Signs 10/07/24 13:28 Height 5 ft 1 in Weight 186 lb BMI 35.1 BP 162/52 H Blood Pressure Location Lt brachial Position Sitting Pulse 77 Pulse Source Pulse Oximeter Pulse Oximetry (%) 95 Oxygen Delivery Method Room Air Intake Visit Reasons: follow up/ Conf Billing Typist Required: No Accompanied by: Self / Same As Patient Allergies hydrochlorothiazide Allergy (Mild, Verified 10/07/24 13:30) Pain ibuprofen Allergy (Unknown, Verified 10/07/24 13:30) acute renal failure Medication List - Last Reconciled 10/07/24 by Cas Barrios MD amlodipine 10 mg PO DAILY ferrous sulfate 324 mg PO BIDWM furosemide 40 mg PO QAM hydralazine 100 mg PO TID isosorbide mononitrate ER mg PO DAILY omeprazole 40 mg PO DAILY HPI Comments Details: 73-year-old man with a history of longstanding hypertension with chronic kidney disease. He has known chronic kidney disease since 2019. At the time serum creatinine was 1.6 mg/dL. Current serum creatinine is 2.5 mg/dL. He has had significant proteinuria in the non nephrotic range of about 2.3 g. I do not believe he has undergone any workup for the same. He does not have a history of diabetes mellitus. He is currently not on any CALVIN inhibitors or ARB use. 11/20/2023. He has no specific complaints today. Seems to be compliant with his medications. 05/06/24: No compliants today. All meds reviewed. 06/18/24 ;Underwent ABPM 07/08/24 Started Aldactazide last month It was changed to Spironolactone 25 mg QD by pharmacy since he was ? intolerant to HCTZ Did not under go lab work 08/05/24 Tolerating Aldactazide Did not undergo blood work 10/07/24 BP sub oprimal Lasix has bee added BUN and Cr are up K 5.3 PFSH Social History Household Members: None Housing: Apartment Do you presently have visiting nurse or other home services: No Patient Tobacco Use Status: Never used Tobacco Substance Use Type: Heroin Advance Directives Date on File: 01/10/22 service: No Current occupational status: retired Physical Exam Vital Signs: Last Vital Signs Pulse 77 10/07/24 13:28 BP 162/52 H 10/07/24 13:28 Pulse Ox 95 10/07/24 13:28 Oxygen Delivery Method Room Air 10/07/24 13:28 BMI result Body Mass Index 35.1 Const General: comfortable; No acute distress Orientation/consciousness: patient oriented x3 Eyes General: appearance normal, both eyes and all related structures Visual Drummond: normal visual drummond by confrontation Neck Neck: Yes supple and Yes no JVD Resp Effort & Inspection: normal respiratory effort and respiratory effort not decreased Cardio Palpation: no palpable S3 and no palpable S4 Heart sounds: no rubs GI Inspection: Yes normal to inspection Palpation (GI): Soft to palpation Percussion: Yes normal to percussion Auscultation: normal bowel sounds General: Yes no CVA tenderness Back/Spine/Pelvis Back: no CVA tenderness Skin General skin exam: no petechiae and no purpura Neuro General: patient oriented x3 and no focal motor deficits Extrem General: No clubbing and No edema Results Reviewed Nephrology Results: Sodium, (135-145) 137 mmol/L 10/05/24 Potassium, (3.3-5.1) 5.5 mmol/L H 10/05/24 Chloride, (96-108) 105 mmol/L 10/05/24 Carbon Dioxide, (22-29) 22 mmol/L 10/05/24 BUN, (9-16) 82 mg/dL H 10/05/24 Creatinine, (0.5-1.4) 2.58 mg/dL H 10/05/24 Calcium, (8.4-10.2) 9.4 mg/dL 10/05/24 Urine Protein, (Neg-Trace) 100 (2+) mg/dL H 10/05/24 Renal US 10/29/23 Assessment & Plan Assessment & Plan (1) Anemia: Code(s): D64.9 - Anemia, unspecified Category: Medical (2) CKD (chronic kidney disease) stage 4, GFR 15-29 ml/min: Code(s): N18.4 - Chronic kidney disease, stage 4 (severe) Category: Medical Plan 73-year-old man with stage IV CKD in a setting of longstanding hypertension. He has not non nephrotic range proteinuria as well. Serum creatinine has improved. He has non nephrotic range proteinuria primarily albumin. No monoclonal proteins. Serological workup has been essentially negative. He probably has underlying hypertensive kidney disease. renal ultrasonogram -no hydronephrosis. He has bilateral cyst - benign Hypertension Optimize blood pressure. low-sodium diet. Keep Hydralazine 100 mg 3 times a day. With Amlodipine Needs to lose weight Until renal function stabilizes I will not add any CALVIN inhibitors or ARB use. Cr is at 2.07 as of July 08 Keep Spironolactone 25mg Check Renal panel /K today Discussed low salt diet 10/07/24 Difficult to control HTN with CKD Renal fx has worsened Mild hyperkalemia BP is sub optimal Plan: DC Spironolactone Unable to add Aldactazide due to HCTZ intolerance Add Clonidine 0.1 mg BID Orders: Orders Basic Metabolic Panel 6 Weeks N18.4 - Chronic kidney disease, stage 4 (severe) Medications: New clonidine HCl 0.1 mg PO BID 60 tabs 0RF Coding Level of Care Code Est Pt Level 4 (77265) Diagnoses Anemia D64.9 CKD (chronic kidney disease) stage 4, GFR 15-29 ml/min N18.4
--- OUTSIDE RECORDS SUMMARY | 2024-10-07 13:57 | XMS_ITS | Patient Health Record ---
Author Organization [facility] Address [address] [place] [address] Care Team Providers Care Head Of Measurement & Insights Name Role Phone NONE, NONE Primary Care Provider Daniel Ashley [phone] Reason For Referral No Information Plan Of Treatment No Information
--- OUTSIDE RECORDS SUMMARY | 2024-10-07 13:57 | XMS_ITS | Clinical Summary ---
Author Organization [employer] Address [address] [place] [address] Care Team Providers Care Assembler Ping Pong Table Name Role Phone Shana Morales MD Primary Care Provide r Allergies Active Allergy Reactions Criticality Noted Date Comments Ibuprofen Other High 02/03/2022 Nsaids High 05/26/2013 Other reaction(s): acute renal failure Medications acetaminophen (Tylenol) 325 MG tablet Take 2 tablets by mouth in the morning and 2 tablets at noon and 2 tablets in the evening. 08/29/19 19 Active Blood Glucose Monitoring Suppl (ISH Early Lite) w/Device kit USE TO TEST BLOOD [...] Encounters Date Type Department Care Team Description 10/06/2024 Telephone [facility] [address] [place] [address] Shana Morales MD No Show 10/05/2024 Orders Only GENERIC EXTERNAL DATA DEPARTMENT Provider, Generic External Data 09/09/2024 Refill [facility] [address], [place] [phone] Shana Morales MD Essential hypertension 08/31/2024 Refill [facility] [address], [place] [phone] Shana Morales MD Chronic GERD 08/09/2024 Refill [facility] [address], [place] [phone] Shana Morales MD Chronic kidney disease, unspecified CKD stage 07/22/2024 1:30 PM EDT Office Visit [facility] ADULT DENTAL [address], [place] [phone] Jaylon Butler DDS Retained dental root (Primary Dx) from Last 3 Months Immunizations Immunization Administration [...] Care Team (Late st Contact Info) Description 10/09/2024 2:30 PM EDT Office Visit [facility] OPTOMETRY [address] [place] [address] ToniElisa arnold, OD [address] [place] [address] 10/23/2024 3:00 PM EDT Office Visit [facility] ADULT DENTAL [address] [place] [address] Frost-Washington, Alicia, DDS [address] [place] [address] 12/18/2024 3:15 PM EDT Office Visit [facility] MED[facility] [address] [place] [address] Shana Morales MD [address] [place] [address] Health Maintenance Due Date Last Done Comments [...] Procedure Name Priority Date/Time Associated Diagnosis Comments BASIC METABOLIC PANEL Routine 10/05/2024 10:34 AM EDT URINALYSIS, COMPLETE Routine 10/05/2024 10:34 AM EDT CASE PRESENTATION, DETAILED AND EXTENSIVE TREATMENT PLANNING [...] Relevant to Health Maintenance Results * (ABNORMAL) Urinalysis Complete (10/05/2024 10:34 AM EDT) Color Urine Yellow [facility] Appearance Urine Clear [facility] PH 5.0 5.0 - 9.0 [facility] Glucose Urine UA Negative Negative mg/dL [facility] Urine Blood Negative Negative [facility] Specific [place] - Urine 1.010 1.005 - 1.025 [facility] Urine Protein 100 (2+)(A) Neg-Trace mg/dL [facility] Urine Ketones Negative Negative mg/dL [facility] Nitrite Urine Negative Negative [facility] Leukocyte Esterase Urine Negative Negative [facility] RBC Urine 0-2 0 - 2 /HPF [facility] Urine WBC 0-5 0 - 5 /HPF [facility] Urine Squamous Epithelial Cell 0-2 0 - 2 /HPF [facility] Urine Bacteria None Seen None Seen [facility] Hyaline Casts, Urine 0-2 0 - 2 /LPF [facility] 10/05/2024 10:3 4 AM EDT 10/05/2024 11:22 AM EDT us Generic External Data Provider LAB URINE ORDERAB LES Final Result Performing Organization Address City/State/[facility] Co de Phone Number [facility] [address] [place] [phone] * (ABNORMAL) Basic Metabolic Panel (10/05/2024 10:34 AM EDT) Pathologist [facility] Sodium 137 135 - 145 mmol/L [facility] Potassium 5.5(H) 3.3 - 5.1 mmol/L [facility] Chloride 105 96 - 108 mmol/L [facility] Carbon Dioxide 22 22 - 29 mmol/L [facility] Anion Gap 16 12 - 20 [facility] Urea Nitrogen (BUN) 82(H) 9 - 16 mg/dL [facility] Creatinine, Serum 2.58(H) 0.5 - 1.4 mg/dL [facility] Estimated Glomerular Filt Rate 25 [facility] Comment:Chronic Kidney Disea se: Estimated GFR < 60 mL/min/[id number] Kidney Disease: Estimated GFR < 15 mL/min/1.73m2 Glucose 118(H) 60 - 115 mg/dL [facility] Calcium 9.4 8.4 - 10.2 mg/dL [facility] 10/05/2024 10:3 4 AM EDT 10/05/2024 11:13 AM EDT us Generic External Data Provider LAB BLOOD ORDERAB LES Final Result Performing Organization Address [facility]/ZIP Co de Phone Number [facility] [address] [place] [phone] * POCT HGB A1C (02/13/2024 2:03 PM EST) [facility] [address] Hemoglobin A1C 5.5 4.0 - 6.0 % QC Media Lot # [id number] Lot# Expiration Date [id number] Blood 02/13/2024 2:03 PM EST Shana Tanner MD POINT OF CARE TEST EN TER/EDIT ORDERABLES Final Result * Hepatitis C Antibody with Reflex to HCV, RNA, Quantitative, Real-Time PCR (08/15/2023 9:36 AM EDT) [facility] [address] Hepatitis C Antibody Nonreactive Nonreactive [facility] Comment:Antibodies to HCV no t detected; does not exclude early acuteHCV infection. Blood Venous blood specimen / Unknown 08/15/2023 9:36 AM EDT 08/15/2023 11:49 AM EDT Shana Tanner MD LAB BLOOD ORDERABLES Final Result Performing Organization Address City/[facility]/ZIP Co de Phone Number [facility] [address] [place] [address] [phone] * (ABNORMAL) Albumin, Random Urine W/Creatinine (02/13/2023 11:46 AM EST) Creatinine, Urine 24.40 mg/dL [facility] Microalbumin Urine 362.0 mg/L H [facility] Microalbum Creatinine Ratio Ur 1,483.6(H ) <30 ug/mg cr [facility] Comment:Albumin/Creatinine R at Reference Ranges: Normal: < 30 ug/mg creatinine Microalbuminuria: 30 - 300 ug/mg creatinineClinical Albuminuria: > 300 ug/mg creatinine 02/13/2023 11:4 6 AM EST 02/13/2023 1:05 PM EST Shana Tanner MD LAB URINE ORDERABLES Final Result [facility] [address] [place] [phone] * (ABNORMAL) Lipid Panel, Standard (02/13/2023 11:46 AM EST) Triglycerides 118 <150 mg/dL [facility] Comment:Desirable Triglyceri de: less than 150 mg/dLBorderline High Triglyceride 150-199 mg/dLHigh Triglyceride: 200-499 mg/dLVery High Triglyceride: greater than or equal to 5OO mg/dL Cholesterol 193 <200 mg/dL [facility] Comment:Desirable Cholestero l: less than 200 mg/dLBorderline High Cholesterol: 200-239 mg/dLHigh Cholesterol: greater than 239 mg/dL LDL Cholesterol Calculated 121(H) <100 mg/dL [facility] Comment:Desirable LDL: less than 100 mg/dLNear Optimal/Above Optimal LDL: 110- 129 mg/dLBorderline High LDL: 130-159 mg/dLHigh LDL: 160-189 mg/dLVery High LDL: greater than or equal to 190 mg/dL HDL Cholesterol 49 >40 mg/dL [facility] Comment:Desirable HDL: great er than 40 mg/dL Note: This HDL assay may give artificially low results in patients with liver disease. Blood Venous blood specimen / Unknown 02/13/2023 11:46 AM EST 02/13/2023 1:19 PM EST Shana Tanner MD LAB BLOOD ORDERABLES Final Result [facility] [address] [place], [place] [phone] from Last 3 Months or Most Recently Relevant to Health Maintenance Insurance [facility] MEDICAID STAND ADULT Care Teams Assembler Ping Pong Table Relationship Specialty Start Date End Date Shana Morales MD [address] [place] [phone] PCP - General Family Medicine 11/26/17
--- OUTSIDE RECORDS SUMMARY | 2024-10-07 13:57 | XMS_ITS | Encounter Summary ---
Author Organization [facility], Address [address] [place] [address] Phone Care Team Providers Care Cleaner Housekeeping Name Role Phone Shana Morales MD Primary Care Provide r Encounter Details Date Type Department Care Team (Late st Contact Info) Description 10/03/2021 Documentation Only [facility], [address] [place] [phone] Servando Medel MD [address] [place] [phone] Social History Tobacco Use Types Packs/Day Years [...] on filedocumented in this encounter Care Teams Cleaner Housekeeping Relationship Specialty Start Date End Date Shana Morales MD [address] [place] [phone] PCP - General Internal Medicine 06/30/19 documented as of this encounter
== END 2024-10-07 13:43 | disposition home or self-care (01) ==
LOC: HO.HKAM 13:26
PROVIDERS: PCP Internal Medicine; Visit Provider Internal Medicine Hypertension Specialist
DX: D64.9 Anemia, unspecified (principal); N18.4 Chronic kidney disease, stage 4 (severe)
CPT/HCPCS: 99214

== ENCOUNTER → 2024-10-07 13:26 | Outpatient (BNVA) | payer OTHER, SELFPAY | PROVIDERS: PCP Internal Medicine; Visit Provider Internal Medicine Hypertension Specialist | DX: I12.9 Hypertensive chronic kidney disease with stage 1 through stage 4 chronic kidney disease, or unspecified chronic kidney disease (principal); N18.4 Chronic kidney disease, stage 4 (severe); D63.1 Anemia in chronic kidney disease | CPT/HCPCS: 99212 ==

== ENCOUNTER 2024-11-13 11:34 | Outpatient (REF) | payer OTHER, SELFPAY ==
[2024-11-13 14:10] LABS: Anion Gap 13 (12-20); Blood Urea Nitrogen 75 mg/dL (9-16); Calcium 8.9 mg/dL (8.4-10.2); Carbon Dioxide 25 mmol/L (22-29); Chloride 107 mmol/L (96-108); Estimated Glomerular Filt Rate 25; Potassium 6.1 mmol/L (3.3-5.1); Sodium 139 mmol/L (135-145)
[2024-11-13 16:13] LABS: Appearance Urine Clear; Glucose Urine UA Negative (Negative); PH 6.0 (5.0-9.0); Specific Gravity - Urine 1.010 (1.005-1.025); UMIC TRIGGER UA YES
== END 2024-11-13 11:35 | disposition home or self-care (01) ==
LOC: HO.HHCL 11:34
PROVIDERS: PCP Internal Medicine; Visit Provider Internal Medicine Hypertension Specialist
DX: N18.5 Chronic kidney disease, stage 5 (principal)
CPT/HCPCS: 36415; 80048; 81001; 84132; 84520

== ENCOUNTER 2024-11-18 14:05 | Outpatient (AMB) | payer OTHER, SELFPAY ==
[2024-11-18 14:07] VITALS: BP 180/62; PULSE 74; O2SAT 95
--- NOTE | 2024-11-18 14:07 | HO.NEPHOV ---
Vital Signs 11/18/24 14:07 Height 5 ft 1 in BP 180/62 H Blood Pressure Location Lt brachial Position Sitting Pulse 74 Pulse Source Pulse Oximeter Pulse Oximetry (%) 95 Oxygen Delivery Method Room Air Intake Visit Reasons: 6wk f/u w/labs-Conf Mechanical Cad Drafter Required: Yes Mechanical Cad Drafter Name: Isaiah Dill Accompanied by: Self / Same As Patient Allergies hydrochlorothiazide Allergy (Mild, Verified 11/18/24 14:09) Pain ibuprofen Allergy (Unknown, Verified 11/18/24 14:09) acute renal failure Medication List - Last Reconciled 11/18/24 by Csa Barrios MD amlodipine 10 mg PO DAILY clonidine HCl 0.1 mg PO BID ferrous sulfate 324 mg PO BIDWM furosemide 40 mg PO QAM hydralazine 100 mg PO TID isosorbide mononitrate ER mg PO DAILY omeprazole 40 mg PO DAILY sodium polystyrene sulfonate 15 grams PO BID 3 days HPI Comments Details: 73-year-old man with a history of longstanding hypertension with chronic kidney disease. He has known chronic kidney disease since 2019. At the time serum creatinine was 1.6 mg/dL. Current serum creatinine is 2.5 mg/dL. He has had significant proteinuria in the non nephrotic range of about 2.3 g. I do not believe he has undergone any workup for the same. He does not have a history of diabetes mellitus. He is currently not on any CALVIN inhibitors or ARB use. 11/20/2023. He has no specific complaints today. Seems to be compliant with his medications. 05/06/24: No compliants today. All meds reviewed. 06/18/24 ;Underwent ABPM 07/08/24 Started Aldactazide last month It was changed to Spironolactone 25 mg QD by pharmacy since he was ? intolerant to HCTZ Did not under go lab work 08/05/24 Tolerating Aldactazide ;Did not undergo blood work 10/07/24 BP sub oprimal;Lasix has been added;BUN and Cr are up ; K 5.3 11/18/2024 Continues to have resistant hypertension. Potassium is bumped up to 6.1 even though he is not on any spironolactone or CALVIN inhibitors. Kayexalate has been prescribed and he will be starting it today. He denies any specific complaints today. All his medications were reviewed [facility] Social History Household Members: None Housing: Apartment Do you presently have visiting nurse or other home services: No Patient Tobacco Use Status: Never used Tobacco Substance Use Type: Heroin Advance Directives Date on File: 01/10/22 service: No Current occupational status: retired Physical Exam Vital Signs: Last Vital Signs Pulse 74 11/18/24 14:07 BP 180/62 H 11/18/24 14:07 Pulse Ox 95 11/18/24 14:07 Oxygen Delivery Method Room Air 11/18/24 14:07 Results Reviewed Nephrology Results: Sodium, (135-145) 139 mmol/L 11/13/24 Potassium, (3.3-5.1) 6.1 mmol/L H* 11/13/24 Chloride, (96-108) 107 mmol/L 11/13/24 Carbon Dioxide, (22-29) 25 mmol/L 11/13/24 BUN, (9-16) 75 mg/dL H 11/13/24 Creatinine, (0.5-1.4) 2.55 mg/dL H 11/13/24 Calcium, (8.4-10.2) 8.9 mg/dL 11/13/24 Urine Protein, (Neg-Trace) 100 (2+) mg/dL H 11/13/24 Renal US 10/29/23 Assessment & Plan Assessment & Plan (1) Anemia: Code(s): D64.9 - Anemia, unspecified Category: Medical (2) CKD (chronic kidney disease) stage 4, GFR 15-29 ml/min: Code(s): N18.4 - Chronic kidney disease, stage 4 (severe) Category: Medical Plan 73-year-old man with stage IV CKD in a setting of longstanding hypertension. He has not non nephrotic range proteinuria as well. Serum creatinine has improved. He has non nephrotic range proteinuria primarily albumin. No monoclonal proteins. Serological workup has been essentially negative. He probably has underlying hypertensive kidney disease. renal ultrasonogram -no hydronephrosis. He has bilateral cyst - benign Hypertension Optimize blood pressure. low-sodium diet. Keep Hydralazine 100 mg 3 times a day. With Amlodipine Needs to lose weight Until renal function stabilizes I will not add any CALVIN inhibitors or ARB use. Cr is at 2.07 as of July 08 Keep Spironolactone 25mg Check Renal panel /K today Discussed low salt diet 10/07/24 Difficult to control HTN with CKD Renal fx has worsened Mild hyperkalemia BP is sub optimal Plan: DC Spironolactone Unable to add Aldactazide due to HCTZ intolerance Add Clonidine 0.1 mg BID 11/18/24 Resistant hypertension. Still need to rule out underlying renal artery stenosis. We will obtain Doppler of renal arteries. In the meantime I will add minoxidil 10 mg a day. He will continue with same dose of Lasix to prevent fluid retention secondary to minoxidil Renal function is unchanged. He has hyperkalemia and agree with adding Kayexalate Encouraged him to stay on low-potassium diet and avoid orange juice. CKD- due to hypertensive nephrosclerosis. Orders: Orders US renal doppler Today I1A.0 - Resistant hypertension, N18.4 - Chronic kidney disease, stage 4 (severe) Basic Metabolic Panel 1 Week E87.5 - Hyperkalemia, N18.4 - Chronic kidney disease, stage 4 (severe) Medications: New minoxidil 10 mg PO DAILY 30 tabs 2RF Coding Level of Care Code Est Pt Level 4 (12033) Diagnoses Anemia D64.9 CKD (chronic kidney disease) stage 4, GFR 15-29 ml/min N18.4
--- OUTSIDE RECORDS SUMMARY | 2024-11-18 17:50 | XMS_ITS | Clinical Summary ---
Author Organization [employer] Address [address] [facility] 7t [place] [address] Care Team Providers Care Reducer Name Role Phone Shana Morales MD Primary Care Provide r Allergies Active Allergy Reactions Criticality Noted Date Comments Ibuprofen Other High 02/03/2022 Nsaids High 05/26/2013 Other reaction(s): acute renal failure Medications acetaminophen (Tylenol) 325 MG tablet Take 2 tablets by mouth in the morning and 2 tablets at noon and 2 tablets in the evening. 019 Active Blood Glucose Monitoring Suppl (Right On Interactive Port Orange Lite) w/Device kit USE TO TEST BLOOD SUGAR TWICE DAILY 022 Active clotrimazole (Lotrimin) 1 % cream APPLY TO TOENAILS EVERY DAY POR 6 WEEKS 022 Active Blood Pressure Monitor kitIndications:E ssential hypertension Use as directed 3x/week 1 kit 023 Active albuterol (2.5 MG/3ML) 0.083% nebulizer solutionIndicati ons:Other asthma USE 1 AMPULE USING A NEBULIZER THREE TIMES DAILY 90 mL 5 023 Active buprenorphine-na loxone (Suboxone) 12-3 MG per sublingual filmIndications: Uncomplicated opioid dependence (CMS/HCC) Place 1 Film under the tongue Once per day. 28 Film 1 024 Active SPS 15 GM/60ML suspensionIndica tions:Hyperkalem ia DRINK 60 ML (15 GRAM) BY MOUTH THREE TIMES DAILY FOR 2 DAYS 360 mL 024 Active Additional Information Patient not taking.Reported on 07/22/2024 albuterol 108 (90 Base) MCG/ACT inhalerIndicatio ns:Asthma-chroni c obstructive pulmonary disease overlap syndrome (CMS/HCC) INHALE 2 PUFFS BY MOUTH EVERY 4 HOURS NEEDED FOR WHEEZING OR SHORTNESS OF BREATH 8.5 g 2 Active Additional Information Patient not taking.Reported on 07/22/2024 TRUEplus Lancets 33G miscIndications: Type 2 diabetes mellitus without complications (CMS/HCC) 1 each Once per day. 100 each 5 024 Active glucose blood (FREESTYLE LITE) test stripIndications :Type 2 diabetes mellitus without complications ([facility]) TEST BLOOD SUGAR ONCE DAILY 100 strip 11 024 Active Tirzepatide-Weig ht Management (Zepbound) 2.5 MG/0.5ML solution auto-injectorInd ications:Class 1 obesity due to excess calories with serious comorbidity and body mass index (BMI) of 34.0 to 34.9 in adult Inject 0.5 mL (2.5 mg) under the skin 1 (one) time per week. 2 mL 024 Active Additional Information Patient not taking.Reported on 07/22/2024 furosemide (Lasix) 40 MG tabletIndication s:Essential hypertension TAKE 1 TABLET BY MOUTH EVERY DAY IN THE MORNING 30 tablet 3 025 Active isosorbide mononitrate ER (Imdur) 60 MG 24 hr tabletIndication s:Resistant hypertension TAKE 1 TABLET BY MOUTH ONCE DAILY 30 tablet 11 025 Active ferrous sulfate 324 (65 Fe) MG EC tabletIndication s:Chronic kidney disease, unspecified CKD stage TAKE 1 TABLET BY MOUTH TWICE DAILY IN THE MORNING AND IN THE EVENING WITH MEALS 180 tablet 1 025 Active omeprazole (PriLOSEC) [address] capsuleIndicatio ns:Chronic GERD TAKE 1 CAPSULE BY MOUTH DAILY BEFORE BREAKFAST. DO NOT BREAK, CRUSH, DISSOLVE OR CHEW 90 capsule 1 025 Active carvedilol (Coreg) 25 MG tabletIndication s:Essential hypertension TAKE 1 TABLET BY MOUTH TWICE DAILY IN THE MORNING AND IN THE EVENING WITH BREAKFAST AND WITH DINNER 180 tablet 3 025 Active cloNIDine (Catapres) 0.1 MG tablet Take 1 tablet by mouth 2 times daily. 025 Active spironolactone (Aldactone) 25 MG tablet Take 1 tablet by mouth Once per day. 025 Active hydrALAZINE (Apresoline) 100 MG tablet Take 1 tablet by mouth every 6 (six) hours during the day. 025 Active amLODIPine (Norvasc) 10 MG tabletIndication s:Hypertension, unspecified type TAKE 1 TABLET BY MOUTH ONCE DAILY 90 tablet 1 025 Active hydrALAZINE (Apresoline) 50 MG tabletIndication s:Essential hypertension Take 1 tablet (50 mg) by mouth 3 times daily. 270 tablet 3 024 2024 Discontinued(T herapy completed) amLODIPine (Norvasc) 10 MG tabletIndication s:Hypertension, unspecified type TAKE 1 TABLET BY MOUTH EVERY DAY 90 tablet 1 025 2024 Discontinued Active Problems Problem Noted Date [...] Encounters Date Type Department Care Team Description 11/16/2024 Refill [facility] [address] [place] [address] Shana Morales MD Hypertension, unspecified type 11/13/2024 Orders Only GENERIC EXTERNAL DATA DEPARTMENT Provider, Generic External Data 10/23/2024 3:00 PM EDT Office Visit [facility] ADULT DENTAL [address] [place] [address] Alicia Hannah DDS Encounter for dental examination (Primary Dx); Dental calculus; Excessive attrition of teeth, limited to enamel; Bruxism 10/15/2024 3:30 PM EDT Office Visit [facility] OPTOMETRY [address] [place] [address] Toni, Elisa, OD Diabetes type 2, no ocular involvement (CMS/HCC) (Primary Dx); Combined forms of age-related cataract of both eyes; Presbyopia of both eyes 10/15/2024 Travel 10/14/2024 Travel 10/06/2024 Telephone [facility] [address] [place] [address] Shana Morales MD No Show 10/05/2024 Orders Only GENERIC EXTERNAL DATA DEPARTMENT Provider, Generic External Data 09/09/2024 Refill [facility] [address], [place] [phone] Shana Morales MD Essential hypertension 08/31/2024 Refill [facility] [address] [place] [address] Shana Morales MD Chronic GERD from Last 3 Months Immunizations Immunization Administration [...] Care Team (Late st Contact Info) Description 12/18/2024 3:15 PM EDT Office Visit [facility] [address] [place] [address] Shana Morales MD [address] [place] [address] Health Maintenance Due Date Last Done Comments [...] 11/25/2014 09/30/2014 Dental Prophylaxis 01/14/2021 07/13/2020, 09/17/2018 Diabetes: Urine Protein Screening 02/14/2024 02/13/2023, 01/18/2021, 05/08/2019 Lipid Panel 02/14/2024 02/13/2023, 01/18/2021 SDOH Screening 05/21/2024 05/22/2023 Depression Screening 05/29/2024 05/30/2023, 05/30/19 24 Diabetes: Hemoglobin A1C 08/13/2024 024, 08/15/2023, 07/03/2023, Additional history exists COVID-19 Vaccine ( season) 2024 01/01/2024, 04/19/2022, 04/13/2021, Additional history exists Influenza Vaccine (#1) 2024 , 01/01/2023, 03/01/2022, Additional history exists Dental Oral Exam 04/26/2025 10/23/2024, , 09/17/2018, Additional history exists Dental X-Ray: Bitewings 10/24/2025 10/24/19 25, 08/14/2021, 07/13/2020, Additional history exists Tobacco Screening 2025 2024 Dental X-Ray: Full Mouth 09/17/20262 024, 07/13/2020, 11/28/2016 Eye Exam 10/15/2026 10/15/2024, 10/02, 10/15/2024, Additional history exists Hepatitis A Vaccines Aged Out 12/20/2010, 06/22/19 [...] Procedure Name Priority Date/Time Associated Diagnosis Comments URINALYSIS, COMPLETE Routine 11/13/2024 1:35 PM EDT BASIC METABOLIC PANEL Routine 11/13/2024 11:42 AM EDT CASE PRESENTATION, DETAILED AND EXTENSIVE TREATMENT PLANNING Routine 10/23/2024 3:00 PM EDT Encounter for dental examination Dental calculus Excessive attrition of teeth, limited to enamel Bruxism PERIODIC ORAL EVALUATION - ESTABLISHED PATIENT Routine 10/23/2024 3:00 PM EDT Encounter for dental examination Dental calculus Excessive attrition of teeth, limited to enamel Bruxism BITEWINGS - 4 RADIOGRAPHIC IMAGES Routine 10/23/2024 3:00 PM EDT Encounter for dental examination Dental calculus Excessive attrition of teeth, limited to enamel Bruxism INTRAORAL - PERIAPICAL EACH ADDITIONAL RADIOGRAPHIC IMAGE Routine 10/23/2024 3:00 PM EDT Encounter for dental examination Dental calculus Excessive attrition of teeth, limited to enamel Bruxism INTRAORAL - PERIAPICAL FIRST RADIOGRAPHIC IMAGE Routine 10/23/2024 3:00 PM EDT Encounter for dental examination Dental calculus Excessive attrition of teeth, limited to enamel Bruxism BASIC METABOLIC PANEL Routine 10/05/2024 10:34 AM EDT URINALYSIS, COMPLETE Routine 10/05/2024 10:34 AM EDT POCT GLYCATED HEMOGLOBIN, TOTAL Routine [...] use of insulin, unspecified CKD stage (CMS/HCC) PROPHYLAXIS - ADULT Routine 07/13/2020 1 2:00 AM EDT from Last 3 Months or Most Recently Relevant to Health Maintenance Results * (ABNORMAL) Urinalysis Complete (11/13/2024 1:35 PM EDT) Only the most recent of2 resultswithin the time period is included. Color Urine Yellow [facility] Appearance Urine Clear [facility] PH 6.0 5.0 - 9.0 [facility] Glucose Urine UA Negative Negative mg/dL [facility] Urine Blood Negative Negative [facility] Specific [place] - Urine 1.010 1.005 - 1.025 [facility] Urine Protein 100 (2+)(A) Neg-Trace mg/dL [facility] Urine Ketones Negative Negative mg/dL [facility] Nitrite Urine Negative Negative [facility] Leukocyte Esterase Urine Negative Negative [facility] RBC Urine 0-2 0 - 2 /HPF [facility] Urine WBC 0-5 0 - 5 /HPF [facility] Urine Squamous Epithelial Cell 0-2 0 - 2 /HPF [facility] Urine Bacteria None Seen None Seen [facility] Hyaline Casts, Urine 0-2 0 - 2 /LPF [facility] 11/13/2024 1:35 PM EDT 11/13/2024 4:05 PM EDT us Generic External Data Provider LAB URINE ORDERAB LES Final Result Performing Organization Address City/[facility]/ZIP Co de Phone Number [facility] [address] [place] [phone] * (ABNORMAL) Basic Metabolic Panel (11/13/2024 11:42 AM EDT) Only the most recent of2 resultswithin the time period is included. Sodium 139 135 - 145 mmol/L [facility] Potassium 6.1(HH) 3.3 - 5.1 mmol/L [facility] Comment:Critical value for t est(s):POTS Results called to uma back by: MARYANNE Monge Person calling: RAJAT Date:11/13/24 Time:1409 Chloride 107 96 - 108 mmol/L [facility] Carbon Dioxide 25 22 - 29 mmol/L [facility] Anion Gap 13 12 - 20 [facility] Urea Nitrogen (BUN) 75(H) 9 - 16 mg/dL [facility] Creatinine, Serum 2.55(H) 0.5 - 1.4 mg/dL [facility] Estimated Glomerular Filt Rate 25 [facility] Comment:Chronic Kidney Disea se: Estimated GFR < 60 mL/min/1.58i8Kattay Kidney Disease: Estimated GFR < 15 mL/min/1.73m2 Glucose 145(H) 60 - 115 mg/dL [facility] Calcium 8.9 8.4 - 10.2 mg/dL [facility] 11/13/2024 11:4 2 AM EDT 11/13/2024 1:38 PM EDT us Generic External Data Provider LAB BLOOD ORDERAB LES Final Result Performing Organization Address City/[facility]/ZIP Co de Phone Number [facility] [address] [place] [phone] * POCT HGB A1C (02/13/2024 2:03 PM EST) Hemoglobin A1C 5.5 4.0 - 6.0 % QC Media Lot # [id number] Lot# Expiration Date [id number] Blood 02/13/2024 2:03 PM EST Result Misti Tanner MD POINT OF CARE TEST EN TER/EDIT ORDERABLES Final Result * Hepatitis C Antibody with Reflex to HCV, RNA, Quantitative, Real-Time PCR (08/15/2023 9:36 AM EDT) Hepatitis C Antibody Nonreactive Nonreactive [facility] Comment:Antibodies to HCV no t detected; does not exclude early acuteHCV infection. Blood Venous blood specimen / Unknown 08/15/2023 9:36 AM EDT 08/15/2023 11:49 AM EDT Result Misti Tanner MD LAB BLOOD ORDERABLES Final Result Performing Organization Address [facility] Co de Phone Number [facility] [address] [place] [phone] * (ABNORMAL) Albumin, Random Urine W/Creatinine (02/13/2023 11:46 AM EST) Creatinine, Urine 24.40 mg/dL [facility] Microalbumin Urine 362.0 mg/L [facility] Microalbum Creatinine Ratio Ur 1,483.6(H ) <30 ug/mg cr [facility] Comment:Albumin/Creatinine R at Reference Ranges: Normal: < 30 ug/mg creatinine Microalbuminuria: 30 - 300 ug/mg creatinineClinical Albuminuria: > 300 ug/mg creatinine 02/13/2023 11:4 6 AM EST 02/13/2023 1:05 PM EST Result Misti Tanner MD LAB URINE ORDERABLES Final Result Performing Organization Address [facility] Co de Phone Number [facility] [address] [place] [phone] * (ABNORMAL) Lipid Panel, Standard (02/13/2023 11:46 AM EST) Triglycerides 118 <150 mg/dL [facility] Comment:Desirable Triglyceri de: less than 150 mg/dLBorderline High Triglyceride 150-199 mg/dLHigh Triglyceride: 200-499 mg/dLVery High Triglyceride: greater than or equal to 5OO mg/dL Cholesterol 193 <200 mg/dL [facility] Comment:Desirable Cholestero l: less than 200 mg/dLBorderline High Cholesterol: 200-239 mg/dLHigh Cholesterol: greater than 239 mg/dL LDL Cholesterol Calculated 121(H) <100 mg/dL [facility] Comment:Desirable LDL: less than 100 mg/dLNear Optimal/Above Optimal LDL: 110- 129 mg/dLBorderline High LDL: 130-159 mg/dLHigh LDL: 160-189 mg/dLVery High LDL: greater than or equal to 190 mg/dL HDL Cholesterol 49 >40 mg/dL [facility] Comment:Desirable HDL: great er than 40 mg/dL Note: This HDL assay may give artificially low results in patients with liver disease. Blood Venous blood specimen / Unknown 02/13/2023 11:46 AM EST 02/13/2023 1:19 PM EST us Shana Tanner MD LAB BLOOD ORDERABLES Final Result [facility] [address] [place] [phone] from Last 3 Months or Most Recently Relevant to Health Maintenance Insurance [facility] [employer] OPTIONS (HMO D-SNP) [facility] ST[facility] ADULT Care Teams Reducer Relationship Specialty Start Date End Date Shana Morales MD [address] [place] [address] PCP - General Family Medicine 11/26/17
--- OUTSIDE RECORDS SUMMARY | 2024-11-18 17:51 | XMS_ITS | Clinical Summary ---
Author Organization [facility], Address [address] [place] [address] [place] [phone] Phone Care Team Providers Care Controlled Area Checker Name Role Phone Shana Morales MD Primary [...] Visual Foot Exam 10/08/2019 Influenza Vaccine (#1) 2024 Hepatitis B Vaccine Aged Out No longe r eligible based on patient's age to complete this topic Procedures Procedure Name Priority Date/Time Associated Diagnosis Comments HEMOGLOBIN A1C Routine 12/29/2018 2:22 PM EDT from Last 3 Months or Most Recently Relevant to Health Maintenance Results * (ABNORMAL) Hemoglobin A1c (12/29/2018 2:22 PM EDT) Hemoglobin A1C 6.1(H) (4-6) % [facility] Comment: HEMOGLOBIN A1C(%) GLUCOSE CONTROL INDEX <6% EXCELLENT 6-7% VERY GOOD 7-8% GOOD 8-10% FAIR >10% POOR Hemoglobin (Hb) A1c testing is performed by Dwayne Ronna-quant immunoassay. Any cause of shortened erythrocyte survival will reduce exposure of erythrocytes to glucose with a consequent decrease in Hb A1c (%). Testing performed or reported by ~[facility], ~a Service of [facility], ~[address] [place] [id number]~ 12/29/2018 2:22 PM EDT us Servando Medel MD LAB BLOOD ORDERABLES Final Resul t [facility] from Last 3 Months or Most Recently Relevant to Health Maintenance Insurance Medicaid [place] Medicare Medicaid [place] Medicare Care Teams Controlled Area Checker Relationship Specialty Start Date End Date Shana Morales MD [address] [place] [phone] PCP - General Internal Medicine 06/30/19
--- OUTSIDE RECORDS SUMMARY | 2024-11-18 17:51 | XMS_ITS | Encounter Summary ---
Author Organization [facility] [place], Address [address] [place] [address] Phone Care Team Providers Care Event Designer Name Role Phone Shana Morales MD Primary Care Provide r Encounter Details Date Type Department Care Team (Late st Contact Info) Description 04/18/2021 Documentation Only [facility], [address] [place] [phone] Servando Medel MD [address] [facility] [place] [phone] Social History Tobacco Use Types Packs/Day Years [...] on filedocumented in this encounter Care Teams Event Designer Relationship Specialty Start Date End Date Shana Morales MD [address] [place] [phone] PCP - General Internal Medicine 06/30/19 documented as of this encounter
--- OUTSIDE RECORDS SUMMARY | 2024-11-18 17:51 | XMS_ITS | Encounter Summary ---
Author Organization [facility] [place], Address [address] [place] [address] Phone Care Team Providers Care Dye Reel Operator Name Role Phone Shana Morales MD Primary Care Provide r Encounter Details Date Type Department Care Team (Late st Contact Info) Description 02/01/2021 Documentation Only [facility] [place], [address] [facility] [place] [phone] Servando Medel MD [address] [facility] [address] [place] [phone] Social History Tobacco Use Types Packs/Day Years [...] on filedocumented in this encounter Care Teams Dye Reel Operator Relationship Specialty Start Date End Date Shana Morales MD [address] [place] [phone] PCP - General Internal Medicine 06/30/19 documented as of this encounter
--- OUTSIDE RECORDS SUMMARY | 2024-11-18 17:51 | XMS_ITS | Encounter Summary ---
Author Organization [employer] Address [address] [place] [address] [address] [place] [address] Care Team Providers Care Medical Donation Professional Name Role Phone Shana Morales MD Primary Care Provide r Encounter Details Date Type Department Care Team (Late Contact Info) Description 02/09/[address] [facility] [address] [place] [phone] Mariama Krause FNP [address] [place] [address] Type 2 diabetes mellitus without complication, without long-term current use of insulin ([facility]) (Primary Dx) Social History Tobacco Use Types [...] Department Care Team (Late Contact Info) Description 12/18/2024 3:15 PM EDT Office Visit [facility] [address] [place] [phone] Shana Morales MD [address] [place] [address] [place] [address] Scheduled Orders Name Type Priority Associated Diagnoses Orde r Schedule Creatinine, Serum Lab Routine Type 2 diabetes mellitus without complication, without long-term current use of insulin (CMS/HCC) Expected: 02/09/2022 (Approximate), Expires: 02/09/2023 documented as of this encounter Visit Diagnoses Diagnosis Type 2 diabetes mellitus without complication, without long-term current use of insulin (CMS/[facility])- Primary documented in this encounter Care Teams Medical Donation Professional Relationship Specialty Start Date End Date Shana Morales MD [address] [place] [address] PCP - General Family Medicine 11/26/17 documented as of this encounter
--- OUTSIDE RECORDS SUMMARY | 2024-11-18 17:51 | XMS_ITS | Encounter Summary ---
Author Organization [employer] Address [address] [facility] 7t [place] [address] Care Team Providers Care Django Developer Name Role Phone Shana Morales MD Primary Care Provide r Reason for Visit * Reason Comments Med Refill Encounter Details Date Type Department Care Team ([facility] st Contact Info) Description 02/21/2023 Refill [facility] [address] [place], [place] [phone] Name, MD Vlad [address] [place], [place] [phone] Chronic GERD Social History Tobacco Use Types [...] Description 12/18/2024 3:15 PM EDT Office Visit [facility] [address] [place] [address] Shana Morales MD [address] [place] [address] documented as of this encounter Visit Diagnoses Diagnosis Chronic GERD documented in this encounter Care Teams Django Developer Relationship Specialty Start Date End Date Shana Morales MD [address] [place], [place] [phone] PCP - General Family Medicine 11/26/17 documented as of this encounter
--- OUTSIDE RECORDS SUMMARY | 2024-11-18 17:51 | XMS_ITS | Encounter Summary ---
Author Organization [email or web address] Address [address] [place] [address] [address] [place] [address] Care Team Providers Care Corporate Licensed Broker Name Role Phone Shana Morales MD Primary Care Provide r Encounter Details Date Type Department Care Team (Late st Contact Info) Description 01/31/2022 Abstract [facility] [address] [place] [address] Dental, Provider, DDS Social History Tobacco Use [...] Description 12/18/2024 3:15 PM EDT Office Visit [facility] [address] [place] [address] Shana Morales MD [address] [place] [address] documented as of this encounter Procedures Procedure [...] filedocumented in this encounter Care Teams Corporate Licensed Broker Relationship Specialty Start Date End Date Barciona Tanner, Liseth, MD [address] [place] [address] PCP - General Family Medicine 11/26/17 documented as of this encounter
--- OUTSIDE RECORDS SUMMARY | 2024-11-18 17:51 | XMS_ITS | Encounter Summary ---
Author Organization [facility] [place], Address [address] [place] [address] Phone Care Team Providers Care Building Serviceman Name Role Phone Shana Morales MD Primary Care Provide r Encounter Details Date Type Department Care Team (Late st Contact Info) Description 10/03/2021 Documentation Only [facility], [address] [facility] [place] [phone] Servando Medel MD [address] [facility] [place] [phone] Social History Tobacco Use Types Packs/Day Years [...] on filedocumented in this encounter Care Teams Building Serviceman Relationship Specialty Start Date End Date Shana Morales MD [address] [place] [phone] PCP - General Internal Medicine 06/30/19 documented as of this encounter
--- OUTSIDE RECORDS SUMMARY | 2024-11-18 17:51 | XMS_ITS | Encounter Summary ---
Author Organization [facility] [place], Address [address] [place] [address] Phone Care Team Providers Care Indoor Landscaper/Gardener Name Role Phone Shana Morales MD Primary Care Provide r Encounter Details Date Type Department Care Team (Late st Contact Info) Description 01/30/2022 Documentation Only [facility], [address] [place] [phone] Bacilio Fleming PA [address] [place] [phone] Social History Tobacco Use Types Packs/Day Years [...] on filedocumented in this encounter Care Teams Indoor Landscaper/Gardener Relationship Specialty Start Date End Date Shana Morales MD [address] [place] [phone] PCP - General Internal Medicine 06/30/19 documented as of this encounter
--- OUTSIDE RECORDS SUMMARY | 2024-11-18 17:51 | XMS_ITS | Encounter Summary ---
Author Organization [employer] Address [address] [facility] 7t [place] [address] Care Team Providers Care Employee Benefits Attorney Name Role Phone Shana Morales MD Primary Care Provide r Encounter Details Date Type Department Care Team (Late st Contact Info) Description 11/13/2024 Orders Only GENERIC EXTERNAL DATA DEPARTMENT Provider, Generic External Data Social History Tobacco Use Types Packs/Day Years [...] PM EDT Office Visit [facility] MEDICINE [address] [place] [address] Shana Morales MD [address] [place], [place] [phone] documented as of this encounter Procedures Procedure Name Priority Date/Time Associated Diagnosis Comments URINALYSIS, COMPLETE Routine 11/13/2024 1:35 PM EDT BASIC METABOLIC PANEL Routine 11/13/2024 11:42 AM EDT documented in this encounter Results * (ABNORMAL) Urinalysis Complete (11/13/2024 1:35 PM EDT) Color Urine Yellow [facility] Appearance Urine Clear [facility] PH 6.0 5.0 - 9.0 [facility] Glucose Urine UA Negative Negative mg/dL [facility] Urine Blood Negative Negative [facility] Specific [place] - Urine 1.010 1.005 - 1.025 [facility] Urine Protein 100 (2+)(A) Neg-Trace mg/dL [facility] Urine Ketones Negative Negative mg/dL [facility] Nitrite Urine Negative Negative [facility] Leukocyte Esterase Urine Negative Negative [facility] RBC Urine 0-2 0 - 2 /HPF [facility] Urine WBC 0-5 0 - 5 /HPF [facility] Urine Squamous Epithelial Cell 0-2 0 - 2 /HPF [facility] Urine Bacteria None Seen None Seen [facility] Hyaline Casts, Urine 0-2 0 - 2 /LPF [facility] 11/13/2024 1:35 PM EDT 11/13/2024 4:05 PM EDT us Generic External Data Provider LAB URINE ORDERAB LES Final Result [facility] [address] [place] [phone] * (ABNORMAL) Basic Metabolic Panel (11/13/2024 11:42 AM EDT) Sodium 139 135 - 145 mmol/L [facility] Potassium 6.1(HH) 3.3 - 5.1 mmol/L [facility] Comment:Critical value for t est(s):POTS Results called to uma back by: MARYANNE Monge Person calling: MAGUIALEIDA Date:11/13/24 Time:1409 Chloride 107 96 - 108 mmol/L [facility] Carbon Dioxide 25 22 - 29 mmol/L [facility] Anion Gap 13 12 - 20 [facility] Urea Nitrogen (BUN) 75(H) 9 - 16 mg/dL [facility] Creatinine, Serum 2.55(H) 0.5 - 1.4 mg/dL [facility] Estimated Glomerular Filt Rate 25 [facility] Comment:Chronic Kidney Disea se: Estimated GFR < 60 mL/min/1.57u6Yovbbh Kidney Disease: Estimated GFR < 15 mL/min/1.73m2 Glucose 145(H) 60 - 115 mg/dL [facility] Calcium 8.9 8.4 - 10.2 mg/dL [facility] 11/13/2024 11:4 2 AM EDT 11/13/2024 1:38 PM EDT us Generic External Data Provider LAB BLOOD ORDERAB LES Final Result [facility] [address] [place] [phone] documented in this encounter Visit Diagnoses Not on filedocumented in this encounter Additional Health Concerns Assessment Noted Time PHQ-9 Depression Total Score: 0 05/30/19 24 1:00 PM EDT documented as of this encounter Care Teams Employee Benefits Attorney Relationship Specialty Start Date End Date Shana Morales MD [address] [place] [address] PCP - General Family Medicine 11/26/17 documented as of this encounter
--- OUTSIDE RECORDS SUMMARY | 2024-11-18 17:51 | XMS_ITS | Encounter Summary ---
Author Organization [employer] Address [address] [facility] 7t [place] [address] Care Team Providers Care Policy Officer Name Role Phone Shana Morales MD Primary Care Provide r Reason for Visit * Reason Comments Med Refill Encounter Details Date Type Department Care Team ([facility] st Contact Info) Description 11/16/2024 Refill [facility] MEDICINE [address] [place], [place] [phone] Shana Morales MD [address] [place], [place] [phone] Hypertension, unspecified type Social History Tobacco Use Types Packs/Day Years [...] Description 12/18/2024 3:15 PM EDT Office Visit [facility] MEDICINE [address] [place] [phone] Shana Morales MD [address] [place] [phone] documented as of this encounter Visit Diagnoses Diagnosis Hypertension, unspecified type documented in this encounter Additional Health Concerns Assessment Noted Time PHQ-9 Depression Total Score: 0 05/30/19 24 1:00 PM EDT documented as of this encounter Care Teams Policy Officer Relationship Specialty Start Date End Date Shana Morales MD [address] [place] [phone] PCP - General Family Medicine 11/26/17 documented as of this encounter
--- OUTSIDE RECORDS SUMMARY | 2024-11-18 17:51 | XMS_ITS | Encounter Summary ---
Author Organization [facility], Address [address] [place] [address] Phone Care Team Providers Care Clipper Counters Name Role Phone Shana Morales MD Primary Care Provide r Encounter Details Date Type Department Care Team (Late st Contact Info) Description 11/14/2021 Documentation Only [facility], [address] [place] [address] Bacilio Fleming PA [address] [place] [address] Social History Tobacco Use Types [...] on filedocumented in this encounter Care Teams Clipper Counters Relationship Specialty Start Date End Date Shana Morales MD [address] [place] [phone] PCP - General Internal Medicine 06/30/19 documented as of this encounter
--- OUTSIDE RECORDS SUMMARY | 2024-11-18 17:51 | XMS_ITS | Encounter Summary ---
Author Organization [email or web address] Address [address] [place] [address] 7t [place] [address] Care Team Providers Care Pharmacology Teacher Name Role Phone Shana Morales MD Primary Care Provide r Encounter Details Date Type Department Care Team ([facility] Contact Info) Description 11/07/2022 Telephone [facility] MEDICINE [address] [place] [phone] Shana Morales MD [address] [place] [address] [phone] Social History Tobacco Use Types Packs/Day Years [...] Description 12/18/2024 3:15 PM EDT Office Visit [facility] MEDICINE [address] [place] [phone] Shana Morales MD [address] [place] [address] [phone] documented as of this encounter Visit Diagnoses Not on filedocumented in this encounter Care Teams Pharmacology Teacher Relationship Specialty Start Date End Date Shana Morales MD [address] [place] [address], [place] [address] PCP - General Family Medicine 11/26/17 documented as of this encounter
--- OUTSIDE RECORDS SUMMARY | 2024-11-18 17:51 | XMS_ITS | Encounter Summary ---
Author Organization [facility], Address [address] [place] [address] Phone Care Team Providers Care Sorter Upholstery Parts Name Role Phone Shana Morales MD Primary Care Provide r Encounter Details Date Type Department Care Team (Late st Contact Info) Description 10/03/2021 Documentation Only [facility], [address] [place] [phone] Servando Medel MD [address] [facility] [address] [place] [phone] Social History Tobacco Use Types Packs/Day Years [...] on filedocumented in this encounter Care Teams Sorter Upholstery Parts Relationship Specialty Start Date End Date Shana Morales MD [address] [place] [phone] PCP - General Internal Medicine 06/30/19 documented as of this encounter
--- OUTSIDE RECORDS SUMMARY | 2024-11-18 17:51 | XMS_ITS | Encounter Summary ---
Author Organization [employer] Address [address] [facility] 7t [place] [address] Care Team Providers Care Banking Paralegal Name Role Phone Shana Morales MD Primary Care Provide r Encounter Details Date Type Department Care Team (Latest Contact Info) Description 07/13/2020 Abstract [facility] CONVERSIONS Dental, Provider, DDS Social [...] Description 12/18/2024 3:15 PM EDT Office Visit [facility] MEDICINE [address] [place] [address] Shana Morales MD [address] [place] [address] documented as of this encounter Visit Diagnoses Not on filedocumented in this encounter Care Teams Banking Paralegal Relationship Specialty Start Date End Date Shana Morales MD [address] [place] [address] PCP - General Family Medicine 11/26/17 documented as of this encounter
--- OUTSIDE RECORDS SUMMARY | 2024-11-18 17:51 | XMS_ITS | Encounter Summary ---
Author Organization [employer] Address [address] [facility] 7t [place] [address] Care Team Providers Care Field Service Analyst Name Role Phone Shana Morales MD Primary Care Provide r Encounter Details Date Type Department Care Team (Latest Contact Info) Description 09/17/2018 Abstract [facility] CONVERSIONS Dental, Provider, DDS Social History Tobacco [...] Description 12/18/2024 3:15 PM EDT Office Visit [facility] MEDICINE [address] [place] [address] Shana Morales MD [address] [place] [address] documented as of this encounter Visit Diagnoses Not on filedocumented in this encounter Care Teams Field Service Analyst Relationship Specialty Start Date End Date Shana Morales MD [address] [place] [address] PCP - General Family Medicine 11/26/17 documented as of this encounter
--- OUTSIDE RECORDS SUMMARY | 2024-11-18 17:51 | XMS_ITS | Patient Health Record ---
Author Organization [facility] Address [address] [place] [address] Care Team Providers Care Drywall Carrier Name Role Phone NONE, NONE Primary Care Provider Daniel Ashley [phone] Reason For Referral No Information Plan Of Treatment No Information
== END 2024-11-18 14:29 | disposition home or self-care (01) ==
LOC: HO.HKAM 14:05
PROVIDERS: PCP Internal Medicine; Visit Provider Internal Medicine Hypertension Specialist
DX: D64.9 Anemia, unspecified (principal); N18.4 Chronic kidney disease, stage 4 (severe)
CPT/HCPCS: 99214

== ENCOUNTER → 2024-11-18 14:05 | Outpatient (BNVA) | payer OTHER, SELFPAY | PROVIDERS: PCP Internal Medicine; Visit Provider Internal Medicine Hypertension Specialist | DX: D64.9 Anemia, unspecified (principal); N18.4 Chronic kidney disease, stage 4 (severe) | CPT/HCPCS: 99212 ==

== ENCOUNTER 2024-11-24 14:58 | Outpatient (REF) | payer OTHER, SELFPAY ==
[2024-11-24 16:46] LABS: Appearance Urine Clear; Glucose Urine UA Negative (Negative); PH 5.5 (5.0-9.0); Specific Gravity - Urine 1.010 (1.005-1.025); UMIC TRIGGER UA YES
[2024-11-24 16:55] LABS: Anion Gap 13 (12-20); Blood Urea Nitrogen 69 mg/dL (9-16); Calcium 9.1 mg/dL (8.4-10.2); Carbon Dioxide 28 mmol/L (22-29); Chloride 102 mmol/L (96-108); Estimated Glomerular Filt Rate 24; Potassium 4.9 mmol/L (3.3-5.1); Sodium 138 mmol/L (135-145)
--- OUTSIDE RECORDS SUMMARY | 2024-11-24 18:01 | XMS_ITS | Clinical Summary ---
Author Organization [employer] Address [address] [facility] 7t [place] [address] Care Team Providers Care Associate Professor Of Pathology Name Role Phone Shana Morales MD Primary Care Provide r Allergies Active Allergy Reactions Criticality Noted Date Comments Ibuprofen Other High 02/03/2022 Nsaids High 05/26/2013 Other reaction(s): acute renal failure Medications acetaminophen (Tylenol) 325 MG tablet Take 2 tablets by mouth in the morning and 2 tablets at noon and 2 tablets in the evening. 019 Active Blood Glucose Monitoring Suppl ([employer] Lite) w/Device kit USE TO TEST BLOOD [...] stripIndications :Type 2 diabetes mellitus without complications ([facility]) TEST BLOOD SUGAR ONCE [...] Encounters Date Type Department Care Team Description 11/24/2024 Orders Only GENERIC EXTERNAL DATA DEPARTMENT Provider, Generic External Data 11/23/2024 Telephone [facility] MEDICINE [address] [place] [address] Shana Morales MD r/s from 12/18/24 11/16/2024 Refill [facility] MEDICINE [address] [place] [address] Shana Morales MD Hypertension, unspecified type 11/13/2024 Orders Only GENERIC EXTERNAL DATA DEPARTMENT Provider, Generic External Data 10/23/2024 3:00 PM EDT Office Visit [facility] ADULT DENTAL [address] [place] [address] Alicia Hannah DDS Encounter for dental examination (Primary Dx); Dental calculus; Excessive attrition of teeth, limited to enamel; Bruxism 10/15/2024 3:30 PM EDT Office Visit [facility] OPTOMETRY [address] [place] [address] Toni, Elisa, OD Diabetes type 2, no ocular involvement ([facility]) (Primary Dx); Combined forms of age-related cataract of both eyes; Presbyopia of both eyes 10/15/2024 Travel 10/14/2024 Travel 10/06/2024 Telephone [facility] MEDICINE [address] [place] [address] Shana Morales MD No Show 10/05/2024 Orders Only GENERIC EXTERNAL DATA DEPARTMENT Provider, Generic External Data 09/09/2024 Refill [facility] MEDICINE [address] [place] [address] Shana Morales MD Essential hypertension 08/31/2024 Refill [facility] [address] [phone] Shana Morales MD Chronic GERD from Last [...] Care Team (Late st Contact Info) Description 12/11/2024 9:30 AM EDT Office Visit [facility] MEDICINE [address] [place], [place] [phone] Shana Morales MD [address] [place] [address] Health Maintenance Due Date Last Done Comments [...] Associated Diagnosis Comments BASIC METABOLIC PANEL Routine 11/24/2024 3:17 PM EDT URINALYSIS, COMPLETE Routine 11/24/2024 3:17 PM EDT URINALYSIS, COMPLETE Routine 11/13/2024 1:35 PM EDT [...] Health Maintenance Results * (ABNORMAL) Urinalysis Complete (11/24/2024 3:17 PM EDT) Only the most recent of3 resultswithin the time period is included. Color Urine Yellow [facility] Appearance Urine Clear [facility] PH 5.5 5.0 - 9.0 [facility] Glucose Urine UA Negative Negative mg/dL [facility] Urine Blood Negative Negative [facility] Specific [place] - Urine 1.010 1.005 - 1.025 [facility] Urine Protein 100 (2+)(A) Neg-Trace mg/dL [facility] Urine Ketones Negative Negative mg/dL [facility] Nitrite Urine Negative Negative [facility] Leukocyte Esterase Urine Negative Negative [facility] RBC Urine 0-2 0 - 2 /HPF [facility] Urine WBC 0-5 0 - 5 /HPF [facility] Urine Squamous Epithelial Cell 0-2 0 - 2 /HPF [facility] Urine Bacteria None Seen None Seen [facility] Hyaline Casts, Urine 0-2 0 - 2 /LPF [facility] 11/24/2024 3:17 PM EDT 11/24/2024 4:36 PM EDT us Generic External Data Provider LAB URINE ORDERAB LES Final Result Performing Organization Address City/[facility]/ZIP Co de Phone Number [facility] [address] [place] [phone] * (ABNORMAL) Basic Metabolic Panel (11/24/2024 3:17 PM EDT) Only the most recent of3 resultswithin the time period is included. Sodium 138 135 - 145 mmol/L [facility] Potassium 4.9 3.3 - 5.1 mmol/L [facility] Chloride 102 96 - 108 mmol/L [facility] Carbon Dioxide 28 22 - 29 mmol/L [facility] Anion Gap 13 12 - 20 [facility] Urea Nitrogen (BUN) 69(H) 9 - 16 mg/dL [facility] Creatinine, Serum 2.65(H) 0.5 - 1.4 mg/dL [facility] Estimated Glomerular Filt Rate 24 [facility] Comment:Chronic Kidney Disea se: Estimated GFR < 60 mL/min/[id number] Kidney Disease: Estimated GFR < 15 mL/min/1.73m2 Glucose 101 60 - 115 mg/dL [facility] Calcium 9.1 8.4 - 10.2 mg/dL [facility] 11/24/2024 3:17 PM EDT 11/24/2024 4:22 PM EDT us Generic External Data Provider LAB BLOOD ORDERAB LES Final Result [facility] [address] [place] [phone] * POCT HGB A1C (02/13/2024 2:03 PM EST) Pathologist [facility] Hemoglobin A1C 5.5 4.0 - 6.0 % QC Media Lot # [id number] Lot# Expiration Date [id number] Blood 02/13/2024 2:03 PM EST Shana Tanner MD POINT OF CARE TEST EN TER/EDIT ORDERABLES Final Result * Hepatitis C Antibody with Reflex to HCV, RNA, Quantitative, Real-Time PCR (08/15/2023 9:36 AM EDT) [facility] Hepatitis C Antibody Nonreactive Nonreactive [facility] Comment:Antibodies to HCV no t detected; does not exclude early acuteHCV infection. Blood Venous blood specimen / Unknown 08/15/2023 9:36 AM EDT 08/15/2023 11:49 AM EDT Shana Tanner MD LAB BLOOD ORDERABLES Final Result [facility] [address] [place] [phone] * (ABNORMAL) Albumin, Random Urine W/Creatinine (02/13/2023 11:46 AM EST) Pathologist [facility] Creatinine, Urine 24.40 mg/dL [facility] Microalbumin Urine 362.0 mg/L [facility] Microalbum Creatinine Ratio Ur 1,483.6(H ) <30 ug/mg cr [facility] Comment:Albumin/Creatinine R atio Reference Ranges: Normal: < 30 ug/mg creatinine Microalbuminuria: 30 - 300 ug/mg creatinineClinical Albuminuria: > 300 ug/mg creatinine 02/13/2023 11:4 6 AM EST 02/13/2023 1:05 PM EST us Shana Tanner MD LAB URINE ORDERABLES Final Result Performing Organization Address [facility] Co de Phone Number [facility] [address] [place] [phone] * (ABNORMAL) Lipid Panel, Standard (02/13/2023 11:46 AM EST) Triglycerides 118 <150 mg/dL [facility] Comment:Desirable Triglyceri de: less than 150 mg/dLBorderline High Triglyceride 150-199 mg/dLHigh Triglyceride: 200-499 mg/dLVery High Triglyceride: greater than or equal to 5OO mg/dL Cholesterol 193 <200 mg/dL [facility] Comment:Desirable Cholestero l: less than 200 mg/dLBorderline High Cholesterol: 200-239 mg/dLHigh Cholesterol: greater than 239 mg/dL LDL Cholesterol Calculated 121(H) <100 mg/dL [facility] Comment:Desirable LDL: less than 100 mg/dLNear Optimal/Above Optimal LDL: 110- 129 mg/dLBorderline High LDL: 130-159 mg/dLHigh LDL: 160-189 mg/dLVery High LDL: greater than or equal to 190 mg/dL HDL Cholesterol 49 >40 mg/dL [facility] Comment:Desirable HDL: great er than 40 mg/dL Note: This HDL assay may give artificially low results in patients with liver disease. Blood Venous blood specimen / Unknown 02/13/2023 11:46 AM EST 02/13/2023 1:19 PM EST us Shana Tanner MD LAB BLOOD ORDERABLES Final Result Performing Organization Address [facility]/ZIP Co de Phone Number [facility] [address] [place] [phone] from Last 3 Months or Most Recently Relevant to Health Maintenance [facility] AD[facility] Care Teams Associate Professor Of Pathology Relationship Specialty Start Date End Date Shana Morales MD [address] [place] [address] PCP - General Family Medicine 11/26/17
--- OUTSIDE RECORDS SUMMARY | 2024-11-24 18:02 | XMS_ITS | Encounter Summary ---
Author Organization [facility], Address [address] [place] [address] Phone Care Team Providers Care Inspector Wire Rope Name Role Phone Shana Morales MD Primary Care Provide r Encounter Details Date Type Department Care Team (Late st Contact Info) Description 01/30/2022 Documentation Only [facility], [address] [place] [address] Bacilio Fleming PA [address] [place] [address] Social History Tobacco Use Types [...] on filedocumented in this encounter Care Teams Inspector Wire Rope Relationship Specialty Start Date End Date Shana Morales MD [address] [place] [phone] PCP - General Internal Medicine 06/30/19 documented as of this encounter
--- OUTSIDE RECORDS SUMMARY | 2024-11-24 18:02 | XMS_ITS | Encounter Summary ---
Author Organization [facility], Address [address] [place] [address] Phone Care Team Providers Care Manual Winder Name Role Phone Shana Morales MD Primary Care Provide r Encounter Details Date Type Department Care Team (Late st Contact Info) Description 04/18/2021 Documentation Only [facility], [address] [place] [phone] Servando Medel MD [address] [facility] [address] [place] [phone] Social History Tobacco Use Types Packs/Day Years [...] on filedocumented in this encounter Care Teams Manual Winder Relationship Specialty Start Date End Date Shana Morales MD [address] [place] [phone] PCP - General Internal Medicine 06/30/19 documented as of this encounter
--- OUTSIDE RECORDS SUMMARY | 2024-11-24 18:02 | XMS_ITS | Encounter Summary ---
Author Organization [employer] Address [address] [place] [address] 7t [place] [address] Care Team Providers Care Hogshead Hand Name Role Phone Shana Morales MD Primary Care Provide r Encounter Details Date Type Department Care Team ([facility] Contact Info) Description 02/09/2022 Orders Only [facility] MEDICINE [address] [place] [phone] Mariama Krause FNP [address] [place] [address] Type 2 diabetes mellitus without complication, without long-term current use of insulin ([facility]) (Primary Dx) Social History Tobacco Use [...] Department Care Team (Late Contact Info) Description 12/11/2024 9:30 AM EDT Office Visit [facility] MEDICINE [address] [place] [phone] Shana Morales MD [address] [place] [address] [place] [address] Scheduled Orders Name Type Priority Associated Diagnoses Orde r Schedule Creatinine, Serum Lab Routine Type 2 diabetes mellitus without complication, without long-term current use of insulin (CMS/HCC) Expected: 02/09/2022 (Approximate), Expires: 02/09/2023 documented as of this encounter Visit Diagnoses Diagnosis Type 2 diabetes mellitus without complication, without long-term current use of insulin ([facility])- Primary documented in this encounter Care Teams Hogshead Hand Relationship Specialty Start Date End Date Shana Morales MD [address] [place] [address] PCP - General Family Medicine 11/26/17 documented as of this encounter
--- OUTSIDE RECORDS SUMMARY | 2024-11-24 18:02 | XMS_ITS | Encounter Summary ---
Author Organization [employer] Address [address] [facility] 7t [place] [address] Care Team Providers Care Flight Security Specialist Name Role Phone Shana Morales MD Primary Care Provide r Encounter Details Date Type Department Care Team (Late st Contact Info) Description 11/24/2024 Orders Only GENERIC EXTERNAL DATA [...] Description 12/11/2024 9:30 AM EDT Office Visit [facility] [address] [place] [address] Shana Morales MD [address] [place], [place] [phone] documented as of this encounter Procedures Procedure Name Priority Date/Time Associated Diagnosis Comments URINALYSIS, COMPLETE Routine 11/24/2024 3:17 PM EDT BASIC METABOLIC PANEL Routine 11/24/2024 3:17 PM EDT documented in this encounter Results * (ABNORMAL) Basic Metabolic Panel (11/24/2024 3:17 PM EDT) Sodium 138 135 - 145 mmol/L [facility] Potassium 4.9 3.3 - 5.1 mmol/L [facility] Chloride 102 96 - 108 mmol/L [facility] Carbon Dioxide 28 22 - 29 mmol/L [facility] Anion Gap 13 12 - 20 [facility] Urea Nitrogen (BUN) 69(H) 9 - 16 mg/dL [facility] Creatinine, Serum 2.65(H) 0.5 - 1.4 mg/dL [facility] Estimated Glomerular Filt Rate 24 [facility] Comment:Chronic Kidney Disea se: Estimated GFR < 60 mL/min/1.57g6Zuamde Kidney Disease: Estimated GFR < 15 mL/min/1.73m2 Glucose 101 60 - 115 mg/dL [facility] Calcium 9.1 8.4 - 10.2 mg/dL [facility] 11/24/2024 3:17 PM EDT 11/24/2024 4:22 PM EDT us Generic External Data Provider LAB BLOOD ORDERAB LES Final Result Performing Organization Address [facility] de Phone Number [facility] [address] [place] [address] [phone] * (ABNORMAL) Urinalysis Complete (11/24/2024 3:17 PM EDT) Color Urine Yellow [facility] Appearance Urine Clear [facility] PH 5.5 5.0 - 9.0 [facility] Glucose Urine UA Negative Negative mg/dL [facility] Urine Blood Negative Negative [facility] Specific [place] - Urine 1.010 1.005 - 1.025 [facility] Urine Protein 100 (2+)(A) Neg-Trace mg/dL [facility] Urine Ketones Negative Negative mg/dL [facility] Nitrite Urine Negative Negative [facility] Leukocyte Esterase Urine Negative Negative [facility] RBC Urine 0-2 0 - 2 /HPF [facility] Urine WBC 0-5 0 - 5 /HPF [facility] Urine Squamous Epithelial Cell 0-2 0 - 2 /HPF [facility] Urine Bacteria None Seen None Seen [facility] Hyaline Casts, Urine 0-2 0 - 2 /LPF [facility] 11/24/2024 3:17 PM EDT 11/24/2024 4:36 PM EDT us Generic External Data Provider LAB URINE ORDERAB LES Final Result Performing Organization Address [facility] Co de Phone Number [facility] [address] [place] [address] [phone] documented in this encounter Visit Diagnoses Not on filedocumented in this encounter Additional Health Concerns Assessment Noted Time PHQ-9 Depression Total Score: 0 05/30/19 24 1:00 PM EDT documented as of this encounter Care Teams Flight Security Specialist Relationship Specialty Start Date End Date Shana Morales MD [address] [place] [phone] PCP - General Family Medicine 11/26/17 documented as of this encounter
--- OUTSIDE RECORDS SUMMARY | 2024-11-24 18:02 | XMS_ITS | Clinical Summary ---
Author Organization [facility], Address [address] [place] [address] [place] [address] Phone Care Team Providers Care Retail Stock Clerk Name Role Phone Shana Morales MD Primary [...] PM EDT) Hemoglobin A1C 6.1(H) (4-6) % [facility] Comment: HEMOGLOBIN A1C(%) GLUCOSE CONTROL INDEX <6% EXCELLENT 6-7% VERY GOOD 7-8% GOOD 8-10% FAIR >10% POOR Hemoglobin (Hb) A1c testing is performed by Dwayne Ronna-quant immunoassay. Any cause of shortened erythrocyte survival will reduce exposure of erythrocytes to glucose with a consequent decrease in Hb A1c (%). Testing performed or reported by ~[facility], ~a Service of [facility], ~[address] [place] [id number]~ 12/29/2018 2:22 PM EDT us Servando Medel MD LAB BLOOD ORDERABLES Final Resul t [facility] from Last 3 Months or Most Recently Relevant to Health Maintenance Insurance Medicaid [place] Medicare Medicaid [place] Medicare Care Teams Retail Stock Clerk Relationship Specialty Start Date End Date Shana Morales MD [address] [place] [phone] PCP - General Internal Medicine 06/30/19
--- OUTSIDE RECORDS SUMMARY | 2024-11-24 18:02 | XMS_ITS | Encounter Summary ---
Author Organization [employer] Address [address] [place] [address] [address] [place] [address] Care Team Providers Care Terrazzo Grinder Name Role Phone Shana Morales MD Primary Care Provide r Encounter Details Date Type Department Care Team ([facility] Contact Info) Description 11/07/2022 Telephone [facility] MEDICINE [address] [place] [phone] Shana Morales MD [address] [place] [address] [phone] Social History Tobacco Use Types Packs/Day Years [...] 9:30 AM EDT Office Visit [facility] MEDICINE [address] [place] [phone] Shana Morales MD [address] [place] [address] [phone] documented as of this encounter Visit Diagnoses Not on filedocumented in this encounter Care Teams Terrazzo Grinder Relationship Specialty Start Date End Date Shana Morales MD [address] [place] [address], [place] [address] PCP - General Family Medicine 11/26/17 documented as of this encounter
--- OUTSIDE RECORDS SUMMARY | 2024-11-24 18:02 | XMS_ITS | Encounter Summary ---
Author Organization [facility], Address [address] [place] [address] Phone Care Team Providers Care Under Baster Name Role Phone Shana Morales MD Primary Care Provide r Encounter Details Date Type Department Care Team (Late st Contact Info) Description 10/03/2021 Documentation Only [facility], [address] [place] [phone] Servando Medel MD [address] [facility] [place] [phone] Social History Tobacco Use Types Packs/Day Years [...] on filedocumented in this encounter Care Teams Under Baster Relationship Specialty Start Date End Date Shana Morales MD [address] [place] [phone] PCP - General Internal Medicine 06/30/19 documented as of this encounter
--- OUTSIDE RECORDS SUMMARY | 2024-11-24 18:02 | XMS_ITS | Encounter Summary ---
Author Organization [facility], Address [address] [place] [address] Phone Care Team Providers Care Photographer Apprentice Name Role Phone Shana Morales MD Primary Care Provide r Encounter Details Date Type Department Care Team (Late st Contact Info) Description 11/14/2021 Documentation Only [facility], [address] [place] [address] Bacilio Fleming PA [address] [place] [address] Social History Tobacco Use Types [...] on filedocumented in this encounter Care Teams Photographer Apprentice Relationship Specialty Start Date End Date Shana Morales MD [address] [place] [phone] PCP - General Internal Medicine 06/30/19 documented as of this encounter
--- OUTSIDE RECORDS SUMMARY | 2024-11-24 18:02 | XMS_ITS | Patient Health Record ---
Author Organization [facility] Address [address] [place] [address] Care Team Providers Care Fat Purification Worker Name Role Phone NONE, NONE Primary Care Provider Daniel sAhley [phone] Reason For Referral No Information Plan Of Treatment No Information
--- OUTSIDE RECORDS SUMMARY | 2024-11-24 18:02 | XMS_ITS | Encounter Summary ---
Author Organization [employer] Address [address] [facility] 7t [place] [address] Care Team Providers Care Desizing Pad Operator Name Role Phone Shana Morales MD Primary Care Provide r Reason for Visit * Reason Comments Med Refill Encounter Details Date Type Department Care Team ([facility] st Contact Info) Description 02/21/2023 Refill [facility] [address] [place], [place] [phone] Name, MD Vlad [address] [place], [place] [phone] Chronic GERD Social History Tobacco Use Types [...] Description 12/11/2024 9:30 AM EDT Office Visit [facility] [address] [place] [address] Shana Morales MD [address] [place] [address] documented as of this encounter Visit Diagnoses Diagnosis Chronic GERD documented in this encounter Care Teams Desizing Pad Operator Relationship Specialty Start Date End Date Shana Morales MD [address] [place], [place] [phone] PCP - General Family Medicine 11/26/17 documented as of this encounter
--- OUTSIDE RECORDS SUMMARY | 2024-11-24 18:02 | XMS_ITS | Encounter Summary ---
Author Organization [employer] Address [address] [facility] 7t [place] [address] Care Team Providers Care Collar Worker Name Role Phone Shana Morales MD Primary Care Provide r Reason for Visit * Reason Onset Date Comments r/s from 12/18/24 11/23/2024 Encounter Details Date Type Department Care Team ([facility] st Contact Info) Description 11/23/2024 Telephone [facility] [address] [place], [place] [phone] Shana Morales MD [address] [place], [place] [phone] r/s from 12/18/24 Social History Tobacco Use Types Packs/Day Years [...] encounter Miscellaneous Notes * Telephone Encounter - Omayra Bautista [place] - 11/23/2024 3:45 PM EDT R/s from 12/18/24. Pt agreed for office visit appointment on 12/11/24 at 9:30 am. documented in this encounter Plan of Treatment Upcoming Encounters Date Type Department Care Team (Late st Contact Info) Description 12/11/2024 9:30 AM EDT Office Visit [facility] [address] [place] [phone] Shana Morales MD [address] [place] [address] documented as of this encounter Visit Diagnoses Not on filedocumented in this encounter Additional Health Concerns Assessment Noted Time PHQ-9 Depression Total Score: 0 05/30/19 24 1:00 PM EDT documented as of this encounter Care Teams Collar Worker Relationship Specialty Start Date End Date Shana Morales MD [address] [place] [phone] PCP - General Family Medicine 11/26/17 documented as of this encounter
--- OUTSIDE RECORDS SUMMARY | 2024-11-24 18:02 | XMS_ITS | Encounter Summary ---
Author Organization [employer] Address [address] [facility] 7t [place] [address] Care Team Providers Care Plowing Gardens Name Role Phone Shana Morales MD Primary Care Provide r Encounter Details Date Type Department Care Team (Latest Contact Info) Description 09/17/2018 Abstract [facility] CONVERSIONS Dental, Provider, DDS Social History [...] 9:30 AM EDT Office Visit [facility] MED[facility]INE [address] [place] [address] Shana Morales MD [address] [place] [address] documented as of this encounter Visit Diagnoses Not on filedocumented in this encounter Care Teams Plowing Gardens Relationship Specialty Start Date End Date Shana Morlaes MD [address] [place], [place] [phone] PCP - General Family Medicine 11/26/17 documented as of this encounter
--- OUTSIDE RECORDS SUMMARY | 2024-11-24 18:02 | XMS_ITS | Encounter Summary ---
Author Organization [employer] Address [address] [place] [address] 7t [place] [address] Care Team Providers Care Electric Engine Mechanic Name Role Phone Shana Morales MD Primary Care Provide r Encounter Details Date Type Department Care Team (Late st Contact Info) Description 01/31/[address] [facility] [address] [place] [address] Dental, Provider, DDS Social History Tobacco Use [...] Description 12/11/2024 9:30 AM EDT Office Visit [facility] [address] [place] [address] Shana Morales MD [address] [place] [address] documented as of this encounter Procedures Procedure [...] on filedocumented in this encounter Care Teams Electric Engine Mechanic Relationship Specialty Start Date End Date Barciona Tanner, Liseth, MD [address] [place] [address] PCP - General Family Medicine 11/26/17 documented as of this encounter
--- OUTSIDE RECORDS SUMMARY | 2024-11-24 18:02 | XMS_ITS | Encounter Summary ---
Author Organization [facility], Address [address] [place] [address] Phone Care Team Providers Care Founder And President Name Role Phone Shana Morales MD Primary Care Provide r Encounter Details Date Type Department Care Team (Late st Contact Info) Description 10/03/2021 Documentation Only [facility], [address] [facility] [address] [place] [phone] Servando Medel MD [address] [facility] [place] [phone] Social History Tobacco Use Types Packs/Day Years [...] on filedocumented in this encounter Care Teams Founder And President Relationship Specialty Start Date End Date Shana Morales MD [address] [place] [phone] PCP - General Internal Medicine 06/30/19 documented as of this encounter
--- OUTSIDE RECORDS SUMMARY | 2024-11-24 18:02 | XMS_ITS | Encounter Summary ---
Author Organization [facility], Address [address] [place] [address] Phone Care Team Providers Care Product Support Rep Name Role Phone Shana Morales MD Primary Care Provide r Encounter Details Date Type Department Care Team (Late st Contact Info) Description 02/01/2021 Documentation Only [facility], [address] [facility] [place] [phone] Servando Medel MD [address] [facility] [address] [place] [phone] Social History Tobacco Use Types Packs/Day Years [...] on filedocumented in this encounter Care Teams Product Support Rep Relationship Specialty Start Date End Date Shana Morales MD [address] [place] [phone] PCP - General Internal Medicine 06/30/19 documented as of this encounter
--- OUTSIDE RECORDS SUMMARY | 2024-11-24 18:02 | XMS_ITS | Encounter Summary ---
Author Organization [employer] Address [address] [facility] 7t [place] [address] Care Team Providers Care Personnel Director Name Role Phone Shana Morales MD Primary Care Provide r Encounter Details Date Type Department Care Team (Latest Contact Info) Description 07/13/2020 Abstract [facility] CONVERSIONS Dental, Provider, DDS Social History Tobacco [...] Description 12/11/2024 9:30 AM EDT Office Visit [facility] MEDIC[facility] [address] [place] [address] Shana Morales MD [address] [place] [address] documented as of this encounter Visit Diagnoses Not on filedocumented in this encounter Care Teams Personnel Director Relationship Specialty Start Date End Date Shana Morales MD [address] [place] [address] PCP - General Family Medicine 11/26/17 documented as of this encounter
== END 2024-11-24 14:59 | disposition home or self-care (01) ==
LOC: HO.HHCL 14:58
PROVIDERS: PCP Internal Medicine; Visit Provider Internal Medicine Hypertension Specialist
DX: N18.4 Chronic kidney disease, stage 4 (severe) (principal); E87.5 Hyperkalemia; N17.9 Acute kidney failure, unspecified; D64.9 Anemia, unspecified
CPT/HCPCS: 36415; 80048; 81001